=== PATIENT | female | born 1960 | race Caucasian/White ===

== ENCOUNTER 2016-12-30 08:19 | Inpatient (IN) | payer OTHER ==
[2016-12-30] VITALS (9 sets, daily range): BP systolic 111–177; BP diastolic 67–97; PULSE 81–99; RESP 16–24; TEMP 98–98.6; O2SAT 92–96
[~2016-12-30] VITALS: Ht 160 cm; Wt 98.5 kg
[~2016-12-30 08:19] MED LIST: ALBU0.08 NEB; APIX5TAB PO; ESCI10TA PO; IPRAAER INH; LEVA500T PO; METO50TA PO; PACE200T PO; TRAZ150T75 PO; UMEC1INH INH; VALE250C2
[2016-12-30] MEDS ORDERED: SODIUM CHLORIDE 0.9% FLUSH 10 ML FLUSH IVF PRN (08:30)
--- NOTE | 2016-12-30 08:40 | PD ---
HPI Chief Complaint: Numbness/Tingling Time Seen by Provider: 08:30 Travel History International Travel<30 days: No Contact w/Intl Traveler<30days: No Traveled to known affect area: No History of Present Illness HPI 56-year-old female with history of fibromyalgia, sciatica, presents to the ER today brought in by EMS because she states that she does not remember what happened after she was dropped off by her nephew, woke up sometime last night, found herself on the ground of her own apartment, has mid back pain, and is not able to move her legs. She denies any incontinence, fevers, or other symptoms. She denies any previous history of syncope. She denies drinking alcohol or abusing substances last night. She does admit that she is more stressed out than usual. She states that her back pain is currently a 9 out of 10. Modifying Factors: None Associated Signs & Symptoms: Syncope, lower back pain Risk Factors: None PFSH Past Medical History Hx Anticoagulant Therapy: Yes (ELIQUIS) Asthma: No Autoimmune Disease: No Blood Disorders: No Bipolar Disorder: Yes Anxiety: Yes Depression: Yes Heart Rhythm Problems: Yes (AFIB) Cancer: Yes (BREAST ) Cardiac Catheterization: No Cardiovascular Problems: Yes (CHF / HYPERTENSION) High Cholesterol: No Chemotherapy: No Chest Pain: No Congestive Heart Failure: Yes COPD: Yes Cerebrovascular Accident: Yes Diabetes: No Diminished Hearing: No Endocrine: No Gastrointestinal Disorders: Yes (bowel resction 2013 ) GERD: Yes Genitourinary: No Headaches: Yes Hiatal Hernia: No Heparin Induced Thrombocytopen: No Hypertension: Yes Immune Disorder: No Implanted Vascular Access Dvce: Yes Musculoskeletal: No Neurologic: No Psychiatric: Yes Reproductive: No Respiratory: Yes Migraines: No Radiation Therapy: Yes (2002 BREAST CANCER) Seizures: Yes (2014) Sleep Apnea: No Thyroid Disease: No Ulcer: Yes Menopausal: Yes : 3 Para: 2 Miscarriage: 1 Past Surgical History Appendectomy: Yes Body Medical Devices: 2 pins in right arm Cholecystectomy: Yes Coronary Artery Bypass Graft: No Hysterectomy: No Mastectomy: Yes (BILATERAL ) Neurologic Surgery: Yes (C-SPINE SURGERY) Pacemaker: No Tonsillectomy: Yes Social History Alcohol Use: No Tobacco Use: Yes (12PPD) Substance Use: No Allergies-Medications (Allergen,Severity, Reaction): Coded Allergies: Penicillin (Verified Allergy, Severe, PURITIS, 12/30/16) Reported Meds & Prescriptions Reported Meds & Active Scripts Active Escitalopram (Escitalopram Oxalate) 10 Mg Tab 10 Mg PO DAILY Reported Eliquis (Apixaban) 5 Mg Tab 5 Mg PO BID Albuterol Neb (Albuterol Sulfate) 2.5 Mg/3 Ml Neb 2.5 Mg NEB Q4HR NEB While awake Trazodone (Trazodone HCl) 150 Mg Tab 150 Mg PO HS Metoprolol Tartrate 50 Mg Tab 50 Mg PO BID Incruse Ellipta Inh (Umeclidinium [place] Inh) 0.0625 Mg/Act Inh 62.5 Mcg INH DAILY Pacerone (Amiodarone HCl) 200 Mg Tab 200 Mg PO DAILY Combivent Respimat Inh (Ipratropium-Albuterol Inh) 20-100 Nursing Home/Act Aero 1 Puff INH QID Review of Systems Except as stated in HPI: all other systems reviewed are Neg Physical Exam Narrative GENERAL: Middle age white female patient currently in moderate distress, tearful in the ER. Awake, alert, oriented 3. SKIN: Warm and dry. HEAD: Atraumatic. Normocephalic. EYES: Pupils equal and round. No scleral icterus. No injection or drainage. ENT: No nasal bleeding or discharge. Mucous membranes pink and moist. NECK: Trachea midline. No JVD. CARDIOVASCULAR: Regular rate and rhythm. No murmur appreciated. RESPIRATORY: No accessory muscle use. Clear to auscultation. Breath sounds equal bilaterally. GASTROINTESTINAL: Abdomen soft, non-tender, nondistended. Hepatic and splenic margins not palpable. MUSCULOSKELETAL: No obvious deformities. No clubbing. No cyanosis. No edema. BACK: No CVA tenderness. No rash. Midline L1 area tenderness on palpation of the spine with no obvious deformities. NEUROLOGICAL: Awake and alert. Decreased sensation over the entire body, unable to lift or move both legs, but able to use both arms with normal strength. Normal speech. Face is symmetrical. Extraocular movements are intact. PSYCHIATRIC: Appropriate mood and affect; insight and judgment normal. Data Data Last Documented VS Vital Signs Date Time Temp Pulse Resp B/P Pulse Ox O2 Delivery O2 Flow Rate FiO2 12/30/16 12:50 81 16 147/72 96 Room Air 12/30/16 08:24 98.6 Orders Electrocardiogram (12/30/16 08:30) Complete Blood Count With Diff (12/30/16 08:30) Comprehensive Metabolic Panel (12/30/16 08:30) Magnesium (Mg) (12/30/16 08:30) Ckmb (Isoenzyme) Profile (12/30/16 08:30) Troponin I (12/30/16 08:30) Act Partial Throm Time (Ptt) (12/30/16 08:30) Prothrombin Time / Inr (Pt) (12/30/16 08:30) Urinalysis - C+S If Indicated (12/30/16 08:30) Chest, Single Ap (12/30/16 08:30) Ct Brain W/O Iv Contrast(Rout) (12/30/16 08:30) Ecg Monitoring (12/30/16 08:30) Iv Access Insert/Monitor (12/30/16 08:30) Oximetry (12/30/16 08:30) Sodium Chloride 0.9% Flush (Ns Flush) (12/30/16 08:30) Cta Thor Abd Aorta W Iv C W3d (12/30/16 ) Drug Screen, Random Urine (12/30/16 08:43) CKMB (12/30/16 09:05) CKMB% (12/30/16 09:05) Vascular Access Team Consult PRN (12/30/16 11:26) Vascular Poc Ultrasound (12/30/16 ) Iohexol 350 Inj (Omnipaque 350 Inj) (12/30/16 13:52) Labs Laboratory Tests Test 12/30/16 12/30/16 09:05 09:25 White Blood Count 12.3 TH/MM3 Red Blood Count 4.41 MIL/MM3 Hemoglobin 13.4 GM/DL Hematocrit 40.3 % Mean Corpuscular Volume 91.5 FL Mean Corpuscular Hemoglobin 30.5 PG Mean Corpuscular Hemoglobin 33.3 % Concent Red Cell Distribution Width 15.0 % Platelet Count 325 TH/MM3 Mean Platelet Volume 8.3 FL Neutrophils (%) (Auto) 77.9 % Lymphocytes (%) (Auto) 12.6 % Monocytes (%) (Auto) 8.0 % Eosinophils (%) (Auto) 0.7 % Basophils (%) (Auto) 0.8 % Neutrophils # (Auto) 9.6 TH/MM3 Lymphocytes # (Auto) 1.5 TH/MM3 Monocytes # (Auto) 1.0 TH/MM3 Eosinophils # (Auto) 0.1 TH/MM3 Basophils # (Auto) 0.1 TH/MM3 CBC Comment DIFF FINAL Differential Comment Prothrombin Time 11.4 SEC Prothromb Time International 1.0 RATIO Ratio Activated Partial 27.5 SEC Thromboplast Time Sodium Level 134 MEQ/L Potassium Level 4.2 MEQ/L Chloride Level 101 MEQ/L Carbon Dioxide Level 25.2 MEQ/L Anion Gap 8 MEQ/L Blood Urea Nitrogen 13 MG/DL Creatinine 0.97 MG/DL Estimat Glomerular Filtration 59 ML/MIN Rate Random Glucose 87 MG/DL Calcium Level 9.4 MG/DL Magnesium Level 1.9 MG/DL Total Bilirubin 0.5 MG/DL Aspartate Amino Transf 70 U/L (AST/SGOT) Alanine Aminotransferase 31 U/L (ALT/SGPT) Alkaline Phosphatase 157 U/L Total Creatine Kinase 1823 U/L Creatine Kinase MB 29.7 NG/ML Creatine Kinase MB % 1.6 % Troponin I LESS THAN 0.02 NG/ML Total Protein 8.3 GM/DL Albumin 3.5 GM/DL Urine Color YELLOW Urine Turbidity CLEAR Urine pH 6.0 Urine Specific [place] 1.011 Urine Protein TRACE mg/dL Urine Glucose (UA) NEG mg/dL Urine Ketones 10 mg/dL Urine Occult Blood NEG Urine Nitrite NEG Urine Bilirubin NEG Urine Urobilinogen LESS THAN 2.0 MG/DL Urine Leukocyte Esterase NEG Urine WBC 2 /hpf Urine Squamous Epithelial 1 /hpf Cells Urine Hyaline Casts 1 /lpf Urine Mucus FEW /lpf Microscopic Urinalysis Comment CULT NOT INDICATED Urine Opiates Screen NEG Urine Barbiturates Screen NEG Urine Amphetamines Screen POS Urine Benzodiazepines Screen NEG Urine Cocaine Screen NEG Urine Cannabinoids Screen NEG MDM Medical Decision Making Medical Screen Exam Complete: Yes Emergency Medical Condition: Yes Medical Record Reviewed: Yes Interpretation(s) EKG shows NSR, no ST elevation or depression, and no arrhythmias. No significant T-wave inversions. Laboratory Tests Test 12/30/16 12/30/16 09:05 09:25 White Blood Count 12.3 TH/MM3 (4.0-11.0) Neutrophils (%) (Auto) 77.9 % (16.0-70.0) Neutrophils # (Auto) 9.6 TH/MM3 (1.8-7.7) Monocytes # (Auto) 1.0 TH/MM3 (0-0.9) Sodium Level 134 MEQ/L (136-145) Estimat Glomerular Filtration 59 ML/MIN (>89) Rate Aspartate Amino Transf 70 U/L (15-37) (AST/SGOT) Alkaline Phosphatase 157 U/L (45-117) Total Creatine Kinase 1823 U/L (26-192) Creatine Kinase MB 29.7 NG/ML (0.5-3.6) Troponin I LESS THAN 0.02 NG/ML (0.02-0.05) Total Protein 8.3 GM/DL (6.4-8.2) Urine Ketones 10 mg/dL (NEG) Urine Mucus FEW /lpf (OCC) Last [address] 12/30/1630 Signed Impressions: Service Date/Time: Friday, December 30, 2016 10:45 - CONCLUSION: No acute disease. Bernard Quintanilla MD Chest X-Ray 12/30/16829 Signed Impressions: Service Date/Time: Friday, December 30, 2016 09:27 - CONCLUSION: 1. Left lingular atelectasis/scarring. 2. Borderline but well compensated heart. Lungs are otherwise clear. Jermaine Hughes MD Aorta CTA 12/30/16 0000 Signed Impressions: Service Date/Time: Friday, December 30, 2016 13:30 - CONCLUSION: 1. The thoracoabdominal aorta is normal in caliber throughout its length without aneurysmal disease or dissection. 2. Dependent atelectatic changes in both hemithoraces. 3. Patient is status post cholecystectomy. 4. Benign-appearing cysts in the lateral aspect of the left renal cortex and left lobe of the thyroid Jermaine Hughes MD Differential Diagnosis Syncope, bilateral leg weaknessmetabolic abnormalities versus dehydration versus back injury versus herniated disc versus CVA versus aortic dissection Narrative Course Patient states that her nephew had dropped her off at around 2 PM yesterday which is when he she was last seen normal. She states that when she woke up, it was dark, and she waited until daylight and pulled herself to call for help. Initial lab work shows some rhabdomyolysis and IV fluids were given in the ER. Her initial CAT scans of the head and aorta did not show any signs of acute processes. On reevaluation at 2:30 PM, she is able to move her legs more but states that she feels very weak in general. At this point, I plan would be to admit her for further evaluation. Diagnosis Primary Impression: Syncope Additional Impression: General weakness Admitting Information Admitting Physician Requests: it Dionicio Dias MD Dec 30, 2016 08:40
[2016-12-30 09:18] LABS: AUTOMATED NEUTROPHIL # 9.6 TH/MM3 (1.8-7.7); BASOPHIL # 0.1 TH/MM3 (0-0.2); BASOPHIL % 0.8 % (0.0-2.0); EOSINOPHIL # 0.1 TH/MM3 (0-0.4); EOSINOPHIL % 0.7 % (0.0-4.0); HEMATOCRIT 40.3 % (35.0-46.0); HEMO FLAGS DIFF FINAL; LYMPH % 12.6 % (9.0-44.0); LYMPHOCYTE # 1.5 TH/MM3 (1.0-4.8); MEAN CELL VOLUME 91.5 FL (80.0-100.0); MEAN CORPUSCULAR HEMOGLOBIN 30.5 PG (27.0-34.0); MEAN CORPUSCULAR HGB CONC 33.3 % (32.0-36.0); NEUT % 77.9 % (16.0-70.0); PLATELET COUNT 325 TH/MM3 (150-450); RED BLOOD COUNT 4.41 MIL/MM3 (4.00-5.30); WHITE BLOOD COUNT 12.3 TH/MM3 (4.0-11.0)
[2016-12-30 09:28] LABS: APTT (PATIENT) 27.5 SEC (24.3-30.1); PROTHROMBIN TIME - PATIENT 11.4 SEC (9.8-11.6)
[2016-12-30 09:50] LABS: BLOOD, URINE NEG (NEG); COMMENT (UR) CULT NOT INDICATED; CULTURE IF INDICATED CULT NOT INDICATED; GLUCOSE,URINE NEG (NEG); HYALINE CAST, URINE 1 /lpf (RARE); KETONE, URINE 10 mg/dL (NEG); MUCUS URINE FEW /lpf (OCC); NITRITE,URINE NEG (NEG); SQUAMOUS EPITHELIAL CELL URINE 1 /hpf (0-5); URINE COLOR YELLOW (YELLW/STRAW)
[2016-12-30 09:57] LABS: ALKALINE PHOSPHATASE 157 U/L (45-117); ALT (GPT) 31 U/L (10-53); ANION GAP 8 MEQ/L (5-15); AST (GOT) 70 U/L (15-37); BICARBONATE 25.2 MEQ/L (21.0-32.0); BLOOD UREA NITROGEN 13 MG/DL (7-18); CHLORIDE 101 MEQ/L (98-107); CREATINE KINASE 1823 U/L (26-192); GLOMERULAR FILTRATION RATE 59 ML/MIN (>89); MAGNESIUM 1.9 MG/DL (1.5-2.5); SODIUM (NA) 134 MEQ/L (136-145); TOTAL BILIRUBIN ADULT 0.5 MG/DL (0.2-1.0)
[2016-12-30 10:01] LABS: POTASSIUM 4.2 MEQ/L (3.5-5.1)
--- NOTE | 2016-12-30 10:05 | RADRPT ---
EXAM DATE/TIME: 12/30/2016 09:27 [facility] COMPARISON: CHEST SINGLE AP, August 18, 2016, 14:10. INDICATIONS : Palpitations. Patient states she passed out and has had confusion. MEDICAL HISTORY : Chronic obstructive pulmonary disease. Cerebrovascular disease. Seizures. Hypertension SURGICAL HISTORY : Cervical spine. ENCOUNTER: Initial ACUITY: 2 days PAIN SCORE: 0/10 LOCATION: Bilateral chest FINDINGS: A single view of the chest demonstrates the lungs to be symmetrically aerated without evidence of mas s, infiltrate or effusion. Scarring or atelectasis in the left lingula . Heart size is borderline th e well compensated.. Osseous structures are intact with anterior fixation of the lower cervical spin e. CONCLUSION: 1. Left lingular atelectasis/scarring. 2. Borderline but well compensated heart. Lungs are otherwise clear. Jermaine Hughes MD on December 30, 2016 at 10:01 Board Certified Radiologist. This report was verified electronically.
[2016-12-30 10:14] LABS: CKMB 29.7 NG/ML (0.5-3.6)
[2016-12-30 11:37] LABS: AMPHETAMINE, URINE POS (NEG); BARBITURATES, URINE NEG (NEG); COCAINE, URINE NEG (NEG)
--- NOTE | 2016-12-30 13:47 | RADRPT ---
EXAM DATE/TIME: 12/30/2016 10:45 [facility] COMPARISON: CT BRAIN W/O CONTRAST, November 23, 2016, 17:30. INDICATIONS : Syncope. RADIATION DOSE: 56.35 CTDIvol (mGy) MEDICAL HISTORY : Congestive hearrt failure. Deep venous thrombosis. Hypertension.Breast cancer. CVA. SURGICAL HISTORY : Appendectomy. Cholecystectomy.Mastectomy, bilateral.Bowel resection. ENCOUNTER: Initial ACUITY: 1 day PAIN SCALE: 0/10 LOCATION: cranial TECHNIQUE: Multiple contiguous axial images were obtained of the head. Using automated exposure control and adj ustment of the mA and/or kV according to patient size, radiation dose was kept as low as reasonably a chievable to obtain optimal diagnostic quality images. FINDINGS: CEREBRUM: The ventricles are normal for age. No evidence of midline shift, mass lesion, hemorrhage or acute in farction. No extra-axial fluid collections are seen. POSTERIOR FOSSA: The cerebellum and brainstem are intact. The 4th ventricle is midline. The cerebellopontine angle i s unremarkable. EXTRACRANIAL: The visualized portion of the orbits is intact. SKULL: The calvaria is intact. No evidence of skull fracture. CONCLUSION: No acute disease. Bernard Quintanilla MD on December 30, 2016 at 13:44 Board Certified Radiologist. This report was verified electronically.
[2016-12-30] MEDS ORDERED: IOHEXOL 350 MG/ML 10 ML VIAL (for RAD DIAG) IV ONE (13:52)
--- NOTE | 2016-12-30 14:29 | RADRPT ---
EXAM DATE/TIME: 12/30/2016 13:30 [facility] COMPARISON: No previous studies available for comparison. INDICATIONS : Dissection. IV CONTRAST: 92 cc Omnipaque 350 (iohexol) IV RADIATION DOSE: 17.07 CTDIvol (mGy) MEDICAL HISTORY : Congestive hearrt failure. Deep venous thrombosis. Hypertension.Breast cancer. CVA. SURGICAL HISTORY : Appendectomy. Cholecystectomy.Mastectomy, bilateral.Bowel resection. ENCOUNTER: Initial ACUITY: 1 day PAIN SCALE: 4/10 LOCATION: chest TECHNIQUE: Volumetric scanning was performed using a multi-row detector CT scanner. The data was post processed with a variety of visualization algorithms including full volume maximum intensity projection, multi -planar sliding thin slab reformation, curved planar reformation, and surface rendering techniques. Using automated exposure control and adjustment of the mA and/or kV according to patient size, radiat ion dose was kept as low as reasonably achievable to obtain optimal diagnostic quality images. FINDINGS: LUNGS: Mild, bilateral dependent atelectatic changes. No acute infiltrate. Bilateral breast augmentation. MEDIASTINUM: No abnormally enlarged lymph nodes by CT criteria. No axillary or hilar abnormalities are identified. Atherosclerotic calcification of the coronary arteries. Benign-appearing 6 mm probable cyst in the l eft lobe of thyroid. ABDOMEN: The liver and spleen are free of focal defects. The pancreas demonstrate no abnormality. Patient is s tatus post cholecystectomy. The adrenal glands are normal. The kidneys demonstrate no evidence of joey id renal mass or hydronephrosis. Benign-appearing 1.3 cm cortical cyst laterally in the left kidney. No free fluid or abdominal masses are identified. No para-aortic adenopathy is seen. PELVIS: No evidence of free fluid or pelvic mass. No abnormally enlarged inguinal or retroperitoneal lymph no juanita are present. The bladder is unremarkable. THORACIC AORTA: The thoracic aortic root is normal measuring 3.1 cm in diameter with normal branching of the great ve ssels. There is no evidence of aneurysm or dissection. Descending thoracic aorta measures 2.7 cm in diameter. ABDOMINAL AORTA: The aorta is normal in caliber without aneurysm or dissection. The renal arteries are patent bilater ally. The proximal celiac and superior mesenteric arteries are patent and normal in diameter. PELVIC VESSELS: The internal iliac and external iliac vessels are patent without aneurysm or stenosis. CONCLUSION: 1. The thoracoabdominal aorta is normal in caliber throughout its length without aneurysmal disease o r dissection. 2. Dependent atelectatic changes in both hemithoraces. 3. Patient is status post cholecystectomy. 4. Benign-appearing cysts in the lateral aspect of the left renal cortex and left lobe of the thyroid Jermaine Hughes MD on December 30, 2016 at 14:22 Board Certified Radiologist. This report was verified electronically.
[2016-12-30] MEDS ORDERED: GADODIAMIDE PF 287 MG/ML 5 ML VIAL (for RAD MRI) IV ONE (17:15)
--- NOTE | 2016-12-30 17:54 | RADRPT ---
EXAM DATE/TIME: 12/30/2016 16:26 [facility] COMPARISON: No previous studies available for comparison. INDICATIONS : Extremity weakness. CONTRAST: 19 cc Omniscan (gadodiamide) IV MEDICAL HISTORY : Hypertension. Cardiovascular disease Carcinoma, breast. SURGICAL HISTORY : Appendectomy. Cholecystectomy. Mastectomy, bilateral. Breast implants. Cervical fusion. Right arm. ENCOUNTER: Subsequent ACUITY: 1 day PAIN SCORE: 6/10 LOCATION: Lower back. TECHNIQUE: Multiplanar multisequence MRI of the lumbar spine was performed with and without contrast. FINDINGS: The most caudal appearing lumbar vertebra is numbered as L5. Sagittal T1 pre-and postcontrast, T2 and inversion recovery images show early degenerative disc disea se at L4-5 and L5-S1 with some loss of disc height and early disc desiccation. Otherwise, vertebral b joan heights are maintained throughout. Spinal canal is widely patent. Small, benign-appearing 1-1.5 c m cortical cysts are seen in both kidneys. Detailed axial images as follows: T12-L1: The thecal sac has a normal diameter. No evidence of disc bulge or protrusion. The neural foramina are patent bilaterally. L1-L2: The thecal sac has a normal diameter. No evidence of disc bulge or protrusion. The neural foramina are patent bilaterally. L2-L3: The thecal sac has a normal diameter. No evidence of disc bulge or protrusion. The neural foramina are patent bilaterally. L3-L4: The thecal sac has a normal diameter. No evidence of disc bulge or protrusion. The neural foramina are patent bilaterally. L4-L5: The thecal sac has a normal diameter. No evidence of disc bulge or protrusion. The neural foramina are patent bilaterally. L5-S1: The thecal sac has a normal diameter. No evidence of disc bulge or protrusion. The neural foramina are patent bilaterally. CONCLUSION: 1. Early degenerative disc disease at L4-5 and L5-S1 with some loss of disc height and disc desiccati on. 2. Otherwise negative. Spinal canal and neural foramina are patent throughout without nerve root comp romise to explain current clinical symptoms. Jermaine Hughes MD on December 30, 2016 at 17:49 Board Certified Radiologist. This report was verified electronically.
--- NOTE | 2016-12-30 17:56 | RADRPT ---
EXAM DATE/TIME: 12/30/2016 16:26 [facility] COMPARISON: No previous studies available for comparison. INDICATIONS : Extremity weakness. CONTRAST: 19 cc Omniscan (gadodiamide) IV MEDICAL HISTORY : Hypertension. Cardiovascular disease Carcinoma, breast. SURGICAL HISTORY : Appendectomy. Cholecystectomy. Mastectomy, bilateral. Breast implants. Cervica l fusion. Right arm. ENCOUNTER: Subsequent ACUITY: 1 day PAIN SCORE: 6/10 LOCATION: Back. TECHNIQUE: Multiplanar multisequence MRI of the thoracic spine was performed. FINDINGS: The sagittal, T1, pre and post contrast, T2 and inversion recovery images show exaggera jason kyphotic curvature of the dorsal spine with mild multilevel degenerative disc disease predominant ly in the mid dorsal levels. There are small disc/spurs predominantly at T6-7 and T7-8 which encroac h on the anterior epidural space but do not result in significant stenosis. In fact, the spinal juan l is widely patent throughout without cord compromise. Cord signal is normal throughout. Multiple fl ow voids are identified on the T2 and inversion recovery images within the CSF. A small, 1.3 cm karla ical cyst is seen laterally in the left kidney. Detailed axial images as follows: T1-T2: Normal. T2-T3: The thecal sac has a normal diameter. No evidence of disc bulge or protrusion. T3-T4: The thecal sac has a normal diameter. No evidence of disc bulge or protrusion. T4-T5: The thecal sac has a normal diameter. No evidence of disc bulge or protrusion. T5-T6: The thecal sac has a normal diameter. No evidence of disc bulge or protrusion. T6-T7: Small right paracentral disc which encroaches on the anterior epidural space. Spinal juan l is patent. T7-T8: Small right posterior disc encroaching on the anterior epidural space. Spinal canal is pa tent. T8-T9: The thecal sac has a normal diameter. No evidence of disc bulge or protrusion. T9-T10: The thecal sac has a normal diameter. No evidence of disc bulge or protrusion. T10-T11: The thecal sac has a normal diameter. No evidence of disc bulge or protrusion. T11-T12: The thecal sac has a normal diameter. No evidence of disc bulge or protrusion. T12-L1: The thecal sac has a normal diameter. No evidence of disc bulge or protrusion. CONCLUSION: 1. Exaggerated kyphotic curvature of the dorsal spine with mild multilevel degenerative disc disease predominantly at T6-7 and T7-8 as detailed above. 2. However, the spinal canal is widely patent throughout without cord compromise to explain current c linical symptoms. Jermaine Hughes MD on December 30, 2016 at 17:44 Board Certified Radiologist. This report was verified electronically.
--- NOTE | 2016-12-30 18:20 | RADRPT ---
EXAM DATE/TIME: 12/30/2016 16:26 [facility] COMPARISON: CT CERVICAL SPINE W/O CONTRAST, November 23, 2016, 17:35. INDICATIONS : Pain. CONTRAST: 19 cc Omniscan (gadodiamide) IV MEDICAL HISTORY : Hypertension. Cardiovascular disease Carcinoma, breast. SURGICAL HISTORY : Appendectomy. Cholecystectomy. Mastectomy, bilateral. Cervical fusion. Breast implants. Right arm. ENCOUNTER: Subsequent ACUITY: 1 day PAIN SCORE: 6/10 LOCATION: neck TECHNIQUE: Multiplanar, multisequence MRI examination of the cervical spine was performed. FINDINGS: Previous ventral hardware fusion from C4-C6. Normal alignment throughout. Benign marrow signal where not obscured. No evidence of canal or foraminal compromise. No evidence of paraspinal mass or hematom a. Normal craniovertebral junction and normal appearance of the cervical cord. CONCLUSION: Unremarkable MR appearance of the cervical spine post previous ventral fusion as above J Carlos Frye MD on December 30, 2016 at 18:14 Board Certified Radiologist. This report was verified electronically.
[2016-12-30] MEDS: RESP: ALBUTEROL 2.5 MG/3 ML NEB (SCH) INH ×2 (19:55→23:16)
[2016-12-30] MEDS: SODIUM CHLOR 0.9% 1000 ML INJ 1,000 ML IV SCH (19:57)
[2016-12-30] MEDS ORDERED: traZODone HCL 50 MG TAB PO SCH (21:00)
[2016-12-30] MEDS ORDERED: COMBIVENT RESPIMAT INH SCH (21:00)
[2016-12-30] MEDS: APIXABAN 5 MG TABLET PO SCH (23:46)
[2016-12-30] MEDS: METOPROLOL TARTRATE 50 MG TAB PO SCH (23:46)
[2016-12-30] MEDS: ACETAMINOPHEN/HYDROcodone 325 MG/5 MG TAB PO PRN (23:46)
[2016-12-31] VITALS (10 sets, daily range): BP systolic 97–140; BP diastolic 52–83; PULSE 55–90; RESP 12–19; TEMP 96.9–98.5; O2SAT 90–96
[2016-12-31] MEDS: RESP: ALBUTEROL 2.5 MG/3 ML NEB (SCH) INH ×2 (03:04→07:40)
[2016-12-31 05:58] LABS: AUTOMATED NEUTROPHIL # 4.2 TH/MM3 (1.8-7.7); BASOPHIL # 0.1 TH/MM3 (0-0.2); BASOPHIL % 1.8 % (0.0-2.0); EOSINOPHIL # 0.2 TH/MM3 (0-0.4); HEMATOCRIT 37.7 % (35.0-46.0); HEMO FLAGS DIFF FINAL; LYMPHOCYTE # 2.7 TH/MM3 (1.0-4.8); MEAN CELL VOLUME 92.5 FL (80.0-100.0); MEAN CORPUSCULAR HEMOGLOBIN 30.2 PG (27.0-34.0); MEAN CORPUSCULAR HGB CONC 32.7 % (32.0-36.0); MONO % 9.9 % (0.0-8.0); NEUT % 52.3 % (16.0-70.0); PLATELET COUNT 296 TH/MM3 (150-450); RED BLOOD COUNT 4.07 MIL/MM3 (4.00-5.30); RED CELL DISTRIBUTION WIDTH 15.4 % (11.6-17.2); WHITE BLOOD COUNT 8.1 TH/MM3 (4.0-11.0)
[2016-12-31] MEDS: SODIUM CHLOR 0.9% 1000 ML INJ 1,000 ML IV SCH ×2 (06:15→18:07)
[2016-12-31 06:37] LABS: BICARBONATE 23.8 MEQ/L (21.0-32.0); POTASSIUM 3.4 MEQ/L (3.5-5.1)
[2016-12-31 07:12] LABS: CKMB 4.8 NG/ML (0.5-3.6)
[2016-12-31] MEDS ORDERED: POTASSIUM CHLORIDE 20 MEQ CONTROLLED RELEASE TAB PO ONE (07:30)
[2016-12-31] MEDS: ACETAMINOPHEN/HYDROcodone 325 MG/5 MG TAB PO PRN ×3 (07:51→20:44)
[2016-12-31] MEDS: ESCITALOPRAM OXALATE 10 MG TAB PO SCH (08:44)
[2016-12-31] MEDS: APIXABAN 5 MG TABLET PO SCH (08:44)
[2016-12-31] MEDS: AMIODARONE 200 MG TAB PO SCH (08:44)
[2016-12-31] MEDS: METOPROLOL TARTRATE 50 MG TAB PO SCH ×2 (08:44→20:43)
[2016-12-31] MEDS ORDERED: UMECLIDINIUM INH SCH (09:00)
--- NOTE | 2016-12-31 10:16 | PD.CONS ---
History of Present Illness Service Neurology Consult Requested By medical Reason for Consult weakness Primary Care Physician Billy Toth MD History of Present Illness 56-year-old female with history of fibromyalgia, sciatica, presents to the ER today brought in by EMS for lower leg weakness. states it started 2 days ago. numbness upto her knees, unable to move either lower limb. has chronic back pain, denies any radicular symptoms. no ue symptoms. no b/b incontinence. no trauma, no sick contacts, no recent vaccinations. has had multiple hospitalizations, most recently for tylenol overdose. she just got disability for copd and back pain. ambulates independently, uses walker prn when her copd is active. PFSH Past Medical History Hx Anticoagulant Therapy: Yes (ELIQUIS) Asthma: No Autoimmune Disease: No Blood Disorders: No Bipolar Disorder: Yes Anxiety: Yes Depression: Yes Heart Rhythm Problems: Yes (AFIB) Cancer: Yes (BREAST ) Cardiac Catheterization: No Cardiovascular Problems: Yes (CHF / HYPERTENSION) High Cholesterol: No Chemotherapy: No Chest Pain: No Congestive Heart Failure: Yes COPD: Yes Cerebrovascular Accident: Yes Diabetes: No Diminished Hearing: No Endocrine: No Gastrointestinal Disorders: Yes (bowel resction 2013 ) GERD: Yes Genitourinary: No Headaches: Yes Hiatal Hernia: No Heparin Induced Thrombocytopen: No Hypertension: Yes Immune Disorder: No Implanted Vascular Access Dvce: Yes Musculoskeletal: No Neurologic: No Psychiatric: Yes Reproductive: No Respiratory: Yes Migraines: No Radiation Therapy: Yes (2002 BREAST CANCER) Seizures: Yes (2014) Sleep Apnea: No Thyroid Disease: No Ulcer: Yes Menopausal: Yes : 3 Para: 2 Miscarriage: 1 Past Surgical History Appendectomy: Yes Body Medical Devices: 2 pins in right arm Cholecystectomy: Yes Coronary Artery Bypass Graft: No Hysterectomy: No Mastectomy: Yes (BILATERAL ) Neurologic Surgery: Yes (C-SPINE SURGERY) Pacemaker: No Tonsillectomy: Yes Social History Alcohol Use: No Tobacco Use: Yes (1/2PPD) Substance Use: No Allergies-Medications (Allergen,Severity, Reaction): Coded Allergies: Penicillin (Verified Allergy, Severe, PURITIS, 12/30/16) Reported Meds & Prescriptions Reported Meds & Active Scripts Active Escitalopram (Escitalopram Oxalate) 10 Mg Tab 10 Mg PO DAILY Reported Eliquis (Apixaban) 5 Mg Tab 5 Mg PO BID Albuterol Neb (Albuterol Sulfate) 2.5 Mg/3 Ml Neb 2.5 Mg NEB Q4HR NEB While awake Trazodone (Trazodone HCl) 150 Mg Tab 150 Mg PO HS Metoprolol Tartrate 50 Mg Tab 50 Mg PO BID Incruse Ellipta Inh (Umeclidinium [place] Inh) 0.0625 Mg/Act Inh 62.5 Mcg INH DAILY Pacerone (Amiodarone HCl) 200 Mg Tab 200 Mg PO DAILY Combivent Respimat Inh (Ipratropium-Albuterol Inh) 20-100 Nursing Home/Act Aero 1 Puff INH QID Review of Systems Except as stated in HPI: all other systems reviewed are Neg Review of Systems All other ROS: ROS reviewed as documented in chart Past Family Social History Allergies: Coded Allergies: Penicillin (Verified Allergy, Severe, PURITIS, 12/30/16) Active Ordered Medications Current Medications Medications (Trade) Dose Ordered Sig/Briseida Route Start Time Stop Time Status Last Admin (NS Flush) 2 ml UNSCH PRN IVF 12/30/16 08:30 (Desyrel) 50 mg HS PO 12/30/16 21:00 12/30/16 23:45 (Cordarone) 200 mg DAILY PO 12/31/16 09:00 12/31/16 08:44 (Eliquis) 5 mg BID PO 12/30/16 21:00 12/31/16 08:44 (Lexapro) 10 mg DAILY PO 12/31/16 09:00 12/31/16 08:44 Metoprolol Tartrate 50 mg 50 mg BID PO 12/30/16 21:00 12/31/16 08:44 (NS 1000 ml Inj) 1,000 ml @ 100 mls/hr Q10H IV 12/30/16 20:00 12/31/16 06:15 Patient Own Medication PT OWN MED: COMBIV... QID INH 12/30/16 21:00 Hold Patient Own Medication PT OWN MED: INCR... DAILY INH 12/31/16 09:00 Hold ([place] 5-325 Mg) 1 tab Q6H PRN PO 12/30/16 22:45 12/31/16 07:51 (Lexapro) 10 mg DAILY PO 01/01/17 09:00 UNV (Desyrel) 150 mg HS PO 12/31/16 21:00 UNV Non-Formulary Medication 1 puff QID INH 12/31/16 13:00 UNV Non-Formulary Medication 62.5 mcg DAILY INH 01/01/17 09:00 UNV (Protonix) 40 mg DAILY PO 01/01/17 09:00 UNV Exam I&O / VS 12/30/16 12/30/16 12/31/16 15:00 23:00 07:00 Intake Total 240 ml 939 ml Balance 240 ml 939 ml Intake Oral 240 ml IV Total 939 ml # Voids 1 Vital Signs Date Time Temp Pulse Resp B/P Pulse Ox O2 Delivery O2 Flow Rate FiO2 12/31/16 07:50 96 Nasal Cannula 1.00 12/31/16 07:35 98.5 66 18 140/83 94 12/31/16 03:25 98.2 55 19 101/59 91 12/31/16 00:13 98.1 90 19 118/69 92 12/30/16 23:18 Nasal Cannula 2.00 12/30/16 22:20 87 12/30/16 21:04 98.0 99 19 125/69 92 12/30/16 20:04 89 18 111/67 95 Room Air 12/30/16 19:55 94 12/30/16 14:56 95 16 145/81 94 Room Air 12/30/16 12:50 81 16 147/72 96 Room Air General: Alert and Oriented, No acute distress Eye: EOMI Respiratory: Non-labored respirations Neurologic: Alert, Oriented, CN II-XII intact Psychiatric: Cooperative, Appropriate mood & affect Exam Comments ox 3. follows. eomi, ou 3-2mm, face sym, ue 5/5. paraplegia, minimal distal toe movement on left, reduced pin, light touch upto knees, depressed msr, no clonus , planterflexor Review/Management Diagnosis/Plan: (1) Paraplegia Plan: mri of spine cord, no lesion etiology: possible gbs vs rhabdo vs spinal cord infarct recs hold OAC for lp check mri brain will consider ivig emg/ncv of le when feasible p.t. follow exam d/w pt (2) Depression (3) Paroxysmal atrial fibrillation Plan: on oac (4) Chronic low back pain (5) Cervical spondylosis without myelopathy (6) Anxiety Problem Qualifiers (1) Depression: Qualified Code: F32.9 - Depression, unspecified depression type (2) Chronic low back pain: Tristan French MD Dec 31, 2016 10:16
--- NOTE | 2016-12-31 10:58 | EKG ---
Date Performed: 12/30/2016 Time Performed: 09:14:27 PTAGE: 56 years EKG: Sinus rhythm POSSIBLE RIGHT VENTRICULAR CONDUCTION DELAY SEPTAL MYOCARDIAL INFARCTION ABNORMAL ECG PREVIOUS TRACING : 11/23/2016 16.47 DOCTOR: Brian Bartlett Interpretating Date/Time 12/31/2016 10:56:41
[2016-12-31] MEDS: RESP: ALBUTEROL 2.5 MG/3 ML NEB (SCH) NEB ×3 (11:03→19:50)
--- NOTE | 2016-12-31 11:13 | RADRPT ---
EXAM DATE/TIME: 12/31/2016 10:38 [facility] COMPARISON: MRI BRAIN W & W/O CONTRAST, January 01, 2016, 12:38. CT BRAIN W/O CONTRAST, December 30, 2016, 10:45. INDICATIONS : CVA. Lower extremity weakness. MEDICAL HISTORY : Hypertension. Cardiovascular disease Carcinoma, breast. SURGICAL HISTORY : Appendectomy. Cholecystectomy. Fusion, cervical. Bilateral mastectomy. ENCOUNTER: Initial ACUITY: 2 day PAIN SCORE: 2/10 LOCATION: cranial TECHNIQUE: Multiplanar, multisequence MRI of the brain was performed without contrast. FINDINGS: CEREBRUM: The ventricles are normal for age. No evidence of midline shift, mass lesion, hemorrhage or acute in farction. No extraaxial fluid collections are seen. The pituitary gland and suprasellar cistern are normal in configuration. WHITE MATTER: No significant signal abnormalities are seen in the white matter. 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 Normal flow voids are identified throughout. T he cerebellum and brainstem are intact. The 4th ventricle is midline. The cerebellopontine angle is unremarkable. The cerebellar tonsils are normal in position. DIFFUSION IMAGING: No focal areas of restricted diffusion are seen. No evidence of acute infarction. EXTRACRANIAL: The visualized portions of the orbits and paranasal sinuses are unremarkable. CONCLUSION: No evidence of infarct or metastatic disease. No significant intracranial abnormality noted.. Vania Cornejo MD on December 31, 2016 at 11:12 on December 31, 2016 at 11: Board Certified Radiologist. This report was verified electronically.
[2016-12-31 11:50] LABS: HEMATOCRIT 35.8 % (35.0-46.0); MEAN CELL VOLUME 91.5 FL (80.0-100.0); MEAN CORPUSCULAR HEMOGLOBIN 30.6 PG (27.0-34.0); MEAN CORPUSCULAR HGB CONC 33.5 % (32.0-36.0); PLATELET COUNT 339 TH/MM3 (150-450); RED BLOOD COUNT 3.91 MIL/MM3 (4.00-5.30); RED CELL DISTRIBUTION WIDTH 15.6 % (11.6-17.2); REVIEW FLAG FINAL; WHITE BLOOD COUNT 9.8 TH/MM3 (4.0-11.0)
[2016-12-31 12:07] LABS: APTT (PATIENT) 28.4 SEC (24.3-30.1); INTERNATIONAL NORMALIZED RATIO 1.1 RATIO
[2016-12-31] MEDS ORDERED: NON-FORMULARY DRUG (Ipratropium-Albuterol Inh (Combivent Respimat Inh) 1 PUFF) INH SCH (13:00)
[2016-12-31] MEDS: traZODone HCL 50 MG TAB PO SCH (20:44)
--- NOTE | 2016-12-31 23:26 | MG ---
cc: ALBARO DESAI MD Lab No: [id number] Date: 12/31/16 Age: 56 Sex: F Race: 1960 A 56-year-old female. She has some confusion and memory changes. Posterior rhythm demonstrates 6-7 Hz activity, 20-50 microvolts, myogenic high-frequency artifact in the frontal channels. Attenuation and slowing with the of drowsy state. Limited driving with photic stimulation. Single lead EKG showing sinus rhythm. INTERPRETATION Very mild encephalopathy. Clinical correlation. MD EMILY Dickson/ /10:56 PM /11:21 PM MTDD
[2017-01-01] VITALS (12 sets, daily range): BP systolic 92–135; BP diastolic 48–75; PULSE 58–77; RESP 18; TEMP 96.4–109; O2SAT 93–98
[2017-01-01] MEDS: SODIUM CHLOR 0.9% 1000 ML INJ 1,000 ML IV SCH ×3 (02:00→23:41)
[2017-01-01] MEDS: RESP: ALBUTEROL 2.5 MG/3 ML NEB (SCH) NEB ×6 (03:20→20:08)
[2017-01-01] MEDS: ACETAMINOPHEN/HYDROcodone 325 MG/5 MG TAB PO PRN ×3 (03:50→15:58)
[2017-01-01 05:42] LABS: BICARBONATE 23.5 MEQ/L (21.0-32.0); POTASSIUM 3.6 MEQ/L (3.5-5.1)
--- NOTE | 2017-01-01 07:49 | HHI.PR ---
Subjective Remarks alert oriented, midsternal staffing chest pain X 1 last am, positional with SOB some feeling and movement returning chiefly to left side O2 on no family present. (Louise Reyes) Objective Objective Results - Vital Signs Date Time Temp Pulse Resp B/P Pulse Ox O2 Delivery O2 Flow Rate FiO2 01/01/17 05:00 97.7 01/01/17 03:42 109.0 62 18 109/62 93 01/01/17 00:00 98.1 68 18 97/52 93 12/31/16 20:32 98.1 66 12 113/64 93 12/31/16 20:00 62 12/31/16 15:47 96.9 62 18 97/60 92 12/31/16 12:01 98.1 68 18 97/52 93 12/31/16 11:48 97.7 68 18 105/64 90 12/31/16 08:00 73 12/31/16 07:50 96 Nasal Cannula 1.00 12/31/16 07:35 98.5 66 18 140/83 94 I/O 12/31/16 12/31/16 12/31/16 01/01/17 01/01/17 01/01/17 07:00 15:00 23:00 07:00 15:00 23:00 Intake Total 939 ml 540 ml 240 ml 530 ml Output Total 1 ml Balance 939 ml 540 ml 239 ml 530 ml Intake Oral 240 ml 240 ml 240 ml IV Total 939 ml 300 ml 290 ml Output Stool Total 1 ml # Voids 1 2 1 1 # Bowel Movements 1 (Louise Reyes) Result Diagram: 12/31/16 1127 01/01/17 0500 ROS General: Weakness (lower extremities), Other (12 point ROS done. positives include her weakness lower extremities, numbness, chest pain, SOB, otherwise unremarkable systemsd.) Cardiac: Chest Pain (X 1 ) Pulmonary: SOB (O2 on) Neuro/MS: Other (no syncope, or dizziness) (Louise Reyes) Physical Exam Physical Exam PHYSICAL EXAMINATION GENERAL: This is a mildly obese well-developed, well-nourished female who appears to be resting in bed . She is alert and awake, HEAD: Normocephalic without any lesion or mass noted. Facial features appear symmetric. OROPHARYNGEAL: Oropharynx without erythema or edema. NECK: Supple. No nuchal rigidity or lymphadenopathy. Trachea midline without deviation. CARDIAC: Regular rhythm, regular rate, S1 and S2 are heard. Murmur soft, no gallops or rubs. LUNGS: Mildly diminished to auscultation bilaterally. no wheeze, no rhonchi or rales ABDOMEN: Soft, nontender, no organomegaly or masses. Bowel sounds are heard in all four quadrants. No rebound. No guarding. EXTREMITIES: no edema. Pulses equal bilateral. cyanosis. Increased movement and sensation to LLL, > RLL NEUROLOGICAL: Patient mood and affect appropriate. No focal deficit SKIN:Warm and moist Objective Remarks Im feeling more this am to my legs, Rt. > lt. I also had chest pain last night. (Louise Reyes) A/P Assessment and Plan Syncope with LOC No further c.p of syncope or dizziness Neuropathy/Possible paraplegia to LE. Greater sensations to LLL, No babinski. Can bend slightly knees up, but cant lift off the bed. Can wiggle feet and toes on command. Appreciate neuro consult and expert opinion. PT eval and treat, Hypokalemia, resolved, monitor labs, check BMP am. Leukocytosis, resolved, monitor labs, HTN, stable, lowest BP 97/52, high 113/64 Afib, CVR On Amniodarone,Eliquix Anxiety/Depression/hx bipolar disorder Tearful on adm. but better affect this am Chest pain, X 1 early am with SOB, described as a staffing sensation, never had before. With SOB, (scared her). Thought it might be positional? With her hx, will consult cardiology, positive stress test? Dyspnea, History COPD, tobacco abuse, but having bouts without warning off and on. O2 , @L Discussed With: Nurse, Family (patient), Other (Dr. Moreno, seen on his behalf) (Louise Reyes) Assessment and Plan PT seen and exmined as above feeling better had some chest dyscomfort last night for short period of time resolved by itself didnot take any illicit drugs as per pt was on floor for ? amount of time rahbdomyolysis dw pt dw police judge dw rn inpatient admission chela neurology input will hold anticoagulants (Edenilson Moreno MD) Louies Reyes Jan 01, 2017 07:48 Edenilson Moreno MD Jan 01, 2017 09:54
[2017-01-01] MEDS: PANTOPRAZOLE SOD 40 MG DELAYED RELEASE TAB PO SCH (08:04)
[2017-01-01] MEDS: METOPROLOL TARTRATE 50 MG TAB PO SCH ×2 (08:04→21:00)
[2017-01-01] MEDS: AMIODARONE 200 MG TAB PO SCH (08:04)
[2017-01-01] MEDS: ESCITALOPRAM OXALATE 10 MG TAB PO SCH (08:04)
[2017-01-01] MEDS ORDERED: ESCITALOPRAM OXALATE 10 MG TAB PO SCH (09:00)
[2017-01-01] MEDS ORDERED: NON-FORMULARY DRUG (Umeclidinium Bromide Inh (Incruse Ellipta Inh) 62.5 MCG) INH SCH (09:00)
--- NOTE | 2017-01-01 11:56 | HHI.PR ---
Review/Management Diagnosis/Plan: (1) Paraplegia Plan: mri of spine cord, no lesion etiology: possible gbs vs rhabdo vs spinal cord infarct -a little better today -mri brain no acute lesion recs lp- pending will consider ivig emg/ncv of le when feasible p.t. follow exam d/w pt (2) Depression (3) Paroxysmal atrial fibrillation Plan: on oac (4) Chronic low back pain (5) Cervical spondylosis without myelopathy (6) Anxiety Subjective Subjective Comments No acute events reported No headache No chest pain No dyspnea Active Medications Current Medications Medications (Trade) Dose Ordered Sig/Briseida Route Start Time Stop Time Status Last Admin (NS Flush) 2 ml UNSCH PRN IVF 12/30/16 08:30 Escitalopram Oxalate 10 mg 10 mg DAILY PO 12/31/16 09:00 01/01/17 08:04 (NS 1000 ml Inj) 1,000 ml @ 100 mls/hr Q10H IV 12/30/16 20:00 12/31/16 18:07 Patient Own Medication PT OWN MED: COMBIV... QID INH 12/30/16 21:00 Hold Patient Own Medication PT OWN MED: INCR... DAILY INH 12/31/16 09:00 Hold ([place] 5-325 Mg) 1 tab Q6H PRN PO 12/30/16 22:45 01/01/17 10:12 (Desyrel) 150 mg HS PO 12/31/16 21:00 12/31/16 20:44 (Protonix) 40 mg DAILY PO 01/01/17 09:00 01/01/17 08:04 (Cordarone) 200 mg DAILY PO 01/02/17 09:00 (Lopressor) 50 mg BID PO 01/01/17 21:00 Allergies Allergies Coded Allergies Penicillin (Verified Allergy, Severe, PURITIS, 12/30/16) Review of Systems All other ROS: ROS reviewed as documented in chart Exam I&O / VS 12/31/16 12/31/16 01/01/17 15:00 23:00 07:00 Intake Total 540 ml 240 ml 530 ml Output Total 1 ml Balance 540 ml 239 ml 530 ml Intake Oral 240 ml 240 ml 240 ml IV Total 300 ml 290 ml Output Stool Total 1 ml # Voids 2 1 1 # Bowel Movements 1 Vital Signs Date Time Temp Pulse Resp B/P Pulse Ox O2 Delivery O2 Flow Rate FiO2 01/01/17 09:30 96 Nasal Cannula 2.00 01/01/17 08:00 71 01/01/17 07:57 96.4 77 18 135/73 94 01/01/17 05:00 97.7 01/01/17 03:42 109.0 62 18 109/62 93 01/01/17 00:00 98.1 68 18 97/52 93 12/31/16 20:32 98.1 66 12 113/64 93 12/31/16 20:00 62 12/31/16 15:47 96.9 62 18 97/60 92 12/31/16 12:01 98.1 68 18 97/52 93 General: Alert and Oriented, No acute distress Eye: EOMI Respiratory: Non-labored respirations Neurologic: Alert, Oriented, CN II-XII intact Psychiatric: Cooperative, Appropriate mood & affect Exam Comments ox 3. follows. eomi, ou 3-2mm, face sym, ue 5/5. paraplegia, a little more distal toe movement in both feet and mild left leg abduction/adduction movement 1-2/5, reduced pin, light touch upto knees, depressed msr, no clonus, planterflexor Objective Micro and Labs Laboratory Tests Test 01/01/17 05:00 Sodium Level 142 Potassium Level 3.6 Chloride Level 109 Carbon Dioxide Level 23.5 Anion Gap 10 Blood Urea Nitrogen 13 Creatinine 0.67 Estimat Glomerular Filtration 91 Rate Random Glucose 90 Calcium Level 8.5 Problem Qualifiers (1) Depression: Qualified Code: F32.9 - Depression, unspecified depression type (2) Chronic low back pain: Tristan French MD Jan 01, 2017 11:56
[2017-01-01] MEDS ORDERED: DILT1TAB6 PO (17:05)
--- NOTE | 2017-01-01 17:18 | MB ---
cc: SAMUEL HURLEY DATE OF CONSULTATION 01/01/2017 HISTORY Ms. Aguilar is a 56-year-old white female who was admitted with generalized weakness. Two days prior to admission she developed bilateral lower extremity weakness. Last night she developed sharp, substernal chest discomfort. She is disabled due to COPD and back pain. She normally walks with a walker. PAST MEDICAL HISTORY Positive for: 1. Atrial fibrillation for which she is on Eliquis. 2. Bipolar disorder. 3. Anxiety, depression. 4. Breast cancer. 5. Hypertension. 6. Congestive heart failure. 7. Chronic obstructive pulmonary disease. 8. Cerebrovascular accident. 9. Bowel resection in 2013. 10. Gastroesophageal reflux disease. 11. Headaches. 12. Hypertension. 13. Seizure disorder. 14. Peptic ulcer disease. 15. Cervical spine surgery. 16. Bilateral mastectomy. 17. Right arm surgery. 18. Tonsillectomy. MEDICATIONS Include: 1. Combivent. 2. Amiodarone 200 milligrams daily. 3. Lipitor. 4. Metoprolol 50 milligrams twice a day. 5. Trazodone. 6. Albuterol. 7. Eliquis 5 milligrams twice a day. 8. Citalopram. ALLERGIES PENICILLIN. SOCIAL HISTORY The patient is a smoker. She does not drink alcohol. FAMILY HISTORY Positive for heart disease. REVIEW OF SYSTEMS Otherwise negative. PHYSICAL EXAMINATION VITAL SIGNS: Blood pressure 135/75, pulse 58 and regular. HEENT: Negative. 2+ carotid upstroke. No bruits. LUNGS: Clear. HEART: Regular with no murmur, gallop or rub. ABDOMEN: Soft. No bruits. EXTREMITIES: With bilateral lower extremity weakness. Extremities without edema. 1-2+ distal pulses. NEUROLOGICAL: Shows bilateral lower extremity weakness. EKG was reviewed and showed sinus rhythm. Normal axis. Mild nonspecific ST changes. LABORATORY DATA Labs, hemoglobin 12.0. Potassium 3.6. Creatinine 0.7. Troponin normal. CK 1823 and 979. CKMB normal. TSH 0.43. DIAGNOSES 1. Unspecified angina. 2. Paraplegia. 3. Paroxysmal atrial fibrillation. 4. Bipolar disorder. 5. Chronic low back pain. 6. Hypertension. 7. Chronic obstructive pulmonary disease. 8. Smoking. DISPOSITION Ms. Aguilar will be monitored on telemetry. We will obtain an echocardiogram to evaluate her left ventricular function. She will be scheduled for an adenosine myocardial perfusion study to evaluate for ischemia. I will follow her for cardiology during her hospitalization. She is undergoing neurological evaluation for her paraplegia. MD FRAN Stern/KK /4:24 PM /4:59 PM JEANNE
[2017-01-01] MEDS: traZODone HCL 50 MG TAB PO SCH (21:00)
[2017-01-02] MEDS: RESP: ALBUTEROL 2.5 MG/3 ML NEB (SCH) NEB ×7 (00:42→23:51)
[2017-01-02 03:48] VITALS: BP 102/58; PULSE 74; RESP 18; TEMP 97.8; O2SAT 97
[2017-01-02 06:16] LABS: HEMATOCRIT 33.7 % (35.0-46.0); MEAN CELL VOLUME 94.3 FL (80.0-100.0); MEAN CORPUSCULAR HEMOGLOBIN 30.4 PG (27.0-34.0); MEAN CORPUSCULAR HGB CONC 32.3 % (32.0-36.0); PLATELET COUNT 336 TH/MM3 (150-450); RED BLOOD COUNT 3.58 MIL/MM3 (4.00-5.30); RED CELL DISTRIBUTION WIDTH 15.4 % (11.6-17.2); REVIEW FLAG FINAL; WHITE BLOOD COUNT 8.3 TH/MM3 (4.0-11.0)
[2017-01-02 06:32] LABS: BICARBONATE 23.2 MEQ/L (21.0-32.0); POTASSIUM 3.6 MEQ/L (3.5-5.1)
[2017-01-02 06:59] LABS: CKMB 0.6 NG/ML (0.5-3.6)
[2017-01-02 07:31] VITALS: BP 117/73; PULSE 73; RESP 19; TEMP 98.5; O2SAT 94
[2017-01-02] MEDS: PANTOPRAZOLE SOD 40 MG DELAYED RELEASE TAB PO SCH (08:01)
[2017-01-02] MEDS: ACETAMINOPHEN/HYDROcodone 325 MG/7.5 MG TAB PO PRN ×2 (08:01→13:56)
[2017-01-02] MEDS: ESCITALOPRAM OXALATE 10 MG TAB PO SCH (08:02)
[2017-01-02] MEDS: AMIODARONE 200 MG TAB PO SCH (08:02)
[2017-01-02] MEDS: METOPROLOL TARTRATE 50 MG TAB PO SCH ×2 (08:02→21:07)
[2017-01-02] MEDS: SODIUM CHLOR 0.9% 1000 ML INJ 1,000 ML IV SCH ×3 (08:03→21:09)
--- NOTE | 2017-01-02 08:21 | MH ---
cc: KALINA MORENO DATE OF ADMISSION: 12/30/2016 DATE OF : 1960. CHIEF COMPLAINT Numbness and tingling in her lower extremities and possible syncopal episode. Travel in the last 30 days - none. HISTORY OF PRESENT ILLNESS This is a 56-year-old female who presented to the emergency room with a possible syncopal episode and low back pain. The patient states that her nephew dropped her off at her home. She now is remembering that he kept asking her why she was falling asleep and that she needed to wake up. The patient woke up some time during the evening and found herself in front of her apartment on the ground. She was unable to move her legs and does not know how long she was laying there. The patient denies any chest pain, no headaches, no history of altered mental status or syncopal episodes. She states she did have a fever and cough approximately a week ago and took [id number] medications. She has had some increased stressors in her life recently because she is trying to find a new apartment. She does complain of some shortness of breath with activity. Currently she states that she has numbness in both her legs, the left being greater than the right. She can move her extremities but on exam they do appear weakened as compared to her upper extremities. The patient is a current tobacco user and initially on her lab work she was positive for amphetamines. She denies any use of any drugs. Denies any alcohol use. She states she is continuing to have low back pain and weakness in both her legs. The patient does have a history of atrial fibrillation and has been taking Eliquis for approximately one year. She states that she takes her medicines as prescribed. In the emergency room the patient had initial labs and vital signs done. She had ECG monitoring, O2 therapy and a CT of the brain to rule out any acute events. She also had a CTA of her thoracic abdominal aorta. The patient also had MRIs, labs and meds to stabilize her. PAST MEDICAL HISTORY 1. Congestive heart failure. 2. Atrial fibrillation, takes Eliquis. 3. Bipolar disorder. 4. Anxiety. 5. Depression. 6. Cancer of the breast. 7. Hypertension. 8. COPD. 9. Degenerative disc disease 10. CVA. 11. GERD. 12. Headaches. 13. Radiation therapy for her breast cancer. 14. Seizure disorder. PAST SURGICAL HISTORY 1. Appendectomy. 2. Pins in the right arm. 3. Cholecystectomy. 4. Bilateral mastectomy. 5. C-spine surgery. 6. Tonsillectomy. Most of this information is being gathered from the record. ALLERGIES PENICILLIN. SOCIAL HISTORY The patient lives alone in her own apartment. She does admit to tobacco use anywhere from two to a half-a-pack of cigarettes per day. No alcohol and denies any substance abuse although she was positive for amphetamines. The patient does have and nephew that lives close by and is her support system MEDICATIONS REPORTED 1. Eliquis 2. Duo-Neb. 3. Trazodone. 4. Metoprolol. 5. Incruse Ellipta. 6. Amiodarone. 7. Combivent. FAMILY HISTORY Positive for heart disease, hypertension, cancer, diabetes and stroke. REVIEW OF SYSTEMS A 12-point review was obtained. Positives initiated in HPI which include altered mental status, increased anxiety and nervousness, shortness of breath, weakness in her lower extremities with numbness and tingling, and low back pain. Other systems negative or unremarkable for now. PHYSICAL EXAMINATION VITAL SIGNS: Temperature 98.5, pulse 66, respirations 18, blood pressure 140/83. Initially when coming to the emergency room blood pressure was 118/69, O2 sat was 92 on 2 liters nasal cannula. She is currently 96 O2 on 1 liter nasal cannula O2. GENERAL: Well-nourished, mildly obese white female, looks older than her stated age, resting in the bed. She is awake, alert and answering simple questions. She is a fair historian. HEENT: Atraumatic, normocephalic. PERRLA at 3. Mucous membranes are moist. Tongue is midline. NECK: Neck is supple. CARDIOVASCULAR: Heart sounds S1, S2. A soft systolic murmur noted at the lower left sternal border. She has trace edema in her lower extremities. Pulses are intact. Continues with a numb sensation to her lower extremities with tactile stimulation. PULMONARY: Essentially clear anteriorly and posteriorly with a few wheezes noted. Otherwise breath sounds are essentially clear. ABDOMEN: Round, soft, nontender, nondistended. Active bowel sounds. MUSCULOSKELETAL: She can move her lower extremities with some generalized weakness. Upper extremities are equal and normal strength. NEUROLOGIC: Awake and alert. Speech is normal. Face is symmetrical. The patient can move both feet on command but states that she is unable to lift. PSYCHIATRIC: Appropriate mood and affect. DIAGNOSTIC DATA Drug screen negative for opiates, barbiturates, benzos, cocaine, and cannabis. Positive for amphetamine. CBC: Initially white count 12.3 on admission now 8.1, RBC 4.07, hemoglobin 12.3, hematocrit 37.7, platelet count 296, monocyte count 9.90. PT/INR 1. Chemistries: Sodium 139, potassium 3.4, was 4.2 on admission, chloride 106, carbon dioxide 23.8, anion gap 9, BUN 12, creatinine 0.66, GFR 93, glucose 76, calcium 8.3, total creatinine kinase 979, CK-MB 4.8, percentage 0.5, troponin is less than 0.02, total protein 8.3, albumin 3.5. Urine is yellow, clear, pH is 6, specific gravity 1.011, trace of protein, negative glucose, occult blood, nitrites and bilirubin and leukocyte esterase. No culture is indicated for now. IMAGING STUDIES Shows chest x-ray to be essentially clear with some left linear atelectasis and scarring. Heart is borderline but well compensated. Aorta shows normal without disease or dissection. Dependent atelectasis changes in both hemothoraces. Benign cyst in the left renal cortex and the left lobe of the thyroid. Head CT: No acute disease. Lumbar spine MRI: Early degenerative disc disease in L4-L5 and L5 and S1 with some loss of disc height otherwise negative. Cervical spine: Unremarkable. MRI appearance of the cervical spine: Status post ventral fusion noted. ASSESSMENT AND PLAN 1. Syncopal episode, unknown cause with generalized weakness. 2. Rhabdomyolysis, mild. 3. Generalized weakness in bilateral legs with degenerative disc disease. 4. Hypokalemia. 5. Positive amphetamine usage. 6. Anxiety. 7. History of depression and bipolar disorder. 8. Hypertension. 9. Tobacco disorder. PLAN 1. Initially we are going to admit for observation. 2. We will monitor her vital signs q.4 and as needed. 3. We will consult Neurology for their expert opinion for generalized lower extremity weakness. 4. Reconcile her medications. 5. Monitor her labs as appropriate. 6. The patient will receive 20 mEq of potassium as a one-time dose and we will monitor her BMP in the morning. 7. EEG study. 8. We will consult PT to eval and treat with her lower extremities and assess. 9. Continuous ECG monitoring. 10. DVT prophylaxis will be with her Eliquis. 11. PUD prophylaxis with Protonix. The patient is FULL CODE/FULL AGGRESSIVE CARE. Her course of treatment will depend on the findings over the next 24-48 hours. The patient received hydration in the ER for lab work that showed some initial rhabdomyolysis and we will follow. Dictated by NICO Dietrich Kalina Moreno MD JP/ANDREW /9:18 AM /8:22 AM Patient seen and examined on the day of admission as above. Above-note was not available before to sign Chart was reviewed on day of admission including but not limited to labs radiological data and medications Discussed with RN and NICO about plan of care Discussed with patient MTDD
--- NOTE | 2017-01-02 09:39 | HHI.PR ---
Subjective Remarks alert oriented, No more chest pain Did try to walk yesterday as per patient she tried to lift her legs and did some some feeling and movement returning chiefly to left side O2 on no family present. Objective Objective Results - Vital Signs Date Time Temp Pulse Resp B/P Pulse Ox O2 Delivery O2 Flow Rate FiO2 01/02/17 07:31 98.5 73 19 117/73 94 01/02/17 03:48 97.8 74 18 102/58 97 01/01/17 23:21 98.7 70 18 94/56 98 01/01/17 21:34 98.2 70 18 92/48 94 01/01/17 20:10 94 Nasal Cannula 2.00 01/01/17 20:00 69 01/01/17 16:14 96.6 64 18 112/59 95 01/01/17 11:58 97.1 58 18 135/75 96 I/O 01/01/17 01/01/17 01/01/17 01/02/17 01/02/17 01/02/17 07:00 15:00 23:00 07:00 15:00 23:00 Intake Total 530 ml 1020 ml 1050 ml Balance 530 ml 1020 ml 1050 ml Intake Oral 240 ml 720 ml IV Total 290 ml 300 ml 1050 ml # Voids 1 2 1 # Bowel Movements 1 Result Diagram: 01/02/1715 01/02/17 0515 Other Results Laboratory Tests Test 01/02/17 05:15 White Blood Count 8.3 Red Blood Count 3.58 Hemoglobin 10.9 Hematocrit 33.7 Mean Corpuscular Volume 94.3 Mean Corpuscular Hemoglobin 30.4 Mean Corpuscular Hemoglobin 32.3 Concent Red Cell Distribution Width 15.4 Platelet Count 336 Mean Platelet Volume 8.5 Sodium Level 144 Potassium Level 3.6 Chloride Level 111 Carbon Dioxide Level 23.2 Anion Gap 10 Blood Urea Nitrogen 12 Creatinine 0.84 Estimat Glomerular Filtration 70 Rate Random Glucose 86 Calcium Level 8.5 Total Creatine Kinase 201 Creatine Kinase MB 0.6 Creatine Kinase MB % 0.3 Physical Exam Physical Exam PHYSICAL EXAMINATION GENERAL: This is a mildly obese well-developed, well-nourished female who appears to be resting in bed . She is alert and awake, HEAD: Normocephalic without any lesion or mass noted. Facial features appear symmetric. OROPHARYNGEAL: Oropharynx without erythema or edema. NECK: Supple. No nuchal rigidity or lymphadenopathy. Trachea midline without deviation. CARDIAC: Regular rhythm, regular rate, S1 and S2 are heard. Murmur soft, no gallops or rubs. LUNGS: Mildly diminished to auscultation bilaterally. no wheeze, no rhonchi or rales ABDOMEN: Soft, nontender, no organomegaly or masses. Bowel sounds are heard in all four quadrants. No rebound. No guarding. EXTREMITIES: no edema. Pulses equal bilateral. cyanosis. Increased movement and sensation to LLL, > RLL NEUROLOGICAL: Patient mood and affect appropriate. Can lift her both legs just. Just few inches above the bed. Has decreased power and tone is good 4/5 SKIN:Warm and moist A/P Assessment and Plan Syncope with LOC No further c.p of syncope or dizziness Neuropathy/Possible paraplegia to LE. Greater sensations to LLL, No babinski. Can bend slightly knees up, but cant lift off the bed. Can wiggle feet and toes on command. Appreciate neuro consult and expert opinion. PT eval and treat, For LP today Hypokalemia, resolved, monitor labs, check BMP am. Leukocytosis, resolved, monitor labs, HTN, stable, Rhabdomyolysis on admission Better Paroxysmal Afib, CVR On Amniodarone,Eliquix. Off of Eliquis for LP Anxiety/Depression/hx bipolar disorder Tearful on adm. but better affect this am Chest pain, Appreciate cardiology input As per cardiology echocardiogram and adenosine myocardial perfusion study Dyspnea, History COPD, tobacco abuse, but having bouts without warning off and on. O2 , Discussed With: Nurse, patient Discussed With: Nurse, Family, Other Edenilson Moreno MD Jan 02, 2017 09:39
--- NOTE | 2017-01-02 09:49 | HHI.PR ---
Review/Management Diagnosis/Plan: (1) Paraplegia Plan: mri of spine cord, no lesion etiology: possible gbs vs rhabdo vs spinal cord infarct vs psychogenic -a little better today -mri brain no acute lesion recs lp- pending ? drug use neuro stable emg/ncv of le when feasible p.t. follow exam d/w pt (2) Depression (3) Paroxysmal atrial fibrillation Plan: on oac (4) Chronic low back pain (5) Cervical spondylosis without myelopathy (6) Anxiety Subjective Subjective Comments No acute events reported No headache No chest pain No dyspnea Active Medications Current Medications Medications (Trade) Dose Ordered Sig/Briseida Route Start Time Stop Time Status Last Admin (NS Flush) 2 ml UNSCH PRN IVF 12/30/16 08:30 Escitalopram Oxalate 10 mg 10 mg DAILY PO 12/31/16 09:00 01/02/17 08:02 (NS 1000 ml Inj) 1,000 ml @ 100 mls/hr Q10H IV 12/30/16 20:00 01/02/17 08:03 Patient Own Medication PT OWN MED: COMBIV... QID INH 12/30/16 21:00 Hold Patient Own Medication PT OWN MED: INCR... DAILY INH 12/31/16 09:00 Hold (Desyrel) 150 mg HS PO 12/31/16 21:00 12/31/16 20:44 (Protonix) 40 mg DAILY PO 01/01/17 09:00 01/02/17 08:01 (Cordarone) 200 mg DAILY PO 01/02/17 09:00 01/02/17 08:02 (Lopressor) 50 mg BID PO 01/01/17 21:00 01/02/17 08:02 ([place] 7.5-325 Mg) 1 tab Q6H PRN PO 01/01/17 19:00 01/02/17 08:01 Allergies Allergies Coded Allergies Penicillin (Verified Allergy, Severe, PURITIS, 12/30/16) Review of Systems All other ROS: ROS reviewed as documented in chart Exam I&O / VS 01/01/17 01/01/17 01/02/17 15:00 23:00 07:00 Intake Total 1020 ml 1050 ml Balance 1020 ml 1050 ml Intake Oral 720 ml IV Total 300 ml 1050 ml # Voids 2 1 # Bowel Movements 1 Vital Signs Date Time Temp Pulse Resp B/P Pulse Ox O2 Delivery O2 Flow Rate FiO2 01/02/17 07:31 98.5 73 19 117/73 94 01/02/17 03:48 97.8 74 18 102/58 97 01/01/17 23:21 98.7 70 18 94/56 98 01/01/17 21:34 98.2 70 18 92/48 94 01/01/17 20:10 94 Nasal Cannula 2.00 01/01/17 20:00 69 01/01/17 16:14 96.6 64 18 112/59 95 01/01/17 11:58 97.1 58 18 135/75 96 General: Alert and Oriented, No acute distress Eye: EOMI Respiratory: Non-labored respirations Neurologic: Alert, Oriented, CN II-XII intact Psychiatric: Cooperative, Appropriate mood & affect Exam Comments ox 3. follows. eomi, ou 3-2mm, face sym, getting test done at bedside Objective Micro and Labs Laboratory Tests Test 01/02/17 05:15 White Blood Count 8.3 Red Blood Count 3.58 Hemoglobin 10.9 Hematocrit 33.7 Mean Corpuscular Volume 94.3 Mean Corpuscular Hemoglobin 30.4 Mean Corpuscular Hemoglobin 32.3 Concent Red Cell Distribution Width 15.4 Platelet Count 336 Mean Platelet Volume 8.5 Sodium Level 144 Potassium Level 3.6 Chloride Level 111 Carbon Dioxide Level 23.2 Anion Gap 10 Blood Urea Nitrogen 12 Creatinine 0.84 Estimat Glomerular Filtration 70 Rate Random Glucose 86 Calcium Level 8.5 Total Creatine Kinase 201 Creatine Kinase MB 0.6 Creatine Kinase MB % 0.3 Problem Qualifiers (1) Depression: Qualified Code: F32.9 - Depression, unspecified depression type (2) Chronic low back pain: Tristan French MD Jan 02, 2017 09:49
[2017-01-02] MEDS ORDERED: REGADENOSON INJ 0.4 MG/5 ML SYR ONE (11:49)
--- NOTE | 2017-01-02 13:03 | RADRPT ---
EXAM DATE/TIME: 01/02/2017 10:55 CORRECTION Corrected on: January 03, 2017; Added pain scale [facility] COMPARISON: MYOCARDIAL PERF PHARM SPECT, GATED W/EF, October 09, 2015, 13:54. INDICATIONS : Angina. Congestive heart failure. DOSE: 27.3 mCi Tc99m Myoview at stress. 8.1 mCi Tc99m Myoview at rest. 0.4 mg Lexiscan STRESS SYMPTOMS: Dyspnea. EJECTION FRACTION: 63% MEDICAL HISTORY : Hypertension. Chronic obstructive pulmonary disease. Carcinoma, breast. Parapalegic. SURGICAL HISTORY : Tonsillectomy. Appendectomy. Cholecystectomy. Mastectomy and cervical spine surgery. ENCOUNTER: Initial ACUITY: 1 day PAIN SCALE: 0/10 LOCATION: chest TECHNIQUE: The patient underwent pharmacologic stress with infusion of prescribed dose. Continuous ECG tracing was monitored during stress. Gated SPECT imaging was performed after stress and conventional SPECT i maging was performed at rest. The examination was performed on a SPECT/CT scanner, both attenuation and non-corrected datasets were reviewed. FINDINGS: DISTRIBUTION: The maximum perfused segment at stress is in the anterior lateral wall. PERFUSION STUDY: The pattern of perfusion at stress is within normal limits. GATED STUDY: There is intact wall motion and thickening without hypokinetic or dyskinetic segments. CONCLUSION: Negative for stress-induced ischemia. RISK CATEGORY: Low (<1% Annual Mortality Rate) Gerardo iKrk MD FACR on January 02, 2017 at 13:00 Board Certified Radiologist. Board Certified Radiologist. This report was verified electronically.
--- NOTE | 2017-01-02 13:28 | PD.RAD ---
Post Procedure Progress Note Pre Procedure Diagnosis: (1) Paraplegia Post Procedure Diagnosis: (1) Paraplegia Procedure Date: Jan 02, 2017 Supervising Radiologist: Dl Grajeda JR Proceduralist/Assist: Joie Farfan, RT(R), RT Rosangela(R)() Anesthesia: Local Plan of Activity Patient to Unit: Nursing Unit Patient Condition: Good See PACS Report for procedural detail/treatment Spinal Procedure Lumbar Puncture L3-L4 Fluid Removal (CCs): 11 Fluid Description: Clear Puncture Time: 13:17 Jr. Taras,Dl Bryan MD Jan 02, 2017 13:28
[2017-01-02 13:51] VITALS: BP 142/92; PULSE 67; RESP 16; TEMP 98.5; O2SAT 93
--- NOTE | 2017-01-02 13:51 | PD.CARD.PN ---
Subjective Subjective Remarks No CP or SOB today, feels better Objective Medications Current Medications Medications (Trade) Dose Ordered Sig/Briseida Route Start Time Stop Time Status Last Admin (NS Flush) 2 ml UNSCH PRN IVF 12/30/16 08:30 Escitalopram Oxalate 10 mg 10 mg DAILY PO 12/31/16 09:00 01/02/17 08:02 (NS 1000 ml Inj) 1,000 ml @ 100 mls/hr Q10H IV 12/30/16 20:00 01/02/17 08:03 Patient Own Medication PT OWN MED: COMBIV... QID INH 12/30/16 21:00 Hold Patient Own Medication PT OWN MED: INCR... DAILY INH 12/31/16 09:00 Hold (Desyrel) 150 mg HS PO 12/31/16 21:00 12/31/16 20:44 (Protonix) 40 mg DAILY PO 01/01/17 09:00 01/02/17 08:01 (Cordarone) 200 mg DAILY PO 01/02/17 09:00 01/02/17 08:02 (Lopressor) 50 mg BID PO 01/01/17 21:00 01/02/17 08:02 ([place] 7.5-325 Mg) 1 tab Q6H PRN PO 01/01/17 19:00 01/02/17 08:01 Vital Signs / I&O Vital Signs Date Time Temp Pulse Resp B/P Pulse Ox O2 Delivery O2 Flow Rate FiO2 01/02/17 07:31 98.5 73 19 117/73 94 01/02/17 03:48 97.8 74 18 102/58 97 01/01/17 23:21 98.7 70 18 94/56 98 01/01/17 21:34 98.2 70 18 92/48 94 01/01/17 20:10 94 Nasal Cannula 2.00 01/01/17 20:00 69 01/01/17 16:14 96.6 64 18 112/59 95 I/O 01/01/17 01/01/17 01/01/17 01/02/17 01/02/17 01/02/17 07:00 15:00 23:00 07:00 15:00 23:00 Intake Total 530 ml 1020 ml 1050 ml Balance 530 ml 1020 ml 1050 ml Intake Oral 240 ml 720 ml IV Total 290 ml 300 ml 1050 ml # Voids 1 2 1 # Bowel Movements 1 Physical Exam GENERAL: In NAD SKIN: Warm and dry. HEAD: Normocephalic. EYES: No scleral icterus. No injection or drainage. NECK: Supple, trachea midline. No JVD or lymphadenopathy. CARDIOVASCULAR: Regular rate and rhythm without murmurs, gallops, or rubs. RESPIRATORY: Breath sounds equal bilaterally. No accessory muscle use. GASTROINTESTINAL: Abdomen soft, non-tender, nondistended. MUSCULOSKELETAL: No cyanosis, or edema. Laboratory Laboratory Tests Test 01/02/17 05:15 White Blood Count 8.3 TH/MM3 Red Blood Count 3.58 MIL/MM3 Hemoglobin 10.9 GM/DL Hematocrit 33.7 % Mean Corpuscular Volume 94.3 FL Mean Corpuscular Hemoglobin 30.4 PG Mean Corpuscular Hemoglobin 32.3 % Concent Red Cell Distribution Width 15.4 % Platelet Count 336 TH/MM3 Mean Platelet Volume 8.5 FL Sodium Level 144 MEQ/L Potassium Level 3.6 MEQ/L Chloride Level 111 MEQ/L Carbon Dioxide Level 23.2 MEQ/L Anion Gap 10 MEQ/L Blood Urea Nitrogen 12 MG/DL Creatinine 0.84 MG/DL Estimat Glomerular Filtration 70 ML/MIN Rate Random Glucose 86 MG/DL Calcium Level 8.5 MG/DL Total Creatine Kinase 201 U/L Creatine Kinase MB 0.6 NG/ML Creatine Kinase MB % 0.3 % Imaging Last Impressions Myocardial Perfusion Scan Nuc Med 01/02/17 0900 Signed Impressions: Service Date/Time: Monday, January 02, 2017 10:55 - CONCLUSION: Negative for stress-induced ischemia. RISK CATEGORY: Low (<1%% Annual Mortality Rate) Gerardo Kirk MD FACR Brain MRI 12/31/16 0000 Signed Impressions: Service Date/Time: Saturday, December 31, 2016 10:38 - CONCLUSION: No evidence of infarct or metastatic disease. No significant intracranial abnormality noted.. Vania Cornejo MD Lumbar Spine MRI 12/30/16 1447 Signed Impressions: Service Date/Time: Friday, December 30, 2016 16:26 - CONCLUSION: 1. Early degenerative disc disease at L4-5 and L5-S1 with some loss of disc height and disc desiccation. 2. Otherwise negative. Spinal canal and neural foramina are patent throughout without nerve root compromise to explain current clinical symptoms. Jermaine Hguhes MD Cervical Spine MRI 12/30/16 1447 Signed Impressions: Service Date/Time: Friday, December 30, 2016 16:26 - CONCLUSION: Unremarkable MR appearance of the cervical spine post previous ventral fusion as above J Carlos Frye MD Head CT 12/30/16 0830 Signed Impressions: Service Date/Time: Friday, December 30, 2016 10:45 - CONCLUSION: No acute disease. Bernard Quintanilla MD Chest X-Ray 12/30/16 0830 Signed Impressions: Service Date/Time: Friday, December 30, 2016 09:27 - CONCLUSION: 1. Left lingular atelectasis/scarring. 2. Borderline but well compensated heart. Lungs are otherwise clear. Jermaine Hughes MD Aorta CTA 12/30/16 0000 Signed Impressions: Service Date/Time: Friday, December 30, 2016 13:30 - CONCLUSION: 1. The thoracoabdominal aorta is normal in caliber throughout its length without aneurysmal disease or dissection. 2. Dependent atelectatic changes in both hemithoraces. 3. Patient is status post cholecystectomy. 4. Benign-appearing cysts in the lateral aspect of the left renal cortex and left lobe of the thyroid Jermaine Hughes MD Assessment and Plan Problem List: (1) Chest pain (2) COPD (chronic obstructive pulmonary disease) (3) Altered mental status (4) Bipolar 1 disorder, mixed (5) Tobacco dependency Assessment and Plan Symptoms improved. Myocardial perfusion study negative. No further cardiac eval necessary. Increase activity. Maxx Goodman MD Jan 02, 2017 13:51
--- NOTE | 2017-01-02 14:07 | RADRPT ---
EXAM DATE/TIME: 01/02/2017 13:00 [facility] COMPARISON: No previous studies available for comparison. INDICATIONS : Patient with lower extremity weakness in need of lumbar puncture. MEDICAL HISTORY : CHF, A-Fib, Breast cancer, HTN, COPD, DDD SURGICAL HISTORY : Appendectomy, Cholecystectomy, Bilateral mastectomy, C-spine surgery, Tonsillectomy ENCOUNTER: Initial ACUITY: 4 -6 days PAIN SCORE: 0/10 LUMBAR PUNCTURE TIME: 1317 hours FLUORO TIME: 0.8 minutes IMAGE SERIES: 1 ACCESS LEVEL: L3-4 FLUID: 11 cc of clear CSF was collected and sent to the laboratory for analysis. PROCEDURE : 1. Fluoroscopic guided lumbar puncture. The risks, benefits and alternatives to the procedure were explained and verbal and written consent w as obtained. The site was prepped in sterile fashion. Full sterile technique was used, including ca p, mask, sterile gloves and gown and a large sterile sheet. Hand hygiene and 2% chlorhexidine and/or betadine/alcohol prep was utilized per protocol for cutaneous antisepsis. The skin and subcutaneous tissues were infiltrated with local anesthetic solution. With fluoroscopic guidance the lumbar thecal sac was punctured at the level above. The fluid describ ed above was removed without difficulty. The patient tolerated the procedure well and there were no complications. CONCLUSION: Uncomplicated fluoroscopically guided lumbar puncture. Dl Grajeda Jr., MD on January 02, 2017 at 14:05 Board Certified Radiologist. This report was verified electronically.
[2017-01-02 14:58] LABS: LACTIC ACID,CSF 1.5 MMOL/L (0.0-3.0)
[2017-01-02 15:02] LABS: GROSS BLOOD TUBE #1 0 (0); GROSS BLOOD TUBE #2 0 (0); GROSS BLOOD TUBE #3 0 (0); GROSS BLOOD TUBE #4 0 (0); SUPERNATE COLOR TUBE #1 CLEAR (CLEAR); SUPERNATE COLOR TUBE #2 CLEAR (CLEAR); SUPERNATE COLOR TUBE #3 CLEAR (CLEAR); SUPERNATE COLOR TUBE #4 CLEAR (CLEAR); VOLUME TUBE # 2 2.5 ML; VOLUME TUBE # 3 2.5 ML; VOLUME TUBE # 4 2.8 ML; WBC TUBE #1 0 /MM3 (0-10)
--- NOTE | 2017-01-02 15:16 | EC ---
Study Study Date:01/02/2017 STUDY CONCLUSIONS SUMMARY - Left ventricle: The cavity size was normal. Wall thickness was normal. Systolic function was normal. The estimated ejection fraction was in the range of 60% to 65%. Wall motion was normal; there were no regional wall motion abnormalities. Left ventricular diastolic function parameters were normal. - Tricuspid valve: Mild regurgitation. If LV function is below 40, please consider prescribing an ACEI or ARB or document rationale for non-use. PROCEDURE DATA STUDY STATUS: Elective. Procedure: Transthoracic echocardiography. Image quality was good. Scanning was performed from the parasternal, apical, and subcostal acoustic windows. Study completion: The patient tolerated the procedure well. Transthoracic echocardiography. M-mode, complete 2D, complete spectral Doppler, and color Doppler. Patient status: Inpatient. CARDIAC ANATOMY LEFT VENTRICLE: The cavity size was normal. Wall thickness was normal. Systolic function was normal. The estimated ejection fraction was in the range of 60% to 65%. Wall motion was normal; there were no regional wall motion abnormalities. Left ventricular diastolic function parameters were normal. AORTIC VALVE: [place]. Doppler: There was no stenosis. No significant regurgitation. Peak gradient: 10mm Hg (S). MITRAL VALVE: The valve appears to be grossly normal. Doppler: There was no evidence for stenosis. Trace to mild regurgitation. LEFT ATRIUM: The atrium was at the upper limits of normal in size. RIGHT VENTRICLE: The cavity size was normal. PULMONIC VALVE: Not well visualized. Doppler: There was no evidence for stenosis. Trace regurgitation. TRICUSPID VALVE: The valve appears to be grossly normal. Doppler: There was no evidence for stenosis. Mild regurgitation. PERICARDIUM: There was no pericardial effusion. BASIC MEASUREMENTS ADULT NORMAL Left ventricle LV internal dimension, ED, chordal level, 47.8 mm 43-52 PLAX LV internal dimension, ES, chordal level, 32.8 mm 23-38 PLAX Fractional shortening, chordal level, PLAX 31 % >29 LV posterior wall thickness, ED 7.32 mm IVS/LVPW ratio, ED 1.2 <1.3 Ventricular septum Septal thickness, ED 8.8 mm Aortic valve Leaflet separation 23 mm 15-26 Left atrium Anterior-posterior dimension 38 mm Right ventricle RV internal dimension, ED, PLAX 23.1 mm 19-38 BASIC MEASUREMENTS ADULT NORMAL Aortic valve Leaflet separation 23 mm 15-26 Aorta Root diameter, ED 34 mm 20-37 DOPPLER MEASUREMENTS ADULT NORMAL Main pulmonary artery Pressure, S *45 mm Hg =30 Aortic valve Peak velocity, S 162 cm/s Peak gradient, S 10 mm Hg Mitral valve Peak E-wave velocity 69.1 cm/s Peak A-wave velocity 78.5 cm/s Peak E/A ratio 0.9 Tricuspid valve Regurgitant peak velocity 273 cm/s Peak RV-RA gradient, S 30 mm Hg Maximal regurgitant velocity 273 cm/s Systemic veins Estimated CVP 15 mm Hg Right ventricle RV pressure, S *45 mm Hg <30 LEGEND: Mean values are shown as u=mean value. Asterisk (*) shah values outside specified normal range. Prepared and signed by Сергей Silva [id number]
[2017-01-02 15:25] VITALS: BP 113/66; PULSE 78; RESP 18; TEMP 98.4; O2SAT 94
[2017-01-02 15:34] LABS: CSF LYMPHOCYTES 67 %; CSF MONOCYTES 25 %; CSF NEUTROPHILS 8 %; WBC TUBE #4 2 /MM3 (0-10)
[2017-01-02 19:33] VITALS: O2SAT 96
[2017-01-02 20:30] VITALS: PULSE 65
[2017-01-02] MEDS: traZODone HCL 50 MG TAB PO SCH (21:06)
[2017-01-02 21:53] LABS: AUTOMATED NEUTROPHIL # 4.3 TH/MM3 (1.8-7.7); BASOPHIL % 0.4 % (0.0-2.0); EOSINOPHIL # 0.2 TH/MM3 (0-0.4); EOSINOPHIL % 2.9 % (0.0-4.0); HEMATOCRIT 33.3 % (35.0-46.0); HEMO FLAGS DIFF FINAL; LYMPH % 36.5 % (9.0-44.0); MEAN CELL VOLUME 93.2 FL (80.0-100.0); MEAN CORPUSCULAR HEMOGLOBIN 31.7 PG (27.0-34.0); NEUT % 52.2 % (16.0-70.0); PLATELET COUNT 359 TH/MM3 (150-450); RED BLOOD COUNT 3.57 MIL/MM3 (4.00-5.30); RED CELL DISTRIBUTION WIDTH 15.5 % (11.6-17.2); WHITE BLOOD COUNT 8.2 TH/MM3 (4.0-11.0)
[2017-01-02] MEDS ORDERED: diphenhydrAMINE HCL 50 MG/ML VIAL IV PUSH PRN (23:00)
[2017-01-02] MEDS ORDERED: EPINEPHrine HCL (1:1000) 1 MG/ML VIAL OTHER PRN (23:00)
[2017-01-02] MEDS: diphenhydrAMINE HCL 25 MG CAP PO SCH (23:22)
[2017-01-02] MEDS: SODIUM CHLORID 0.9% 500 ML INJ 500 ML IV SCH (23:22)
[2017-01-02] MEDS: ACETAMINOPHEN 325 MG TAB PO SCH (23:23)
[2017-01-03] VITALS (7 sets, daily range): BP systolic 96–118; BP diastolic 55–82; PULSE 54–87; RESP 18–19; TEMP 97.7–98.6; O2SAT 93–97
[2017-01-03] MEDS: IMMUNE GLOBULIN INJ 35 GM in SYRINGE/BAG 1 EA IV SCH ×2 (01:21→23:48)
[2017-01-03] MEDS: DEXTROSE 5% IN WATE 500 ML INJ 500 ML OTHER SCH ×2 (01:22→15:40)
[2017-01-03] MEDS: RESP: ALBUTEROL 2.5 MG/3 ML NEB (SCH) NEB ×5 (03:26→21:08)
[2017-01-03] MEDS: APIXABAN 5 MG TABLET PO SCH ×3 (06:19→20:58)
--- NOTE | 2017-01-03 08:01 | HHI.PR ---
Subjective Remarks sob okay no wheezing able to move feet, attempts to lift off bed. Legs feel heavy, sensation dull no cp no fever no acute changes overnight having regular BMs Objective Objective Results - Vital Signs Date Time Temp Pulse Resp B/P Pulse Ox O2 Delivery O2 Flow Rate FiO2 01/03/17 07:59 97.7 64 19 118/82 96 01/03/17 07:24 96 Nasal Cannula 3.50 01/03/17 03:42 97.8 87 18 115/56 97 01/03/17 00:25 20 01/02/17 20:30 65 01/02/17 19:33 96 Nasal Cannula 3.50 01/02/17 15:25 98.4 78 18 113/66 94 01/02/17 13:51 98.5 67 16 142/92 93 I/O 01/02/17 01/02/17 01/02/17 01/03/17 01/03/17 01/03/17 07:00 15:00 23:00 07:00 15:00 23:00 Intake Total 1050 ml 440 ml Output Total 1350 ml Balance 1050 ml 440 ml -1350 ml IV Total 1050 ml 440 ml Output Urine Total 1350 ml # Voids 1 Result Diagram: 01/02/17212801/02/17 0515 Other Results Laboratory Tests Test 01/02/17 01/02/17 13:17 21:29 CSF Volume (Tube 1) 2.0 CSF Supernatant Color (tube 1) CLEAR CSF Gross Blood (Tube 1) 0 CSF WBC (Tube 1) 0 CSF RBC (Tube 1) 0 CSF Volume (Tube 2) 2.5 CSF Supernatant Color (tube 2) CLEAR CSF Gross Blood (Tube 2) 0 CSF Volume (Tube 3) 2.5 CSF Supernatant Color (tube 3) CLEAR CSF Gross Blood (Tube 3) 0 CSF Volume (Tube 4) 2.8 CSF Supernatant Color (tube 4) CLEAR CSF Gross Blood (Tube 4) 0 CSF WBC (Tube 4) 2 CSF RBC (Tube 4) 2 CSF Neutrophils 8 CSF Lymphocytes 67 CSF Monocytes 25 CSF Glucose 57 CSF Lactate Dehydrogenase 24 CSF Lactic Acid 1.5 CSF Total Protein 85.0 White Blood Count 8.2 Red Blood Count 3.57 Hemoglobin 11.3 Hematocrit 33.3 Mean Corpuscular Volume 93.2 Mean Corpuscular Hemoglobin 31.7 Mean Corpuscular Hemoglobin 34.0 Concent Red Cell Distribution Width 15.5 Platelet Count 359 Mean Platelet Volume 8.4 Neutrophils (%) (Auto) 52.2 Lymphocytes (%) (Auto) 36.5 Monocytes (%) (Auto) 8.0 Eosinophils (%) (Auto) 2.9 Basophils (%) (Auto) 0.4 Neutrophils # (Auto) 4.3 Lymphocytes # (Auto) 3.0 Monocytes # (Auto) 0.7 Eosinophils # (Auto) 0.2 Basophils # (Auto) 0.0 CBC Comment DIFF FINAL Differential Comment Date/Time Procedure Status Source Growth 01/02/17 13:17 Gram Stain - Final Resulted Cerebral Spinal Fluid Lumbar Puncture 01/02/17 13:17 CSF Culture Resulted Cerebral Spinal Fluid Lumbar Puncture Pending ROS General: Weakness, No: Fatigue, Other HEENT: No: Sore Throat, Dysphagia Cardiac: No: Chest Pain, Edema, Palpitations Pulmonary: SOB, Wheezing GI: No: Abdominal Pain, BM, Diarrhea, N/V, Other /CLINICAL EDUCATOR: No: Dysuria, Urgency Neuro/MS: Other (leg weakness) Psych: No: Anxiety, Depression Skin: No: Itching, Rash Physical Exam Physical Exam PHYSICAL EXAMINATION GENERAL: This is a mildly obese well-developed, well-nourished female who appears to be resting in bed . She is alert and awake, HEAD: Normocephalic without any lesion or mass noted. Facial features appear symmetric. OROPHARYNGEAL: Oropharynx without erythema or edema. NECK: Supple. No nuchal rigidity or lymphadenopathy. Trachea midline without deviation. CARDIAC: Regular rhythm, regular rate, S1 and S2 are heard. Murmur soft, no gallops or rubs. LUNGS: Mildly diminished to auscultation bilaterally. no wheeze, no rhonchi or rales ABDOMEN: Soft, nontender, no organomegaly or masses. Bowel sounds are heard in all four quadrants. No rebound. No guarding. EXTREMITIES: no edema. Pulses equal bilateral. cyanosis. Increased movement and sensation to LLL, > RLL NEUROLOGICAL: Patient mood and affect appropriate. Can lift her both legs just , Hust few inches above the bed. Has decreased power and tone is good 2-3/5. Sensation dull. Awake, oriented x 4. SKIN:Warm and moist Urinary Catheter: No Vascular Central Line Catheter: No A/P Diagnosis: (1) Leg weakness, bilateral (2) HTN (hypertension) (3) Bipolar disorder (4) Hypertension (5) Chest pain (6) Tobacco dependency (7) Anxiety (8) Depression (9) Syncope (10) Paraplegia Assessment and Plan paraplegia -s/p LP, + protein CSF -mri of spine cord, no lesion -appreciate neurology input, poss. etiology - possible gbs vs rhabdo vs spinal cord infarct vs psychogenic -continue IVIG (10/13) -cont. telemetry -PT/OT, OOB appreciate cardiology input -SP STT 01/02, no acute findings -Echo EF 60-65% HTN, stable -continue home meds Rhabdomyolysis on admission, improving -continue IVF, dec. to 50/hr Paroxysmal Afib, SR on monitor -continue Amiodarone,Eliquis. Anxiety/Depression/hx bipolar disorder -continue home home meds Dyspnea, History COPD, tobacco abuse -oxygen PRN -Duonebs -tobacco abuse counseling IS q 2 wa OOB with PT PPI for GI prophylaxis SCDs/Eliquis for DVT prophylaxis CM for dc planning, CIR, pt. has no insurance. Placement will be challenging tx to 5th floor with tele continue with above tx D/W RN D/W Dr. Moreno D/W pt D/W CM This patient was seen by myself and Dr. Moreno, this note is written on his behalf. Problem Qualifiers (1) HTN (hypertension): Qualified Code: I10 - Essential hypertension (2) Bipolar disorder: Qualified Code: F31.9 - Bipolar affective disorder, remission status unspecified (3) Hypertension: Qualified Code: I10 - Essential hypertension (4) Chest pain: Qualified Code: R07.9 - Chest pain, unspecified type (5) Depression: Qualified Code: F32.9 - Depression, unspecified depression type (6) Syncope: Qualified Code: R55 - Syncope, unspecified syncope type Laura Meade Jan 03, 2017 08:01
[2017-01-03] MEDS: PANTOPRAZOLE SOD 40 MG DELAYED RELEASE TAB PO SCH (08:16)
[2017-01-03] MEDS: ACETAMINOPHEN/HYDROcodone 325 MG/7.5 MG TAB PO PRN ×3 (08:16→21:27)
[2017-01-03] MEDS: METOPROLOL TARTRATE 50 MG TAB PO SCH ×2 (08:16→20:58)
[2017-01-03] MEDS: AMIODARONE 200 MG TAB PO SCH (08:16)
[2017-01-03] MEDS: ESCITALOPRAM OXALATE 10 MG TAB PO SCH (08:16)
--- NOTE | 2017-01-03 08:45 | HHI.PR ---
Review/Management Diagnosis/Plan: (1) Paraplegia Plan: mri of spine cord, no lesion etiology: possible gbs vs rhabdo vs spinal cord infarct vs psychogenic -a little better today -mri brain no acute lesion -increased csf protein: gbs possible and working dx recs ivig 10/13 r/b d/w pt. agrees to tx watch bmp/cbc 5th floor with tele emg/ncv of le when feasible p.t. follow exam (2) Depression (3) Paroxysmal atrial fibrillation Plan: on oac (4) Chronic low back pain (5) Cervical spondylosis without myelopathy (6) Anxiety Subjective Subjective Comments No acute events reported tay ivig No headache No chest pain No dyspnea Active Medications Current Medications Medications (Trade) Dose Ordered Sig/Briseida Route Start Time Stop Time Status Last Admin (NS Flush) 2 ml UNSCH PRN IVF 12/30/16 08:30 Escitalopram Oxalate 10 mg 10 mg DAILY PO 12/31/16 09:00 01/03/17 08:16 (NS 1000 ml Inj) 1,000 ml @ 100 mls/hr Q10H IV 12/30/16 20:00 01/02/17 21:09 Patient Own Medication PT OWN MED: COMBIV... QID INH 12/30/16 21:00 Hold Patient Own Medication PT OWN MED: INCR... DAILY INH 12/31/16 09:00 Hold (Desyrel) 150 mg HS PO 12/31/16 21:00 01/02/17 21:06 (Protonix) 40 mg DAILY PO 01/01/17 09:00 01/03/17 08:16 (Cordarone) 200 mg DAILY PO 01/02/17 09:00 01/03/17 08:16 (Lopressor) 50 mg BID PO 01/01/17 21:00 01/03/17 08:16 Acetaminophen/ Hydrocodone Bitart 1 tab 1 tab Q6H PRN PO 01/01/17 19:00 01/03/17 08:16 (NS 500 ml Inj) 500 ml @ 500 mls/hr Q24H IV 01/02/17 22:00 01/06/17 22:59 01/02/17 23:22 Acetaminophen 650 mg 650 mg Q24H PO 01/02/17 22:00 01/07/17 21:59 01/02/17 23:23 (D5W 500 ml Inj) 500 ml @ 30 mls/hr [id number] OTHER 01/02/17 23:00 01/06/17 10:19 01/03/17 01:22 Diphenhydramine HCl 25 mg 25 mg Q24H PO 01/02/17 22:00 01/07/17 21:59 01/02/17 23:22 (Privigen Inj/ Syringe/Bag) 350 ml @ 27.9 mls/hr Q24H IV 01/02/17 23:00 01/07/17 11:33 01/03/17 01:21 (Benadryl Inj) 50 mg UNSCH PRN IV PUSH 01/02/17 23:00 01/08/17 22:59 (Adrenalin (1:1000) Inj) 0.3 mg Q10M PRN OTHER 01/02/17 23:00 01/08/17 22:59 (Eliquis) 5 mg BID PO 01/03/17 06:00 01/03/17 06:19 Allergies Allergies Coded Allergies Penicillin (Verified Allergy, Severe, PURITIS, 12/30/16) Review of Systems All other ROS: ROS reviewed as documented in chart Exam I&O / VS 01/02/17 01/02/17 01/03/17 15:00 23:00 07:00 Intake Total 440 ml Output Total 1350 ml Balance 440 ml -1350 ml IV Total 440 ml Output Urine Total 1350 ml Vital Signs Date Time Temp Pulse Resp B/P Pulse Ox O2 Delivery O2 Flow Rate FiO2 01/03/17 07:59 97.7 64 19 118/82 96 01/03/17 07:24 96 Nasal Cannula 3.50 01/03/17 03:42 97.8 87 18 115/56 97 01/03/17 00:25 20 01/02/17 20:30 65 01/02/17 19:33 96 Nasal Cannula 3.50 01/02/17 15:25 98.4 78 18 113/66 94 01/02/17 13:51 98.5 67 16 142/92 93 General: Alert and Oriented, No acute distress Eye: EOMI Respiratory: Non-labored respirations Neurologic: Alert, Oriented, CN II-XII intact Psychiatric: Cooperative, Appropriate mood & affect Exam Comments ox 3. follows. eomi, ou 3-2mm, face sym, able to move toes more and dorsiflexion /planterflexion in both feet 2-3/5 Objective Micro and Labs Laboratory Tests Test 01/02/17 01/02/17 13:17 21:29 CSF Volume (Tube 1) 2.0 CSF Supernatant Color (tube 1) CLEAR CSF Gross Blood (Tube 1) 0 CSF WBC (Tube 1) 0 CSF RBC (Tube 1) 0 CSF Volume (Tube 2) 2.5 CSF Supernatant Color (tube 2) CLEAR CSF Gross Blood (Tube 2) 0 CSF Volume (Tube 3) 2.5 CSF Supernatant Color (tube 3) CLEAR CSF Gross Blood (Tube 3) 0 CSF Volume (Tube 4) 2.8 CSF Supernatant Color (tube 4) CLEAR CSF Gross Blood (Tube 4) 0 CSF WBC (Tube 4) 2 CSF RBC (Tube 4) 2 CSF Neutrophils 8 CSF Lymphocytes 67 CSF Monocytes 25 CSF Glucose 57 CSF Lactate Dehydrogenase 24 CSF Lactic Acid 1.5 CSF Total Protein 85.0 White Blood Count 8.2 Red Blood Count 3.57 Hemoglobin 11.3 Hematocrit 33.3 Mean Corpuscular Volume 93.2 Mean Corpuscular Hemoglobin 31.7 Mean Corpuscular Hemoglobin 34.0 Concent Red Cell Distribution Width 15.5 Platelet Count 359 Mean Platelet Volume 8.4 Neutrophils (%) (Auto) 52.2 Lymphocytes (%) (Auto) 36.5 Monocytes (%) (Auto) 8.0 Eosinophils (%) (Auto) 2.9 Basophils (%) (Auto) 0.4 Neutrophils # (Auto) 4.3 Lymphocytes # (Auto) 3.0 Monocytes # (Auto) 0.7 Eosinophils # (Auto) 0.2 Basophils # (Auto) 0.0 CBC Comment DIFF FINAL Differential Comment Date/Time Procedure Status Source Growth 01/02/17 13:17 Gram Stain - Final Resulted Cerebral Spinal Fluid Lumbar Puncture 01/02/17 13:17 CSF Culture - Preliminary Resulted Cerebral Spinal Fluid Lumbar Puncture NO GROWTH IN 24 HOURS. Problem Qualifiers (1) Depression: Qualified Code: F32.9 - Depression, unspecified depression type (2) Chronic low back pain: Tristan French MD Jan 03, 2017 08:45
[2017-01-03 09:17] LABS: BICARBONATE 26.6 MEQ/L (21.0-32.0); POTASSIUM 4.1 MEQ/L (3.5-5.1)
--- NOTE | 2017-01-03 09:47 | PD.CARD.PN ---
Subjective Subjective Remarks No CP, minimal SOB, still on O2 Objective Medications Current Medications Medications (Trade) Dose Ordered Sig/Briseida Route Start Time Stop Time Status Last Admin (NS Flush) 2 ml UNSCH PRN IVF 12/30/16 08:30 Escitalopram Oxalate 10 mg 10 mg DAILY PO 12/31/16 09:00 01/03/17 08:16 (NS 1000 ml Inj) 1,000 ml @ 100 mls/hr Q10H IV 12/30/16 20:00 01/02/17 21:09 Patient Own Medication PT OWN MED: COMBIV... QID INH 12/30/16 21:00 Hold Patient Own Medication PT OWN MED: INCR... DAILY INH 12/31/16 09:00 Hold (Desyrel) 150 mg HS PO 12/31/16 21:00 01/02/17 21:06 (Protonix) 40 mg DAILY PO 01/01/17 09:00 01/03/17 08:16 (Cordarone) 200 mg DAILY PO 01/02/17 09:00 01/03/17 08:16 (Lopressor) 50 mg BID PO 01/01/17 21:00 01/03/17 08:16 Acetaminophen/ Hydrocodone Bitart 1 tab 1 tab Q6H PRN PO 01/01/17 19:00 01/03/17 08:16 (NS 500 ml Inj) 500 ml @ 500 mls/hr Q24H IV 01/02/17 22:00 01/06/17 22:59 01/02/17 23:22 Acetaminophen 650 mg 650 mg Q24H PO 01/02/17 22:00 01/07/17 21:59 01/02/17 23:23 (D5W 500 ml Inj) 500 ml @ 30 mls/hr [id number] OTHER 01/02/17 23:00 01/06/17 10:19 01/03/17 01:22 Diphenhydramine HCl 25 mg 25 mg Q24H PO 01/02/17 22:00 01/07/17 21:59 01/02/17 23:22 (Privigen Inj/ Syringe/Bag) 350 ml @ 27.9 mls/hr Q24H IV 01/02/17 23:00 01/07/17 11:33 01/03/17 01:21 (Benadryl Inj) 50 mg UNSCH PRN IV PUSH 01/02/17 23:00 01/08/17 22:59 (Adrenalin (1:1000) Inj) 0.3 mg Q10M PRN OTHER 01/02/17 23:00 01/08/17 22:59 (Eliquis) 5 mg BID PO 01/03/17 06:00 01/03/17 06:19 Vital Signs / I&O Vital Signs Date Time Temp Pulse Resp B/P Pulse Ox O2 Delivery O2 Flow Rate FiO2 01/03/17 07:59 97.7 64 19 118/82 96 01/03/17 07:24 96 Nasal Cannula 3.50 01/03/17 03:42 97.8 87 18 115/56 97 01/03/17 00:25 20 01/02/17 20:30 65 01/02/17 19:33 96 Nasal Cannula 3.50 01/02/17 15:25 98.4 78 18 113/66 94 01/02/17 13:51 98.5 67 16 142/92 93 I/O 01/02/17 01/02/17 01/02/17 01/03/17 01/03/17 01/03/17 07:00 15:00 23:00 07:00 15:00 23:00 Intake Total 1050 ml 440 ml Output Total 1350 ml Balance 1050 ml 440 ml -1350 ml IV Total 1050 ml 440 ml Output Urine Total 1350 ml # Voids 1 Physical Exam GENERAL: In NAD SKIN: Warm and dry. HEAD: Normocephalic. EYES: No scleral icterus. No injection or drainage. NECK: Supple, trachea midline. No JVD or lymphadenopathy. CARDIOVASCULAR: Regular rate and rhythm without murmurs, gallops, or rubs. RESPIRATORY: Breath sounds equal bilaterally. No accessory muscle use. GASTROINTESTINAL: Abdomen soft, non-tender, nondistended. MUSCULOSKELETAL: No cyanosis, or edema. Laboratory Laboratory Tests Test 01/02/17 01/02/17 01/03/17 13:17 21:29 08:15 CSF Volume (Tube 1) 2.0 ML CSF Supernatant Color (tube 1) CLEAR CSF Gross Blood (Tube 1) 0 CSF WBC (Tube 1) 0 /MM3 CSF RBC (Tube 1) 0 /MM3 CSF Volume (Tube 2) 2.5 ML CSF Supernatant Color (tube 2) CLEAR CSF Gross Blood (Tube 2) 0 CSF Volume (Tube 3) 2.5 ML CSF Supernatant Color (tube 3) CLEAR CSF Gross Blood (Tube 3) 0 CSF Volume (Tube 4) 2.8 ML CSF Supernatant Color (tube 4) CLEAR CSF Gross Blood (Tube 4) 0 CSF WBC (Tube 4) 2 /MM3 CSF RBC (Tube 4) 2 /MM3 CSF Neutrophils 8 % CSF Lymphocytes 67 % CSF Monocytes 25 % CSF Glucose 57 MG/DL CSF Lactate Dehydrogenase 24 U/L CSF Lactic Acid 1.5 MMOL/L CSF Total Protein 85.0 MG/DL White Blood Count 8.2 TH/MM3 Red Blood Count 3.57 MIL/MM3 Hemoglobin 11.3 GM/DL Hematocrit 33.3 % Mean Corpuscular Volume 93.2 FL Mean Corpuscular Hemoglobin 31.7 PG Mean Corpuscular Hemoglobin 34.0 % Concent Red Cell Distribution Width 15.5 % Platelet Count 359 TH/MM3 Mean Platelet Volume 8.4 FL Neutrophils (%) (Auto) 52.2 % Lymphocytes (%) (Auto) 36.5 % Monocytes (%) (Auto) 8.0 % Eosinophils (%) (Auto) 2.9 % Basophils (%) (Auto) 0.4 % Neutrophils # (Auto) 4.3 TH/MM3 Lymphocytes # (Auto) 3.0 TH/MM3 Monocytes # (Auto) 0.7 TH/MM3 Eosinophils # (Auto) 0.2 TH/MM3 Basophils # (Auto) 0.0 TH/MM3 CBC Comment DIFF FINAL Differential Comment Sodium Level 142 MEQ/L Potassium Level 4.1 MEQ/L Chloride Level 110 MEQ/L Carbon Dioxide Level 26.6 MEQ/L Anion Gap 5 MEQ/L Blood Urea Nitrogen 15 MG/DL Creatinine 0.86 MG/DL Estimat Glomerular Filtration 68 ML/MIN Rate Random Glucose 87 MG/DL Calcium Level 8.8 MG/DL Imaging Last Impressions Myocardial Perfusion Scan Nuc Med 01/02/17 0900 Signed Impressions: Service Date/Time: Monday, January 02, 2017 10:55 - CONCLUSION: Negative for stress-induced ischemia. RISK CATEGORY: Low (<1%% Annual Mortality Rate) Gerardo Kirk MD FACR Lumbar Puncture Fluoroscopy 01/02/17 0000 Signed Impressions: Service Date/Time: Monday, January 02, 2017 13:00 - CONCLUSION: Uncomplicated fluoroscopically guided lumbar puncture. Dl Grajeda Jr., MD Brain MRI 12/31/16 0000 Signed Impressions: Service Date/Time: Saturday, December 31, 2016 10:38 - CONCLUSION: No evidence of infarct or metastatic disease. No significant intracranial abnormality noted.. Vania Cornejo MD Lumbar Spine MRI 12/30/167 Signed Impressions: Service Date/Time: Friday, December 30, 2016 16:26 - CONCLUSION: 1. Early degenerative disc disease at L4-5 and L5-S1 with some loss of disc height and disc desiccation. 2. Otherwise negative. Spinal canal and neural foramina are patent throughout without nerve root compromise to explain current clinical symptoms. Jermaine Hughes MD Cervical Spine MRI [id number] Signed Impressions: Service Date/Time: Friday, December 30, 2016 16:26 - CONCLUSION: Unremarkable MR appearance of the cervical spine post previous ventral fusion as above J Carlos Frye MD Head CT 12/30/16829 Signed Impressions: Service Date/Time: Friday, December 30, 2016 10:45 - CONCLUSION: No acute disease. Bernard Quintanilla MD Chest X-Ray 12/30/16829 Signed Impressions: Service Date/Time: Friday, December 30, 2016 09:27 - CONCLUSION: 1. Left lingular atelectasis/scarring. 2. Borderline but well compensated heart. Lungs are otherwise clear. Jermaine Hughes MD Aorta CTA 12/30/16 0000 Signed Impressions: Service Date/Time: Friday, December 30, 2016 13:30 - CONCLUSION: 1. The thoracoabdominal aorta is normal in caliber throughout its length without aneurysmal disease or dissection. 2. Dependent atelectatic changes in both hemithoraces. 3. Patient is status post cholecystectomy. 4. Benign-appearing cysts in the lateral aspect of the left renal cortex and left lobe of the thyroid Jermaine Hughes MD Assessment and Plan Problem List: (1) Chest pain (2) COPD (chronic obstructive pulmonary disease) (3) Altered mental status (4) Bipolar 1 disorder, mixed (5) Tobacco dependency Assessment and Plan No new cardiac issues.Symptoms improved. Myocardial perfusion study negative. No further cardiac eval necessary. Wean O2 as tolerated. Increase activity. Maxx Goodman MD Jan 03, 2017 09:47
[2017-01-03] MEDS: SODIUM CHLOR 0.9% 1000 ML INJ 1,000 ML IV SCH (17:41)
[2017-01-03] MEDS: traZODone HCL 50 MG TAB PO SCH (20:57)
[2017-01-03] MEDS: ACETAMINOPHEN 325 MG TAB PO SCH (20:58)
[2017-01-03] MEDS: diphenhydrAMINE HCL 25 MG CAP PO SCH (20:58)
[2017-01-03] MEDS: SODIUM CHLORID 0.9% 500 ML INJ 500 ML IV SCH (22:29)
[2017-01-04] VITALS (10 sets, daily range): BP systolic 89–129; BP diastolic 50–68; PULSE 60–94; RESP 16–20; TEMP 96.7–98.8; O2SAT 92–97
[2017-01-04] MEDS: RESP: ALBUTEROL 2.5 MG/3 ML NEB (SCH) NEB ×6 (00:01→19:42)
[2017-01-04] MEDS: ACETAMINOPHEN/HYDROcodone 325 MG/7.5 MG TAB PO PRN ×2 (04:42→11:03)
[2017-01-04 07:32] LABS: BICARBONATE 26.3 MEQ/L (21.0-32.0)
[2017-01-04] MEDS: ESCITALOPRAM OXALATE 10 MG TAB PO SCH (08:59)
[2017-01-04] MEDS: APIXABAN 5 MG TABLET PO SCH ×2 (08:59→21:30)
[2017-01-04] MEDS: AMIODARONE 200 MG TAB PO SCH (08:59)
[2017-01-04] MEDS: METOPROLOL TARTRATE 50 MG TAB PO SCH ×2 (09:00→21:00)
[2017-01-04] MEDS: PANTOPRAZOLE SOD 40 MG DELAYED RELEASE TAB PO SCH (09:01)
--- NOTE | 2017-01-04 09:20 | HHI.PR ---
Review/Management Diagnosis/Plan: (1) Paraplegia Plan: -increased csf protein: gbs possible and working dx recs ivig 12/11 today watch bmp/cbc d/c planning to rehab on monday/monday after tx completed f/u labs emg/ncv of le when feasible p.t. follow exam (2) Depression (3) Paroxysmal atrial fibrillation Plan: on oac (4) Chronic low back pain (5) Cervical spondylosis without myelopathy (6) Anxiety Subjective Subjective Comments No acute events reported; tay ivig less numbness in legs No headache No chest pain No dyspnea Active Medications Current Medications Medications (Trade) Dose Ordered Sig/Briseida Route Start Time Stop Time Status Last Admin (NS Flush) 2 ml UNSCH PRN IVF 12/30/16 08:30 Escitalopram Oxalate 10 mg 10 mg DAILY PO 12/31/16 09:00 01/04/17 08:59 (NS 1000 ml Inj) 1,000 ml @ 50 mls/hr Q20H IV 12/30/16 20:00 01/03/17 17:41 Patient Own Medication PT OWN MED: COMBIV... QID INH 12/30/16 21:00 Hold Patient Own Medication PT OWN MED: INCR... DAILY INH 12/31/16 09:00 Hold (Desyrel) 150 mg HS PO 12/31/16 21:00 01/03/17 20:57 (Protonix) 40 mg DAILY PO 01/01/17 09:00 01/04/17 09:01 (Cordarone) 200 mg DAILY PO 01/02/17 09:00 01/04/17 08:59 (Lopressor) 50 mg BID PO 01/01/17 21:00 01/04/17 09:00 Acetaminophen/ Hydrocodone Bitart 1 tab 1 tab Q6H PRN PO 01/01/17 19:00 01/04/17 04:42 (NS 500 ml Inj) 500 ml @ 500 mls/hr Q24H IV 01/02/17 22:00 01/06/17 22:59 01/03/17 22:29 Acetaminophen 650 mg 650 mg Q24H PO 01/02/17 22:00 01/07/17 21:59 01/03/17 20:58 (D5W 500 ml Inj) 500 ml @ 30 mls/hr [id number] OTHER 01/02/17 23:00 01/06/17 10:19 01/03/17 01:22 Diphenhydramine HCl 25 mg 25 mg Q24H PO 01/02/17 22:00 01/07/17 21:59 01/03/17 20:58 (Privigen Inj/ Syringe/Bag) 350 ml @ 27.9 mls/hr Q24H IV 01/02/17 23:00 01/07/17 11:33 01/03/17 23:48 (Benadryl Inj) 50 mg UNSCH PRN IV PUSH 01/02/17 23:00 01/08/17 22:59 (Adrenalin (1:1000) Inj) 0.3 mg Q10M PRN OTHER 01/02/17 23:00 01/08/17 22:59 (Eliquis) 5 mg BID PO 01/03/17 06:00 01/04/17 08:59 Allergies Allergies Coded Allergies Penicillin (Verified Allergy, Severe, PURITIS, 12/30/16) Review of Systems All other ROS: ROS reviewed as documented in chart Exam I&O / VS 01/03/17 01/03/17 01/04/17 15:00 23:00 07:00 Output Total 1200 ml Balance -1200 ml Output Urine Total 1200 ml Vital Signs Date Time Temp Pulse Resp B/P Pulse Ox O2 Delivery O2 Flow Rate FiO2 01/04/17 07:48 93 Nasal Cannula 2.00 01/04/17 06:16 18 01/04/17 04:58 97.7 65 18 120/64 92 01/04/17 00:16 98.5 63 20 113/60 92 01/03/17 22:30 18 01/03/17 21:11 95 Nasal Cannula 2.00 01/03/17 20:59 98.6 66 18 110/55 95 01/03/17 15:58 98.1 63 19 97/59 94 01/03/17 11:00 98.2 54 18 96/60 93 General: Alert and Oriented, No acute distress Eye: EOMI Respiratory: Non-labored respirations Neurologic: Alert, Oriented, CN II-XII intact Psychiatric: Cooperative, Appropriate mood & affect Exam Comments ox 3. follows. eomi, ou 3-2mm, face sym, able to slightly lift legs off bed today, l>rt, able to move toes more and dorsiflexion/planterflexion in both feet 2-3/5, sensation better to pin in legs Objective Micro and Labs Laboratory Tests Test 01/04/17 06:09 Sodium Level 141 Potassium Level 4.0 Chloride Level 110 Carbon Dioxide Level 26.3 Anion Gap 5 Blood Urea Nitrogen 16 Creatinine 0.81 Estimat Glomerular Filtration 73 Rate Random Glucose 85 Calcium Level 8.5 Date/Time Procedure Status Source Growth 01/02/17 13:17 Gram Stain - Final Resulted Cerebral Spinal Fluid Lumbar Puncture 01/02/17 13:17 CSF Culture - Preliminary Resulted Cerebral Spinal Fluid Lumbar Puncture NO GROWTH IN 48 HOURS. Problem Qualifiers (1) Depression: Qualified Code: F32.9 - Depression, unspecified depression type (2) Chronic low back pain: Tristan French MD Jan 04, 2017 09:20
[2017-01-04 11:21] LABS: TOTAL PROTEIN SPE 6.8 GM/DL (6.0-7.6)
--- NOTE | 2017-01-04 11:28 | HHI.PR ---
Subjective Remarks tearful c/o knee pain, states that sensation to legs increased now, less dullness leg edema noted sob ok no wheezing no cp having BMs using IS no fever no acute changes overnight Objective Objective Results - Vital Signs Date Time Temp Pulse Resp B/P Pulse Ox O2 Delivery O2 Flow Rate FiO2 01/04/17 10:07 98.2 62 16 129/68 94 01/04/17 07:48 93 Nasal Cannula 2.00 01/04/17 06:16 18 01/04/17 04:58 97.7 65 18 120/64 92 01/04/17 00:16 98.5 63 20 113/60 92 01/03/17 22:30 18 01/03/17 21:11 95 Nasal Cannula 2.00 01/03/17 20:59 98.6 66 18 110/55 95 01/03/17 15:58 98.1 63 19 97/59 94 I/O 01/03/17 01/03/17 01/03/17 01/04/17 01/04/17 01/04/17 07:00 15:00 23:00 07:00 15:00 23:00 Output Total 1200 ml Balance -1200 ml Output Urine Total 1200 ml Result Diagram: 01/02/17212801/04/1709 Other Results Laboratory Tests Test 01/04/17 01/04/17 06:09 10:14 Sodium Level 141 Potassium Level 4.0 Chloride Level 110 Carbon Dioxide Level 26.3 Anion Gap 5 Blood Urea Nitrogen 16 Creatinine 0.81 Estimat Glomerular Filtration 73 Rate Random Glucose 85 Calcium Level 8.5 Total Protein 6.8 Date/Time Procedure Status Source Growth 01/02/17 13:17 Gram Stain - Final Resulted Cerebral Spinal Fluid Lumbar Puncture 01/02/17 13:17 CSF Culture - Preliminary Resulted Cerebral Spinal Fluid Lumbar Puncture NO GROWTH IN 48 HOURS. ROS General: No: Fatigue, Weakness HEENT: No: Sore Throat, Dysphagia Cardiac: No: Chest Pain, Edema, Palpitations Pulmonary: SOB, Wheezing GI: No: Abdominal Pain, BM, Diarrhea, N/V /VP LAB: No: Dysuria, Urgency Neuro/MS: Other (bilat knee pain, less dull sensation legs ) Psych: No: Anxiety, Depression Skin: No: Itching, Rash Physical Exam Physical Exam PHYSICAL EXAMINATION GENERAL: This is a mildly obese well-developed, well-nourished female who appears to be resting in bed . She is alert and awake, HEAD: Normocephalic without any lesion or mass noted. Facial features appear symmetric. OROPHARYNGEAL: Oropharynx without erythema or edema. NECK: Supple. No nuchal rigidity or lymphadenopathy. Trachea midline without deviation. CARDIAC: Regular rhythm, regular rate, S1 and S2 are heard. Murmur soft, no gallops or rubs. LUNGS: Mildly diminished to auscultation bilaterally. no wheeze, no rhonchi or rales ABDOMEN: Soft, nontender, no organomegaly or masses. Bowel sounds are heard in all four quadrants. No rebound. No guarding. EXTREMITIES: no edema. Pulses equal bilateral. cyanosis. Increased movement and sensation to LLL, > RLL NEUROLOGICAL: Patient mood and affect appropriate. lifting left leg off bed a few inches, better than right. Less dull sensation bilat. Has decreased power and tone is good 2-3/5. Awake, oriented x 4. SKIN:Warm and moist Urinary Catheter: No Vascular Central Line Catheter: No A/P Diagnosis: (1) Leg weakness, bilateral (2) HTN (hypertension) (3) Bipolar disorder (4) Hypertension (5) Chest pain (6) Tobacco dependency (7) Anxiety (8) Depression (9) Syncope (10) Paraplegia Assessment and Plan paraplegia -s/p LP, + protein CSF -mri of spine cord, no lesion -appreciate neurology input, poss. etiology - possible gbs vs rhabdo vs spinal cord infarct vs psychogenic -continue IVIG (11/13) -cont. telemetry -PT/OT, OOB Knee pain -continue [place] prn -add Toradol appreciate cardiology input -SP STT 01/02, no acute findings -Echo EF 60-65% HTN, stable -continue home meds Rhabdomyolysis on admission, improving -continue IVF, dec. to 50/hr Paroxysmal Afib, SR on monitor -continue Amiodarone,Eliquis. Anxiety/Depression/hx bipolar disorder -continue home home meds Dyspnea, History COPD, tobacco abuse -oxygen PRN -Duonebs -tobacco abuse counseling IS q 2 wa OOB with PT PPI for GI prophylaxis SCDs/Eliquis for DVT prophylaxis CM for dc planning, CIR evaluating. Poss discharge Monday and Sat after last IVIG treatment OT eval ordered D/W RN D/W Dr. Panja D/W pt D/W CM This patient was seen by myself and Dr. oMreno, this note is written on his behalf. Problem Qualifiers (1) HTN (hypertension): Qualified Code: I10 - Essential hypertension (2) Bipolar disorder: Qualified Code: F31.9 - Bipolar affective disorder, remission status unspecified (3) Hypertension: Qualified Code: I10 - Essential hypertension (4) Chest pain: Qualified Code: R07.9 - Chest pain, unspecified type (5) Depression: Qualified Code: F32.9 - Depression, unspecified depression type (6) Syncope: Qualified Code: R55 - Syncope, unspecified syncope type Laura Meade Jan 04, 2017 11:28
[2017-01-04] MEDS: DEXTROSE 5% IN WATE 500 ML INJ 500 ML OTHER SCH (11:29)
[2017-01-04] MEDS: KETOROLAC TROMETHAMINE 10 MG TAB PO PRN (13:17)
--- NOTE | 2017-01-04 13:34 | PD.CARD.PN ---
Subjective Subjective Remarks No CP or SOB, still on O2 Objective Medications Current Medications Medications (Trade) Dose Ordered Sig/Briseida Route Start Time Stop Time Status Last Admin (NS Flush) 2 ml UNSCH PRN IVF 12/30/16 08:30 (Lexapro) 10 mg DAILY PO 12/31/16 09:00 01/04/17 08:59 Patient Own Medication PT OWN MED: COMBIV... QID INH 12/30/16 21:00 Hold Patient Own Medication PT OWN MED: INCR... DAILY INH 12/31/16 09:00 Hold (Desyrel) 150 mg HS PO 12/31/16 21:00 01/03/17 20:57 (Protonix) 40 mg DAILY PO 01/01/17 09:00 01/04/17 09:01 (Cordarone) 200 mg DAILY PO 01/02/17 09:00 01/04/17 08:59 (Lopressor) 50 mg BID PO 01/01/17 21:00 01/04/17 09:00 Acetaminophen/ Hydrocodone Bitart 1 tab 1 tab Q6H PRN PO 01/01/17 19:00 01/04/17 11:03 (NS 500 ml Inj) 500 ml @ 500 mls/hr Q24H IV 01/02/17 22:00 01/06/17 22:59 01/03/17 22:29 Acetaminophen 650 mg 650 mg Q24H PO 01/02/17 22:00 01/07/17 21:59 01/03/17 20:58 (D5W 500 ml Inj) 500 ml @ 30 mls/hr [id number] OTHER 01/02/17 23:00 01/06/17 10:19 01/04/17 11:29 Diphenhydramine HCl 25 mg 25 mg Q24H PO 01/02/17 22:00 01/07/17 21:59 01/03/17 20:58 (Privigen Inj/ Syringe/Bag) 350 ml @ 27.9 mls/hr Q24H IV 01/02/17 23:00 01/07/17 11:33 01/03/17 23:48 (Benadryl Inj) 50 mg UNSCH PRN IV PUSH 01/02/17 23:00 01/08/17 22:59 (Adrenalin (1:1000) Inj) 0.3 mg Q10M PRN OTHER 01/02/17 23:00 01/08/17 22:59 (Eliquis) 5 mg BID PO 01/03/17 06:00 01/04/17 08:59 (Toradol) 10 mg Q6H PRN PO 01/04/17 11:30 01/04/17 13:17 Vital Signs / I&O Vital Signs Date Time Temp Pulse Resp B/P Pulse Ox O2 Delivery O2 Flow Rate FiO2 01/04/17 10:07 98.2 62 16 129/68 94 01/04/17 07:48 93 Nasal Cannula 2.00 01/04/17 06:16 18 01/04/17 04:58 97.7 65 18 120/64 92 01/04/17 00:16 98.5 63 20 113/60 92 01/03/17 22:30 18 01/03/17 21:11 95 Nasal Cannula 2.00 01/03/17 20:59 98.6 66 18 110/55 95 01/03/17 15:58 98.1 63 19 97/59 94 I/O 01/03/17 01/03/17 01/03/17 01/04/17 01/04/17 01/04/17 07:00 15:00 23:00 07:00 15:00 23:00 Output Total 1200 ml Balance -1200 ml Output Urine Total 1200 ml Physical Exam GENERAL: In NAD SKIN: Warm and dry. HEAD: Normocephalic. EYES: No scleral icterus. No injection or drainage. NECK: Supple, trachea midline. No JVD or lymphadenopathy. CARDIOVASCULAR: Regular rate and rhythm without murmurs, gallops, or rubs. RESPIRATORY: Breath sounds equal bilaterally. No accessory muscle use. GASTROINTESTINAL: Abdomen soft, non-tender, nondistended. MUSCULOSKELETAL: No cyanosis, or edema. Laboratory Laboratory Tests Test 01/04/17 01/04/17 06:09 10:14 Sodium Level 141 MEQ/L Potassium Level 4.0 MEQ/L Chloride Level 110 MEQ/L Carbon Dioxide Level 26.3 MEQ/L Anion Gap 5 MEQ/L Blood Urea Nitrogen 16 MG/DL Creatinine 0.81 MG/DL Estimat Glomerular Filtration 73 ML/MIN Rate Random Glucose 85 MG/DL Calcium Level 8.5 MG/DL Total Protein 6.8 GM/DL Imaging Last Impressions Myocardial Perfusion Scan Nuc Med 01/02/17 0900 Signed Impressions: Service Date/Time: Monday, January 02, 2017 10:55 - CONCLUSION: Negative for stress-induced ischemia. RISK CATEGORY: Low (<1%% Annual Mortality Rate) Gerardo Kirk MD FACR Lumbar Puncture Fluoroscopy 01/02/17 0000 Signed Impressions: Service Date/Time: Monday, January 02, 2017 13:00 - CONCLUSION: Uncomplicated fluoroscopically guided lumbar puncture. Dl Grajeda Jr., MD Brain MRI 12/31/16 Signed Impressions: Service Date/Time: Saturday, December 31, 2016 10:38 - CONCLUSION: No evidence of infarct or metastatic disease. No significant intracranial abnormality noted.. Vania Cornejo MD Lumbar Spine MRI 12/30/16 144 Signed Impressions: Service Date/Time: Friday, December 30, 2016 16:26 - CONCLUSION: 1. Early degenerative disc disease at L4-5 and L5-S1 with some loss of disc height and disc desiccation. 2. Otherwise negative. Spinal canal and neural foramina are patent throughout without nerve root compromise to explain current clinical symptoms. Jermaine Hughes MD Cervical Spine MRI 12/30/161446 Signed Impressions: Service Date/Time: Friday, December 30, 2016 16:26 - CONCLUSION: Unremarkable MR appearance of the cervical spine post previous ventral fusion as above J Carlos Frye MD Head CT 12/30/16 0830 Signed Impressions: Service Date/Time: Friday, December 30, 2016 10:45 - CONCLUSION: No acute disease. Bernard Quintanilla MD Chest X-Ray 12/30/16829 Signed Impressions: Service Date/Time: Friday, December 30, 2016 09:27 - CONCLUSION: 1. Left lingular atelectasis/scarring. 2. Borderline but well compensated heart. Lungs are otherwise clear. Jermaine Hughes MD Aorta CTA 12/30/16 0000 Signed Impressions: Service Date/Time: Friday, December 30, 2016 13:30 - CONCLUSION: 1. The thoracoabdominal aorta is normal in caliber throughout its length without aneurysmal disease or dissection. 2. Dependent atelectatic changes in both hemithoraces. 3. Patient is status post cholecystectomy. 4. Benign-appearing cysts in the lateral aspect of the left renal cortex and left lobe of the thyroid Jermaine Hughes MD Assessment and Plan Problem List: (1) Chest pain (2) COPD (chronic obstructive pulmonary disease) (3) Altered mental status (4) Bipolar 1 disorder, mixed (5) Tobacco dependency Assessment and Plan No new cardiac issues. CP improved. Myocardial perfusion study negative. No further cardiac eval necessary. Wean O2 as tolerated. Continue tx for COPD. Increase activity. Problem Qualifiers (1) Chest pain: Qualified Code: R07.9 - Chest pain, unspecified type Maxx Goodman MD Jan 04, 2017 13:34
[2017-01-04] MEDS: ACETAMINOPHEN/HYDROcodone 325 MG/10 MG TAB PO PRN ×2 (17:14→21:31)
--- NOTE | 2017-01-04 17:40 | PD.CONS ---
[facility] Rehabilitation Medicine Consult Requested By Edenilson Moreno MD Reason for Consult Comprehensive rehabilitation evaluation. Primary Care Physician Billy Toth MD History of Present Illness Aide Aguilar is a 56 year old right hand dominant emale admitted to [facility] 12/30/16 after found on ground. Unable to move her LE. Head CT negative. Brain MRI negative for infarct or metastasis. MRI of C-spine previous fusion C4-C6. MRI of T-spine exaggerated kyphotic curvature dorsal spine with mild multilevel DDD T6-T7 and T7-T8 with canal patent. MRI of L-spine early degenerative changes L4-L5 and L5-S1 and canal patent. She is receiving IVIG for possible GBS. Review of Systems Constitutional: COMPLAINS OF: Fatigue Eyes: DENIES: Diplopia Ears, nose, mouth, throat: DENIES: Throat pain Respiratory: DENIES: Shortness of breath Cardiovascular: DENIES: Chest pain Gastrointestinal: COMPLAINS OF: Constipation, DENIES: Abdominal pain Genitourinary: DENIES: Urinary incontinence Musculoskeletal: COMPLAINS OF: Joint pain (Right knee) Integumentary: DENIES: Rash Hematologic/lymphatic: COMPLAINS OF: Bruising Immunologic/allergic: DENIES: Urticaria Neurologic: COMPLAINS OF: Paresthesias, DENIES: Headache Psychiatric: COMPLAINS OF: Confusion (Decreased short term memory) Past Family Social History Allergies: Coded Allergies: Penicillin (Verified Allergy, Severe, PURITIS, 12/30/16) Past Medical History Fibromyalgia Sciatica Bipolar disorder Depression/Anxiety Atrial fibrillation Breast CA CHF HTN COPD CVA GERD Seizure disorder Past Surgical History Bowel resection Cholecystectomy Bilateral mastectomy Cervical fusion Tonsillectomy Current Medications Current Medications Medications (Trade) Dose Ordered Sig/Briseida Route Start Time Stop Time Status Last Admin (NS Flush) 2 ml UNSCH PRN IVF 12/30/16 08:30 (Lexapro) 10 mg DAILY PO 12/31/16 09:00 01/04/17 08:59 Patient Own Medication PT OWN MED: COMBIV... QID INH 12/30/16 21:00 Hold Patient Own Medication PT OWN MED: INCR... DAILY INH 12/31/16 09:00 Hold (Desyrel) 150 mg HS PO 12/31/16 21:00 01/03/17 20:57 (Protonix) 40 mg DAILY PO 01/01/17 09:00 01/04/17 09:01 (Cordarone) 200 mg DAILY PO 01/02/17 09:00 01/04/17 08:59 Metoprolol Tartrate 50 mg 50 mg BID PO 01/01/17 21:00 01/04/17 09:00 (NS 500 ml Inj) 500 ml @ 500 mls/hr Q24H IV 01/02/17 22:00 01/06/17 22:59 01/03/17 22:29 Acetaminophen 650 mg 650 mg Q24H PO 01/02/17 22:00 01/07/17 21:59 01/03/17 20:58 (D5W 500 ml Inj) 500 ml @ 30 mls/hr [id number] OTHER 01/02/17 23:00 01/06/17 10:19 01/04/17 11:29 Diphenhydramine HCl 25 mg 25 mg Q24H PO 01/02/17 22:00 01/07/17 21:59 01/03/17 20:58 (Privigen Inj/ Syringe/Bag) 350 ml @ 27.9 mls/hr Q24H IV 01/02/17 23:00 01/07/17 11:33 01/03/17 23:48 (Benadryl Inj) 50 mg UNSCH PRN IV PUSH 01/02/17 23:00 01/08/17 22:59 (Adrenalin (1:1000) Inj) 0.3 mg Q10M PRN OTHER 01/02/17 23:00 01/08/17 22:59 (Eliquis) 5 mg BID PO 01/03/17 06:00 01/04/17 08:59 (Toradol) 10 mg Q6H PRN PO 01/04/17 11:30 01/04/17 13:17 ([place] 10-325 Mg) 1 tab Q4H PRN PO 01/04/17 16:45 01/04/17 17:14 Family History Mother: HTN Father: colon CA Social History Lives in [place], [place] in one story home with 3 steps to enter. Exam I&O / VS 01/03/17 01/03/17 01/04/17 15:00 23:00 07:00 Output Total 1200 ml Balance -1200 ml Output Urine Total 1200 ml Vital Signs Date Time Temp Pulse Resp B/P Pulse Ox O2 Delivery O2 Flow Rate FiO2 01/04/17 14:28 98.8 94 16 93/52 94 01/04/17 10:07 98.2 62 16 129/68 94 01/04/17 07:48 93 Nasal Cannula 2.00 01/04/17 06:16 18 01/04/17 04:58 97.7 65 18 120/64 92 01/04/17 00:16 98.5 63 20 113/60 92 01/03/17 22:30 18 01/03/17 21:11 95 Nasal Cannula 2.00 01/03/17 20:59 98.6 66 18 110/55 95 Respiratory: Non-labored respirations Gastrointestinal: Non-Distended Cardiovascular: Normal rate, Regular Rhythm Musculoskeletal: Tenderness (To palpation right knee) Psychiatric: Cooperative Orientation: oriented to Self, oriented to Situation Neurologic: Pupils (PERRLA), EOM (Intact), Speech (Clear) Motor: Right Upper Extremity (5/5), Left Upper Extremity (5/5), Right Lower Extremity (Limited testing due to right knee pain but ankle DF and PF 3/5), Left Lower Extremity (Hip flexion 2/5; PF 3/5) Sensory Impaired but present in both LE Clonus: Negative Assessment and Plan Diagnosis: (1) Leg weakness, bilateral Assessment 1. Bilateral LE weakness with possible GBS currently receiving IVIG 2. Rhabdomyolysis 3. Additional medical and surgical history as above. Plan 1. Patient progressing with mobility and now min assist of 2 for transfer. Progress to gait as tolerated. 2. OT addressing ADL's and independent with feeding and grooming and min assist with UE dressing and dependent for LE dressing 3. Would mobilize with nursing OOB 4. Reposition q 2 hours and monitor skin carefully 5. Anticipate that patient will need ongoing rehabilitation at discharge and will follow for level of care in conjunction with case management. 6. Will follow while hospitalized and at discharge. Thank you for this consult. Lyssa Shaw MD Jan 04, 2017 17:40
[2017-01-04] MEDS: traZODone HCL 50 MG TAB PO SCH (21:30)
[2017-01-04] MEDS: ACETAMINOPHEN 325 MG TAB PO SCH (21:32)
[2017-01-04] MEDS: diphenhydrAMINE HCL 25 MG CAP PO SCH (21:32)
[2017-01-04] MEDS: SODIUM CHLORID 0.9% 500 ML INJ 500 ML IV SCH (21:40)
[2017-01-04 23:06] LABS: ENTEROVIRUS PCR RESULT Negative (Negative); ENTEROVIRUS PCR SPEC SOURCE CSF (())
[2017-01-04] MEDS: IMMUNE GLOBULIN INJ 35 GM in SYRINGE/BAG 1 EA IV SCH (23:41)
[2017-01-05] VITALS (14 sets, daily range): BP systolic 104–135; BP diastolic 60–77; PULSE 61–115; RESP 18–20; TEMP 96.8–99.4; O2SAT 93–97
[2017-01-05] MEDS: RESP: ALBUTEROL 2.5 MG/3 ML NEB (SCH) NEB ×7 (00:21→23:37)
[2017-01-05] MEDS: ACETAMINOPHEN/HYDROcodone 325 MG/10 MG TAB PO PRN ×6 (01:43→23:02)
[2017-01-05 03:50] LABS: CSF ANGIOTENSIN CONV ENZYME LESS THAN 5 U/L (< OR = 15)
[2017-01-05 08:29] LABS: BICARBONATE 22.9 MEQ/L (21.0-32.0)
[2017-01-05 08:34] LABS: POTASSIUM 4.9 MEQ/L (3.5-5.1)
[2017-01-05] MEDS: AMIODARONE 200 MG TAB PO SCH (08:45)
[2017-01-05] MEDS: APIXABAN 5 MG TABLET PO SCH ×2 (08:45→21:30)
[2017-01-05] MEDS: ESCITALOPRAM OXALATE 10 MG TAB PO SCH (08:45)
[2017-01-05] MEDS: METOPROLOL TARTRATE 50 MG TAB PO SCH ×2 (08:46→21:00)
[2017-01-05] MEDS: PANTOPRAZOLE SOD 40 MG DELAYED RELEASE TAB PO SCH (08:46)
--- NOTE | 2017-01-05 09:17 | HHI.PR ---
Review/Management Diagnosis/Plan: (1) Paraplegia Plan: -increased csf protein: gbs possible and working dx recs ivig 4/5 today doing well; motivated d/c planning to rehab on monday/monday after tx completed f/u labs emg/ncv of le when feasible-pending p.t. follow exam (2) Depression (3) Paroxysmal atrial fibrillation Plan: on oac (4) Chronic low back pain (5) Cervical spondylosis without myelopathy (6) Anxiety Subjective Subjective Comments No acute events reported No headache No chest pain No dyspnea Active Medications Current Medications Medications (Trade) Dose Ordered Sig/Briseida Route Start Time Stop Time Status Last Admin (NS Flush) 2 ml UNSCH PRN IVF 12/30/16 08:30 (Lexapro) 10 mg DAILY PO 12/31/16 09:00 01/05/17 08:45 Patient Own Medication PT OWN MED: COMBIV... QID INH 12/30/16 21:00 Hold Patient Own Medication PT OWN MED: INCR... DAILY INH 12/31/16 09:00 Hold (Desyrel) 150 mg HS PO 12/31/16 21:00 01/04/17 21:30 (Protonix) 40 mg DAILY PO 01/01/17 09:00 01/05/17 08:46 (Cordarone) 200 mg DAILY PO 01/02/17 09:00 01/04/17 08:59 Metoprolol Tartrate 50 mg 50 mg BID PO 01/01/17 21:00 01/04/17 09:00 (NS 500 ml Inj) 500 ml @ 500 mls/hr Q24H IV 01/02/17 22:00 01/06/17 22:59 01/04/17 21:40 Acetaminophen 650 mg 650 mg Q24H PO 01/02/17 22:00 01/07/17 21:59 01/04/17 21:32 (D5W 500 ml Inj) 500 ml @ 30 mls/hr [id number] OTHER 01/02/17 23:00 01/06/17 10:19 01/04/17 11:29 Diphenhydramine HCl 25 mg 25 mg Q24H PO 01/02/17 22:00 01/07/17 21:59 01/04/17 21:32 (Privigen Inj/ Syringe/Bag) 350 ml @ 27.9 mls/hr Q24H IV 01/02/17 23:00 01/07/17 11:33 01/04/17 23:41 (Benadryl Inj) 50 mg UNSCH PRN IV PUSH 01/02/17 23:00 01/08/17 22:59 (Adrenalin (1:1000) Inj) 0.3 mg Q10M PRN OTHER 01/02/17 23:00 01/08/17 22:59 (Eliquis) 5 mg BID PO 01/03/17 06:00 01/05/17 08:45 (Toradol) 10 mg Q6H PRN PO 01/04/17 11:30 01/04/17 13:17 ([place] 10-325 Mg) 1 tab Q4H PRN PO 01/04/17 16:45 01/05/17 05:59 Allergies Allergies Coded Allergies Penicillin (Verified Allergy, Severe, PURITIS, 12/30/16) Review of Systems All other ROS: ROS reviewed as documented in chart Exam I&O / VS 01/04/17 01/04/17 01/05/17 15:00 23:00 07:00 Intake Total 340 ml 240 ml Output Total 1550 ml Balance -1550 ml 340 ml 240 ml Intake Oral 340 ml 240 ml Output Urine Total 1550 ml # Voids 2 1 # Bowel Movements 0 Vital Signs Date Time Temp Pulse Resp B/P Pulse Ox O2 Delivery O2 Flow Rate FiO2 01/05/17 08:22 94 Nasal Cannula 2.00 01/05/17 08:00 97.5 61 18 125/73 95 01/05/17 04:00 97.2 65 20 118/62 94 01/05/17 04:00 97.5 67 20 104/60 96 01/05/17 00:55 97.0 66 18 117/63 96 01/05/17 00:40 97.1 115 19 108/60 96 01/05/17 00:25 97.1 65 20 111/64 95 01/05/17 00:10 97.0 64 18 110/67 94 01/05/17 00:00 96.8 69 18 107/68 95 01/04/17 23:55 97.0 64 19 112/63 95 01/04/17 23:25 96.7 66 20 115/60 96 01/04/17 20:00 96.7 64 20 89/50 96 01/04/17 19:42 97 Nasal Cannula 2.00 01/04/17 14:28 98.8 94 16 93/52 94 01/04/17 10:07 98.2 62 16 129/68 94 General: Alert and Oriented, No acute distress Eye: EOMI Respiratory: Non-labored respirations Neurologic: Alert, Oriented, CN II-XII intact Psychiatric: Cooperative, Appropriate mood & affect Exam Comments ox 3. follows. eomi, ou 3-2mm, face sym, able to slightly lift legs off bed 3/5 , l>rt, able to move toes more and dorsiflexion/planterflexion in both feet 2-3/ 5, sensation better to pin in legs Objective Micro and Labs Laboratory Tests Test 01/04/17 01/05/17 10:14 07:11 Total Protein 6.8 HIV (1&2) Antibody NEGATIVE Sodium Level 138 Potassium Level 4.9 Chloride Level 110 Carbon Dioxide Level 22.9 Anion Gap 5 Blood Urea Nitrogen 20 Creatinine 0.78 Estimat Glomerular Filtration 76 Rate Random Glucose 80 Calcium Level 8.2 Date/Time Procedure Status Source Growth 01/02/17 13:17 Gram Stain - Final Complete Cerebral Spinal Fluid Lumbar Puncture 01/02/17 13:17 CSF Culture - Final Complete Cerebral Spinal Fluid Lumbar Puncture NO GROWTH IN 72 HOURS Problem Qualifiers (1) Depression: Qualified Code: F32.9 - Depression, unspecified depression type (2) Chronic low back pain: Tristan French MD Jan 05, 2017 09:17
--- NOTE | 2017-01-05 10:14 | PD.CARD.PN ---
Subjective Subjective Remarks No CP, mild SOB, still on O2 Objective Medications Current Medications Medications (Trade) Dose Ordered Sig/Briseida Route Start Time Stop Time Status Last Admin (NS Flush) 2 ml UNSCH PRN IVF 12/30/16 08:30 (Lexapro) 10 mg DAILY PO 12/31/16 09:00 01/05/17 08:45 Patient Own Medication PT OWN MED: COMBIV... QID INH 12/30/16 21:00 Hold Patient Own Medication PT OWN MED: INCR... DAILY INH 12/31/16 09:00 Hold (Desyrel) 150 mg HS PO 12/31/16 21:00 01/04/17 21:30 (Protonix) 40 mg DAILY PO 01/01/17 09:00 01/05/17 08:46 (Cordarone) 200 mg DAILY PO 01/02/17 09:00 01/04/17 08:59 Metoprolol Tartrate 50 mg 50 mg BID PO 01/01/17 21:00 01/04/17 09:00 (NS 500 ml Inj) 500 ml @ 500 mls/hr Q24H IV 01/02/17 22:00 01/06/17 22:59 01/04/17 21:40 Acetaminophen 650 mg 650 mg Q24H PO 01/02/17 22:00 01/07/17 21:59 01/04/17 21:32 (D5W 500 ml Inj) 500 ml @ 30 mls/hr [id number] OTHER 01/02/17 23:00 01/06/17 10:19 01/04/17 11:29 Diphenhydramine HCl 25 mg 25 mg Q24H PO 01/02/17 22:00 01/07/17 21:59 01/04/17 21:32 (Privigen Inj/ Syringe/Bag) 350 ml @ 27.9 mls/hr Q24H IV 01/02/17 23:00 01/07/17 11:33 01/04/17 23:41 (Benadryl Inj) 50 mg UNSCH PRN IV PUSH 01/02/17 23:00 01/08/17 22:59 (Adrenalin (1:1000) Inj) 0.3 mg Q10M PRN OTHER 01/02/17 23:00 01/08/17 22:59 (Eliquis) 5 mg BID PO 01/03/17 06:00 01/05/17 08:45 (Toradol) 10 mg Q6H PRN PO 01/04/17 11:30 01/04/17 13:17 ([place] 10-325 Mg) 1 tab Q4H PRN PO 01/04/17 16:45 01/05/17 05:59 Vital Signs / I&O Vital Signs Date Time Temp Pulse Resp B/P Pulse Ox O2 Delivery O2 Flow Rate FiO2 01/05/17 08:22 94 Nasal Cannula 2.00 01/05/17 08:00 97.5 61 18 125/73 95 01/05/17 04:00 97.2 65 20 118/62 94 01/05/17 04:00 97.5 67 20 104/60 96 01/05/17 00:55 97.0 66 18 117/63 96 01/05/17 00:40 97.1 115 19 108/60 96 01/05/17 00:25 97.1 65 20 111/64 95 01/05/17 00:10 97.0 64 18 110/67 94 01/05/17 00:00 96.8 69 18 107/68 95 01/04/17 23:55 97.0 64 19 112/63 95 01/04/17 23:25 96.7 66 20 115/60 96 01/04/17 20:00 96.7 64 20 89/50 96 01/04/17 19:42 97 Nasal Cannula 2.00 01/04/17 14:28 98.8 94 16 93/52 94 I/O 01/04/17 01/04/17 01/04/17 01/05/17 01/05/17 01/05/17 07:00 15:00 23:00 07:00 15:00 23:00 Intake Total 340 ml 240 ml Output Total 1550 ml Balance -1550 ml 340 ml 240 ml Intake Oral 340 ml 240 ml Output Urine Total 1550 ml # Voids 2 1 # Bowel Movements 0 Physical Exam GENERAL: In NAD, on O2 SKIN: Warm and dry. HEAD: Normocephalic. EYES: No scleral icterus. No injection or drainage. NECK: Supple, trachea midline. No JVD or lymphadenopathy. CARDIOVASCULAR: Regular rate and rhythm without murmurs, gallops, or rubs. RESPIRATORY: Breath sounds equal bilaterally. No accessory muscle use. GASTROINTESTINAL: Abdomen soft, non-tender, nondistended. MUSCULOSKELETAL: No cyanosis, or edema. Laboratory Laboratory Tests Test 01/04/17 01/05/17 10:14 07:11 Total Protein 6.8 GM/DL HIV (1&2) Antibody NEGATIVE Sodium Level 138 MEQ/L Potassium Level 4.9 MEQ/L Chloride Level 110 MEQ/L Carbon Dioxide Level 22.9 MEQ/L Anion Gap 5 MEQ/L Blood Urea Nitrogen 20 MG/DL Creatinine 0.78 MG/DL Estimat Glomerular Filtration 76 ML/MIN Rate Random Glucose 80 MG/DL Calcium Level 8.2 MG/DL Imaging Last Impressions Myocardial Perfusion Scan Nuc Med 01/02/17 0900 Signed Impressions: Service Date/Time: Monday, January 02, 2017 10:55 - CONCLUSION: Negative for stress-induced ischemia. RISK CATEGORY: Low (<1%% Annual Mortality Rate) Gerardo Kirk MD FACR Lumbar Puncture Fluoroscopy 01/02/17 0000 Signed Impressions: Service Date/Time: Monday, January 02, 2017 13:00 - CONCLUSION: Uncomplicated fluoroscopically guided lumbar puncture. Dl Grajeda Jr., MD Brain MRI 12/31/16 0000 Signed Impressions: Service Date/Time: Saturday, December 31, 2016 10:38 - CONCLUSION: No evidence of infarct or metastatic disease. No significant intracranial abnormality noted.. Vania Cornejo MD Thoracic Spine MRI [id number]/30/161446 Signed Impressions: Service Date/Time: Friday, December 30, 2016 16:26 - CONCLUSION: 1. Exaggerated kyphotic curvature of the dorsal spine with mild multilevel degenerative disc disease predominantly at T6-7 and T7-8 as detailed above. 2. However, the spinal canal is widely patent throughout without cord compromise to explain current clinical symptoms. Jermaien Hughes MD Lumbar Spine MRI 12/30/161446 Signed Impressions: Service Date/Time: Friday, December 30, 2016 16:26 - CONCLUSION: 1. Early degenerative disc disease at L4-5 and L5-S1 with some loss of disc height and disc desiccation. 2. Otherwise negative. Spinal canal and neural foramina are patent throughout without nerve root compromise to explain current clinical symptoms. Jermaine Hughes MD Cervical Spine MRI 12/30/161446 Signed Impressions: Service Date/Time: Friday, December 30, 2016 16:26 - CONCLUSION: Unremarkable MR appearance of the cervical spine post previous ventral fusion as above J Carlos Frye MD Head CT 12/30/1630 Signed Impressions: Service Date/Time: Friday, December 30, 2016 10:45 - CONCLUSION: No acute disease. Bernard Quintanilla MD Chest X-Ray 12/30/16829 Signed Impressions: Service Date/Time: Friday, December 30, 2016 09:27 - CONCLUSION: 1. Left lingular atelectasis/scarring. 2. Borderline but well compensated heart. Lungs are otherwise clear. Jermaine Hughes MD Aorta CTA 12/30/16 0000 Signed Impressions: Service Date/Time: Friday, December 30, 2016 13:30 - CONCLUSION: 1. The thoracoabdominal aorta is normal in caliber throughout its length without aneurysmal disease or dissection. 2. Dependent atelectatic changes in both hemithoraces. 3. Patient is status post cholecystectomy. 4. Benign-appearing cysts in the lateral aspect of the left renal cortex and left lobe of the thyroid Jermaine Hughes MD Assessment and Plan Problem List: (1) Chest pain (2) COPD (chronic obstructive pulmonary disease) (3) Altered mental status (4) Bipolar 1 disorder, mixed (5) Tobacco dependency Assessment and Plan Stable from cardiac standpoint. CP resolved. Myocardial perfusion study negative. No further cardiac testing necessary. Wean O2 as tolerated. Continue tx for COPD. Increase activity. Problem Qualifiers (1) Chest pain: Qualified Code: R07.9 - Chest pain, unspecified type Maxine,Maxx SERRA Jan 05, 2017 10:14
--- NOTE | 2017-01-05 11:37 | HHI.PR ---
Subjective Remarks alert Oriented, tearful at times No further chest pain Generalized bilateral knee pain Patient's mom has made contact with her and visited Patient's daughter is in [place], but not in contact with her mom at this time Afebrile (Louise Reyes) Objective Objective Results - Vital Signs Date Time Temp Pulse Resp B/P Pulse Ox O2 Delivery O2 Flow Rate FiO2 01/05/17 08:22 94 Nasal Cannula 2.00 01/05/17 08:00 97.5 61 18 125/73 95 01/05/17 04:00 97.2 65 20 118/62 94 01/05/17 04:00 97.5 67 20 104/60 96 01/05/17 00:55 97.0 66 18 117/63 96 01/05/17 00:40 97.1 115 19 108/60 96 01/05/17 00:25 97.1 65 20 111/64 95 01/05/17 00:10 97.0 64 18 110/67 94 01/05/17 00:00 96.8 69 18 107/68 95 01/04/17 23:55 97.0 64 19 112/63 95 01/04/17 23:25 96.7 66 20 115/60 96 01/04/17 20:00 96.7 64 20 89/50 96 01/04/17 19:42 97 Nasal Cannula 2.00 01/04/17 14:28 98.8 94 16 93/52 94 I/O 01/04/17 01/04/17 01/04/17 01/05/17 01/05/17 01/05/17 07:00 15:00 23:00 07:00 15:00 23:00 Intake Total 340 ml 240 ml Output Total 1550 ml Balance -1550 ml 340 ml 240 ml Intake Oral 340 ml 240 ml Output Urine Total 1550 ml # Voids 2 1 # Bowel Movements 0 (Louise Reyes) Result Diagram: 01/02/17212801/05/1711 ROS General: Fatigue, Weakness (lower extremities, can move her toes, nonweightbearing) Cardiac: Chest Pain (none heart disease ruled out stress test negative) Neuro/MS: Other (anxiety, partial paraplegia) (Louise Reyes) Physical Exam Physical Exam PHYSICAL EXAMINATION GENERAL: This is an mildly obese well-developed, well-nourished female Resting in bed She is alert HEAD: Normocephalic without any lesion or mass noted. Facial features appear symmetric. OROPHARYNGEAL: Oropharynx without erythema or edema. NECK: Supple. No nuchal rigidity or lymphadenopathy. Trachea midline without deviation. CARDIAC: Regular rhythm, regular rate, S1 and S2 are heard. LUNGS: Clear to auscultation bilaterally. no wheeze, no rhonchi or rale. No use of accessory muscles on inspiration or expiration. O2 when necessary ABDOMEN: Soft, nontender, no organomegaly or masses. Bowel sounds are heard in all four quadrants. No rebound. No guarding. EXTREMITIES: Bilateral lower extremity 2+ edema. Pulse palpable, negative Babinski NEUROLOGICAL: Patient mood and affect appropriate, anxious. Speech is clear, bilateral lower extremity minimal movement and weakness. SKIN:Warm and moist Objective Remarks I'm hoping I get better again and can walk (Louise Reyes) A/P Assessment and Plan paraplegia s/p LP, + protein elevated CSF, some labs are still pending -appreciate neurology input, -continue IVIG (2) -cont. telemetry -PT/OT, OOB yesterday to chair reordered PT for eval and treat Possible Staci Nguyen, , rhabdomyolysis resolved. Chronic pain Knee pain, chronic, but continuous Pain management per Dr. Moreno appreciate cardiology, stress test and workup negative. Appreciate input, will see when necessary HTN, has waxed and waned since admission, past 24 hours much improved with systolic 120s 130s -continue home meds Paroxysmal Afib, SR on monitor -continue Amiodarone,Eliquis. Anxiety/Depression/hx bipolar disorder, still tearful at times -continue home home meds , supportive care COPD, no acute dyspnea at rest, she is using O2 off and on Duo nebs as warranted PPI for GI prophylaxis SCDs/Eliquis for DVT prophylaxis CM for dc planning , working with Naun , possible ready for pre-cert, to be done Monday pending insurance .CIR OT eval ordered PT eval and treat, up out of bed Discharge Planning Initiated, currently hopeful for rehabilitation, Discussed With: Nurse, Family, Other (Dr. Moreno, patient seen on his behalf) ( Louise Reyes) Assessment and Plan Seen and examined as above Complaining of bilateral knee pain and left ankle pain. Medications and labs reviewed Appreciate consultants input Plan of care discussed with INSURANCE RATER Discussed with RN Discussed with patient Discussed with casework manager about DC planning Plan for x-ray of knees and ankle continue current pain management (Edenilson Moreno MD) Louise Reyes Jan 05, 2017 11:37 Edenilson Moreno MD Jan 05, 2017 14:21
[2017-01-05 14:15] LABS: CSF CRYPTOCOCCUS AG CONF ND (NOT DETECTD)
--- NOTE | 2017-01-05 15:41 | RADRPT ---
EXAM DATE/TIME: 01/05/2017 14:58 [facility] COMPARISON: No previous studies available for comparison. INDICATIONS : Right knee pain, lower leg numbness. MEDICAL HISTORY : Bursitis. SURGICAL HISTORY : None. ENCOUNTER: Initial ACUITY: 2 days PAIN SCORE: 10/10 LOCATION: Right middle knee. FINDINGS: 2 views of the right knee. Bone alignment within normal limits. Possible small subchondral fracture. No evidence of joint narrowing. Moderate-sized joint effusion. Mild subchondral sclerosis of the medi al femoral condyle. CONCLUSION: Mild subchondral sclerosis and possible small subchondral fracture of the medial femoral condyle. Mod erate-sized joint effusion. Alberto Kinsey MD on January 05, 2017 at 15:36 Board Certified Radiologist. This report was verified electronically.
--- NOTE | 2017-01-05 15:42 | RADRPT ---
EXAM DATE/TIME: 01/05/2017 15:00 [facility] COMPARISON: No previous studies available for comparison. INDICATIONS : Left knee pain, lower leg numbness. MEDICAL HISTORY : Bursitis. SURGICAL HISTORY : None. ENCOUNTER: Initial ACUITY: 2 days PAIN SCORE: 7/10 LOCATION: Left medial knee. FINDINGS: 2 views of the left knee. Small medial compartment osteophytes. No evidence of fracture. Moderate-siz ed joint effusion. CONCLUSION: Mild osteoarthritic findings of the medial compartment. Moderate-sized joint effusion. Alberto Kinsey MD on January 05, 2017 at 15:39 Board Certified Radiologist. This report was verified electronically.
--- NOTE | 2017-01-05 15:42 | RADRPT ---
EXAM DATE/TIME: 01/05/2017 15:02 [facility] COMPARISON: No previous studies available for comparison. INDICATIONS : Left ankle pain and swelling with no known injury. MEDICAL HISTORY : None. SURGICAL HISTORY : None. ENCOUNTER: Initial ACUITY: 1 day PAIN SCORE: 4/10 LOCATION: Left ankle. FINDINGS: 2 views of left ankle. Bone alignment within normal limits. No evidence of fracture. Ankle mortise i ntact. CONCLUSION: No evidence of fracture. Alberto Kinsey MD on January 05, 2017 at 15:40 Board Certified Radiologist. This report was verified electronically.
[2017-01-05 17:35] LABS: ALBUMIN SPE 2.94 GM/DL (3.50-5.00); ALPHA 1 GLOBULIN 0.2 GM/DL (0.11-0.29); ALPHA 2 GLOBULIN 1.12 GM/DL (0.22-1.00); BETA GLOBULINS (SPE) 0.78 GM/DL (0.53-1.03)
[2017-01-05 19:52] LABS: VDRL CSF NON-REACTIVE (())
[2017-01-05] MEDS: ACETAMINOPHEN 325 MG TAB PO SCH (21:29)
[2017-01-05] MEDS: SODIUM CHLORID 0.9% 500 ML INJ 500 ML IV SCH (21:29)
[2017-01-05] MEDS: traZODone HCL 50 MG TAB PO SCH (21:30)
[2017-01-05] MEDS: diphenhydrAMINE HCL 25 MG CAP PO SCH (21:30)
[2017-01-05] MEDS: IMMUNE GLOBULIN INJ 35 GM in SYRINGE/BAG 1 EA IV SCH ×2 (23:05→23:59)
[2017-01-06] VITALS (10 sets, daily range): BP systolic 132–179; BP diastolic 67–90; PULSE 52–79; RESP 18–22; TEMP 97.5–99.6; O2SAT 93–96
[2017-01-06] MEDS: RESP: ALBUTEROL 2.5 MG/3 ML NEB (SCH) NEB ×6 (02:36→23:57)
[2017-01-06] MEDS: ACETAMINOPHEN/HYDROcodone 325 MG/10 MG TAB PO PRN ×6 (03:07→23:12)
[2017-01-06 06:59] LABS: BICARBONATE 27.5 MEQ/L (21.0-32.0); POTASSIUM 4.2 MEQ/L (3.5-5.1)
--- NOTE | 2017-01-06 07:33 | PD.CARD.PN ---
Subjective Subjective Remarks No CP, mild SOB, still on O2 2l/min Objective Medications Current Medications Medications (Trade) Dose Ordered Sig/Briseida Route Start Time Stop Time Status Last Admin (NS Flush) 2 ml UNSCH PRN IVF 12/30/16 08:30 (Lexapro) 10 mg DAILY PO 12/31/16 09:00 01/05/17 08:45 Patient Own Medication PT OWN MED: COMBIV... QID INH 12/30/16 21:00 Hold Patient Own Medication PT OWN MED: INCR... DAILY INH 12/31/16 09:00 Hold (Desyrel) 150 mg HS PO 12/31/16 21:00 01/05/17 21:30 (Protonix) 40 mg DAILY PO 01/01/17 09:00 01/05/17 08:46 (Cordarone) 200 mg DAILY PO 01/02/17 09:00 01/04/17 08:59 Metoprolol Tartrate 50 mg 50 mg BID PO 01/01/17 21:00 01/04/17 09:00 (NS 500 ml Inj) 500 ml @ 500 mls/hr Q24H IV 01/02/17 22:00 01/06/17 22:59 01/05/17 21:29 Acetaminophen 650 mg 650 mg Q24H PO 01/02/17 22:00 01/07/17 21:59 01/05/17 21:29 (D5W 500 ml Inj) 500 ml @ 30 mls/hr [id number] OTHER 01/02/17 23:00 01/06/17 10:19 01/04/17 11:29 Diphenhydramine HCl 25 mg 25 mg Q24H PO 01/02/17 22:00 01/07/17 21:59 01/05/17 21:30 (Privigen Inj/ Syringe/Bag) 350 ml @ 27.9 mls/hr Q24H IV 01/02/17 23:00 01/07/17 11:33 01/05/17 23:59 (Benadryl Inj) 50 mg UNSCH PRN IV PUSH 01/02/17 23:00 01/08/17 22:59 (Adrenalin (1:1000) Inj) 0.3 mg Q10M PRN OTHER 01/02/17 23:00 01/08/17 22:59 (Eliquis) 5 mg BID PO 01/03/17 06:00 01/05/17 21:30 (Toradol) 10 mg Q6H PRN PO 01/04/17 11:30 01/04/17 13:17 ([place] 10-325 Mg) 1 tab Q4H PRN PO 01/04/17 16:45 01/06/17 06:40 Vital Signs / I&O Vital Signs Date Time Temp Pulse Resp B/P Pulse Ox O2 Delivery O2 Flow Rate FiO2 01/06/17 04:00 79 20 155/82 94 01/06/17 00:00 98.8 76 20 134/72 93 01/05/17 20:00 99.1 79 18 134/73 95 01/05/17 19:51 97 Nasal Cannula 2.00 01/05/17 16:46 99.4 79 18 128/77 94 01/05/17 16:00 67 01/05/17 12:51 98.2 74 18 105/61 95 01/05/17 08:22 94 Nasal Cannula 2.00 01/05/17 08:00 97.5 61 18 125/73 95 I/O 01/05/17 01/05/17 01/05/17 01/06/17 01/06/17 01/06/17 07:00 15:00 23:00 07:00 15:00 23:00 Intake Total 240 ml 480 ml 300 ml Balance 240 ml 480 ml 300 ml Intake Oral 240 ml 480 ml 300 ml # Voids 1 2 3 # Bowel Movements 0 1 Physical Exam GENERAL: In NAD, on O2 SKIN: Warm and dry. HEAD: Normocephalic. EYES: No scleral icterus. No injection or drainage. NECK: Supple, trachea midline. No JVD or lymphadenopathy. CARDIOVASCULAR: Regular rate and rhythm without murmurs, gallops, or rubs. RESPIRATORY: Breath sounds equal bilaterally. No accessory muscle use. GASTROINTESTINAL: Abdomen soft, non-tender, nondistended. MUSCULOSKELETAL: No cyanosis, 1-2+ edema. Laboratory Laboratory Tests Test 01/06/17 05:42 Sodium Level 139 MEQ/L Potassium Level 4.2 MEQ/L Chloride Level 106 MEQ/L Carbon Dioxide Level 27.5 MEQ/L Anion Gap 6 MEQ/L Blood Urea Nitrogen 17 MG/DL Creatinine 0.73 MG/DL Estimat Glomerular Filtration 82 ML/MIN Rate Random Glucose 79 MG/DL Calcium Level 8.6 MG/DL Imaging Last Impressions Knee X-Ray 01/05/17 0000 Signed Impressions: Service Date/Time: December 14:58 - CONCLUSION: Mild subchondral sclerosis and possible small subchondral fracture of the medial femoral condyle. Moderate-sized joint effusion. Alberto Kinsey MD Ankle X-Ray 01/05/17 0000 Signed Impressions: Service Date/Time: December 15:02 - CONCLUSION: No evidence of fracture. Alberto Kinsey MD Myocardial Perfusion Scan Nuc Med 01/02/17 0900 Signed Impressions: Service Date/Time: Monday, January 02, 2017 10:55 - CONCLUSION: Negative for stress-induced ischemia. RISK CATEGORY: Low (<1%% Annual Mortality Rate) Gerardo Kirk MD FACR Lumbar Puncture Fluoroscopy 01/02/17 0000 Signed Impressions: Service Date/Time: Monday, January 02, 2017 13:00 - CONCLUSION: Uncomplicated fluoroscopically guided lumbar puncture. Dl Grajeda Jr., MD Brain MRI 12/31/16 0000 Signed Impressions: Service Date/Time: Saturday, December 31, 2016 10:38 - CONCLUSION: No evidence of infarct or metastatic disease. No significant intracranial abnormality noted.. Vania Cornejo MD Thoracic Spine MRI 12/30/161446 Signed Impressions: Service Date/Time: Friday, December 30, 2016 16:26 - CONCLUSION: 1. Exaggerated kyphotic curvature of the dorsal spine with mild multilevel degenerative disc disease predominantly at T6-7 and T7-8 as detailed above. 2. However, the spinal canal is widely patent throughout without cord compromise to explain current clinical symptoms. Jermaine Hughes MD Lumbar Spine MRI 12/30/161446 Signed Impressions: Service Date/Time: Friday, December 30, 2016 16:26 - CONCLUSION: 1. Early degenerative disc disease at L4-5 and L5-S1 with some loss of disc height and disc desiccation. 2. Otherwise negative. Spinal canal and neural foramina are patent throughout without nerve root compromise to explain current clinical symptoms. Jermaine Hughes MD Cervical Spine MRI 12/30/161446 Signed Impressions: Service Date/Time: Friday, December 30, 2016 16:26 - CONCLUSION: Unremarkable MR appearance of the cervical spine post previous ventral fusion as above J Carlos Frye MD Head CT 12/30/16829 Signed Impressions: Service Date/Time: Friday, December 30, 2016 10:45 - CONCLUSION: No acute disease. Bernard Quintanilla MD Chest X-Ray 12/30/16829 Signed Impressions: Service Date/Time: Friday, December 30, 2016 09:27 - CONCLUSION: 1. Left lingular atelectasis/scarring. 2. Borderline but well compensated heart. Lungs are otherwise clear. Jermaine Hughes MD Aorta CTA 12/30/16 0000 Signed Impressions: Service Date/Time: Friday, December 30, 2016 13:30 - CONCLUSION: 1. The thoracoabdominal aorta is normal in caliber throughout its length without aneurysmal disease or dissection. 2. Dependent atelectatic changes in both hemithoraces. 3. Patient is status post cholecystectomy. 4. Benign-appearing cysts in the lateral aspect of the left renal cortex and left lobe of the thyroid Jermaine Hughes MD Assessment and Plan Problem List: (1) Chest pain (2) COPD (chronic obstructive pulmonary disease) (3) Altered mental status (4) Bipolar 1 disorder, mixed (5) Tobacco dependency Assessment and Plan Increased edema. Start diuretics, monitor renal fx. No recurrent CP. Myocardial perfusion study negative. No further cardiac testing necessary. Wean O2 as tolerated. Continue tx for COPD. Increase activity. Problem Qualifiers (1) Chest pain: Qualified Code: R07.9 - Chest pain, unspecified type Maxx Goodman MD Jan 06, 2017 07:33
[2017-01-06] MEDS: AMIODARONE 200 MG TAB PO SCH (09:04)
[2017-01-06] MEDS: PANTOPRAZOLE SOD 40 MG DELAYED RELEASE TAB PO SCH (09:04)
[2017-01-06] MEDS: METOPROLOL TARTRATE 50 MG TAB PO SCH ×2 (09:04→21:19)
[2017-01-06] MEDS: SPIRONOLACTONE 25 MG TAB PO SCH (09:04)
[2017-01-06] MEDS: APIXABAN 5 MG TABLET PO SCH ×2 (09:04→21:18)
[2017-01-06] MEDS: ESCITALOPRAM OXALATE 10 MG TAB PO SCH (09:04)
--- NOTE | 2017-01-06 11:37 | HHI.PR ---
Subjective Remarks alert Oriented, less anxiety noted today No further chest pain Generalized bilateral knee pain continues off and on Generalized lower extremity edema improved Temp 99 1, I for the day, otherwise normal ranges (Louise Reyes) Objective Objective Results - Vital Signs Date Time Temp Pulse Resp B/P Pulse Ox O2 Delivery O2 Flow Rate FiO2 01/06/17 08:03 95 Nasal Cannula 2.00 01/06/17 08:00 99.0 77 22 179/90 96 01/06/17 04:00 79 20 155/82 94 01/06/17 00:00 98.8 76 20 134/72 93 01/05/17 20:00 99.1 79 18 134/73 95 01/05/17 19:51 97 Nasal Cannula 2.00 01/05/17 16:46 99.4 79 18 128/77 94 01/05/17 16:00 67 01/05/17 12:51 98.2 74 18 105/61 95 I/O 01/05/17 01/05/17 01/05/17 01/06/17 01/06/17 01/06/17 07:00 15:00 23:00 07:00 15:00 23:00 Intake Total 240 ml 480 ml 300 ml Balance 240 ml 480 ml 300 ml Intake Oral 240 ml 480 ml 300 ml # Voids 1 2 3 # Bowel Movements 0 1 (Louise Reyes) Result Diagram: 01/02/17212801/06/17 0542 ROS General: Fatigue, Weakness (gradual improvement), Other (10 point ROS done positives include lower extremity edema new medication Aldactone added fatigue and weakness continues with lower extremities but improving other systems negative or unremarkable) Cardiac: Edema (lower extremity) GI: BM (today) Neuro/MS: Other (lower extremity edema) (Louise Reyes) Physical Exam Physical Exam PHYSICAL EXAMINATION GENERAL: This is an mildly obese well-developed, well-nourished female resting in the bed She is alert and awake HEAD: Normocephalic without any lesion or mass noted. Facial features appear symmetric. OROPHARYNGEAL: Oropharynx without erythema or edema. NECK: Supple. No nuchal rigidity or lymphadenopathy. Trachea midline without deviation. CARDIAC: Regular rhythm, regular rate, S1 and S2 are heard. Murmur []; no gallops or rubs. LUNGS: Clear to auscultation bilaterally. No cough ABDOMEN: Soft, nontender, no organomegaly or masses. Bowel sounds are heard in all four quadrants. No rebound. No guarding. EXTREMITIES: Lower extremity edema, 1+ bilateral improved today. Pulses equal bilateral. NEUROLOGICAL: Patient mood and affect appropriate. Able to wiggle her toes bilateral, can overcome mild resistance SKIN:Warm and moist Objective Remarks I feel I'm getting a little better every day (Louise Reyes) A/P Assessment and Plan paraplegia, resolving Now appears to be generalized weakness, possibly viral syndrome. Patient is able to get up with walker and 1-2 people assist and go to the restroom. some labs are still pending, -appreciate neurology input, -continue IVIG , one more dose due, then looking at discharge planning to rehabilitation, hospital Monday -cont. telemetry -PT/OT, OOB yesterday to chair reordered PT for eval and treat, able to ambulate with 1-2 people assist minimal amount to restroom in chair Possible Staci Nguyen, , rhabdomyolysis resolved., Still evaluate a few pending labs, possible viral syndrome Chronic pain Knee pain, chronic, but continuous. X-rays completed bilateral moderate joint effusions, with some osteoarthritis. Currently pain management, and progressive activity appreciate cardiology, stress test and workup negative. Appreciate input, lower extremity edema acute onset added Aldactone with some increased diurese as noted per patient HTN, has waxed and waned since admission, vital signs reviewed stable blood pressure -continue home meds Paroxysmal Afib, SR on monitor -continue Amiodarone,Eliquis. Anxiety/Depression/hx bipolar disorder, improvement -continue home home meds , supportive care COPD, no acute dyspnea at rest, she is using O2 off and on Duo nebs as warranted PPI for GI prophylaxis SCDs/Eliquis for DVT prophylaxis CM for dc planning , working with Naun , possible ready for pre-cert, to be done Monday pending insurance .CIR OT eval ordered PT eval and treat, up out of bed, ambulating with walker short distances in room to bathroom Discharge Planning Initiated, currently hopeful for rehabilitation, Discussed With: Nurse, Family, Other (Dr. Moreno, patient seen on his behalf) ( Louise Reyes) Assessment and Plan Patient seen and examined as above Medications and labs reviewed Plan of care discussed with TIE BUCKER Discussed with patient Agree with above plan of care Fioricet for headache (Edenilson Moreno MD) Louise Reyes Jan 06, 2017 11:37 Edenilson Moreno MD Jan 06, 2017 13:20
--- NOTE | 2017-01-06 12:01 | HHI.PR ---
Review/Management Diagnosis/Plan: (1) Paraplegia Plan: -increased csf protein: gbs possible and working dx montoya- possibly 2/2 htn/tension type. ivig can also cause montoya/aseptic meningitis. do not think she has this at present. she wants to continue with last dose of tx. recs ivig 5/ today fioricet scheduled d/c planning to rehab when stable f/u labs emg/ncv of le when feasible-pending p.t. follow exam (2) Depression (3) Paroxysmal atrial fibrillation Plan: on oac (4) Chronic low back pain (5) Cervical spondylosis without myelopathy (6) Anxiety Subjective Subjective Comments No acute events reported + frontal/bitemporal headache since yesterday. no neck pain. has had this montoya before when her bp increases No chest pain No dyspnea Active Medications Current Medications Medications (Trade) Dose Ordered Sig/Briseida Route Start Time Stop Time Status Last Admin (NS Flush) 2 ml UNSCH PRN IVF 12/30/16 08:30 (Lexapro) 10 mg DAILY PO 12/31/16 09:00 01/06/17 09:04 Patient Own Medication PT OWN MED: COMBIV... QID INH 12/30/16 21:00 Hold Patient Own Medication PT OWN MED: INCR... DAILY INH 12/31/16 09:00 Hold (Desyrel) 150 mg HS PO 12/31/16 21:00 01/05/17 21:30 (Protonix) 40 mg DAILY PO 01/01/17 09:00 01/06/17 09:04 (Cordarone) 200 mg DAILY PO 01/02/17 09:00 01/06/17 09:04 Metoprolol Tartrate 50 mg 50 mg BID PO 01/01/17 21:00 01/06/17 09:04 (NS 500 ml Inj) 500 ml @ 500 mls/hr Q24H IV 01/02/17 22:00 01/06/17 22:59 01/05/17 21:29 (Tylenol) 650 mg Q24H PO 01/02/17 22:00 01/07/17 21:59 01/05/17 21:29 Diphenhydramine HCl 25 mg 25 mg Q24H PO 01/02/17 22:00 01/07/17 21:59 01/05/17 21:30 (Privigen Inj/ Syringe/Bag) 350 ml @ 27.9 mls/hr Q24H IV 01/02/17 23:00 01/07/17 11:33 01/05/17 23:59 (Benadryl Inj) 50 mg UNSCH PRN IV PUSH 01/02/17 23:00 01/08/17 22:59 (Adrenalin (1:1000) Inj) 0.3 mg Q10M PRN OTHER 01/02/17 23:00 01/08/17 22:59 (Eliquis) 5 mg BID PO 01/03/17 06:00 01/06/17 09:04 (Toradol) 10 mg Q6H PRN PO 01/04/17 11:30 01/04/17 13:17 ([place] 10-325 Mg) 1 tab Q4H PRN PO 01/04/17 16:45 01/06/17 10:30 (Aldactone) 25 mg DAILY PO 01/06/17 09:00 01/06/17 09:04 Allergies Allergies Coded Allergies Penicillin (Verified Allergy, Severe, PURITIS, 12/30/16) Review of Systems All other ROS: ROS reviewed as documented in chart Exam I&O / VS 01/05/17 01/05/17 01/06/17 15:00 23:00 07:00 Intake Total 480 ml 300 ml Balance 480 ml 300 ml Intake Oral 480 ml 300 ml # Voids 2 3 # Bowel Movements 1 Vital Signs Date Time Temp Pulse Resp B/P Pulse Ox O2 Delivery O2 Flow Rate FiO2 01/06/17 11:30 18 01/06/17 08:03 95 Nasal Cannula 2.00 01/06/17 08:00 99.0 77 22 179/90 96 01/06/17 04:00 79 20 155/82 94 01/06/17 00:00 98.8 76 20 134/72 93 01/05/17 20:00 99.1 79 18 134/73 95 01/05/17 19:51 97 Nasal Cannula 2.00 01/05/17 16:46 99.4 79 18 128/77 94 01/05/17 16:00 67 01/05/17 12:51 98.2 74 18 105/61 95 General: Alert and Oriented, No acute distress Eye: EOMI Respiratory: Non-labored respirations Cardiology: Normal rate, Regular Rhythm Musculoskeletal: Tenderness (To palpation right knee) Neurologic: Alert, Oriented, CN II-XII intact Psychiatric: Cooperative, Appropriate mood & affect Exam Comments ox 3. sitting up looks comfortable, neck supple, no rigidity, no temp tenderness , follows. eomi, ou 3-2mm, face sym, able to slightly lift legs off bed 3/5, l> rt, able to move toes more and dorsiflexion/planterflexion in both feet 2-3/5, sensation better to pin in legs Objective Micro and Labs Laboratory Tests Test 01/06/17 05:42 Sodium Level 139 Potassium Level 4.2 Chloride Level 106 Carbon Dioxide Level 27.5 Anion Gap 6 Blood Urea Nitrogen 17 Creatinine 0.73 Estimat Glomerular Filtration 82 Rate Random Glucose 79 Calcium Level 8.6 Date/Time Procedure Status Source Growth 01/02/17 13:17 Gram Stain - Final Complete Cerebral Spinal Fluid Lumbar Puncture 01/02/17 13:17 CSF Culture - Final Complete Cerebral Spinal Fluid Lumbar Puncture NO GROWTH IN 72 HOURS Problem Qualifiers (1) Depression: Qualified Code: F32.9 - Depression, unspecified depression type (2) Chronic low back pain: Tristan French MD Jan 06, 2017 12:01
[2017-01-06] MEDS ORDERED: ACETAMIN 325 MG/BUTALBITAL 50 MG/CAFFEINE 40 MG TAB PO PRN (13:30)
[2017-01-06] MEDS: ACETAMIN 325 MG/BUTALBITAL 50 MG/CAFFEINE 40 MG TAB PO SCH ×2 (13:33→21:17)
[2017-01-06] MEDS: diphenhydrAMINE HCL 25 MG CAP PO SCH (21:18)
[2017-01-06] MEDS: ACETAMINOPHEN 325 MG TAB PO SCH (21:19)
[2017-01-06] MEDS: traZODone HCL 50 MG TAB PO SCH (21:19)
[2017-01-06] MEDS: SODIUM CHLORID 0.9% 500 ML INJ 500 ML IV SCH (21:20)
[2017-01-06] MEDS: IMMUNE GLOBULIN INJ 35 GM in SYRINGE/BAG 1 EA IV SCH (23:00)
[2017-01-06 23:51] LABS: HIV RNA COPIES LESS THAN 20.0 (()); HIV RNA LOG COPIES LESS THAN 1.30 (())
[2017-01-07] VITALS (15 sets, daily range): BP systolic 131–184; BP diastolic 62–85; PULSE 50–69; RESP 18–24; TEMP 96.8–98.8; O2SAT 90–97
[2017-01-07] MEDS: KETOROLAC TROMETHAMINE 10 MG TAB PO PRN (00:27)
[2017-01-07] MEDS: ACETAMINOPHEN/HYDROcodone 325 MG/10 MG TAB PO PRN ×6 (01:48→22:17)
[2017-01-07] MEDS: IMMUNE GLOBULIN INJ 35 GM in SYRINGE/BAG 1 EA IV SCH (02:11)
[2017-01-07] MEDS: RESP: ALBUTEROL 2.5 MG/3 ML NEB (SCH) NEB ×4 (03:22→16:21)
[2017-01-07 07:57] LABS: HEMATOCRIT 31.5 % (35.0-46.0); MEAN CORPUSCULAR HEMOGLOBIN 30.9 PG (27.0-34.0); PLATELET COUNT 269 TH/MM3 (150-450); RED BLOOD COUNT 3.46 MIL/MM3 (4.00-5.30); RED CELL DISTRIBUTION WIDTH 14.4 % (11.6-17.2); REVIEW FLAG FINAL; WHITE BLOOD COUNT 4.3 TH/MM3 (4.0-11.0)
[2017-01-07 08:28] LABS: BICARBONATE 26.4 MEQ/L (21.0-32.0); POTASSIUM 4.4 MEQ/L (3.5-5.1)
[2017-01-07] MEDS: ESCITALOPRAM OXALATE 10 MG TAB PO SCH (09:24)
[2017-01-07] MEDS: AMIODARONE 200 MG TAB PO SCH (09:25)
[2017-01-07] MEDS: ACETAMIN 325 MG/BUTALBITAL 50 MG/CAFFEINE 40 MG TAB PO SCH ×2 (09:26→22:03)
[2017-01-07] MEDS: APIXABAN 5 MG TABLET PO SCH ×2 (09:26→22:04)
[2017-01-07] MEDS: SPIRONOLACTONE 25 MG TAB PO SCH (09:27)
[2017-01-07] MEDS: METOPROLOL TARTRATE 50 MG TAB PO SCH ×2 (09:27→22:04)
[2017-01-07] MEDS: PANTOPRAZOLE SOD 40 MG DELAYED RELEASE TAB PO SCH (09:27)
--- NOTE | 2017-01-07 10:55 | HHI.PR ---
Subjective Remarks c/o severe right ankle pain, not with ROM, point tenderness to right anterior aspect states it's burning like, constant, kept her up last night inc. sensation to both legs has been getting out of bed with 1 person assist having BMs no cp no sob no fever Objective Objective Results - Vital Signs Date Time Temp Pulse Resp B/P Pulse Ox O2 Delivery O2 Flow Rate FiO2 01/07/17 08:00 98.1 54 18 145/84 97 01/07/17 07:39 96 Nasal Cannula 2.00 01/07/17 05:00 98.1 56 19 155/82 94 01/07/17 04:00 98.8 52 19 171/85 93 01/07/17 04:00 98.8 52 18 171/85 93 01/07/17 02:55 98.2 54 20 146/62 95 01/07/17 02:40 97.1 69 19 149/68 96 01/07/17 02:25 98.2 66 20 148/69 96 01/07/17 02:15 98.1 57 19 148/68 96 01/07/17 00:00 97 Nasal Cannula 2.00 01/07/17 00:00 97.9 55 24 131/62 95 01/06/17 20:00 98.2 55 18 146/67 95 01/06/17 18:00 52 01/06/17 16:32 97.5 53 20 132/84 96 01/06/17 15:26 96 Nasal Cannula 2.00 01/06/17 12:44 99.6 62 22 161/76 96 01/06/17 11:30 18 I/O 01/06/17 01/06/17 01/06/17 01/07/17 01/07/17 01/07/17 07:00 15:00 23:00 07:00 15:00 23:00 Intake Total 300 ml 240 ml Balance 300 ml 240 ml Intake Oral 300 ml 240 ml # Voids 3 3 3 # Bowel Movements 1 1 Result Diagram: 01/07/1770401/07/17704 Other Results Laboratory Tests Test 01/07/17 07:05 White Blood Count 4.3 Red Blood Count 3.46 Hemoglobin 10.7 Hematocrit 31.5 Mean Corpuscular Volume 91.0 Mean Corpuscular Hemoglobin 30.9 Mean Corpuscular Hemoglobin 34.0 Concent Red Cell Distribution Width 14.4 Platelet Count 269 Mean Platelet Volume 9.2 Sodium Level 138 Potassium Level 4.4 Chloride Level 106 Carbon Dioxide Level 26.4 Anion Gap 6 Blood Urea Nitrogen 14 Creatinine 0.70 Estimat Glomerular Filtration 87 Rate Random Glucose 79 Calcium Level 8.8 Date/Time Procedure Status Source Growth 01/02/17 13:17 Gram Stain - Final Complete Cerebral Spinal Fluid Lumbar Puncture 01/02/17 13:17 CSF Culture - Final Complete Cerebral Spinal Fluid Lumbar Puncture NO GROWTH IN 72 HOURS ROS General: Weakness, No: Fatigue, Other HEENT: No: Sore Throat, Dysphagia Cardiac: No: Chest Pain, Edema, Palpitations Pulmonary: No: Cough, SOB, Wheezing GI: No: Abdominal Pain, BM, Diarrhea, N/V /PRESALES CONSULTANT: No: Dysuria, Urgency Neuro/MS: Other (leg pain), No: Lightheaded, Confusion Psych: No: Anxiety, Depression Skin: No: Itching, Rash Physical Exam Physical Exam PHYSICAL EXAMINATION GENERAL: This is a mildly obese well-developed, well-nourished female who appears to be resting in bed . She is alert and awake, HEAD: Normocephalic without any lesion or mass noted. Facial features appear symmetric. OROPHARYNGEAL: Oropharynx without erythema or edema. NECK: Supple. No nuchal rigidity or lymphadenopathy. Trachea midline without deviation. CARDIAC: Regular rhythm, regular rate, S1 and S2 are heard. Murmur soft, no gallops or rubs. LUNGS: Mildly diminished to auscultation bilaterally. no wheeze, no rhonchi or rales ABDOMEN: Soft, nontender, no organomegaly or masses. Bowel sounds are heard in all four quadrants. No rebound. No guarding. EXTREMITIES: no edema. Pulses equal bilateral. cyanosis. Increased movement and sensation to LLL, > RLL NEUROLOGICAL: Patient mood and affect appropriate. lifting left leg off bed a few inches, improving. Less dull sensation bilat. Has decreased power and tone is good 2-3/5. Awake, oriented x 4. SKIN:Warm and moist Urinary Catheter: No Vascular Central Line Catheter: No A/P Diagnosis: (1) Leg weakness, bilateral (2) HTN (hypertension) (3) Bipolar disorder (4) Hypertension (5) Chest pain (6) Tobacco dependency (7) Anxiety (8) Depression (9) Syncope (10) Paraplegia Assessment and Plan paraplegia -s/p LP, + protein CSF -mri of spine cord, no lesion -appreciate neurology input, poss. etiology - possible gbs vs rhabdo vs spinal cord infarct vs psychogenic -continue IVIG (02/10) -cont. telemetry -PT/OT, OOB -Had headache during IVIG, now better, continue on Fioricet -mobility improving, getting up with 1 assist. Knee pain and ankle pain -xrays done, no fractures -continue with pain management -inc. right ankle pain, ? neuropathic, will add Neurontin 100 mg po TID appreciate cardiology input -SP STT 01/02, no acute findings -Echo EF 60-65% -leg edema, started on Aldactone -will order teds HTN, stable -continue home meds Rhabdomyolysis on admission, improving -resolved Paroxysmal Afib, SR on monitor -continue Amiodarone,Eliquis. Anxiety/Depression/hx bipolar disorder -continue home home meds Dyspnea, History COPD, tobacco abuse -oxygen PRN -Duonebs -tobacco abuse counseling IS q 2 wa OOB with PT, OT PPI for GI prophylaxis SCDs/Eliquis for DVT prophylaxis CM for dc planning, CIR evaluating, financial issue is hold up as pt. not paying insurance premium. CIR to f/u on Monday D/W RN D/W Dr. Moreno D/W pt This patient was seen by myself and Dr. Moreno, this note is written on his behalf. Discussed With: Nurse, Family, Other (Dr. Moreno, patient seen on his behalf) Problem Qualifiers (1) HTN (hypertension): Qualified Code: I10 - Essential hypertension (2) Bipolar disorder: Qualified Code: F31.9 - Bipolar affective disorder, remission status unspecified (3) Hypertension: Qualified Code: I10 - Essential hypertension (4) Chest pain: Qualified Code: R07.9 - Chest pain, unspecified type (5) Depression: Qualified Code: F32.9 - Depression, unspecified depression type (6) Syncope: Qualified Code: R55 - Syncope, unspecified syncope type Laura Meade Jan 07, 2017 10:55
[2017-01-07] MEDS: GABAPENTIN 100 MG CAP PO SCH ×2 (11:53→18:18)
--- NOTE | 2017-01-07 18:03 | HHI.PR ---
Subjective Remarks montoya gone Objective Vital Signs Date Time Temp Pulse Resp B/P Pulse Ox O2 Delivery O2 Flow Rate FiO2 01/07/17 16:00 98.0 50 18 144/85 93 01/07/17 12:00 96.8 54 18 135/81 92 01/07/17 08:00 98.1 54 18 145/84 97 01/07/17 07:39 96 Nasal Cannula 2.00 01/07/17 05:00 98.1 56 19 155/82 94 01/07/17 04:00 98.8 52 19 171/85 93 01/07/17 04:00 98.8 52 18 171/85 93 01/07/17 02:55 98.2 54 20 146/62 95 01/07/17 02:40 97.1 69 19 149/68 96 01/07/17 02:25 98.2 66 20 148/69 96 01/07/17 02:15 98.1 57 19 148/68 96 01/07/17 00:00 97 Nasal Cannula 2.00 01/07/17 00:00 97.9 55 24 131/62 95 01/06/17 20:00 98.2 55 18 146/67 95 I/O 01/06/17 01/06/17 01/06/17 01/07/17 01/07/17 01/07/17 07:00 15:00 23:00 07:00 15:00 23:00 Intake Total 300 ml 240 ml Balance 300 ml 240 ml Intake Oral 300 ml 240 ml # Voids 3 3 3 # Bowel Movements 1 1 Result Diagram: 01/07/17 0701/07/17 0705 Objective Remarks 5/5 bue and 2-3-/5 ble x ta can at times do 4-/5 toes down no clonus Assessment and Plan Assessment and Plan imp gbs stable dr del rio on monday some better she thinks Francisco Perez MD Jan 07, 2017 18:03
[2017-01-07] MEDS: traZODone HCL 50 MG TAB PO SCH (22:04)
[2017-01-08] VITALS (13 sets, daily range): BP systolic 109–136; BP diastolic 57–75; PULSE 48–66; RESP 16–20; TEMP 96.2–98.7; O2SAT 92–95
[2017-01-08] MEDS: RESP: ALBUTEROL 2.5 MG/3 ML NEB (SCH) NEB ×7 (00:14→23:37)
[2017-01-08] MEDS: ACETAMINOPHEN/HYDROcodone 325 MG/10 MG TAB PO PRN ×4 (04:35→20:14)
[2017-01-08] MEDS: ACETAMIN 325 MG/BUTALBITAL 50 MG/CAFFEINE 40 MG TAB PO SCH ×2 (08:40→20:04)
[2017-01-08] MEDS: SPIRONOLACTONE 25 MG TAB PO SCH (08:41)
[2017-01-08] MEDS: AMIODARONE 200 MG TAB PO SCH (08:41)
[2017-01-08] MEDS: GABAPENTIN 100 MG CAP PO SCH ×3 (08:42→18:09)
[2017-01-08] MEDS: ESCITALOPRAM OXALATE 10 MG TAB PO SCH (08:42)
[2017-01-08] MEDS: PANTOPRAZOLE SOD 40 MG DELAYED RELEASE TAB PO SCH (08:42)
[2017-01-08] MEDS: METOPROLOL TARTRATE 50 MG TAB PO SCH ×2 (08:42→20:07)
[2017-01-08] MEDS: APIXABAN 5 MG TABLET PO SCH ×2 (08:42→20:07)
--- NOTE | 2017-01-08 09:36 | HHI.PR ---
Subjective Remarks right ankle pain improved after Gabapentin sitting up in chair moving right leg more very motivated, anxious to go to rehab off oxygen no cp no so no fever Objective Objective Results - Vital Signs Date Time Temp Pulse Resp B/P Pulse Ox O2 Delivery O2 Flow Rate FiO2 01/08/17 08:52 95 Nasal Cannula 2.00 01/08/17 08:00 97.3 54 18 136/63 94 01/08/17 04:00 98.1 56 18 134/75 92 01/08/17 02:32 66 01/08/17 02:32 56 01/08/17 00:16 94 Nasal Cannula 2.00 01/08/17 00:00 98.7 50 16 135/66 93 01/07/17 21:02 90 Nasal Cannula 2.00 01/07/17 20:00 98.0 56 20 184/83 93 01/07/17 16:00 98.0 50 18 144/85 93 01/07/17 12:00 96.8 54 18 135/81 92 I/O 01/07/17 01/07/17 01/07/17 01/08/17 01/08/17 01/08/17 07:00 15:00 23:00 07:00 15:00 23:00 Intake Total 480 ml Balance 480 ml Intake Oral 480 ml # Voids 3 4 # Bowel Movements 1 1 Result Diagram: 01/07/1770401/07/17 0705 ROS General: Weakness HEENT: No: Sore Throat, Dysphagia Cardiac: No: Chest Pain, Edema, Palpitations Pulmonary: No: Cough, SOB, Wheezing GI: No: Abdominal Pain, BM, Diarrhea, N/V /ATTENDING PSYCHIATRIST: No: Dysuria, Urgency Neuro/MS: Other (leg pain ), No: Lightheaded, Confusion Psych: No: Anxiety, Depression Skin: No: Itching, Rash Physical Exam Physical Exam PHYSICAL EXAMINATION GENERAL: This is a mildly obese well-developed, well-nourished female who appears to be resting in bed . She is alert and awake, HEAD: Normocephalic without any lesion or mass noted. Facial features appear symmetric. OROPHARYNGEAL: Oropharynx without erythema or edema. NECK: Supple. No nuchal rigidity or lymphadenopathy. Trachea midline without deviation. CARDIAC: Regular rhythm, regular rate, S1 and S2 are heard. Murmur soft, no gallops or rubs. LUNGS: Mildly diminished to auscultation bilaterally. no wheeze, no rhonchi or rales ABDOMEN: Soft, nontender, no organomegaly or masses. Bowel sounds are heard in all four quadrants. No rebound. No guarding. EXTREMITIES: no edema. Pulses equal bilateral. cyanosis. Increased movement and sensation to LLL, > RLL NEUROLOGICAL: Patient mood and affect appropriate. lifting both legs off bed, at least 4-5 inches. Improved. Less dull sensation bilat. Has decreased power and tone is good 2-3/5. Awake, oriented x 4. SKIN:Warm and moist Urinary Catheter: No Vascular Central Line Catheter: No A/P Diagnosis: (1) Leg weakness, bilateral (2) HTN (hypertension) (3) Bipolar disorder (4) Hypertension (5) Chest pain (6) Tobacco dependency (7) Anxiety (8) Depression (9) Syncope (10) Paraplegia Assessment and Plan paraplegia -s/p LP, + protein CSF -mri of spine cord, no lesion -appreciate neurology input, poss. etiology - possible gbs vs rhabdo vs spinal cord infarct vs psychogenic -continue IVIG (02/10) -cont. telemetry -PT/OT, OOB -Had headache during IVIG, now better, continue on Fioricet -mobility improving, getting up with 1 assist. Knee pain and ankle pain -xrays done, no fractures -continue with pain management -inc. right ankle pain, ? neuropathic, improving, continue with Neurontin 100 mg po TID appreciate cardiology input -SP STT 01/02, no acute findings -Echo EF 60-65% -leg edema, started on Aldactone -will order teds HTN, stable -continue home meds Rhabdomyolysis on admission, improving -resolved Paroxysmal Afib, SR on monitor -continue Amiodarone,Eliquis. Anxiety/Depression/hx bipolar disorder -continue home home meds Dyspnea, History COPD, tobacco abuse -oxygen PRN -Duonebs -tobacco abuse counseling IS q 2 wa OOB with PT, OT PPI for GI prophylaxis SCDs/Eliquis for DVT prophylaxis CM for dc planning, CIR evaluating. Pt. states she paid her insurance premium for next 3 months hopefully dc to CIR tomorrow D/W RN D/W Dr. Moreno D/W pt This patient was seen by myself and Dr. Moreno, this note is written on his behalf. Discussed With: Nurse, Family, Other (Dr. Moreno, patient seen on his behalf) Problem Qualifiers (1) HTN (hypertension): Qualified Code: I10 - Essential hypertension (2) Bipolar disorder: Qualified Code: F31.9 - Bipolar affective disorder, remission status unspecified (3) Hypertension: Qualified Code: I10 - Essential hypertension (4) Chest pain: Qualified Code: R07.9 - Chest pain, unspecified type (5) Depression: Qualified Code: F32.9 - Depression, unspecified depression type (6) Syncope: Qualified Code: R55 - Syncope, unspecified syncope type Laura MeadeP Jan 08, 2017 09:36
[2017-01-08 09:58] LABS: BICARBONATE 26.2 MEQ/L (21.0-32.0); POTASSIUM 3.8 MEQ/L (3.5-5.1)
--- NOTE | 2017-01-08 10:15 | HHI.PR ---
Subjective Remarks montoya gone Objective Vital Signs Date Time Temp Pulse Resp B/P Pulse Ox O2 Delivery O2 Flow Rate FiO2 01/08/17 08:52 95 Nasal Cannula 2.00 01/08/17 08:00 97.3 54 18 136/63 94 01/08/17 04:00 98.1 56 18 134/75 92 01/08/17 02:32 66 01/08/17 02:32 56 01/08/17 00:16 94 Nasal Cannula 2.00 01/08/17 00:00 98.7 50 16 135/66 93 01/07/17 21:02 90 Nasal Cannula 2.00 01/07/17 20:00 98.0 56 20 184/83 93 01/07/17 16:00 98.0 50 18 144/85 93 01/07/17 12:00 96.8 54 18 135/81 92 I/O 01/07/17 01/07/17 01/07/17 01/08/17 01/08/17 01/08/17 07:00 15:00 23:00 07:00 15:00 23:00 Intake Total 480 ml Balance 480 ml Intake Oral 480 ml # Voids 3 4 # Bowel Movements 1 1 Result Diagram: 01/07/17 0705 01/08/17 0819 Objective Remarks 5/5 bue and 2-3-/5 ble x ta can at times do 4-/5 toes down no clonus no change today Assessment and Plan Assessment and Plan imp gbs stable dr del rio on monday consider plasma exchange ? Francisco Perez MD Jan 08, 2017 10:15
[2017-01-08] MEDS: traZODone HCL 50 MG TAB PO SCH (20:05)
[2017-01-09] VITALS (12 sets, daily range): BP systolic 100–156; BP diastolic 59–88; PULSE 53–63; RESP 20–21; TEMP 97–98; O2SAT 91–96
[2017-01-09] MEDS: RESP: ALBUTEROL 2.5 MG/3 ML NEB (SCH) NEB ×6 (03:53→23:50)
[2017-01-09] MEDS: ACETAMINOPHEN/HYDROcodone 325 MG/10 MG TAB PO PRN ×5 (04:48→21:12)
[2017-01-09 08:24] LABS: BICARBONATE 24.5 MEQ/L (21.0-32.0)
[2017-01-09 08:40] LABS: POTASSIUM 4.2 MEQ/L (3.5-5.1)
[2017-01-09] MEDS: ACETAMIN 325 MG/BUTALBITAL 50 MG/CAFFEINE 40 MG TAB PO SCH (09:00)
[2017-01-09] MEDS: METOPROLOL TARTRATE 50 MG TAB PO SCH ×2 (09:00→21:08)
[2017-01-09] MEDS: AMIODARONE 200 MG TAB PO SCH (09:07)
[2017-01-09] MEDS: SPIRONOLACTONE 25 MG TAB PO SCH (09:07)
[2017-01-09] MEDS: APIXABAN 5 MG TABLET PO SCH ×2 (09:08→21:08)
[2017-01-09] MEDS: PANTOPRAZOLE SOD 40 MG DELAYED RELEASE TAB PO SCH (09:08)
[2017-01-09] MEDS: GABAPENTIN 100 MG CAP PO SCH ×3 (09:08→16:59)
[2017-01-09] MEDS: ESCITALOPRAM OXALATE 10 MG TAB PO SCH (09:08)
--- NOTE | 2017-01-09 14:18 | HHI.PR ---
Subjective Remarks alert Oriented, No chest pain No SOB Generalized lower extremity edema improved afebrile (Louise Reyes) Objective Objective Results - Vital Signs Date Time Temp Pulse Resp B/P Pulse Ox O2 Delivery O2 Flow Rate FiO2 01/09/17 12:39 97.5 63 20 113/63 91 01/09/17 08:16 97.7 61 20 156/88 95 01/09/17 08:15 97.7 01/09/17 07:30 95 Nasal Cannula 2.00 01/09/17 07:00 60 01/09/17 05:38 98.0 62 21 145/86 95 01/09/17 03:54 94 Nasal Cannula 2.00 01/09/17 00:33 98.0 60 21 139/81 92 01/08/17 23:40 92 Nasal Cannula 2.00 01/08/17 22:23 48 01/08/17 22:23 48 01/08/17 20:21 97.1 56 20 115/57 94 01/08/17 16:00 98.4 54 18 109/58 94 01/08/17 15:06 95 21 I/O 01/08/17 01/08/17 01/08/17 01/09/17 01/09/17 01/09/17 07:00 15:00 23:00 07:00 15:00 23:00 Intake Total 480 ml 240 ml Balance 480 ml 240 ml Intake Oral 480 ml 240 ml # Voids 2 1 # Bowel Movements 1 1 (Louise Reyes) Result Diagram: 01/07/17 0705 01/09/17 0714 ROS General: Fatigue, Weakness (LE weakness, gradual improving), Other (10 Point ROS done. LE weakness slow gradual improvement) Neuro/MS: Other (generalized arthalgias) (Louise Reyes) Physical Exam Physical Exam PHYSICAL EXAMINATION GENERAL: This is a well-developed, well-nourished female who appears to be in no acute distress. She is alert and awake, HEAD: Normocephalic without any lesion or mass noted. Facial features appear symmetric. OROPHARYNGEAL: Oropharynx without erythema or edema. NECK: Supple. No nuchal rigidity or lymphadenopathy. Trachea midline without deviation. CARDIAC: Regular rhythm, regular rate, S1 and S2 are heard. Murmur none LUNGS: Clear to auscultation bilaterally. no wheeze, no rhonchi No use of accessory muscles on inspiration or expiration. ABDOMEN: Soft, nontender, no organomegaly or masses. Bowel sounds are heard in all four quadrants. No rebound. No guarding. BM this am EXTREMITIES: no edema. Pulses present, LE weakness continues, rt. weakness > lt. NEUROLOGICAL: Patient mood and affect appropriate. No focal deficit SKIN:Warm and moist (Louise Reyes) A/P Assessment and Plan paraplegia, resolving Now appears to be generalized weakness, possibly viral syndrome. Patient is able to get up with walker and 1-2 people assist and go to the restroom. some labs are still pending, -appreciate neurology input, IVIG , complete -cont. telemetry Possible Staci Nguyen, , rhabdomyolysis resolved., Still evaluate a few pending labs, possible viral syndrome debility continues, would benefit from rehab. Chronic pain Knee pain, chronic, pain management appreciate cardiology, stress test and workup negative. HTN, stable now -continue home meds Paroxysmal Afib, SR on monitor -continue Amiodarone,Eliquis. COPD, no acute dyspnea at rest, she is using O2 off and on Duo nebs as warranted, No SOB PPI for GI prophylaxis SCDs/Eliquis for DVT prophylaxis CM for dc planning , possible today, Naun PT, OT working with patient. Discharge Planning Initiated, currently hopeful for rehabilitation, Discussed With: Nurse, Family, Other (Dr. Moreno, patient seen on his behalf) ( Louise Reyes) Assessment and Plan patient seen and examined appears comfortable reports her left leg seems stronger compared to right able to wiggle toes cleared by DR French for discharge to rehab discussed with case management: Not accepted at [facility] awaiting SNF placement for discharge discussed with patient no family at bedside discussed with Louise (Rufina Oates MD) Louise Reyes Jan 09, 2017 14:18 Rufina Oates MD Jan 09, 2017 14:38
[2017-01-09] MEDS ORDERED: Spironolactone PO (14:41)
[2017-01-09] MEDS ORDERED: HYDR-3583 PO (14:41)
[2017-01-09] MEDS: traZODone HCL 50 MG TAB PO SCH (21:08)
[2017-01-10] VITALS (8 sets, daily range): BP systolic 142–185; BP diastolic 74–89; PULSE 49–80; RESP 18; TEMP 96.8–98.4; O2SAT 95–99
[2017-01-10] MEDS: ACETAMINOPHEN/HYDROcodone 325 MG/10 MG TAB PO PRN ×5 (01:23→17:26)
--- NOTE | 2017-01-10 08:25 | HHI.PR ---
Review/Management Diagnosis/Plan: (1) Paraplegia Plan: -increased csf protein: gbs possible and working dx vs cord infarct, but on OAC -completed 5 days of ivig -hold off on plex recs neuro stable d/c planning to rehab outpatient f/u in 3-4 weeks f/u labs emg/ncv of le when feasible-pending; can be done outpatient p.t. follow exam (2) Depression (3) Paroxysmal atrial fibrillation Plan: on oac (4) Chronic low back pain (5) Cervical spondylosis without myelopathy (6) Anxiety Subjective Subjective Comments No acute events reported No headache No chest pain No dyspnea Active Medications Current Medications Medications (Trade) Dose Ordered Sig/Briseida Route Start Time Stop Time Status Last Admin (NS Flush) 2 ml UNSCH PRN IVF 12/30/16 08:30 (Lexapro) 10 mg DAILY PO 12/31/16 09:00 01/09/17 09:08 Patient Own Medication PT OWN MED: COMBIV... QID INH 12/30/16 21:00 Hold Patient Own Medication PT OWN MED: INCR... DAILY INH 12/31/16 09:00 Hold (Desyrel) 150 mg HS PO 12/31/16 21:00 01/09/17 21:08 (Protonix) 40 mg DAILY PO 01/01/17 09:00 01/09/17 09:08 (Cordarone) 200 mg DAILY PO 01/02/17 09:00 01/09/17 09:07 (Lopressor) 50 mg BID PO 01/01/17 21:00 01/09/17 21:08 (Eliquis) 5 mg BID PO 01/03/17 06:00 01/09/17 21:08 (Toradol) 10 mg Q6H PRN PO 01/04/17 11:30 01/04/17 13:17 ([place] 10-325 Mg) 1 tab Q4H PRN PO 01/04/17 16:45 01/10/17 05:32 (Aldactone) 25 mg DAILY PO 01/06/17 09:00 01/09/17 09:07 (Fioricet 325-50-40) 1 tab Q8H PRN PO 01/06/17 13:30 (Neurontin) 100 mg TID PO 01/07/17 13:00 01/09/17 16:59 Allergies Allergies Coded Allergies Penicillin (Verified Allergy, Severe, PURITIS, 12/30/16) Review of Systems All other ROS: ROS reviewed as documented in chart Exam I&O / VS 01/09/17 01/09/17 01/10/17 15:00 23:00 07:00 Intake Total 720 ml 240 ml Balance 720 ml 240 ml Intake Oral 720 ml 240 ml # Voids 1 0 2 # Bowel Movements 0 0 Vital Signs Date Time Temp Pulse Resp B/P Pulse Ox O2 Delivery O2 Flow Rate FiO2 01/10/17 05:28 98.1 54 18 185/85 97 01/10/17 01:50 97.3 53 18 142/81 95 01/09/17 21:00 53 01/09/17 20:51 97.6 56 20 121/65 96 01/09/17 19:42 95 Nasal Cannula 2.00 01/09/17 16:25 97.0 58 20 100/59 95 01/09/17 12:39 97.5 63 20 113/63 91 General: Alert and Oriented, No acute distress Eye: EOMI Respiratory: Non-labored respirations Cardiology: Normal rate, Regular Rhythm Musculoskeletal: Tenderness (To palpation right knee) Neurologic: Alert, Oriented, CN II-XII intact Psychiatric: Cooperative, Appropriate mood & affect Exam Comments ox 3. sitting up looks comfortable, neck supple, no rigidity, no temp tenderness , follows. eomi, ou 3-2mm, face sym, able to slightly lift legs off bed 2-3/5, l >rt, able to move toes more and dorsiflexion/planterflexion in both feet 2-3/5, sensation better to pin in legs, msr 1+ in kj, aj better, no clonus, planterflexor Problem Qualifiers (1) Depression: Qualified Code: F32.9 - Depression, unspecified depression type (2) Chronic low back pain: Tristan French MD Jan 10, 2017 08:25
[2017-01-10] MEDS ORDERED: cloNIDine HCL 0.1 MG TAB PO PRN (08:45)
[2017-01-10 08:47] LABS: BICARBONATE 27.4 MEQ/L (21.0-32.0); POTASSIUM 4.1 MEQ/L (3.5-5.1)
[2017-01-10] MEDS: RESP: ALBUTEROL 2.5 MG/3 ML NEB (SCH) NEB ×3 (08:53→16:05)
[2017-01-10] MEDS: PANTOPRAZOLE SOD 40 MG DELAYED RELEASE TAB PO SCH (09:39)
[2017-01-10] MEDS: SPIRONOLACTONE 25 MG TAB PO SCH (09:39)
[2017-01-10] MEDS: GABAPENTIN 100 MG CAP PO SCH ×3 (09:39→17:26)
[2017-01-10] MEDS: ESCITALOPRAM OXALATE 10 MG TAB PO SCH (09:39)
[2017-01-10] MEDS: APIXABAN 5 MG TABLET PO SCH ×2 (09:40→17:27)
[2017-01-10] MEDS: AMIODARONE 200 MG TAB PO SCH (09:40)
[2017-01-10] MEDS: METOPROLOL TARTRATE 50 MG TAB PO SCH (09:40)
--- NOTE | 2017-01-10 10:37 | HHI.PR ---
Subjective Remarks alert motivated to get better. afebrile No SOB encouraged to be OOB, with assistance PT (Louise Reyes) Objective Objective Results - Vital Signs Date Time Temp Pulse Resp B/P Pulse Ox O2 Delivery O2 Flow Rate FiO2 01/10/17 08:53 96 Nasal Cannula 2.00 01/10/17 08:00 98.4 80 18 155/89 99 01/10/17 05:28 98.1 54 18 185/85 97 01/10/17 01:50 97.3 53 18 142/81 95 01/09/17 21:00 53 01/09/17 20:51 97.6 56 20 121/65 96 01/09/17 19:42 95 Nasal Cannula 2.00 01/09/17 16:25 97.0 58 20 100/59 95 01/09/17 12:39 97.5 63 20 113/63 91 I/O 01/09/17 01/09/17 01/09/17 01/10/17 01/10/17 01/10/17 07:00 15:00 23:00 07:00 15:00 23:00 Intake Total 720 ml 240 ml Balance 720 ml 240 ml Intake Oral 720 ml 240 ml # Voids 1 1 0 2 # Bowel Movements 1 0 0 (Louise Reyes) Result Diagram: 01/07/17 0705 01/10/17 0740 ROS General: Fatigue, Weakness (GBS), Other (10 point ROS done. positives noted) Pulmonary: SOB (resolved) GI: Other (bowel regimin normal.) Neuro/MS: Other (LE weakness, bilateral.) (Louise Reyes) Physical Exam Physical Exam PHYSICAL EXAMINATION GENERAL: This is a well-developed, female resting in bed. Up in chair daily. She is alert and awake HEAD: Normocephalic without any lesion or mass noted. Facial features appear symmetric. OROPHARYNGEAL: Oropharynx without erythema or edema. NECK: Supple. Trachea midline without deviation. CARDIAC: Regular rhythm, regular rate, S1 and S2 are heard. Murmur none; no gallops or rubs. LUNGS: Clear to auscultation bilaterally. no wheeze, no rhonchi ABDOMEN: Soft, nontender, no organomegaly or masses. Bowel sounds are heard in all four quadrants. No rebound. No guarding. EXTREMITIES: no edema. Pulses equal bilateral. LE bilateral weakness. 2/5 NEUROLOGICAL: Patient mood and affect appropriate. No focal deficit SKIN:Warm and moist Objective Remarks Im gonna get better. (Louise Reyes) A/P Assessment and Plan GBS, probable, Apreciate neuro following Needs rehab as OP working with CM for plan, Today possible. BMP checked today. Normal ranges. -appreciate neurology input, IVIG , complete -cont. 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 Reviewing 3 SNF rehabs locally Chronic pain, controlled appreciate cardiology, stress test and workup negative. HTN, systolic 180s today added PO clonidine prn with parameters COPD, no acute dyspnea at rest, she is using O2 off and on Duo nebs as warranted, No SOB PPI for GI prophylaxis SCDs/Eliquis for DVT prophylaxis CM for dc planning , possible today, Neuro MD goes to some of the SNF rehab. information given to CM. PT, OT working with patient. Discharge Planning Initiated, currently hopeful for rehabilitation, Discussed With: Nurse, Family, Other (Dr. Moreno, patient seen on his behalf) ( Louise Reyes) Assessment and Plan patient seen and examined accepted at [facility], they will not provide eliquis or BreoEllipta patient will need to bring her own meds discussed with patient discussed with case management discussed with Louise WALSH ok to d/c to rehab outpatient follow up with DR French (Rufina Oates MD) Louise Reyes Jan 10, 2017 10:37 Rufina Oates MD Jan 10, 2017 15:53
[2017-01-10] MEDS ORDERED: GABA100C4 PO (15:54)
--- NOTE | 2017-01-11 19:25 | HHI.DS ---
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 Brief History This was a 56-year-old female who presented to the emergency room with a possible syncopal episode and low back pain. The patient stated that her nephew dropped her off at her home. She was remembering that he kept asking her why she was falling asleep and that she needed to wake up. The patient woke up some time during the evening and found herself in front of her apartment on the ground. She was unable to move her legs and does not know how long she was laying there. The patient denied any chest pain, no headaches, no history of altered mental status or syncopal episodes. She stated she did have a fever and cough approximately a week ago and took [id number] medications. She had some increased stressors in her life recently because she is trying to find a new apartment. She does complain of some shortness of breath with activity. Currently she stated that she has numbness in both her legs, the left being greater than the right. She can move her extremities but on exam they do appear weakened as compared to her upper extremities. The patient was a current tobacco user and initially on her lab work she was positive for amphetamines. She denied any use of any drugs. Denied any alcohol use. She stated she is continuing to have low back pain and weakness in both her legs. The patient did have a history of atrial fibrillation and has been taking Eliquis for approximately one year. She stated that she takes her medicines as prescribed. CBC/BMP: 01/07/17 0705 01/10/17 0740 Significant Findings Laboratory Tests Test 01/09/17 01/10/17 07:14 07:40 Estimat Glomerular Filtration 81 ML/MIN (>89) 84 ML/MIN (>89) Rate Imaging Last Impressions Knee X-Ray 01/05/17 0000 Signed Impressions: Service Date/Time: December 14:58 - CONCLUSION: Mild subchondral sclerosis and possible small subchondral fracture of the medial femoral condyle. Moderate-sized joint effusion. Alberto Kinsey MD Ankle X-Ray 01/05/17 0000 Signed Impressions: Service Date/Time: December 15:02 - CONCLUSION: No evidence of fracture. Alberto Kinsey MD Myocardial Perfusion Scan Nuc Med 01/02/17 0900 Signed Impressions: Service Date/Time: Monday, January 02, 2017 10:55 - CONCLUSION: Negative for stress-induced ischemia. RISK CATEGORY: Low (<1%% Annual Mortality Rate) Gerardo Kirk MD FACR Lumbar Puncture Fluoroscopy 01/02/17 0000 Signed Impressions: Service Date/Time: Monday, January 02, 2017 13:00 - CONCLUSION: Uncomplicated fluoroscopically guided lumbar puncture. Dl Grajeda Jr., MD Brain MRI 12/31/16 0000 Signed Impressions: Service Date/Time: Saturday, December 31, 2016 10:38 - CONCLUSION: No evidence of infarct or metastatic disease. No significant intracranial abnormality noted.. Vania Cornejo MD Thoracic Spine MRI 12/30/16 1447 Signed Impressions: Service Date/Time: Friday, December 30, 2016 16:26 - CONCLUSION: 1. Exaggerated kyphotic curvature of the dorsal spine with mild multilevel degenerative disc disease predominantly at T6-7 and T7-8 as detailed above. 2. However, the spinal canal is widely patent throughout without cord compromise to explain current clinical symptoms. Jermaine Hughes MD Lumbar Spine MRI 12/30/16 1447 Signed Impressions: Service Date/Time: Friday, December 30, 2016 16:26 - CONCLUSION: 1. Early degenerative disc disease at L4-5 and L5-S1 with some loss of disc height and disc desiccation. 2. Otherwise negative. Spinal canal and neural foramina are patent throughout without nerve root compromise to explain current clinical symptoms. Jermaine Hughes MD Cervical Spine MRI 12/30/16 1447 Signed Impressions: Service Date/Time: Friday, December 30, 2016 16:26 - CONCLUSION: Unremarkable MR appearance of the cervical spine post previous ventral fusion as above J Carlos Frye MD Head CT 3/24/17 0830 Signed Impressions: Service Date/Time: Friday, December 30, 2016 10:45 - CONCLUSION: No acute disease. Bernard Quintanilla MD Chest X-Ray 12/30/16829 Signed Impressions: Service Date/Time: Friday, December 30, 2016 09:27 - CONCLUSION: 1. Left lingular atelectasis/scarring. 2. Borderline but well compensated heart. Lungs are otherwise clear. Jermaine Hughes MD Aorta CTA 12/30/16 0000 Signed Impressions: Service Date/Time: Friday, December 30, 2016 13:30 - CONCLUSION: 1. The thoracoabdominal aorta is normal in caliber throughout its length without aneurysmal disease or dissection. 2. Dependent atelectatic changes in both hemithoraces. 3. Patient is status post cholecystectomy. 4. Benign-appearing cysts in the lateral aspect of the left renal cortex and left lobe of the thyroid Jermaine Hughes MD PE at Discharge GENERAL: This is a well-developed, well-nourished female who appears to be in no acute distress. She is alert and awake, HEAD: Normocephalic without any lesion or mass noted. Facial features appear symmetric. OROPHARYNGEAL: Oropharynx without erythema or edema. NECK: Supple. No nuchal rigidity or lymphadenopathy. Trachea midline without deviation. CARDIAC: Regular rhythm, regular rate, S1 and S2 are heard. Murmur none LUNGS: Clear to auscultation bilaterally. no wheeze, no rhonchi No use of accessory muscles on inspiration or expiration. ABDOMEN: Soft, nontender, no organomegaly or masses. Bowel sounds are heard in all four quadrants. No rebound. No guarding. BM this am EXTREMITIES: no edema. Pulses present, LE weakness continues, rt. weakness > lt. NEUROLOGICAL: Patient mood and affect appropriate. No focal deficit SKIN:Warm and moist Hospital Course In the emergency room the patient had initial labs and vital signs done. She had ECG monitoring, O2 therapy and a CT of the brain to rule out any acute events. She also had a CTA of her thoracic abdominal aorta. The patient also had MRIs, labs and meds to stabilize her. 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 Neuro was involved from the beginning of her admission for her care Now appears to be generalized weakness, possibly viral syndrome and or Staci Nguyen syndrome. Patient is able to get up with walker and 1-2 people assist and go to the restroom. some labs are still pending, -appreciate neurology input, IVIG , complete -cont. telemetry Possible Staci Nguyen, , rhabdomyolysis resolved., Still evaluate a few pending labs, possible viral syndrome debility continues, would benefit from rehab. Chronic pain, x-rays done to come from no acute issues with knees Knee pain, chronic, pain management adjusted several times during her admission appreciate cardiology, stress test and workup negative. HTN, stable now -continue home meds Paroxysmal Afib, SR on monitor -continue Amiodarone,Eliquis. COPD, no acute dyspnea at rest, she is using O2 off and on Duo nebs as warranted, No SOB PPI for GI prophylaxis SCDs/Eliquis for DVT prophylaxis CM for dc planning , looking at several options for rehabilitation. PT, OT working with patient. Initiated, currently hopeful for rehabilitation, Patient was seen and examined per EMD and ACCOUNT MANAGEMENT SPECIALIST day of discharge. patient seen and examined appears comfortable reports her left leg seems stronger compared to right able to wiggle toes cleared by DR French for discharge to rehab discussed with case management: Not accepted at [place] awaiting SNF placement for discharge, for extra rehabilitation. Unsure about how long she will need for a recovery period. discussed with patient no family at bedside discussed with Louise Pt Condition on Discharge: Fair Discharge Disposition: Discharge to SNF Discharge Instructions DIET: Follow Instructions for: Heart Healthy Diet Activities you can perform: See Additionl Instruction Louise Reyes Jan 11, 2017 19:25
== END 2017-01-10 18:18 | DRG 95 ==
LOC: NEPE 08:19 → NEDA 18:32 → OBSVTOIN 19:00 → NEPGCP 20:45 → N05A 01-03 19:51
PROVIDERS: ADMIT Specialist; ATTEND Specialist
PROC: 009U3ZX Drainage of Spinal Canal, Percutaneous Approach, Diagnostic (ICD-10-PCS; principal; 2017-01-02)
DX: G61.0 Guillain-Barre syndrome (principal); G82.20 Paraplegia, unspecified; M62.82 Rhabdomyolysis; I48.0 Paroxysmal atrial fibrillation; I11.0 Hypertensive heart disease with heart failure; I50.9 Heart failure, unspecified; R55 Syncope and collapse; F31.60 Bipolar disorder, current episode mixed, unspecified; J44.9 Chronic obstructive pulmonary disease, unspecified; G40.909 Epilepsy, unspecified, not intractable, without status epilepticus; K21.9 Gastro-esophageal reflux disease without esophagitis; M79.7 Fibromyalgia; E87.6 Hypokalemia; M51.36 Other intervertebral disc degeneration, lumbar region; M51.37 Other intervertebral disc degeneration, lumbosacral region; M51.34 Other intervertebral disc degeneration, thoracic region; M47.812 Spondylosis without myelopathy or radiculopathy, cervical region; G89.29 Other chronic pain; I20.9 Angina pectoris, unspecified; E66.9 Obesity, unspecified; D72.829 Elevated white blood cell count, unspecified; G44.209 Tension-type headache, unspecified, not intractable; F41.9 Anxiety disorder, unspecified; F17.210 Nicotine dependence, cigarettes, uncomplicated; Z59.9 Problem related to housing and economic circumstances, unspecified; Z68.38 Body mass index [BMI] 38.0-38.9, adult; Z79.01 Long term (current) use of anticoagulants; Z85.3 Personal history of malignant neoplasm of breast; Z86.73 Personal history of transient ischemic attack (TIA), and cerebral infarction without residual deficits; Z88.0 Allergy status to penicillin; Z90.13 Acquired absence of bilateral breasts and nipples; Z90.49 Acquired absence of other specified parts of digestive tract; Z92.3 Personal history of irradiation; Z98.1 Arthrodesis status
CPT/HCPCS: 62270; 70450; 70551; 71010; 71275; 72156; 72157; 72158; 73560; 73600; 74174; 76937; 77003; 78452; 80048; 80053; 80307; 81001; 82085; 82164; 82550; 82552; 82607; 82945; 83605; 83615; 83735; 83873; 84157; 84165; 84443; 84484; 85025; 85027; 85610; 85652; 85730; 86038; 86140; 86403; 86592; 86703; 86780; 86788; 87070; 87205; 87498; 87536; 89051; 93005; 93017; 93306; 94150; 94640; 94664; 95819; A9502; A9579; G0378; J1459; J2785; J7030; J7040; J7060; J7613; Q9967

== ENCOUNTER → 2017-05-04 | Outpatient (CLI) | payer OTHER ==
[~2017-05-04] MED LIST changes: +AMBI5TAB PO; +FURO1TAB60 PO; +GABA100C4 PO; +HYDR-3583 PO; +HYDR1CAP30 PO; -LEVA500T PO; +MORP1TAB25 PO; +NEUR600T PO; +POTA-163 PO; +SPIRCAP INH; +SYMB160A INH; +Spironolactone PO; +TRAZ1TAB45 PO; -VALE250C2
--- NOTE | 2017-05-04 16:52 | RADRPT ---
EXAM DATE/TIME: 05/04/2017 14:43 [facility] COMPARISON: MRI CERVICAL SPINE W & W/O CONTRAST, December 30, 2016, 16:26. 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 MEDICAL HISTORY : Hypertension. SURGICAL HISTORY : Appendectomy. Cholecystectomy. Mastectomy, bilateral. Right arm and cervical fusion. ENCOUNTER: Initial ACUITY: 4-6 months PAIN SCORE: 0/10 LOCATION: Neck. TECHNIQUE: Multiplanar, multisequence MRI examination of the cervical spine was performed. FINDINGS: Sagittal T1, T2 and inversion recovery images show anterior 3 level fixation from C4-C6. Degenerative disc disease is most prominent at the superior motion segment with C3-4 with a diffuse disc bulge an d early marginal spurring. Grade 1 anterolisthesis of C2 on 3. Spinal canal is patent throughout. Alena tebral body heights are maintained. Detailed axial images as follows: C2-C3: The thecal sac has a normal configuration. There is no evidence of disc herniation or spinal canal s tenosis. The neural foramina are patent bilaterally. C3-C4: Disc bulge is somewhat vertebral ridging encroaches on the intervertebral space of the spinal canal a nd neural foramina remain patent. C4-C5: Anterior fixation. Spinal canal and neural foramina are patent C5-C6: Anterior fixation. There is some bony spurring posteriorly which encroaches on the anterior epidural space the spinal canal and neural foramina remain patent. C6-C7: The thecal sac has a normal configuration. There is no evidence of disc herniation or spinal canal s tenosis. The neural foramina are patent bilaterally. C7-T1: The thecal sac has a normal configuration. There is no evidence of disc herniation or spinal canal s tenosis. The neural foramina are patent bilaterally. CONCLUSION: 1. 3 level anterior fixation from C4-C6. 2. Mild degenerative disc disease most prominent at the superior motion segment, C3-4 as detailed abo ve. 3. Mild grade 1 anterolisthesis of C2 on 3. 4. Despite degenerative changes, spinal canal and neural foramina remain adequate throughout without cord or nerve root compromise to explain current clinical symptoms. Jermaine Hughes MD on May 04, 2017 at 16:41 Board Certified Radiologist. This report was verified electronically.
--- NOTE | 2017-05-04 17:03 | RADRPT ---
EXAM DATE/TIME: 05/04/2017 14:43 [facility] COMPARISON: MRI BRAIN W/O CONTRAST, December 31, 2016, 10:38. INDICATIONS : CVA. Right sided weakness and facial droop for four months. Guillain-castellano syndrome. MEDICAL HISTORY : Hypertension. SURGICAL HISTORY : Appendectomy. Mastectomy, bilateral. Cholecystectomy. Right arm and cervical fusion. ENCOUNTER: Initial ACUITY: 4-6 months PAIN SCORE: 0/10 LOCATION: Head. TECHNIQUE: Multiplanar, multisequence MRI of the brain was performed without contrast. FINDINGS: CEREBRUM: The ventricles are normal for age. No evidence of midline shift, mass lesion, hemorrhage or acute in farction. No extraaxial fluid collections are seen. The pituitary gland and suprasellar cistern are normal in configuration. WHITE MATTER: No significant signal abnormalities are seen in the white matter. POSTERIOR FOSSA: The cerebellum and brainstem are intact. The 4th ventricle is midline. The cerebellopontine angle is unremarkable. The cerebellar tonsils are normal in position. DIFFUSION IMAGING: No focal areas of restricted diffusion are seen. No evidence of acute infarction. EXTRACRANIAL: The visualized portions of the orbits and paranasal sinuses are unremarkable. CONCLUSION: No acute disease. Bernard Quintanilla MD on May 04, 2017 at 17:00 Board Certified Radiologist. This report was verified electronically.
== END ==
LOC: HRAD 12:56
PROVIDERS: ATTEND Family Medicine
DX: G61.0 Guillain-Barre syndrome (principal)
CPT/HCPCS: 70551; 72141

== ENCOUNTER 2017-05-15 01:58 | Inpatient (IN) | payer OTHER ==
[2017-05-15] VITALS (10 sets, daily range): BP systolic 86–147; BP diastolic 49–72; PULSE 73–90; RESP 18–24; TEMP 99.3–102.5; O2SAT 93–99
[~2017-05-15] VITALS: Ht 160 cm; Wt 119.0 kg
[~2017-05-15 01:58] MED LIST changes: -AMBI5TAB PO; -FURO1TAB60 PO; -HYDR1CAP30 PO; -MORP1TAB25 PO; -NEUR600T PO; -POTA-163 PO; -SPIRCAP INH; -SYMB160A INH; -TRAZ1TAB45 PO
--- NOTE | 2017-05-15 02:26 | PD ---
HPI Chief Complaint: Fever Time Seen by Provider: 02:09 Travel History International Travel<30 days: No Contact w/Intl Traveler<30days: No Traveled to known affect area: No History of Present Illness HPI The patient is a 56 year old female who presents to the [facility] emergency department with a history of 4-5 days of generalized weakness with poor by mouth intake due to nausea vomiting. She reports that she does not vomit as long as she does not eat. She reports that she's also had diarrhea approximately 30 times per day. She reports that over the last 2 days she has noticed some blood in her stool. The patient reports that last week she was treated with an antibiotic for a urinary tract infection. The patient reports that she's had a fever with a MAXIMUM TEMPERATURE of 102 at her rehabilitation facility. 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 The patient also has a history of COPD. She denies having any worsening cough or congestion. Otherwise on review of systems, the patient denies having any neck pain, chest pain, worsening shortness of breath, abdominal pain, urinary symptoms, or new neurologic symptoms. The patient was brought in by ambulance services. The patient reportedly had a 2 saturations of 97% on 2 L nasal cannula O2. The patient's blood sugar prior to arrival was 131. 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 Hx Anticoagulant Therapy: Yes (ELIQUIS) Arthritis: No Asthma: No Autoimmune Disease: No Blood Disorders: No Bipolar Disorder: Yes Anxiety: Yes Depression: Yes Heart Rhythm Problems: Yes (AFIB) Cancer: Yes (Breast) Cardiac Catheterization: No Cardiovascular Problems: Yes High Cholesterol: No Chemotherapy: No Chest Pain: No Congestive Heart Failure: Yes COPD: Yes Cerebrovascular Accident: Yes Diabetes: No Diminished Hearing: No Deep Vein Thrombosis: Yes Endocrine: No Gastrointestinal Disorders: Yes (Bowel resection 2013 ) GERD: Yes Genitourinary: No Headaches: Yes Hiatal Hernia: No Heparin Induced Thrombocytopen: No Hypertension: Yes Immune Disorder: No Implanted Vascular Access Dvce: Yes Kidney Stones: No Musculoskeletal: Yes Neurologic: No Psychiatric: Yes Reproductive: No Respiratory: Yes Migraines: No Radiation Therapy: Yes Renal Failure: No Seizures: Yes (2014) Sleep Apnea: No Thyroid Disease: No Ulcer: Yes Menopausal: Yes : 3 Para: 2 Miscarriage: 1 Past Surgical History Narrative Surgical The patient's past surgical history is significant for an appendectomy, right arm ORIF, cholecystectomy, bilateral mastectomy, C-spine surgery, tonsillectomy. Abdominal Surgery: Yes Appendectomy: Yes Body Medical Devices: 2 pins in Right Arm Cardiac Surgery: No Cholecystectomy: Yes Coronary Artery Bypass Graft: No Ear Surgery: No Endocrine Surgery: Yes Eye Surgery: No Genitourinary Surgery: No Gynecologic Surgery: No Hysterectomy: No Mastectomy: Yes (BILATERAL ) Neurologic Surgery: Yes (C-SPINE SURGERY) Oral Surgery: No Pacemaker: No Thoracic Surgery: Yes Tonsillectomy: Yes Other Surgery: Yes (Stomach (blockage), Neck C4-6, Bilateral Masectomy) Family History Family Myocardial Infarction: Yes Social History Alcohol Use: No Tobacco Use: Yes (3 cig/day) Substance Use: No Allergies-Medications (Allergen,Severity, Reaction): Coded Allergies: Penicillin (Verified Allergy, Severe, PURITIS, 05/15/17) Reported Meds & Prescriptions Reported Meds & Active Scripts Active Gabapentin 100 Mg Cap 200 Mg PO TID 30 Days [Spironolactone] 25 MG Tab 25 Mg PO DAILY 30 Days Hydrocodone-Acetaminophen 10-325 mg Tab 1 Tab PO Q6HR PRN 7 Days Escitalopram (Escitalopram Oxalate) 10 Mg Tab 10 Mg PO DAILY Reported Eliquis (Apixaban) 5 Mg Tab 5 Mg PO BID Albuterol Neb (Albuterol Sulfate) 2.5 Mg/3 Ml Neb 2.5 Mg NEB Q4HR NEB While awake Trazodone (Trazodone HCl) 150 Mg Tab 150 Mg PO HS Metoprolol Tartrate 50 Mg Tab 50 Mg PO BID Incruse Ellipta Inh (Umeclidinium [place] Inh) 0.0625 Mg/Act Inh 62.5 Mcg INH DAILY Pacerone (Amiodarone HCl) 200 Mg Tab 200 Mg PO DAILY Combivent Respimat Inh (Ipratropium-Albuterol Inh) 20-100 Penit[facility]iary/Act Aero 1 Puff INH QID Review of Systems Except as stated in HPI: all other systems reviewed are Neg General / Constitutional: Positive: Fever Eyes: No: Visual changes HENT: No: Headaches, Congestion Cardiovascular: Positive: Dyspnea on exertion (chronic related to COPD), No: Chest Pain or Discomfort Respiratory: No: Cough, Shortness of Breath Gastrointestinal: Positive: Nausea, Vomiting, Diarrhea, Hematochezia, Changes in Bowel Habits, No: Abdominal Pain, Hematemesis, Indigestion, Loss of Appetite Genitourinary: No: Dysuria Musculoskeletal: No: Pain Skin: No Rash Neurologic: Positive: Weakness (generalized weakness), No: Change in Mentation , Slurred Speech Psychiatric: No: Depression Endocrine: No: Polydipsia Hematologic/Lymphatic: No: Easy Bruising Physical Exam Narrative General: The patient is a well-developed well-nourished female in no acute distress. Head and Neck exam: Head is normocephalic atraumatic. Eyes: EOMI, pupils are equal round and reactive to light. Nose: Midline septum with pink mucous membranes Mouth: Dentition unremarkable. Moist mucus membranes. Posterior oropharynx is not erythematous. No tonsillar hypertrophy. Uvula midline. Airway patent. Neck: No palpable lymphadenopathy. No nuchal rigidity. No thyromegaly. Cardiovascular: Regular rate and rhythm without murmurs, gallops, or rubs. No pulse deficit to the extremities and simultaneous auscultation and palpation of her radial artery. Lungs: Clear to auscultation bilaterally. No wheezes, rhonchi, or rales. Abdomen: Soft, without tenderness to palpation in all 4 quadrants of the abdomen. No guarding, rebound, or rigidity. Normal bowel sounds are audible. No tenderness on palpation of McBurney's point. Negative Cascade sign. Extremities: No clubbing, cyanosis, or edema. 2+ pulses in all 4 extremities. No calf tenderness on palpation. Back: No costovertebral angle tenderness to palpation. Neurologic Exam: The patient has strength that is 5 over 5 in bilateral upper extremities. Diminished strength in bilateral lower extremities, difficulty lifting bilateral legs which she reports is chronic since being diagnosed with Guillain- Nguyen. She has been able to move bilateral feet. The patient has no evidence of facial asymmetry. She is awake and alert. She is oriented to person, place , time, and situation. Skin Exam: No rash noted. Intact skin that is warm and dry. Data Data Last Documented VS Vital Signs Date Time Temp Pulse Resp B/P Pulse Ox O2 Delivery O2 Flow Rate FiO2 05/15/17 02:19 20 95 Nasal Cannula 4 05/15/17 02:05 100.1 73 86/49 Orders Electrocardiogram (05/15/17 02:21) Complete Blood Count With Diff (05/15/17 02:21) Comprehensive Metabolic Panel (05/15/17 02:21) Troponin I (05/15/17 02:21) B-Type Natriuretic Peptide (05/15/17 02:21) Prothrombin Time / Inr (Pt) (05/15/17 02:21) Act Partial Throm Time (Ptt) (05/15/17 02:21) Blood Culture (05/15/17 02:21) C-Reactive Protein (Crp) (05/15/17 02:21) Lipase (05/15/17 02:21) Urinalysis - C+S If Indicated (05/15/17 02:21) Magnesium (Mg) (05/15/17 02:21) Thyroid Stimulating Hormone (05/15/17 02:21) Enteric Path (Stool) (05/15/17 02:21) C Diff Toxin Pcr (05/15/17 02:21) Influenzae A/B Antigen (05/15/17 02:21) Chest, Single Ap (05/15/17 02:21) Iv Access Insert/Monitor (05/15/17 02:21) Ecg Monitoring (05/15/17 02:21) Oximetry (05/15/17 02:21) Stool Wbc (Leukocytes) (05/15/17 02:21) Lactic Acid Sepsis Protocol (05/15/17 02:21) Ondansetron Inj (Zofran Inj) (05/15/17 02:30) Sodium Chlorid 0.9% 500 Ml Inj (Ns 500 M (05/15/17 02:30) Urinary Catheter Insert/Apply (05/15/17 02:26) Acetaminophen (Tylenol) (05/15/17 02:45) Vancomycin Inj (Vancomycin Inj) (05/15/17 03:18) Aztreonam Inj (Azactam Inj) (05/15/17 03:18) Metronidazole 500 Mg Inj (Flagyl 500 Mg (05/15/17 03:18) Admit Order (Ed Use Only) (05/15/17 04:08) Labs Laboratory Tests Test 05/15/17 02:50 White Blood Count 18.1 TH/MM3 Red Blood Count 4.15 MIL/MM3 Hemoglobin 13.3 GM/DL Hematocrit 38.9 % Mean Corpuscular Volume 93.8 FL Mean Corpuscular Hemoglobin 32.1 PG Mean Corpuscular Hemoglobin 34.3 % Concent Red Cell Distribution Width 13.4 % Platelet Count 238 TH/MM3 Mean Platelet Volume 7.6 FL Neutrophils (%) (Auto) 73.3 % Lymphocytes (%) (Auto) 15.6 % Monocytes (%) (Auto) 10.1 % Eosinophils (%) (Auto) 0.6 % Basophils (%) (Auto) 0.4 % Neutrophils # (Auto) 13.2 TH/MM3 Lymphocytes # (Auto) 2.8 TH/MM3 Monocytes # (Auto) 1.8 TH/MM3 Eosinophils # (Auto) 0.1 TH/MM3 Basophils # (Auto) 0.1 TH/MM3 CBC Comment DIFF FINAL Differential Comment Prothrombin Time 12.0 SEC Prothromb Time International 1.1 RATIO Ratio Activated Partial 31.3 SEC Thromboplast Time Sodium Level 135 MEQ/L Potassium Level 3.7 MEQ/L Chloride Level 105 MEQ/L Carbon Dioxide Level 20.4 MEQ/L Anion Gap 10 MEQ/L Blood Urea Nitrogen 12 MG/DL Creatinine 1.09 MG/DL Estimat Glomerular Filtration 52 ML/MIN Rate Random Glucose 91 MG/DL Lactic Acid Level 0.8 mmol/L Calcium Level 8.0 MG/DL Magnesium Level 1.8 MG/DL Total Bilirubin 0.4 MG/DL Aspartate Amino Transf 11 U/L (AST/SGOT) Alanine Aminotransferase 13 U/L (ALT/SGPT) Alkaline Phosphatase 112 U/L Troponin I LESS THAN 0.02 NG/ML C-Reactive Protein 17.10 MG/DL B-Type Natriuretic Peptide 186 PG/ML Total Protein 7.0 GM/DL Albumin 2.8 GM/DL Lipase 51 U/L Thyroid Stimulating Hormone 1.040 uIU/ML 3rd Gen [facility] Medical Decision Making Medical Screen Exam Complete: Yes Emergency Medical Condition: Yes Medical Record Reviewed: Yes Interpretation(s) Last Impressions Chest X-Ray 05/15/17 022 Signed Impressions: Service Date/Time: Monday, May 15, 2017 02:33 - CONCLUSION: No acute disease. Roberto Vasquez MD Differential Diagnosis Electrolyte derangements, versus dehydration, versus sepsis, versus C. difficile colitis, versus viral gastroenteritis Narrative Course During the course of the patients emergency department visit, the patients history, examination, and differential diagnosis were reviewed with the patient. The patient had IV access obtained and blood work sent for analysis. The patient was placed on a cardiac exercise specialist with oximetry and blood pressure monitoring. The patient's initial blood pressure is 86/49. The patient will the Fernandez catheter placed to gravity to monitor her urine output closely. The patient had an ECG done that shows a sinus rhythm heart rate of 73, no acute ST segment elevation. T waves are inverted in V1, QRS duration is 86 ms, QTC 415 ms. The patient was initially provided normal saline 500 mL bolus. The patient's blood pressure systolic upon initiation of the normal saline IV fluid bolus came up to a systolic of 93. The patient was given Tylenol 650 by mouth 1. The patient was started on broad-spectrum antibiotics to include vancomycin 1 g IV, Azactam 2 g IV, Flagyl 500 mg IV. Given the patient's history of congestive heart failure, the patient was judiciously hydrated to prevent fluid overload and respiratory failure. The patients laboratory studies were reviewed and remarkable for a white count of 18.1, hemoglobin 13.3, platelets 238 with neutrophils 73.3, monocytes 10.1, CMP is remarkable for a sodium of 135, CO2 20.4, creatinine 1.09, calcium 8.0, AST 11, troponin I less than 0.02, C-reactive protein 17.1, BNP 186, lipase 51, TSH 1.04, PT 12, PTT 31.3, urinalysis shows trace occult blood, 9 rbc's, wbc's 176, many clumps Radiology studies were reviewed and remarkable for a chest x-ray shows no acute cardiopulmonary disease. Reassessment the patient's blood pressure reveals a systolic blood pressure of 98. Stool studies have been for analysis including C. difficile toxin. The patients results were discussed with the patient, including the plan of care. I explained that further testing and/ or monitoring is indicated based on the patients history, examination, and/ or laboratory findings. Therefore, I recommended admission for additional evaluation. The patient expressed understanding and was agreeable with this plan. The patient was admitted to the hospital in guarded condition and sent to a bed under the care of the [facility]. Critical Care Narrative Aggregate critical care time was 35 minutes. Time to perform other separately billable procedures was not included in the critical care time. My time did not include minutes spent treating any other patients simultaneously or on activities that did not directly contribute to the patient's treatment. The services I provided to this patient were to treat and/or prevent clinically significant deterioration that could result in: Fluid overload related to over resuscitation, versus cardiovascular collapse I provided critical care services requiring my management, as noted below: Chart data review, documentation time, medication orders and management, vital sign assessments/reviewing monitor data, ordering and reviewing lab tests, ordering and interpreting/reviewing x-rays and diagnostic studies, care of the patient and discussion of the patient with the admitting physicians. Sepsis Criteria SIRS Criteria (2 or more): WBC > 46827, < 4000 or > 10% bands Severe Sepsis (+one): Hypotension Physician Communication Physician Communication The patient's case is discussed with J Carlos Monroy. He did agree to admit the patient to the [facility]. Diagnosis Primary Impression: Sepsis Qualified Code: A41.9 - Sepsis, due to unspecified organism Additional Impression: Urinary tract infection Qualified Code: N39.0 - Urinary tract infection without hematuria, site unspecified Admitting Information Admitting Physician Requests: it Nita Lazcano MD May 15, 2017 02:25
[2017-05-15] MEDS ORDERED: SODIUM CHLORID 0.9% 500 ML INJ 500 ML IV ONE (02:30)
[2017-05-15] MEDS ORDERED: ONDANSETRON HCL 4 MG/2 ML VIAL IV ONE (02:30)
[2017-05-15] MEDS ORDERED: ACETAMINOPHEN 325 MG TAB PO ONE (02:45)
[2017-05-15 03:05] LABS: AUTOMATED NEUTROPHIL # 13.2 TH/MM3 (1.8-7.7); BASOPHIL # 0.1 TH/MM3 (0-0.2); BASOPHIL % 0.4 % (0.0-2.0); EOSINOPHIL # 0.1 TH/MM3 (0-0.4); EOSINOPHIL % 0.6 % (0.0-4.0); HEMATOCRIT 38.9 % (35.0-46.0); HEMO FLAGS DIFF FINAL; LYMPH % 15.6 % (9.0-44.0); LYMPHOCYTE # 2.8 TH/MM3 (1.0-4.8); MEAN CELL VOLUME 93.8 FL (80.0-100.0); MEAN CORPUSCULAR HEMOGLOBIN 32.1 PG (27.0-34.0); MEAN CORPUSCULAR HGB CONC 34.3 % (32.0-36.0); MONO % 10.1 % (0.0-8.0); NEUT % 73.3 % (16.0-70.0); PLATELET COUNT 238 TH/MM3 (150-450); RED BLOOD COUNT 4.15 MIL/MM3 (4.00-5.30); RED CELL DISTRIBUTION WIDTH 13.4 % (11.6-17.2); WHITE BLOOD COUNT 18.1 TH/MM3 (4.0-11.0)
--- NOTE | 2017-05-15 03:05 | RADRPT ---
EXAM DATE/TIME: 05/15/2017 02:33 [facility] COMPARISON: CHEST SINGLE AP, December 30, 2016, 9:27. INDICATIONS : Pt has had fever x 3 days MEDICAL HISTORY : Congestive heart failure. Hypertension Chronic obstructive pulmonary disease. GERD, A-fib, CVA, D VT SURGICAL HISTORY : Mastectomy, bilateral. Appendectomy. Cholecystectomy. Right Humerus repair ENCOUNTER: Initial ACUITY: 3 days PAIN SCORE: 7/10 LOCATION: Bilateral chest FINDINGS: A single view of the chest demonstrates the lungs to be symmetrically aerated without evidence of mas s, infiltrate or effusion. The cardiomediastinal contours are unremarkable. Osseous structures are intact. CONCLUSION: No acute disease. Roberto Vasquez MD on May 15, 2017 at 3:04 Board Certified Radiologist. This report was verified electronically.
[2017-05-15 03:12] LABS: APTT (PATIENT) 31.3 SEC (24.3-30.1); INTERNATIONAL NORMALIZED RATIO 1.1 RATIO
[2017-05-15] MEDS ORDERED: metroNIDAZOLE 500 MG INJ 100 ML IV STA (03:18)
[2017-05-15] MEDS ORDERED: AZTREONAM INJ 2,000 MG in SODIUM CHLORIDE 0.9% INJ 100 ML IV STA (03:18)
[2017-05-15] MEDS ORDERED: VANCOMYCIN INJ 1,000 MG in SODIUM CHLOR 0.9% 250 ML INJ 250 ML IV STA (03:18)
[2017-05-15 03:26] LABS: ALT (GPT) 13 U/L (10-53); ANION GAP 10 MEQ/L (5-15); AST (GOT) 11 U/L (15-37); BICARBONATE 20.4 MEQ/L (21.0-32.0); BLOOD UREA NITROGEN 12 MG/DL (7-18); CHLORIDE 105 MEQ/L (98-107); GLOMERULAR FILTRATION RATE 52 ML/MIN (>89); MAGNESIUM 1.8 MG/DL (1.5-2.5); POTASSIUM 3.7 MEQ/L (3.5-5.1); SODIUM (NA) 135 MEQ/L (136-145)
[2017-05-15 03:35] LABS: ALKALINE PHOSPHATASE 112 U/L (45-117); TOTAL BILIRUBIN ADULT 0.4 MG/DL (0.2-1.0)
[2017-05-15] MEDS: metroNIDAZOLE 500 MG INJ 100 ML IV SCH ×3 (04:00→21:18)
[2017-05-15] MEDS ORDERED: metroNIDAZOLE 500 MG INJ 100 ML IV SCH (04:45)
[2017-05-15] MEDS ORDERED: ACETAMINOPHEN 325 MG TAB PO PRN ×2 (04:45)
[2017-05-15] MEDS ORDERED: AZTREONAM INJ 2,000 MG in SODIUM CHLORIDE 0.9% INJ 100 ML IV SCH ×2 (04:45→05:00)
[2017-05-15] MEDS ORDERED: SODIUM CHLORIDE 0.9% FLUSH 10 ML FLUSH IV FLUSH PRN (04:45)
[2017-05-15] MEDS ORDERED: Vancomycin Consult Pharmacy 1 EA OTHER SCH (04:45)
[2017-05-15] MEDS ORDERED: NALOXONE HCL 0.4 MG/ML AMP IV PRN (04:45)
[2017-05-15] MEDS ORDERED: SENNOSIDES 8.6 MG TAB PO PRN (04:45)
[2017-05-15] MEDS ORDERED: VANCOMYCIN 1,000 MG/NS 250 ML IV ONE ×2 (05:00)
[2017-05-15] MEDS ORDERED: HEPARIN SODIUM - SQ 10,000 UNITS/ML VIAL SQ SCH (06:00)
[2017-05-15 06:05] LABS: BLOOD, URINE TRACE (NEG); COMMENT (UR) CULTURE INDICATED; CULTURE IF INDICATED CULTURE INDICATED; GLUCOSE,URINE NEG (NEG); KETONE, URINE NEG (NEG); MUCUS URINE FEW /lpf (OCC); NITRITE,URINE NEG (NEG); PH, URINE 5.5 (5.0-8.5); SQUAMOUS EPITHELIAL CELL URINE 2 /hpf (0-5); TRANSITIONAL EPI CELLS, URINE <1 /hpf; URINE COLOR YELLOW (YELLW/STRAW)
[2017-05-15] MEDS ORDERED: NEUR600T PO ×2 (06:55)
[2017-05-15] MEDS ORDERED: MORP1TAB25 PO (06:55)
[2017-05-15] MEDS ORDERED: TRAZ1TAB45 PO (06:55)
[2017-05-15] MEDS ORDERED: SPIRCAP INH (06:55)
[2017-05-15] MEDS ORDERED: HYDR1CAP30 PO (06:55)
[2017-05-15] MEDS ORDERED: FURO1TAB60 PO (06:55)
[2017-05-15] MEDS ORDERED: SYMB160A INH (06:55)
[2017-05-15] MEDS ORDERED: AMBI5TAB PO (06:55)
[2017-05-15] MEDS ORDERED: POTA-163 PO (06:55)
[2017-05-15] MEDS: SODIUM CHLOR 0.9% 1000 ML INJ 1,000 ML IV SCH ×2 (07:27→14:36)
[2017-05-15] MEDS: SODIUM CHLORIDE 0.9% FLUSH 10 ML FLUSH IV FLUSH SCH ×2 (08:42→21:19)
[2017-05-15] MEDS ORDERED: NON-FORMULARY DRUG (Ipratropium-Albuterol Inh (Combivent Respimat Inh) 1 PUFF) INH SCH (09:00)
[2017-05-15] MEDS ORDERED: GABAPENTIN 300 MG CAP PO SCH ×2 (09:00→21:00)
[2017-05-15] MEDS ORDERED: NON-FORMULARY DRUG (Umeclidinium Bromide Inh (Incruse Ellipta Inh) 62.5 MCG) INH SCH (09:00)
--- NOTE | 2017-05-15 09:39 | MH ---
cc: RUDY BRAGA MD DATE OF ADMISSION: 05/15/2017 DATE OF : 1960 CHIEF COMPLAINT Diarrhea and fever, decreased appetite. Travel in the last 30 days: None. HISTORY OF PRESENT ILLNESS This is a 56-year-old white female who has a history of recent diagnosis of Guillain-Solo approximately 4 months ago. She has been in a rehab facility, assisting with her leg strength and severe debility. She states at this time before her recent illness she could walk approximately 15 feet. She was noted to have a urinary tract infection approximately 2 weeks ago and was given IM injection antibiotic for three days. She states that her symptoms were better but then she noticed uncontrollable diarrhea for the past five days. She has a C. Difficile toxin test pending and the diarrhea does continue even this morning. She has had fever but denies any cough or congestion. She denies any chest pain, no shortness of breath. She has had dysuria and has had a decreased appetite with some nausea and vomiting. The patient denies any other symptoms of abdominal pain. No headache. She does have chronic pain syndrome and requires medication pain meds for her legs bilateral. PAST MEDICAL HISTORY 1. Congestive heart failure. 2. Atrial fibrillation. 3. Bipolar disorder. 4. Anxiety disorder. 5. Depression. 6. History of breast cancer. 7. Hypertension. 8. COPD. 9. Degenerative disk disease. 10. Prior CVA. 11. GERD. 12. History of seizure disorders. 13. Headaches. 14. Guillain-Solo which was diagnosed in December of 2016. 15. DVT. 16. Arthritis. 17. Low back pain. Currently the patient is on Eliquis. PAST SURGICAL HISTORY 1. Bowel resection 2013. 2. She has had radiation therapy. 3. Implanted vascular device for her post cancer therapies. 4. Appendectomy. 5. Abdominal surgery. 6. Right arm ORIF. 7. Cholecystectomy. 8. Bilateral mastectomy. 9. C-spine surgery. 10. Some type of blockage in her stomach. ALLERGIES PENICILLIN. MEDICATION Reported medications: 1. Eliquis. 2. DuoNebs. 3. Trazodone. 4. Metoprolol. 5. Ellipta. 6. Pacerone. 7. Combivent. SOCIAL HISTORY The patient has been a tobacco user, down to three cigarettes a day. Denies any alcohol or illicit drug use. REVIEW OF SYSTEMS Positive for what is noted in the HPI which include fever, debility, bilateral leg pain, chronic back pain, diarrhea, loss of appetite, nausea, vomiting, other systems negative or unremarkable. VITAL SIGNS: Temperature is 100.1 and 100.6. Pulse 73, respirations 18, blood pressure 97/54 and 86/49 on admission, O2 sat 97, O2 at 4 liters. PHYSICAL EXAMINATION GENERAL: Mildly obese, well-developed female. She is alert and a fair historian. SKIN: Skin is pink, warm and dry. HEENT: Atraumatic, normocephalic, PERRLA. No scleral icterus. Mucous membranes are pink and moist. Tongue has noticeable papilla at the left aspect of her tongue, left posterior. NECK: Neck is supple. CARDIOVASCULAR: S1-S2, no murmurs, rubs or gallops. Heart rate is controlled. She has no edema in her lower extremities and pulses are intact. LUNGS: Essentially clear to auscultation. No wheezing, no rhonchi. She does have some minimal diminished breath sounds. ABDOMEN: Round, taut, mild tenderness. Bowel sounds are very active. No rebound or guarding. EXTREMITIES: Moves extremities with purpose, warm to touch. No obvious deformities. NEUROLOGIC: She is awake, mild anxiety noted. Speech is clear. She does have diminished strength in her lower extremities bilateral but she can overcome resistance. 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 PSYCHOLOGIC: Mood and affect are appropriate for her situation. DIAGNOSTIC DATA WBC count 18.1, RBC 4.15, hemoglobin 13.3, hematocrit 38.9, platelet count 238, neutrophil count 73.3, monocyte count 10.1. PT/INR is 1.1. Chemistry sodium 135, potassium 3.7, chloride 105, CO2 20.4, amnion gap 10, BUN 12, creatinine 1.09, GFR 52, random glucose 91, calcium is 8. AST is 11, troponin 0.02. C-reactive protein 17.1, BNP 186, albumin 2.8, lipase 51. Urine shows large amount of leukocyte esterase, yellow hazy color, pH is 5.5, specific gravity 1.014, trace of protein and occult blood, many WBC clumps, culture is indicated. C. Difficile toxoid and toxin are pending. IMAGING STUDIES Showed chest x-ray to have no acute disease. ASSESSMENT/PLAN 1. Sepsis due to unknown organism. 2. Urinary tract infection. 3. History of Guillain-Solo. 4. Probable C. Difficile. 5. Fever, probable secondary to #2. 6. Acute kidney injury with possible mild dehydration. Our plan is to monitor vital signs q. 4 as warranted. ECG monitoring, 02 sating, IV access. Will monitor her labs and recheck in the morning and reconcile her medications. Urinary catheter is in for accurate I&O. She was started on vancomycin IV Flagyl and aztreonam. She will be inpatient admission. DVT prophylaxis with heparin. Pending her C. Difficile toxin will place her on contact isolation. Urine culture is in progress. IV fluids for hydration. As needed medications for pain, nausea, fever. Bowel regimen monitored. Will monitor her symptoms and her course of treatment will be based on her response to her plan of care. Currently the patient is on liquids for bowel rest, pain management. The patient's meds will be reconciled and we will follow. Dictated by: NICO Dietrich MD DIMPLE Baum/SUSAN /8:37 AM /9:00 AM seen, examined by myself, Dr Braga, today Discussed with patient C. difficile colitis with sepsis Bipolar disease with anxiety and depression Narcotic dependence we will ask for opinion from infectious disease Discussed with mid level provider The exam, history, and the medical decision-making described in the above note were completed with the assistance of the mid-level provider. I reviewed the findings presented. I attest that I had a [id number] encounter with the patient on the same day, and personally performed and documented my assessment and findings in the medical record. JEANNE
[2017-05-15] MEDS: METOPROLOL TARTRATE 50 MG TAB PO SCH ×2 (10:00→21:00)
[2017-05-15] MEDS: TIOTROPIUM BROMIDE 18 MCG INH INH SCH (11:00)
[2017-05-15] MEDS: BUDESONIDE-FORMOTEROL 160/4.5 MCG INHALER INH SCH ×2 (11:00→21:19)
[2017-05-15] MEDS: FUROSEMIDE 40 MG TAB PO SCH ×2 (11:16→11:19)
[2017-05-15] MEDS: ESCITALOPRAM OXALATE 10 MG TAB PO SCH ×2 (11:16→11:19)
[2017-05-15] MEDS: AMIODARONE 200 MG TAB PO SCH ×2 (11:16→11:19)
[2017-05-15] MEDS: ACETAMINOPHEN/HYDROcodone 325 MG/5 MG TAB PO PRN (12:15)
[2017-05-15] MEDS: RESP: ALBUTEROL 2.5 MG/3 ML NEB (SCH) INH ×4 (12:25→23:07)
[2017-05-15] MEDS: ONDANSETRON HCL 4 MG/2 ML VIAL IVP PRN (14:22)
[2017-05-15] MEDS: AZTREONAM INJ 2,000 MG in SODIUM CHLORIDE 0.9% INJ 100 ML IV SCH ×2 (14:42→22:59)
[2017-05-15 15:04] LABS: C. DIFF EPI 027 PRESUMPTIVE POSITIVE (NEGATIVE)
[2017-05-15] MEDS: ACETAMINOPHEN/HYDROcodone 325 MG/10 MG TAB PO PRN ×2 (15:53→21:20)
--- NOTE | 2017-05-15 16:29 | EKG ---
Date Performed: 05/15/2017 Time Performed: 04:47:17 PTAGE: 56 years EKG: Sinus rhythm NONSPECIFIC T-WAVE ABNORMALITY BORDERLINE ECG PREVIOUS TRACING : 12/30/2016 09.14 Since previous tracing, no significant change noted DOCTOR: Eh Roca Interpretating Date/Time 05/15/2017 16:28:05
[2017-05-15] MEDS: GABAPENTIN 300 MG CAP PO SCH (18:44)
[2017-05-15] MEDS: VANCOMYCIN 1,500 MG/NS 500 ML IV SCH ×2 (18:44)
[2017-05-15] MEDS ORDERED: CHLORHEXIDINE GLUCONATE 2 % 1 PACK (2 CLOTHS)(extra cloths) TOPICAL PRN (21:00)
[2017-05-15] MEDS: QUEtiapine FUMARATE 25 MG TAB PO SCH (21:20)
[2017-05-15] MEDS: APIXABAN 5 MG TABLET PO SCH (21:20)
[2017-05-15] MEDS: traZODone HCL 100 MG TAB PO SCH (21:20)
[2017-05-15] MEDS: ZOLPIDEM TARTRATE 5 MG TAB PO PRN (22:48)
[2017-05-15] MEDS: MORPHINE SULFATE 30 MG CONTROLLED RELEASE TAB PO SCH (22:48)
[2017-05-16] VITALS (13 sets, daily range): BP systolic 84–115; BP diastolic 47–95; PULSE 69–93; RESP 19–20; TEMP 98.9–100.6; O2SAT 92–99
[2017-05-16] MEDS: RESP: ALBUTEROL 2.5 MG/3 ML NEB (SCH) INH ×6 (03:38→20:00)
[2017-05-16] MEDS: CHLORHEXIDINE GLUCONATE 2 % 1 PACK (2 CLOTHS)(taper/protocol) TOPICAL SCH (03:44)
[2017-05-16] MEDS: metroNIDAZOLE 500 MG INJ 100 ML IV SCH ×3 (03:50→20:12)
[2017-05-16] MEDS: ACETAMINOPHEN/HYDROcodone 325 MG/10 MG TAB PO PRN ×3 (04:36→16:33)
[2017-05-16] MEDS: AZTREONAM INJ 2,000 MG in SODIUM CHLORIDE 0.9% INJ 100 ML IV SCH ×2 (04:36→11:32)
[2017-05-16] MEDS: VANCOMYCIN 1,500 MG/NS 500 ML IV SCH ×4 (05:32→16:32)
[2017-05-16] MEDS: METOPROLOL TARTRATE 50 MG TAB PO SCH ×2 (09:00→20:12)
[2017-05-16] MEDS: SODIUM CHLORIDE 0.9% FLUSH 10 ML FLUSH IV FLUSH SCH ×2 (09:00→20:12)
[2017-05-16] MEDS: QUEtiapine FUMARATE 25 MG TAB PO SCH ×2 (09:00→20:11)
[2017-05-16 09:12] LABS: AUTOMATED NEUTROPHIL # 7.6 TH/MM3 (1.8-7.7); BASOPHIL # 0.1 TH/MM3 (0-0.2); BASOPHIL % 0.8 % (0.0-2.0); EOSINOPHIL # 0.2 TH/MM3 (0-0.4); EOSINOPHIL % 2.4 % (0.0-4.0); HEMATOCRIT 34.6 % (35.0-46.0); HEMO FLAGS DIFF FINAL; LYMPH % 14.7 % (9.0-44.0); LYMPHOCYTE # 1.5 TH/MM3 (1.0-4.8); MEAN CELL VOLUME 94.1 FL (80.0-100.0); MEAN CORPUSCULAR HEMOGLOBIN 31.5 PG (27.0-34.0); MEAN CORPUSCULAR HGB CONC 33.5 % (32.0-36.0); MONO % 8.7 % (0.0-8.0); NEUT % 73.4 % (16.0-70.0); PLATELET COUNT 223 TH/MM3 (150-450); RED BLOOD COUNT 3.68 MIL/MM3 (4.00-5.30); WHITE BLOOD COUNT 10.3 TH/MM3 (4.0-11.0)
[2017-05-16 09:28] LABS: ANION GAP 8 MEQ/L (5-15); BICARBONATE 20.5 MEQ/L (21.0-32.0); CHLORIDE 111 MEQ/L (98-107); GLOMERULAR FILTRATION RATE 93 ML/MIN (>89); POTASSIUM 3.3 MEQ/L (3.5-5.1); SODIUM (NA) 139 MEQ/L (136-145)
[2017-05-16] MEDS: ESCITALOPRAM OXALATE 10 MG TAB PO SCH (09:45)
[2017-05-16] MEDS: BUDESONIDE-FORMOTEROL 160/4.5 MCG INHALER INH SCH ×2 (09:45→20:15)
[2017-05-16] MEDS: TIOTROPIUM BROMIDE 18 MCG INH INH SCH (09:45)
[2017-05-16] MEDS: APIXABAN 5 MG TABLET PO SCH ×2 (09:45→20:11)
[2017-05-16] MEDS: GABAPENTIN 300 MG CAP PO SCH ×3 (09:46→16:32)
[2017-05-16] MEDS: AMIODARONE 200 MG TAB PO SCH (09:47)
[2017-05-16] MEDS: MORPHINE SULFATE 30 MG CONTROLLED RELEASE TAB PO SCH ×2 (09:47→20:13)
[2017-05-16] MEDS: FUROSEMIDE 40 MG TAB PO SCH (09:47)
[2017-05-16 10:13] LABS: ALKALINE PHOSPHATASE 92 U/L (45-117); TOTAL BILIRUBIN ADULT 0.3 MG/DL (0.2-1.0)
[2017-05-16 10:34] LABS: ALT (GPT) 10 U/L (10-53); AST (GOT) 10 U/L (15-37); BLOOD UREA NITROGEN 6 MG/DL (7-18)
[2017-05-16] MEDS: SODIUM CHLOR 0.9% 1000 ML INJ 1,000 ML IV SCH ×3 (10:36→20:12)
--- NOTE | 2017-05-16 10:52 | PD.PN.STU ---
Subjective Remarks Patient reports minimal symptom improvement from yesterday. She is still experiencing diffuse abdominal pain she describes as "cramping" as well as lower abdominal tenderness. She reports nausea but no vomiting since yesterday. She says that she feels feverish. She is experiencing headache and bilateral eye pain. She denies shortness of breath. The patient would also like to request a switch to IM morphine administration. seen, examined by myself, Dr Dorman, today Discussed with patient I reviewed the findings presented. I attest that I had a [id number] encounter with the patient on the same day, and personally performed and documented my assessment and findings in the medical record. Objective Vitals Vital Signs Date Time Temp Pulse Resp B/P Pulse Ox O2 Delivery O2 Flow Rate FiO2 05/16/17 08:00 93 21 05/16/17 06:00 85 05/16/17 04:00 100.6 80 20 92/55 96 05/16/17 04:00 80 05/16/17 02:00 76 05/16/17 00:00 100.4 80 20 115/95 99 05/16/17 00:00 80 05/15/17 21:08 96 Nasal Cannula 3.00 05/15/17 20:00 80 05/15/17 20:00 101.6 80 24 118/63 99 05/15/17 19:45 99.3 05/15/17 19:44 101.5 85 18 100/65 99 Nasal Cannula 4 05/15/17 18:45 101.8 82 18 91/64 94 4 05/15/17 16:54 102.5 80 21 88/53 96 Nasal Cannula 4 05/15/17 14:27 101.8 90 20 147/72 98 Nasal Cannula 4 05/15/17 11:20 100.0 74 20 91/50 97 Nasal Cannula 4 I/O 05/15/17 05/15/17 05/15/17 05/16/17 05/16/17 05/16/17 07:00 15:00 23:00 07:00 15:00 23:00 Intake Total 500 ml 1240 ml 2977 ml Output Total 1900 ml 650 ml 1250 ml Balance 500 ml -1900 ml 590 ml 1727 ml Intake Oral 240 ml 240 ml IV Total 500 ml 1000 ml 2737 ml Output Urine Total 1900 ml 650 ml 1250 ml # Voids 0 1 # Bowel Movements 3 3 1 Result Diagram: 05/16/1780005/16/17800 Objective Remarks General: WDWN female who appears acutely distressed and tearful. Nasal O2 canula is placed. Cardio: RRR. S1 S2 normal. No murmurs appreciated. Respiratory: No use of accessory respiratory muscles noted. Clear breath sounds. No wheezes or crackles appreciated. Abdomen: Decreased bowel sounds all four quadrants. RLQ, LLQ, suprapubic tenderness to light and deep palpation. A/P Assessment and Plan 1. C. diff colitis: Treat with appropriate antibiotics, antipyretics for fever, and analgesia as necessary. Melissa Cooper May 16, 2017 10:52 Shan Dorman MD May 16, 2017 19:35
[2017-05-16] MEDS: VANCOMYCIN 500 MG VIAL (FOR ORAL USE ONLY) PO SCH ×3 (13:18→20:10)
[2017-05-16] MEDS: MORPHINE SULFATE 4 MG/ML INJ IV PUSH PRN ×2 (16:03→20:11)
[2017-05-16] MEDS: ALPRAZolam 0.5 MG TAB PO PRN ×2 (17:52→22:58)
--- NOTE | 2017-05-16 18:14 | HHI.PR ---
Subjective Interval History Alert, oriented, complaining of severe generalized abdominal pain, holding her abdomen with her hands, using hot blanket to relieve her abdominal pain. Was transferred to ICU last night because of low blood pressure Review of Systems Constitutional Constitutional Remarks Abdominal pain, diarrhea, depression, 10 systems reviewed and otherwise negative Vitals/Results Intake & Output 05/15/17 05/15/17 05/16/17 15:00 23:00 07:00 Intake Total 1240 ml 2977 ml Output Total 1900 ml 650 ml 1250 ml Balance -1900 ml 590 ml 1727 ml Intake Oral 240 ml 240 ml IV Total 1000 ml 2737 ml Output Urine Total 1900 ml 650 ml 1250 ml # Voids 0 1 # Bowel Movements 3 3 1 Vital Signs Vital Signs Date Time Temp Pulse Resp B/P Pulse Ox O2 Delivery O2 Flow Rate FiO2 05/16/17 14:00 72 05/16/17 12:45 18 05/16/17 12:00 99.5 74 20 91/51 92 05/16/17 12:00 93 05/16/17 11:00 20 05/16/17 10:00 73 05/16/17 08:00 72 05/16/17 08:00 99.7 72 19 84/47 95 05/16/17 08:00 93 21 05/16/17 06:00 85 05/16/17 04:00 100.6 80 20 92/55 96 05/16/17 04:00 80 05/16/17 02:00 76 05/16/17 00:00 100.4 80 20 115/95 99 05/16/17 00:00 80 05/15/17 21:08 96 Nasal Cannula 3.00 05/15/17 20:00 80 05/15/17 20:00 101.6 80 24 118/63 99 05/15/17 19:45 99.3 05/15/17 19:44 101.5 85 18 100/65 99 Nasal Cannula 4 05/15/17 18:45 101.8 82 18 91/64 94 4 CBC/BMP: 05/16/17 0801 05/16/17 0801 Lab Results Laboratory Tests Test 05/15/17 05/16/17 20:42 08:01 Nasal Screen MRSA (PCR) MRSA NOT DETECTED White Blood Count 10.3 TH/MM3 Red Blood Count 3.68 MIL/MM3 Hemoglobin 11.6 GM/DL Hematocrit 34.6 % Mean Corpuscular Volume 94.1 FL Mean Corpuscular Hemoglobin 31.5 PG Mean Corpuscular Hemoglobin 33.5 % Concent Red Cell Distribution Width 13.0 % Platelet Count 223 TH/MM3 Mean Platelet Volume 7.7 FL Neutrophils (%) (Auto) 73.4 % Lymphocytes (%) (Auto) 14.7 % Monocytes (%) (Auto) 8.7 % Eosinophils (%) (Auto) 2.4 % Basophils (%) (Auto) 0.8 % Neutrophils # (Auto) 7.6 TH/MM3 Lymphocytes # (Auto) 1.5 TH/MM3 Monocytes # (Auto) 0.9 TH/MM3 Eosinophils # (Auto) 0.2 TH/MM3 Basophils # (Auto) 0.1 TH/MM3 CBC Comment DIFF FINAL Differential Comment Sodium Level 139 MEQ/L Potassium Level 3.3 MEQ/L Chloride Level 111 MEQ/L Carbon Dioxide Level 20.5 MEQ/L Anion Gap 8 MEQ/L Blood Urea Nitrogen 6 MG/DL Creatinine 0.66 MG/DL Estimat Glomerular Filtration 93 ML/MIN Rate Random Glucose 94 MG/DL Calcium Level 7.9 MG/DL Phosphorus Level 1.8 MG/DL Magnesium Level 2.0 MG/DL Total Bilirubin 0.3 MG/DL Aspartate Amino Transf 10 U/L (AST/SGOT) Alanine Aminotransferase 10 U/L (ALT/SGPT) Alkaline Phosphatase 92 U/L Total Protein 5.8 GM/DL Albumin 2.2 GM/DL Physical Exam General General Appearance: Well Developed, Anxious, Obese Eyes Eye Exam: Pupils Reactive Ears & Nose Ears & Nose Exam: Auditory Canals Normal Throat Throat Exam: Oral Mucosa [place] & Moist Neck Neck Exam: Trachea Midline Pulmonary Resp Exam: Breath Sounds Equal Cardiology CV Exam: Normal Sinus Rhythm Gastrointestinal/Abdomen GI Exam: Bowel Sounds Present GI Remarks Abdomen generally tender, voluntary guarding Musculoskeletal MS Exam: Normal Tone Integumentary Skin Exam: Warm, Dry Neurologic Neuro Exam: Alert, Awake, Oriented, Speech Clear, Moving All Extremities, Bank Operations Officer Equal, No Focal Deficits VTE Prophylaxis VTE Prophylaxis Device: SCDs VTE Prophylaxis Meds: Heparin Assessment/Plan Assessment/Plan Assessment Severe abdominal pain C. difficile colitis Urinary infection Sepsis Hypokalemia Chronic pain syndrome Psychosis Management Continue antibiotics, ID following Pain control CT abdomen and pelvis Consult GI Replace potassium Follow electrolytes and replace as needed Follow renal function Follow white count Discussed with patient Discussed with nurse 35 minutes Shan Dorman MD May 16, 2017 18:14
[2017-05-16] MEDS ORDERED: POTASSIUM CHLORIDE 25 MEQ EFFERVESCENT TAB PO PRN (18:15)
[2017-05-16] MEDS ORDERED: POTASSIUM PHOSPHATE MONOBASIC 500 MG TAB PO PRN (18:15)
[2017-05-16] MEDS ORDERED: MAGNESIUM OXIDE 400 MG TAB PO PRN (18:15)
[2017-05-16] MEDS ORDERED: POTASSIUM CHLOR 20 MEQ PREMIX 100 ML IV PRN ×2 (18:15)
[2017-05-16] MEDS ORDERED: MAGNESIUM SULFATE INJ 4 GM in SODIUM CHLORIDE 0.9% INJ 92 ML IV PRN (18:15)
[2017-05-16] MEDS ORDERED: SODIUM PHOSPHATE INJ 30 MMOL in SODIUM CHLOR 0.9% 250 ML INJ 240 ML IV PRN (18:15)
[2017-05-16] MEDS ORDERED: MAGNESIUM SULFATE INJ 2 GM in SODIUM CHLORIDE 0.9% INJ 96 ML IV PRN (18:15)
[2017-05-16] MEDS ORDERED: POTASSIUM CHLOR 40 MEQ PREMIX 100 ML IV PRN ×2 (18:15)
[2017-05-16] MEDS ORDERED: POTASSIUM PHOSPHATE INJ 30 MMOL in SODIUM CHLOR 0.9% 250 ML INJ 250 ML IV PRN (18:15)
[2017-05-16] MEDS ORDERED: POTASSIUM PHOSPHATE MONOBASIC 500 MG TAB PO/TUBE PRN (18:15)
--- NOTE | 2017-05-16 18:23 | MB ---
cc: MICHELA CASTRO MD DATE OF CONSULTATION: 05/16/[address] Correia. REASON FOR CONSULTATION: C-difficile with sepsis. HISTORY OF PRESENT ILLNESS This is a 56 year-old white female who has a history of Guillain-Honobia syndrome. The patient was at a rehab facility undergoing rehab. She developed nausea and vomiting. She was noted to have UTI and was being treated with intramuscular antibiotics. She started having diarrhea with the first dose of the antibiotics and she was given it for three days and the diarrhea persisted. She presented to the emergency department yesterday after having multiple bouts of diarrhea and she was having difficulty with oral intake. She also reportedly had fever. In the emergency department she had low grade fever of 100.1 degrees and decreased blood pressure of 86/49 and a white blood cell count was elevated at 18,000. She was admitted to the hospital and started on antibiotics. She has continued to produce multiple stools and she had six bowel movements yesterday. She states that she has achiness all over. Her temperature was to 102.5 degrees yesterday evening and this morning it was 100.6 degrees. C. difficile toxin came back positive. Urinalysis revealed many white blood cell clumps. The urine culture is pending. Blood culture has no growth in one day. The white blood cell count has decreased to 10.3 today. PAST MEDICAL HISTORY: 1. Newly diagnosed Guillain-Honobia syndrome 2. Atrial fibrillation 3. Bipolar disorder 4. Anxiety disorder 5. Depression 6. Hypertension 7. COPD 8. Gastroesophageal reflux disease 9. History of breast cancer 10. Degenerative disc disease 11. DVT 12. Arthritis 13. Bowel resection in 2013 14. Appendectomy. 15. Cholecystectomy 16. Bilateral mastectomy 17. Open reduction, internal fixation of the right arm. 18. Cervical spine surgery. ALLERGIES PENICILLIN. MEDICATIONS 1. Desyrel 2. Eliquis 3. Seroquel 4. Morphine sulfate 5. Ambien 6. Vancomycin 7. Aztreonam 8. Metronidazole intravenous. 9. Neurontin 10. Symbicort. 11. Spiriva 12. Cordarone 13. Lexapro 14. Lasix 15. Zofran SOCIAL HISTORY The patient smokes about three cigarettes a day. No alcohol or illicit drugs. FAMILY HISTORY Noncontributory. PHYSICAL EXAMINATION This is a moderately obese female who is in no acute distress. She appears chronically ill. Vital signs: Includes temperature of 100.4 degrees. BP 91/50, hr 71, respirations 16. HEENT: Head is atraumatic. Extraocular movements grossly intact, pupils reactive to light. No icterus. Oropharynx moist mucosa. No visible lesions. No thrush. Neck: Supple. No adenopathy. Lungs: Clear breath sounds. Heart: Regular S1-S2 without murmurs or rubs or gallops. Abdomen: Mildly distended, soft, tenderness to the mid abdomen on deep palpation. Rectal: Not performed. Extremities: No clubbing or cyanosis or edema. Skin: No rash. Neuro: Decreased strength in the lower extremities. Psychiatric: The patient is calm and cooperative. LABORATORY DATA WBC 10.3, platelets 223, hemoglobin 11.6, 73% neutrophils. His creatinine 0.16, BUN 6, sodium 139, liver function tests normal. IMPRESSION 1. C-difficile colitis 2. Sepsis 3. Urinary tract infection. Culture pending. ALLERGIES PENICILLIN RECOMMENDATIONS 1. Discontinue aztreonam. 2. Begin oral vancomycin 3. Continue intravenous metronidazole. 4. Continue intravenous vancomycin. 5. Monitor urine culture. 6. Monitor blood culture. 7. Monitor temperature. 8. Monitor clinical response. Thank you for the consultation. The patient's progress will be followed and further recommendations will be given upon followup if necessary. Michela Castro MD FD/JUAN /12:32 PM /6:01 PM
[2017-05-16] MEDS ORDERED: POTASSIUM PHOSPHATE INJ 30 MMOL in SODIUM CHLOR 0.9% 250 ML INJ 250 ML IV ONE (20:00)
[2017-05-16] MEDS: POTASSIUM CHLORIDE 25 MEQ EFFERVESCENT TAB PO SCH (20:11)
[2017-05-16] MEDS: HEPARIN SODIUM - SQ 10,000 UNITS/ML VIAL SQ SCH ×2 (20:11→21:00)
[2017-05-16] MEDS: traZODone HCL 100 MG TAB PO SCH (20:11)
[2017-05-16] MEDS: ALBUMIN HUMAN 25% 25 GM/100 ML BAGP IV SCH (20:12)
[2017-05-16] MEDS ORDERED: DIATRIZOATE MEGLUM/DIATRIZOATE SOD 9 ML CUP PO ONE (20:15)
[2017-05-16 21:27] LABS: BICARBONATE 19.9 MEQ/L (21.0-32.0)
[2017-05-16 21:30] LABS: POTASSIUM 2.9 MEQ/L (3.5-5.1)
[2017-05-16] MEDS ORDERED: IOHEXOL 350 MG/ML 10 ML VIAL (for RAD DIAG) IV ONE (22:25)
--- NOTE | 2017-05-16 22:37 | RADRPT ---
EXAM DATE/TIME: 05/16/2017 22:11 [facility] COMPARISON: No previous studies available for comparison. INDICATIONS : Abdominal pain, evaluate for abscess. IV CONTRAST: 95 cc Omnipaque 350 (iohexol) IV ORAL CONTRAST: Prescribed oral contrast ingested. RADIATION DOSE: 18.70 CTDIvol (mGy) MEDICAL HISTORY : Congestive heart failure. Hypertension. Seizures. SURGICAL HISTORY : Appendectomy. Cholecystectomy.bowel resection ENCOUNTER: Initial ACUITY: 1 day PAIN SCALE: 5/10 LOCATION: abdomen TECHNIQUE: Volumetric scanning of the abdomen and pelvis was performed. Using automated exposure control and ad justment of the mA and/or kV according to patient size, radiation dose was kept as low as reasonably achievable to obtain optimal diagnostic quality images. DICOM format image data is available electro nically for review and comparison. FINDINGS: There is bilateral mostly basilar dependent atelectasis. Previous breast augmentation. No significant abnormality in the liver, spleen, adrenals, kidneys or pancreas. Small bilateral renal cysts. No free fluid. No bowel obstruction. No adenopathy. Rectal tube present. Fernandez catheter the bladder. No acute bony abnormalities. CONCLUSION: 1. No abnormal fluid collections within the abdomen or pelvis to suggest abscess. 2. Subsegmental airspace disease at the lung bases. Previous cholecystectomy. Goran Rowan MD on May 16, 2017 at 22:30 Board Certified Radiologist. This report was verified electronically.
[2017-05-16] MEDS: ZOLPIDEM TARTRATE 5 MG TAB PO PRN (22:48)
[2017-05-17] VITALS (13 sets, daily range): BP systolic 89–107; BP diastolic 51–75; PULSE 60–95; RESP 20–29; TEMP 97.9–98.9; O2SAT 92–98
[2017-05-17] MEDS: RESP: ALBUTEROL 2.5 MG/3 ML NEB (SCH) INH ×6 (03:48→20:12)
[2017-05-17] MEDS: CHLORHEXIDINE GLUCONATE 2 % 1 PACK (2 CLOTHS)(taper/protocol) TOPICAL SCH (04:00)
[2017-05-17] MEDS: metroNIDAZOLE 500 MG INJ 100 ML IV SCH ×3 (04:00→21:12)
[2017-05-17] MEDS: SODIUM CHLOR 0.9% 1000 ML INJ 1,000 ML IV SCH ×2 (04:36→16:36)
[2017-05-17] MEDS ORDERED: PHARMACY ORDERED LAB ONE (05:45)
[2017-05-17] MEDS: ALBUMIN HUMAN 25% 25 GM/100 ML BAGP IV SCH ×2 (05:48→17:33)
[2017-05-17] MEDS: VANCOMYCIN 1,500 MG/NS 500 ML IV SCH ×2 (05:48)
[2017-05-17] MEDS: ACETAMINOPHEN/HYDROcodone 325 MG/10 MG TAB PO PRN ×3 (06:00→22:31)
[2017-05-17] MEDS: MORPHINE SULFATE 4 MG/ML INJ IV PUSH PRN ×5 (06:26→21:11)
[2017-05-17 06:29] LABS: AUTOMATED NEUTROPHIL # 4.9 TH/MM3 (1.8-7.7); BASOPHIL # 0.1 TH/MM3 (0-0.2); BASOPHIL % 0.8 % (0.0-2.0); EOSINOPHIL # 0.4 TH/MM3 (0-0.4); EOSINOPHIL % 4.9 % (0.0-4.0); HEMATOCRIT 33.9 % (35.0-46.0); HEMO FLAGS DIFF FINAL; LYMPH % 23.3 % (9.0-44.0); LYMPHOCYTE # 1.9 TH/MM3 (1.0-4.8); MEAN CORPUSCULAR HEMOGLOBIN 32.1 PG (27.0-34.0); MEAN CORPUSCULAR HGB CONC 34.1 % (32.0-36.0); MONO % 9.9 % (0.0-8.0); NEUT % 61.1 % (16.0-70.0); PLATELET COUNT 214 TH/MM3 (150-450); RED BLOOD COUNT 3.61 MIL/MM3 (4.00-5.30); RED CELL DISTRIBUTION WIDTH 13.3 % (11.6-17.2); WHITE BLOOD COUNT 8.1 TH/MM3 (4.0-11.0)
[2017-05-17 07:04] LABS: MAGNESIUM 1.7 MG/DL (1.5-2.5); VANCOMYCIN TROUGH 17.8 MCG/ML (5.0-10.0)
[2017-05-17] MEDS: HEPARIN SODIUM - SQ 10,000 UNITS/ML VIAL SQ SCH (09:00)
[2017-05-17] MEDS: BUDESONIDE-FORMOTEROL 160/4.5 MCG INHALER INH SCH ×2 (09:00→21:00)
[2017-05-17] MEDS: POTASSIUM CHLORIDE 25 MEQ EFFERVESCENT TAB PO SCH ×2 (09:00→21:10)
[2017-05-17] MEDS: METOPROLOL TARTRATE 50 MG TAB PO SCH ×2 (09:00→21:00)
[2017-05-17] MEDS: SODIUM CHLORIDE 0.9% FLUSH 10 ML FLUSH IV FLUSH SCH ×2 (09:00→21:12)
[2017-05-17] MEDS: TIOTROPIUM BROMIDE 18 MCG INH INH SCH (09:00)
[2017-05-17] MEDS: GABAPENTIN 300 MG CAP PO SCH ×3 (09:10→17:33)
[2017-05-17] MEDS: AMIODARONE 200 MG TAB PO SCH (09:10)
[2017-05-17] MEDS: QUEtiapine FUMARATE 25 MG TAB PO SCH ×2 (09:11→21:00)
[2017-05-17] MEDS: MORPHINE SULFATE 30 MG CONTROLLED RELEASE TAB PO SCH ×2 (09:11→21:11)
[2017-05-17] MEDS: APIXABAN 5 MG TABLET PO SCH ×2 (09:11→21:11)
[2017-05-17] MEDS: VANCOMYCIN 500 MG VIAL (FOR ORAL USE ONLY) PO SCH ×4 (09:11→21:11)
--- NOTE | 2017-05-17 10:48 | HHI.IDPN ---
Note Infectious Disease Note Patient is complaining of pain all over. Low grade fever. Notes cramps in abdomen. Now has dignishield and copious loose stools. Awake and alert. Patient with history of Guillain-Southwick syndrome. The patient was at a rehab facility undergoing rehab. She developed nausea and vomiting diarrhea. Fever of 100.1 degrees and decreased blood pressure of 86/49 and a white blood cell count was elevated at 18,000 on admission. ALLERGIES PENICILLIN PAST MEDICAL HISTORY: 1. Newly diagnosed Guillain-Southwick syndrome 2. Atrial fibrillation 3. Bipolar disorder 4. Anxiety disorder 5. Depression 6. Hypertension 7. COPD 8. Gastroesophageal reflux disease 9. History of breast cancer 10. Degenerative disc disease 11. DVT 12. Arthritis 13. Bowel resection in 2013 14. Appendectomy. 15. Cholecystectomy 16. Bilateral mastectomy 17. Open reduction, internal fixation of the right arm. 18. Cervical spine surgery. ALLERGIES PENICILLIN. OBJECTIVE: Vital Signs Date Time Temp Pulse Resp B/P Pulse Ox O2 Delivery O2 Flow Rate FiO2 05/17/17 10:11 20 05/17/17 07:50 92 Nasal Cannula 4.00 05/17/17 06:00 88 05/17/17 04:00 100.2 95 29 90/51 92 05/17/17 04:00 95 05/17/17 02:00 80 05/17/17 00:00 98.5 82 23 107/55 96 05/17/17 00:00 82 05/16/17 22:00 74 05/16/17 20:44 96 05/16/17 20:00 98.9 70 20 92/50 96 05/16/17 20:00 70 05/16/17 18:00 81 05/16/17 17:45 24 05/16/17 16:15 22 05/16/17 16:00 99.4 69 20 102/56 97 05/16/17 16:00 69 05/16/17 14:00 72 05/16/17 12:00 99.5 74 20 91/51 92 05/16/17 12:00 93 05/16/17 05/16/17 05/17/17 14:59 22:59 06:59 Intake Total 1115 ml 2246 ml 1260 ml Output Total 750 ml 1900 ml 1200 ml Balance 365 ml 346 ml 60 ml Intake Oral 480 ml 946 ml 60 ml IV Total 635 ml 1200 ml 1100 ml Albumin 100 ml 100 ml Output Urine Total 750 ml 1800 ml 1000 ml Stool Total 100 ml 200 ml # Bowel Movements 3 Laboratory Tests Test 05/16/17 05/17/17 08:01 05:52 White Blood Count 10.3 TH/MM3 8.1 TH/MM3 Red Blood Count 3.68 MIL/MM3 3.61 MIL/MM3 Hemoglobin 11.6 GM/DL 11.6 GM/DL Hematocrit 34.6 % 33.9 % Mean Corpuscular Volume 94.1 FL 94.0 FL Mean Corpuscular Hemoglobin 31.5 PG 32.1 PG Mean Corpuscular Hemoglobin 33.5 % 34.1 % Concent Red Cell Distribution Width 13.0 % 13.3 % Platelet Count 223 TH/MM3 214 TH/MM3 Mean Platelet Volume 7.7 FL 7.8 FL Neutrophils (%) (Auto) 73.4 % 61.1 % Lymphocytes (%) (Auto) 14.7 % 23.3 % Monocytes (%) (Auto) 8.7 % 9.9 % Eosinophils (%) (Auto) 2.4 % 4.9 % Basophils (%) (Auto) 0.8 % 0.8 % Neutrophils # (Auto) 7.6 TH/MM3 4.9 TH/MM3 Lymphocytes # (Auto) 1.5 TH/MM3 1.9 TH/MM3 Monocytes # (Auto) 0.9 TH/MM3 0.8 TH/MM3 Eosinophils # (Auto) 0.2 TH/MM3 0.4 TH/MM3 Basophils # (Auto) 0.1 TH/MM3 0.1 TH/MM3 CBC Comment DIFF FINAL DIFF FINAL Differential Comment Laboratory Tests Test 05/16/17 05/16/17 05/17/17 08:01 20:12 05:52 Sodium Level 139 MEQ/L 140 MEQ/L Potassium Level 3.3 MEQ/L 2.9 MEQ/L 3.7 MEQ/L Chloride Level 111 MEQ/L 111 MEQ/L Carbon Dioxide Level 20.5 MEQ/L 19.9 MEQ/L Anion Gap 8 MEQ/L 9 MEQ/L Blood Urea Nitrogen 6 MG/DL 5 MG/DL Creatinine 0.66 MG/DL 0.88 MG/DL Estimat Glomerular Filtration 93 ML/MIN 66 ML/MIN Rate Random Glucose 94 MG/DL 172 MG/DL Calcium Level 7.9 MG/DL 7.7 MG/DL Phosphorus Level 1.8 MG/DL 1.4 MG/DL 2.6 MG/DL Magnesium Level 2.0 MG/DL 1.7 MG/DL Total Bilirubin 0.3 MG/DL Aspartate Amino Transf 10 U/L (AST/SGOT) Alanine Aminotransferase 10 U/L (ALT/SGPT) Alkaline Phosphatase 92 U/L Total Protein 5.8 GM/DL Albumin 2.2 GM/DL Microbiology Date/Time Procedure Status Source Growth 05/15/17 02:30 Aerobic Blood Culture - Preliminary Resulted Blood Peripheral NO GROWTH IN 1 DAY 05/15/17 02:30 Anaerobic Blood Culture - Preliminary Resulted Blood Peripheral NO GROWTH IN 1 DAY 05/15/17 02:50 Aerobic Blood Culture - Preliminary Resulted Blood Peripheral NO GROWTH IN 1 DAY 05/15/17 02:50 Anaerobic Blood Culture - Preliminary Resulted Blood Peripheral NO GROWTH IN 1 DAY 05/15/17 03:00 Influenza Types A,B Antigen ([facility]) - Final Complete Nasal Washing NEGATIVE FOR FLU A AND B ANTIGEN.... 05/15/17 03:40 - Final Complete Stool Stool NO ENTERIC PATHOGENS DETECTED BY PCR... 05/15/17 03:40 Stool Pus ([facility]) - Final Complete Stool Stool MANY WBC'S 05/15/17 05:20 Urine Culture - Final Complete Urine Clean Catch Enterococcus Faecium Vre PHYSICAL EXAMINATION GENERAL: No acute distress. HEENT: No icterus. Oropharynx moist mucosa. No visible lesions. No thrush. Neck: Supple. No adenopathy. Lungs: Clear breath sounds. Heart: Regular S1-S2 without murmurs or rubs or gallops. Abdomen: Mildly distended, soft, tenderness to the mid abdomen on deep palpation. Extremities: No clubbing or cyanosis or edema. Skin: No rash. Neuro: Decreased strength in the lower extremities. Psychiatric: Calm and cooperative. IMPRESSION 1. C-difficile colitis 2. Sepsis 3. VRE bacteruria. Probable colonization. RECOMMENDATIONS 1. Discontinue aztreonam. 2. Begin oral vancomycin 3. Continue intravenous metronidazole. 4. Stop intravenous vancomycin. 5. Monitor blood culture. 6. Monitor clinical response. Carlos Almaraz MD May 17, 2017 10:47
--- NOTE | 2017-05-17 16:34 | HHI.PR ---
Subjective Interval History Alert, oriented, complaining of diarrhea is better controlled, mood is improved Review of Systems Constitutional Constitutional Remarks Abdominal pain, diarrhea, depression, 10 systems reviewed and otherwise negative Vitals/Results Intake & Output 05/16/17 05/16/17 05/17/17 15:00 23:00 07:00 Intake Total 1115 ml 2246 ml 1260 ml Output Total 750 ml 1900 ml 1200 ml Balance 365 ml 346 ml 60 ml Intake Oral 480 ml 946 ml 60 ml IV Total 635 ml 1200 ml 1100 ml Albumin 100 ml 100 ml Output Urine Total 750 ml 1800 ml 1000 ml Stool Total 100 ml 200 ml # Bowel Movements 3 Vital Signs Vital Signs Date Time Temp Pulse Resp B/P Pulse Ox O2 Delivery O2 Flow Rate FiO2 05/17/17 14:00 88 05/17/17 12:30 20 05/17/17 12:00 98.3 70 20 93/75 96 05/17/17 12:00 82 05/17/17 10:44 20 05/17/17 10:11 20 05/17/17 08:00 98.9 60 20 89/62 96 05/17/17 07:50 92 Nasal Cannula 4.00 05/17/17 06:00 88 05/17/17 04:00 100.2 95 29 90/51 92 05/17/17 04:00 95 05/17/17 02:00 80 05/17/17 00:00 98.5 82 23 107/55 96 05/17/17 00:00 82 05/16/17 22:00 74 05/16/17 20:44 96 05/16/17 20:00 98.9 70 20 92/50 96 05/16/17 20:00 70 05/16/17 18:00 81 CBC/BMP: 05/17/17 0552 05/17/17 0552 Lab Results Laboratory Tests Test 05/16/17 05/17/17 20:12 05:52 Sodium Level 140 MEQ/L Potassium Level 2.9 MEQ/L 3.7 MEQ/L Chloride Level 111 MEQ/L Carbon Dioxide Level 19.9 MEQ/L Anion Gap 9 MEQ/L Blood Urea Nitrogen 5 MG/DL Creatinine 0.88 MG/DL Estimat Glomerular Filtration 66 ML/MIN Rate Random Glucose 172 MG/DL Calcium Level 7.7 MG/DL Phosphorus Level 1.4 MG/DL 2.6 MG/DL White Blood Count 8.1 TH/MM3 Red Blood Count 3.61 MIL/MM3 Hemoglobin 11.6 GM/DL Hematocrit 33.9 % Mean Corpuscular Volume 94.0 FL Mean Corpuscular Hemoglobin 32.1 PG Mean Corpuscular Hemoglobin 34.1 % Concent Red Cell Distribution Width 13.3 % Platelet Count 214 TH/MM3 Mean Platelet Volume 7.8 FL Neutrophils (%) (Auto) 61.1 % Lymphocytes (%) (Auto) 23.3 % Monocytes (%) (Auto) 9.9 % Eosinophils (%) (Auto) 4.9 % Basophils (%) (Auto) 0.8 % Neutrophils # (Auto) 4.9 TH/MM3 Lymphocytes # (Auto) 1.9 TH/MM3 Monocytes # (Auto) 0.8 TH/MM3 Eosinophils # (Auto) 0.4 TH/MM3 Basophils # (Auto) 0.1 TH/MM3 CBC Comment DIFF FINAL Differential Comment Magnesium Level 1.7 MG/DL Vancomycin Level Trough 17.8 MCG/ML Physical Exam General General Appearance: Well Developed, Anxious, Obese Eyes Eye Exam: Pupils Reactive Ears & Nose Ears & Nose Exam: Auditory Canals Normal Throat Throat Exam: Oral Mucosa [place] & Moist Neck Neck Exam: Trachea Midline Pulmonary Resp Exam: Breath Sounds Equal Cardiology CV Exam: Normal Sinus Rhythm Gastrointestinal/Abdomen GI Exam: Bowel Sounds Present GI Remarks Abdomen generally tender, voluntary guarding Musculoskeletal MS Exam: Normal Tone Integumentary Skin Exam: Warm, Dry Neurologic Neuro Exam: Alert, Awake, Oriented, Speech Clear, Moving All Extremities, Manager Neonatal Equal, No Focal Deficits VTE Prophylaxis VTE Prophylaxis Device: SCDs VTE Prophylaxis Meds: Heparin Assessment/Plan Assessment/Plan Assessment Severe abdominal pain C. difficile colitis VRE Urinary infection Subsegmental atelectasis Sepsis Hypokalemia Chronic pain syndrome Psychosis Management Continue antibiotics, ID following Continue intravenous Flagyl Continue vancomycin, both intravenously and orally Pain control Continue Seroquel Replace potassium Follow electrolytes and replace as needed Follow renal function Follow white count Discussed with patient Discussed with nurse 35 minutes Shan Dorman MD May 17, 2017 16:34
[2017-05-17] MEDS: VANCOMYCIN INJ 1,250 MG in SODIUM CHLOR 0.9% 250 ML INJ 250 ML IV SCH (17:33)
[2017-05-17] MEDS: ALPRAZolam 0.5 MG TAB PO PRN (17:58)
[2017-05-17] MEDS: traZODone HCL 100 MG TAB PO SCH (21:00)
[2017-05-17] MEDS: ZOLPIDEM TARTRATE 5 MG TAB PO PRN (21:11)
[2017-05-17] MEDS ORDERED: GABAPENTIN 300 MG CAP PO ONE (22:30)
[2017-05-18] VITALS (14 sets, daily range): BP systolic 92–119; BP diastolic 52–96; PULSE 60–92; RESP 18–28; TEMP 98–98.9; O2SAT 93–97
[2017-05-18] MEDS: SODIUM CHLOR 0.9% 1000 ML INJ 1,000 ML IV SCH ×3 (01:38→19:59)
[2017-05-18] MEDS: MORPHINE SULFATE 4 MG/ML INJ IV PUSH PRN ×7 (02:39→23:20)
[2017-05-18] MEDS: CHLORHEXIDINE GLUCONATE 2 % 1 PACK (2 CLOTHS)(taper/protocol) TOPICAL SCH (02:39)
[2017-05-18] MEDS: RESP: ALBUTEROL 2.5 MG/3 ML NEB (SCH) INH ×6 (04:00→21:07)
[2017-05-18] MEDS: ACETAMINOPHEN/HYDROcodone 325 MG/10 MG TAB PO PRN ×3 (04:00→21:04)
[2017-05-18] MEDS: ALPRAZolam 0.5 MG TAB PO PRN ×3 (04:00→21:04)
[2017-05-18] MEDS: metroNIDAZOLE 500 MG INJ 100 ML IV SCH ×3 (04:00→19:53)
[2017-05-18] MEDS: VANCOMYCIN INJ 1,250 MG in SODIUM CHLOR 0.9% 250 ML INJ 250 ML IV SCH (05:47)
[2017-05-18] MEDS: BUDESONIDE-FORMOTEROL 160/4.5 MCG INHALER INH SCH ×2 (09:00→19:54)
[2017-05-18] MEDS: METOPROLOL TARTRATE 50 MG TAB PO SCH ×2 (09:00→21:00)
[2017-05-18] MEDS: QUEtiapine FUMARATE 25 MG TAB PO SCH ×2 (09:00→19:59)
[2017-05-18] MEDS: ESCITALOPRAM OXALATE 10 MG TAB PO SCH (09:01)
[2017-05-18] MEDS: FUROSEMIDE 40 MG TAB PO SCH (09:01)
[2017-05-18] MEDS: AMIODARONE 200 MG TAB PO SCH (09:01)
[2017-05-18] MEDS: GABAPENTIN 300 MG CAP PO SCH ×2 (09:01→12:26)
[2017-05-18] MEDS: APIXABAN 5 MG TABLET PO SCH ×2 (09:02→19:56)
[2017-05-18] MEDS: VANCOMYCIN 500 MG VIAL (FOR ORAL USE ONLY) PO SCH ×4 (09:05→19:59)
[2017-05-18] MEDS: SODIUM CHLORIDE 0.9% FLUSH 10 ML FLUSH IV FLUSH SCH ×2 (09:07→19:54)
[2017-05-18] MEDS: TIOTROPIUM BROMIDE 18 MCG INH INH SCH (09:12)
[2017-05-18] MEDS: POTASSIUM CHLORIDE 25 MEQ EFFERVESCENT TAB PO SCH ×2 (10:11→19:58)
[2017-05-18] MEDS: MORPHINE SULFATE 30 MG CONTROLLED RELEASE TAB PO SCH ×2 (10:11→21:04)
[2017-05-18] MEDS: NYSTATIN SUSP 500,000 U/5 ML CUP SWISH-SWAL SCH ×4 (10:11→19:59)
--- NOTE | 2017-05-18 10:11 | PD.PN.STU ---
Subjective Remarks Patient reports she is feeling "much better" today. She has the [employer] stool mgmt system that has made it difficult to pinpoint how much diarrhea she is having, but she does report this symptom to still be present. She is still experiencing intermittent sweats and chills. Her lower abdominal pain is most controlled with morphine. Her appetite has improved. She reports intermittent headaches. She denies lightheadedness, shortness of breath, nausea, and vomiting. Objective Vitals Vital Signs Date Time Temp Pulse Resp B/P Pulse Ox O2 Delivery O2 Flow Rate FiO2 05/18/17 06:00 69 05/18/17 04:00 77 05/18/17 04:00 98.0 77 22 119/96 95 05/18/17 02:00 71 05/18/17 00:00 70 05/18/17 00:00 98.0 75 22 102/56 96 05/17/17 22:00 69 05/17/17 21:16 22 05/17/17 20:12 94 Nasal Cannula 4.00 05/17/17 20:00 97.9 79 24 94/53 98 05/17/17 20:00 72 05/17/17 18:00 88 05/17/17 16:00 82 05/17/17 14:00 88 05/17/17 12:30 20 05/17/17 12:00 98.3 70 20 93/75 96 05/17/17 12:00 82 05/17/17 10:11 20 I/O 05/17/17 05/17/17 05/17/17 05/18/17 05/18/17 05/18/17 06:59 14:59 22:59 06:59 14:59 22:59 Intake Total 1260 ml 1260 ml 1533 ml 1328 ml Output Total 1200 ml 1200 ml 950 ml 700 ml Balance 60 ml 60 ml 583 ml 628 ml Intake Oral 60 ml 60 ml 680 ml 480 ml IV Total 1100 ml 1100 ml 853 ml 848 ml Albumin 100 ml 100 ml Output Urine Total 1000 ml 1000 ml 800 ml 500 ml Stool Total 200 ml 200 ml 150 ml 200 ml Result Diagram: 05/17/17 0552 05/17/17 0552 Objective Remarks General: Alert and cooperative. Does not appear to be in acute distress Cardiovascular: RRR. S1 S2 normal, no murmurs or rubs appreciated. Respiratory: No accessory muscle use noted. Clear breath sounds bilaterally. No crackles or wheezes. Abdomen: Clear bowel sounds in all 4 quadrants. LUQ, LLQ, RLQ, and suprapubic tenderness to light and deep palpation. A/P Assessment and Plan 1. C. diff colitis: Treat with appropriate antibiotics, antipyretics for fever, and analgesia as necessary. With noted symptom improvement, consider transfer out of ICU. Addendum by Dr. Dorman I personally seen and examined this patient Discussed with medical student Agree with above [place] is referred to my independent note for more details Melissa Cooper May 18, 2017 10:11 Shan Dorman MD May 18, 2017 15:59
--- NOTE | 2017-05-18 13:33 | HHI.IDPN ---
Note Infectious Disease Note Patient is complaining of pain all over. Notes cramps in abdomen. ask's for pain meds. Dionicio has copious loose stools. Awake and alert. Afebrile. Patient with history of Guillain-Sturgeon syndrome. The patient was at a rehab facility undergoing rehab. She developed nausea and vomiting diarrhea. Fever of 100.1 degrees and decreased blood pressure of 86/49 and a white blood cell count was elevated at 18,000 on admission. ALLERGIES PENICILLIN PAST MEDICAL HISTORY: 1. Newly diagnosed Guillain-Sturgeon syndrome 2. Atrial fibrillation 3. Bipolar disorder 4. Anxiety disorder 5. Depression 6. Hypertension 7. COPD 8. Gastroesophageal reflux disease 9. History of breast cancer 10. Degenerative disc disease 11. DVT 12. Arthritis 13. Bowel resection in 2013 14. Appendectomy. 15. Cholecystectomy 16. Bilateral mastectomy 17. Open reduction, internal fixation of the right arm. 18. Cervical spine surgery. ALLERGIES PENICILLIN. OBJECTIVE: Vital Signs Date Time Temp Pulse Resp B/P Pulse Ox O2 Delivery O2 Flow Rate FiO2 05/18/17 13:26 20 05/18/17 12:31 12 05/18/17 12:17 97 05/18/17 11:11 18 05/18/17 06:00 69 05/18/17 04:00 77 05/18/17 04:00 98.0 77 22 119/96 95 05/18/17 02:00 71 05/18/17 00:00 70 05/18/17 00:00 98.0 75 22 102/56 96 05/17/17 22:00 69 05/17/17 20:12 94 Nasal Cannula 4.00 05/17/17 20:00 97.9 79 24 94/53 98 05/17/17 20:00 72 05/17/17 18:00 88 05/17/17 16:00 82 05/17/17 14:00 88 05/17/17 05/17/17 05/18/17 15:00 23:00 07:00 Intake Total 1260 ml 1533 ml 1328 ml Output Total 1200 ml 950 ml 700 ml Balance 60 ml 583 ml 628 ml Intake Oral 60 ml 680 ml 480 ml IV Total 1100 ml 853 ml 848 ml Albumin 100 ml Output Urine Total 1000 ml 800 ml 500 ml Stool Total 200 ml 150 ml 200 ml Laboratory Tests Test 05/17/17 05:52 White Blood Count 8.1 TH/MM3 Red Blood Count 3.61 MIL/MM3 Hemoglobin 11.6 GM/DL Hematocrit 33.9 % Mean Corpuscular Volume 94.0 FL Mean Corpuscular Hemoglobin 32.1 PG Mean Corpuscular Hemoglobin 34.1 % Concent Red Cell Distribution Width 13.3 % Platelet Count 214 TH/MM3 Mean Platelet Volume 7.8 FL Neutrophils (%) (Auto) 61.1 % Lymphocytes (%) (Auto) 23.3 % Monocytes (%) (Auto) 9.9 % Eosinophils (%) (Auto) 4.9 % Basophils (%) (Auto) 0.8 % Neutrophils # (Auto) 4.9 TH/MM3 Lymphocytes # (Auto) 1.9 TH/MM3 Monocytes # (Auto) 0.8 TH/MM3 Eosinophils # (Auto) 0.4 TH/MM3 Basophils # (Auto) 0.1 TH/MM3 CBC Comment DIFF FINAL Differential Comment Laboratory Tests Test 05/16/17 05/17/17 20:12 05:52 Sodium Level 140 MEQ/L Potassium Level 2.9 MEQ/L 3.7 MEQ/L Chloride Level 111 MEQ/L Carbon Dioxide Level 19.9 MEQ/L Anion Gap 9 MEQ/L Blood Urea Nitrogen 5 MG/DL Creatinine 0.88 MG/DL Estimat Glomerular Filtration 66 ML/MIN Rate Random Glucose 172 MG/DL Calcium Level 7.7 MG/DL Phosphorus Level 1.4 MG/DL 2.6 MG/DL Magnesium Level 1.7 MG/DL IMAGING: Abdomen/Pelvis CT 05/16/17 0000 Signed Impressions: Service Date/Time: Tuesday, May 16, 2017 22:11 - CONCLUSION: 1. No abnormal fluid collections within the abdomen or pelvis to suggest abscess. 2. Subsegmental airspace disease at the lung bases. Previous cholecystectomy. Goran Rowan MD PHYSICAL EXAMINATION GENERAL: No acute distress. HEENT: No icterus. Oropharynx moist mucosa. No visible lesions. Neck: Supple. No adenopathy. Lungs: Clear breath sounds. Heart: Regular S1-S2 without murmurs or rubs or gallops. Abdomen: Mildly distended, soft. Non tender. Extremities: No clubbing or cyanosis or edema. Skin: No rash. Neuro: Decreased strength in the lower extremities. Psychiatric: Calm and cooperative. IMPRESSION 1. C-difficile colitis 2. Sepsis 3. VRE bacteruria. Probable colonization. RECOMMENDATIONS 1. Continue oral vancomycin 2. Continue oral metronidazole. 3. Monitor blood culture. 4. Monitor clinical response. I will be off 05/19 - 05/22, other [employer] covering. Carlos Almaraz MD May 18, 2017 13:33 Nasal Washing NEGATIVE FOR FLU A AND B ANTIGEN.... 05/15/17 03:40 - Final Complete Stool Stool NO ENTERIC PATHOGENS DETECTED BY PCR... 05/15/17 03:40 Stool Pus (LOLIS) - Final Complete Stool Stool MANY WBC'S 05/15/17 05:20 Urine Culture - Final Complete Urine Clean Catch Enterococcus Faecium Vre PHYSICAL EXAMINATION GENERAL: No acute distress. HEENT: No icterus. Oropharynx moist mucosa. No visible lesions. No thrush. Neck: Supple. No adenopathy. Lungs: Clear breath sounds. Heart: Regular S1-S2 without murmurs or rubs or gallops. Abdomen: Mildly distended, soft, tenderness to the mid abdomen on deep palpation. Extremities: No clubbing or cyanosis or edema. Skin: No rash. Neuro: Decreased strength in the lower extremities. Psychiatric: Calm and cooperative. IMPRESSION 1. C-difficile colitis 2. Sepsis 3. VRE bacteruria. Probable colonization. RECOMMENDATIONS 1. Discontinue aztreonam. 2. Begin oral vancomycin 3. Continue intravenous metronidazole. 4. Stop intravenous vancomycin. 5. Monitor blood culture. 6. Monitor clinical response. I will be off 05/19 - 05/22, other [employer] covering. Carlos Almaraz MD May 18, 2017 13:33
--- NOTE | 2017-05-18 15:53 | HHI.PR ---
Subjective Interval History Alert, oriented, pain well controlled, rectal tube inserted today, continues to have liquid stool, has a Fernandez catheter, moved well controlled since Seroquel started Review of Systems Constitutional Constitutional Remarks diarrhea, depression, 10 systems reviewed and otherwise negative Vitals/Results Intake & Output 05/17/17 05/17/17 05/18/17 15:00 23:00 07:00 Intake Total 1260 ml 1533 ml 1328 ml Output Total 1200 ml 950 ml 700 ml Balance 60 ml 583 ml 628 ml Intake Oral 60 ml 680 ml 480 ml IV Total 1100 ml 853 ml 848 ml Albumin 100 ml Output Urine Total 1000 ml 800 ml 500 ml Stool Total 200 ml 150 ml 200 ml Vital Signs Vital Signs Date Time Temp Pulse Resp B/P Pulse Ox O2 Delivery O2 Flow Rate FiO2 05/18/17 14:00 78 05/18/17 13:26 20 05/18/17 12:31 12 05/18/17 12:17 97 05/18/17 12:00 98.9 66 18 100/62 93 05/18/17 12:00 66 05/18/17 11:11 18 05/18/17 10:00 66 05/18/17 08:00 98.4 60 19 92/52 93 05/18/17 08:00 60 05/18/17 06:00 69 05/18/17 04:00 77 05/18/17 04:00 98.0 77 22 119/96 95 05/18/17 02:00 71 05/18/17 00:00 70 05/18/17 00:00 98.0 75 22 102/56 96 05/17/17 22:00 69 05/17/17 20:12 94 Nasal Cannula 4.00 05/17/17 20:00 97.9 79 24 94/53 98 05/17/17 20:00 72 05/17/17 18:00 88 05/17/17 16:00 82 CBC/BMP: 05/17/17 0552 05/17/17 0552 Physical Exam General General Appearance: Well Developed, Anxious, Obese Eyes Eye Exam: Pupils Reactive Ears & Nose Ears & Nose Exam: Auditory Canals Normal Throat Throat Exam: Oral Mucosa [place] & Moist Neck Neck Exam: Trachea Midline Pulmonary Resp Exam: Breath Sounds Equal Cardiology CV Exam: Normal Sinus Rhythm Gastrointestinal/Abdomen GI Exam: Non-Tender, Bowel Sounds Present Musculoskeletal MS Exam: Normal Tone Integumentary Skin Exam: Warm, Dry Neurologic Neuro Exam: Alert, Awake, Oriented, Speech Clear, Moving All Extremities, Electrician Locomotive Equal, No Focal Deficits VTE Prophylaxis VTE Prophylaxis Device: SCDs VTE Prophylaxis Meds: Heparin Assessment/Plan Assessment/Plan Assessment Severe abdominal pain C. difficile colitis VRE Urinary infection Subsegmental atelectasis Sepsis Hypokalemia Chronic pain syndrome Psychosis Management Continue antibiotics, ID following Continue intravenous Flagyl Continue vancomycin, both intravenously and orally Pain control Continue Seroquel Replace potassium Follow electrolytes and replace as needed Follow renal function Follow white count Discussed with patient Discussed with nurse 35 minutes Shan Dorman MD May 18, 2017 15:53
[2017-05-18] MEDS: traZODone HCL 100 MG TAB PO SCH (19:55)
[2017-05-18] MEDS: GABAPENTIN 400 MG CAP PO SCH (19:56)
[2017-05-18] MEDS: ZOLPIDEM TARTRATE 5 MG TAB PO PRN (23:20)
[2017-05-19] VITALS (10 sets, daily range): BP systolic 99–140; BP diastolic 55–69; PULSE 70–80; RESP 16–24; TEMP 98.2–98.9; O2SAT 93–98
[2017-05-19] MEDS: RESP: ALBUTEROL 2.5 MG/3 ML NEB (SCH) INH ×4 (00:37→11:24)
[2017-05-19] MEDS: CHLORHEXIDINE GLUCONATE 2 % 1 PACK (2 CLOTHS)(taper/protocol) TOPICAL SCH (04:00)
[2017-05-19] MEDS: ACETAMINOPHEN/HYDROcodone 325 MG/10 MG TAB PO PRN (04:25)
[2017-05-19] MEDS: metroNIDAZOLE 500 MG INJ 100 ML IV SCH ×2 (04:26→11:49)
[2017-05-19] MEDS ORDERED: PHARMACY ORDERED LAB ONE (05:45)
[2017-05-19] MEDS: GABAPENTIN 300 MG CAP PO SCH ×2 (08:11→11:50)
[2017-05-19] MEDS: APIXABAN 5 MG TABLET PO SCH ×2 (08:11→20:57)
[2017-05-19] MEDS: FUROSEMIDE 40 MG TAB PO SCH (08:11)
[2017-05-19] MEDS: MORPHINE SULFATE 30 MG CONTROLLED RELEASE TAB PO SCH ×2 (08:11→20:56)
[2017-05-19] MEDS: NYSTATIN SUSP 500,000 U/5 ML CUP SWISH-SWAL SCH ×4 (08:11→20:53)
[2017-05-19] MEDS: QUEtiapine FUMARATE 25 MG TAB PO SCH ×2 (08:11→20:58)
[2017-05-19] MEDS: ALPRAZolam 0.5 MG TAB PO PRN ×2 (08:11→15:51)
[2017-05-19] MEDS: ESCITALOPRAM OXALATE 10 MG TAB PO SCH (08:12)
[2017-05-19] MEDS: POTASSIUM CHLORIDE 25 MEQ EFFERVESCENT TAB PO SCH ×2 (08:12→20:54)
[2017-05-19] MEDS: VANCOMYCIN 500 MG VIAL (FOR ORAL USE ONLY) PO SCH ×4 (08:12→20:59)
[2017-05-19] MEDS: SODIUM CHLOR 0.9% 1000 ML INJ 1,000 ML IV SCH ×2 (08:23→18:47)
[2017-05-19] MEDS: TIOTROPIUM BROMIDE 18 MCG INH INH SCH (08:24)
[2017-05-19] MEDS: SODIUM CHLORIDE 0.9% FLUSH 10 ML FLUSH IV FLUSH SCH ×2 (08:24→20:52)
[2017-05-19] MEDS: BUDESONIDE-FORMOTEROL 160/4.5 MCG INHALER INH SCH ×2 (08:24→20:52)
[2017-05-19] MEDS: METOPROLOL TARTRATE 50 MG TAB PO SCH ×2 (08:24→20:57)
--- NOTE | 2017-05-19 10:54 | PD.PN.STU ---
Subjective Remarks Patient reports having increased abdominal pain she described as "contraction- like" last evening to due problem with Dignishield. Pain is not well controlled with [place] and she would like to restart Morphine. She is able to eat some solid food and had some of an omelette for breakfast this morning without regurgitation. She still reports repeated bouts of nausea and vomiting in the last day. She is no longer experiencing headaches. Breathing difficulty is at baseline. Mood is controlled with use of Seroquel. Overall she feels as though she is "getting better". She denies lightheadedness, heart palpitations, sweats , and chills. Objective Vitals Vital Signs Date Time Temp Pulse Resp B/P Pulse Ox O2 Delivery O2 Flow Rate FiO2 05/19/17 08:40 77 05/19/17 08:01 98.5 70 16 134/63 97 05/19/17 03:24 98.6 80 18 99/56 95 05/19/17 01:51 76 05/19/17 01:20 98.5 71 20 109/60 96 05/19/17 00:00 79 05/19/17 00:00 98.9 79 24 101/55 96 05/18/17 22:00 92 05/18/17 21:07 97 Nasal Cannula 3.00 05/18/17 20:00 98.2 78 28 98/64 96 05/18/17 20:00 78 05/18/17 18:00 66 05/18/17 16:35 18 05/18/17 16:00 70 05/18/17 16:00 98.7 70 28 109/61 94 05/18/17 16:00 70 05/18/17 14:00 78 05/18/17 13:26 20 05/18/17 12:17 97 05/18/17 12:00 98.9 66 18 100/62 93 05/18/17 12:00 66 05/18/17 11:11 18 I/O 05/18/17 05/18/17 05/18/17 05/19/17 05/19/17 05/19/17 07:00 15:00 23:00 07:00 15:00 23:00 Intake Total 1328 ml 1775 ml 712 ml 762 ml Output Total 700 ml 2900 ml 750 ml 350 ml Balance 628 ml -1125 ml -38 ml 412 ml Intake Oral 480 ml 700 ml 240 ml 0 ml IV Total 848 ml 1075 ml 472 ml 762 ml Output Urine Total 500 ml 2300 ml 350 ml 350 ml Stool Total 200 ml 600 ml 400 ml # Bowel Movements 0 Result Diagram: 05/17/17 0552 05/17/17 0552 Objective Remarks General: Alert and oriented. Appears fatigued. Does not appear to be in acute distress. Fernandez and Dignishield are in place and show yellow urine and dark brown liquid stool, respectively. HEENT: Normocephalic Pulmonary: Clear breath sounds bilaterally. No wheezes or crackles appreciated. Cardiovascular: RRR. S1 S2 normal. No murmurs or rubs. Abdominal: Bowel sounds present in all 4 quadrants. Tenderness to light and deep palpation in LUQ, LLQ, RLQ, and suprapubic regions. A/P Assessment and Plan 1. C. diff colitis: No longer febrile. Continue to treat with Flagyl. Monitor WBC count. 2. Abdominal pain: Continue to treat with po morphine as indicated 3. Suprapubic tenderness: Consider possible UTI. Repeat UA. If indicated consider urine culture. 4. Hyperkalemia: Resolved. Continue to monitor electrolytes and replace as necessary. 5. Hypotension: continue to monitor BP. Continue IV hydration. Utilize pressors if necessary. 6. Depression and Anxiety symptoms: continue to monitor. Continue Seroquel. 7. Keep Fernandez and Dignishield clean and in place. 8. History of Guillain Knickerbocker: monitor for changes in weakness of lower extremities. Addendum by Dr. Dorman I personally seen and examined this patient Discussed with medical student Agree with above [place] is referred to my independent note for more details Melissa Cooper May 19, 2017 10:54 Shan Dorman MD May 19, 2017 20:12
[2017-05-19] MEDS: MORPHINE SULFATE 30 MG TAB PO PRN ×3 (11:50→20:55)
--- NOTE | 2017-05-19 11:51 | HHI.PR ---
Subjective Subjective Remarks Resting in the bed Alert oriented cooperative Afebrile, Rectal Fernandez in (Louise Reyes) Review of Systems Constitutional Constitutional: Fatigue, Weakness Constitutional Remarks 10 point ROS done positives noted (Louise Reyes) Pulmonary Respiratory: Shortness of Breath (history of COPD) (Louise Reyes) GI/Abdomen GI/Abdominal Exam: Diarrhea GI/Abdomen Remarks , C. difficile (Louise Reyes) Musculoskeletal MS: Weakness, Stiffness MS Remarks Acute on chronic (Louise Reyes) Psychiatric Psychiatric: Normal Mood, Anxiety, Depression (Louise Reyes) Vitals/Results Intake & Output 05/18/17 05/18/17 05/19/17 15:00 23:00 07:00 Intake Total 1775 ml 712 ml 762 ml Output Total 2900 ml 750 ml 350 ml Balance -1125 ml -38 ml 412 ml Intake Oral 700 ml 240 ml 0 ml IV Total 1075 ml 472 ml 762 ml Output Urine Total 2300 ml 350 ml 350 ml Stool Total 600 ml 400 ml # Bowel Movements 0 Vital Signs Vital Signs Date Time Temp Pulse Resp B/P Pulse Ox O2 Delivery O2 Flow Rate FiO2 05/19/17 11:24 95 Nasal Cannula 3.00 05/19/17 08:40 77 05/19/17 08:01 98.5 70 16 134/63 97 05/19/17 03:24 98.6 80 18 99/56 95 05/19/17 01:51 76 05/19/17 01:20 98.5 71 20 109/60 96 05/19/17 00:00 79 05/19/17 00:00 98.9 79 24 101/55 96 05/18/17 22:00 92 05/18/17 21:07 97 Nasal Cannula 3.00 05/18/17 20:00 98.2 78 28 98/64 96 05/18/17 20:00 78 05/18/17 18:00 66 05/18/17 16:35 18 05/18/17 16:00 70 05/18/17 16:00 98.7 70 28 109/61 94 05/18/17 16:00 70 05/18/17 14:00 78 05/18/17 13:26 20 05/18/17 12:17 97 05/18/17 12:00 98.9 66 18 100/62 93 05/18/17 12:00 66 (AmyLouise M. [employer] CENTER ANALYST) CBC/BMP: 05/17/17 0552 05/17/17 0552 Imaging Remarks Last Impressions Abdomen/Pelvis CT 05/16/17 0000 Signed Impressions: Service Date/Time: Tuesday, May 16, 2017 22:11 - CONCLUSION: 1. No abnormal fluid collections within the abdomen or pelvis to suggest abscess. 2. Subsegmental airspace disease at the lung bases. Previous cholecystectomy. Goran Rowan MD Chest X-Ray 05/15/17 0221 Signed Impressions: Service Date/Time: Monday, May 15, 2017 02:33 - CONCLUSION: No acute disease. Roberto Vasquez MD (Amy,Louise M. [employer] ANALYST) Physical Exam General General Appearance: Well Developed, Anxious, Obese (Amy,Louise M. [employer] ANALYST) Eyes Eye Exam: Pupils Reactive (Amy,Louise M. [employer] ANALYST) Ears & Nose Ears & Nose Exam: Auditory Canals Normal ([place],Louise M. [employer] ANALYST) Throat Throat Exam: Oral Mucosa [place] & Moist (Amy,Louise M. [employer] ANALYST) Neck Neck Exam: Trachea Midline (Amy,Louise M. [employer] ANALYST) Pulmonary Resp Exam: Breath Sounds Equal ([place],Louise M. [employer] ANALYST) Cardiology CV Exam: Normal Sinus Rhythm (Amy,Louise M. [employer] ANALYST) Gastrointestinal/Abdomen GI Exam: Non-Tender, Bowel Sounds Present (Amy,Louise M. [employer] ANALYST) Musculoskeletal MS Exam: Normal Tone (Amy,Louise M. [employer] ANALYST) Integumentary Skin Exam: Warm, Dry (Amy,Louise M. [employer] ANALYST) Neurologic Neuro Exam: Alert, Awake, Oriented, Speech Clear, Moving All Extremities, Solar Design Engineer Equal, No Focal Deficits ([place],Louise M. [employer] ANALYST) VTE Prophylaxis VTE Prophylaxis Device: SCDs VTE Prophylaxis Meds: Heparin ([place],Louise M. [employer] ANALYST) Assessment/Plan Assessment/Plan Vital signs reviewed trends are normal today patient's afebrile Labs reviewed, positive UTI VRE noted,contact isolation, antibiotic therapy, positive C. difficile Hypokalemia a few days ago we'll recheck labs in the morning C. difficile colitis with severe abdominal pain and cramps Continue antibiotics, ID following, states she is feeling much better and getting stronger Patient has rectal Fernandez in for the past 2 days, appears that stool drainage is getting thicker, irrigate and check rectal Fernandez at least every 2 hours and flush as needed, if stool is not watery please DC'd rectal Fernandez, continue IV Flagyl and vancomycin IV and by mouth VRE Urinary infection Isolation, ID following Subsegmental atelectasis Dual nebs oxygen as warranted, patient has history of COPD, encouraged to turn cough and deep breathe and use incentive spirometry Sepsis Resolving, appreciate ID input for antibiotic therapy Hypokalemia, resolved yesterday, we'll monitor and recheck labs in the morning Chronic pain syndrome Pain control, acute on chronic, lower backs and legs bilateral Psychosis Medical management Seroquel Worthington Nguyen syndrome, recent diagnosis approximately 4 months ago, debility continues before getting sick patient was walking approximately 15 feet Will have PT work with her Discussed with Dr. Dorman, seen on his behalf Discussed with patient Discussed with nurse 30 minutes (Louise Reyes) Assessment/Plan seen, examined by myself, Dr Dorman, today Discussed with patient and her sister Continue current antibiotics Give colestipol to try to improve diarrhea Once that improves she is to have her rectal tube removed and start physical therapy Discussed with mid level provider The exam, history, and the medical decision-making described in the above note were completed with the assistance of the mid-level provider. I reviewed the findings presented. I attest that I had a [id number] encounter with the patient on the same day, and personally performed and documented my assessment and findings in the medical record. (Shan Dorman MD) Louise Reyes May 19, 2017 11:51 Shan Dorman MD May 19, 2017 20:13
--- NOTE | 2017-05-19 19:21 | HHI.IDPN ---
Subjective Subjective Remarks ID X cover for Dr Mcgarry Pt is 56 yo F admiteted with sepsis, diarrea C.diff is positive for 027 strain She is co abdominal pain having liquid stoools Antibiotics po vancomycin Allergies: Coded Allergies: Penicillin (Verified Allergy, Severe, PURITIS, 05/15/17) *MDRO Multi-Drug Resistant Organism (Verified Adverse Reaction, Unknown, ) VRE (urine)-05/15/17 Objective . Vital Signs Date Time Temp Pulse Resp B/P Pulse Ox O2 Delivery O2 Flow Rate FiO2 05/19/17 16:01 98.2 77 16 116/58 96 05/19/17 12:00 98.3 71 16 140/66 93 05/19/17 11:24 95 Nasal Cannula 3.00 05/19/17 08:40 77 05/19/17 08:01 98.5 70 16 134/63 97 05/19/17 03:24 98.6 80 18 99/56 95 05/19/17 01:51 76 05/19/17 01:20 98.5 71 20 109/60 96 05/19/17 00:00 79 05/19/17 00:00 98.9 79 24 101/55 96 05/18/17 22:00 92 05/18/17 21:07 97 Nasal Cannula 3.00 05/18/17 20:00 98.2 78 28 98/64 96 05/18/17 20:00 78 05/18/17 05/18/17 05/19/17 15:00 23:00 07:00 Intake Total 1775 ml 712 ml 762 ml Output Total 2900 ml 750 ml 350 ml Balance -1125 ml -38 ml 412 ml Intake Oral 700 ml 240 ml 0 ml IV Total 1075 ml 472 ml 762 ml Output Urine Total 2300 ml 350 ml 350 ml Stool Total 600 ml 400 ml # Bowel Movements 0 Imaging Last Impressions Abdomen/Pelvis CT 05/16/17 0000 Signed Impressions: Service Date/Time: Tuesday, May 16, 2017 22:11 - CONCLUSION: 1. No abnormal fluid collections within the abdomen or pelvis to suggest abscess. 2. Subsegmental airspace disease at the lung bases. Previous cholecystectomy. Goran Rowan MD Chest X-Ray 05/15/17 0221 Signed Impressions: Service Date/Time: Monday, May 15, 2017 02:33 - CONCLUSION: No acute disease. Roberto Vasquez MD Physical Exam GENERAL: No acute distress. HEENT: No icterus. Oropharynx moist mucosa. No visible lesions. Neck: Supple. No adenopathy. Lungs: Clear breath sounds. Heart: Regular S1-S2 without murmurs or rubs or gallops. Abdomen: Mildly distended, soft. Non tender. Incontinent of liquid light brown stool - in dignishield Extremities: No clubbing or cyanosis or edema. Skin: No rash. Neuro: Decreased strength in the lower extremities. Psychiatric: Calm and cooperative. Assessment & Plan Remarks IMPRESSION 1. C-difficile colitis, hypervirulent 027 strain, severe - 1st episode - Stool output up to 1 L today 2. Sepsis: source is likely C.diff 3. VRE bacteruria. Probable colonization. 4. Leukocytosis - resolved Overall improved, but still with very high volume diarrhea RECOMMENDATIONS 1. Continue oral vancomycin x 14 days; increase the dose 2. dc oral metronidazole. 3. Monitor blood culture. 4. Monitor clinical response. Mya Roca MD May 19, 2017 19:21
[2017-05-19] MEDS: COLESTIPOL HCL 5 GM PACKET PO SCH (20:53)
[2017-05-19] MEDS: GABAPENTIN 400 MG CAP PO SCH (20:54)
[2017-05-19] MEDS: traZODone HCL 100 MG TAB PO SCH (20:58)
[2017-05-19] MEDS: ZOLPIDEM TARTRATE 5 MG TAB PO PRN (21:11)
[2017-05-20] VITALS (7 sets, daily range): BP systolic 102–168; BP diastolic 57–78; PULSE 70–80; RESP 16–20; TEMP 97.9–99; O2SAT 94–99
[2017-05-20] MEDS: MORPHINE SULFATE 30 MG TAB PO PRN ×6 (01:10→22:05)
[2017-05-20] MEDS: ALPRAZolam 0.5 MG TAB PO PRN ×4 (01:11→22:05)
[2017-05-20] MEDS: CHLORHEXIDINE GLUCONATE 2 % 1 PACK (2 CLOTHS)(taper/protocol) TOPICAL SCH (03:34)
[2017-05-20] MEDS: SODIUM CHLOR 0.9% 1000 ML INJ 1,000 ML IV SCH ×2 (03:36→10:20)
[2017-05-20] MEDS: BUDESONIDE-FORMOTEROL 160/4.5 MCG INHALER INH SCH ×2 (09:00→21:00)
[2017-05-20] MEDS: SODIUM CHLORIDE 0.9% FLUSH 10 ML FLUSH IV FLUSH SCH ×2 (09:00→21:00)
[2017-05-20] MEDS: QUEtiapine FUMARATE 25 MG TAB PO SCH ×2 (09:00→21:00)
[2017-05-20] MEDS: POTASSIUM CHLORIDE 25 MEQ EFFERVESCENT TAB PO SCH (09:00)
[2017-05-20] MEDS: METOPROLOL TARTRATE 50 MG TAB PO SCH ×3 (09:00→21:18)
[2017-05-20] MEDS: TIOTROPIUM BROMIDE 18 MCG INH INH SCH (09:00)
[2017-05-20] MEDS: COLESTIPOL HCL 5 GM PACKET PO SCH ×2 (09:00→21:00)
[2017-05-20] MEDS: AMIODARONE 200 MG TAB PO SCH (09:15)
[2017-05-20] MEDS: APIXABAN 5 MG TABLET PO SCH ×2 (09:15→21:15)
[2017-05-20] MEDS: MORPHINE SULFATE 30 MG CONTROLLED RELEASE TAB PO SCH ×2 (09:17→21:17)
[2017-05-20] MEDS: NYSTATIN SUSP 500,000 U/5 ML CUP SWISH-SWAL SCH ×4 (09:18→21:17)
[2017-05-20] MEDS: ESCITALOPRAM OXALATE 10 MG TAB PO SCH (09:18)
[2017-05-20] MEDS: GABAPENTIN 300 MG CAP PO SCH ×2 (09:18→14:02)
[2017-05-20] MEDS: FUROSEMIDE 40 MG TAB PO SCH (09:19)
[2017-05-20] MEDS: VANCOMYCIN 500 MG VIAL (FOR ORAL USE ONLY) PO SCH ×4 (09:19→21:18)
--- NOTE | 2017-05-20 15:42 | HHI.PR ---
Subjective Subjective Remarks Resting in the bed Alert oriented cooperative Afebrile, Rectal Fernandez in (Louise Reyes) Review of Systems Constitutional Constitutional: Fatigue, Weakness Constitutional Remarks 10 point ROS done positives noted (Louise Reyes) Pulmonary Respiratory: Shortness of Breath (history of COPD) (Louise Reyes) GI/Abdomen GI/Abdominal Exam: Diarrhea GI/Abdomen Remarks , C. difficile (Louise Reyes) Musculoskeletal MS: Weakness, Stiffness MS Remarks Acute on chronic (Louise Reyes) Psychiatric Psychiatric: Normal Mood, Anxiety, Depression (Louise Reyes) Vitals/Results Intake & Output 05/19/17 05/19/17 05/20/17 14:59 22:59 06:59 Intake Total 960 ml 1940 ml 1522 ml Output Total 2800 ml 400 ml 1150 ml Balance -1840 ml 1540 ml 372 ml Intake Oral 960 ml 480 ml 760 ml IV Total 1460 ml 762 ml Output Urine Total 2800 ml 350 ml 950 ml Stool Total 50 ml 200 ml # Bowel Movements 0 Vital Signs Vital Signs Date Time Temp Pulse Resp B/P Pulse Ox O2 Delivery O2 Flow Rate FiO2 05/20/17 12:00 98.3 73 18 135/76 95 05/20/17 08:10 72 05/20/17 08:00 98.3 73 18 113/57 96 05/20/17 04:00 98.5 75 20 106/57 99 05/20/17 00:00 99.0 72 16 102/57 95 05/19/17 20:00 98.6 73 19 123/69 98 05/19/17 20:00 77 05/19/17 16:01 98.2 77 16 116/58 96 (Louise Reyes) CBC/BMP: 05/17/17 0552 05/17/17 0552 Imaging Remarks Last Impressions Abdomen/Pelvis CT 05/16/17 0000 Signed Impressions: Service Date/Time: Tuesday, May 16, 2017 22:11 - CONCLUSION: 1. No abnormal fluid collections within the abdomen or pelvis to suggest abscess. 2. Subsegmental airspace disease at the lung bases. Previous cholecystectomy. Goran Rowan MD Chest X-Ray 05/15/17 0221 Signed Impressions: Service Date/Time: Monday, May 15, 2017 02:33 - CONCLUSION: No acute disease. Roberto Vasquez MD (Amy,Louise M. MEDICAID SERVICE COORDINATOR) Physical Exam General General Appearance: Well Developed, Anxious, Obese ([place],Louise M. MEDICAID SERVICE COORDINATOR) Eyes Eye Exam: Pupils Reactive ([place],Louise M. MEDICAID SERVICE COORDINATOR) Ears & Nose Ears & Nose Exam: Auditory Canals Normal ([place],Louise M. MEDICAID SERVICE COORDINATOR) Throat Throat Exam: Oral Mucosa [place] & Moist ([place],Louise M. MEDICAID SERVICE COORDINATOR) Neck Neck Exam: Trachea Midline (Amy,Louise M. MEDICAID SERVICE COORDINATOR) Pulmonary Resp Exam: Breath Sounds Equal ([place],Louise M. MEDICAID SERVICE COORDINATOR) Cardiology CV Exam: Normal Sinus Rhythm (Amy,Louise M. MEDICAID SERVICE COORDINATOR) Gastrointestinal/Abdomen GI Exam: Non-Tender, Bowel Sounds Present ([place],Louise M. MEDICAID SERVICE COORDINATOR) Musculoskeletal MS Exam: Normal Tone ([place],Louise M. MEDICAID SERVICE COORDINATOR) Integumentary Skin Exam: Warm, Dry (Amy,Louise M. MEDICAID SERVICE COORDINATOR) Neurologic Neuro Exam: Alert, Awake, Oriented, Speech Clear, Moving All Extremities, Electrician Master Equal, No Focal Deficits (Amy,Louise M. MEDICAID SERVICE COORDINATOR) VTE Prophylaxis VTE Prophylaxis Device: SCDs VTE Prophylaxis Meds: Heparin (Amy,Louise M. MEDICAID SERVICE COORDINATOR) Assessment/Plan Assessment/Plan ital signs reviewed normal trends Labs reviewed, positive UTI VRE noted,contact isolation, antibiotic therapy, positive C. difficile, leukocytosis resolved Recheck BMP tomorrow to monitor potassium level since patient is still having diarrhea Continue physical therapy, was initiated yesterday, patient was able to dangle on side of the bed and do simple exercises C. difficile colitis with severe abdominal pain and cramps Continue antibiotics, ID following, states she is feeling much better and getting stronger, but still having some abdominal cramping and diarrhea Patient has rectal Fernandez , day 3 days, irrigate and check rectal Fernandez, flush at least every 2 hours, once stool has slowed down and thickened, will DC rectal Fernandez continue IV Flagyl and vancomycin IV and by mouth VRE Urinary infection Isolation, ID following Subsegmental atelectasis Dual nebs oxygen as warranted, patient has history of COPD, encouraged to turn cough and deep breathe and use incentive spirometry Sepsis Resolving, appreciate ID input for antibiotic therapy Hypokalemia, resolved yesterday, we'll monitor and recheck labs in the morning Chronic pain syndrome Pain control, acute on chronic, lower backs and legs bilateral Psychosis Medical management Seroquel Staci Nguyen syndrome, recent diagnosis approximately 4 months ago, debility continues before getting sick patient was walking approximately 15-25 feet Continue aggressive physical therapy Discussed with Dr. Dorman, seen on his behalf Discussed with patient Discussed with nurse (Louise Reyes) Assessment/Plan seen, examined by myself, Dr Dorman, today Discussed with patient Discussed with nurse Change potassium to tablets Xanax 4 times a day as needed Still very liquid stool Discussed with mid level provider The exam, history, and the medical decision-making described in the above note were completed with the assistance of the mid-level provider. I reviewed the findings presented. I attest that I had a [id number] encounter with the patient on the same day, and personally performed and documented my assessment and findings in the medical record. (Shan Dorman MD) Louise Reyes May 20, 2017 15:42 Shan Dorman MD May 20, 2017 18:41
[2017-05-20] MEDS: traZODone HCL 100 MG TAB PO SCH (21:00)
[2017-05-20] MEDS: POTASSIUM CHLORIDE 10 MEQ CONTROLLED RELEASE TAB PO SCH (21:14)
[2017-05-20] MEDS: GABAPENTIN 400 MG CAP PO SCH (21:16)
[2017-05-20] MEDS: ZOLPIDEM TARTRATE 5 MG TAB PO PRN (21:28)
[2017-05-21] VITALS (8 sets, daily range): BP systolic 116–146; BP diastolic 62–72; PULSE 68–82; RESP 18–20; TEMP 97.8–98.5; O2SAT 89–94
[2017-05-21] MEDS: SODIUM CHLOR 0.9% 1000 ML INJ 1,000 ML IV SCH ×3 (00:36→17:24)
[2017-05-21] MEDS: MORPHINE SULFATE 30 MG TAB PO PRN ×4 (03:56→17:25)
[2017-05-21] MEDS: ALPRAZolam 0.5 MG TAB PO PRN ×3 (03:58→17:24)
[2017-05-21] MEDS: GABAPENTIN 300 MG CAP PO SCH ×2 (08:39→13:26)
[2017-05-21] MEDS: COLESTIPOL HCL 5 GM PACKET PO SCH ×2 (08:39→21:00)
[2017-05-21] MEDS: TIOTROPIUM BROMIDE 18 MCG INH INH SCH (08:39)
[2017-05-21] MEDS: BUDESONIDE-FORMOTEROL 160/4.5 MCG INHALER INH SCH ×2 (08:39→21:00)
[2017-05-21] MEDS: APIXABAN 5 MG TABLET PO SCH ×2 (08:39→21:52)
[2017-05-21] MEDS: AMIODARONE 200 MG TAB PO SCH (08:40)
[2017-05-21] MEDS: POTASSIUM CHLORIDE 10 MEQ CONTROLLED RELEASE TAB PO SCH ×2 (08:40→21:51)
[2017-05-21] MEDS: ESCITALOPRAM OXALATE 10 MG TAB PO SCH (08:40)
[2017-05-21] MEDS: VANCOMYCIN 500 MG VIAL (FOR ORAL USE ONLY) PO SCH ×4 (08:40→21:55)
[2017-05-21] MEDS: NYSTATIN SUSP 500,000 U/5 ML CUP SWISH-SWAL SCH ×4 (08:40→21:51)
[2017-05-21] MEDS: SODIUM CHLORIDE 0.9% FLUSH 10 ML FLUSH IV FLUSH SCH ×2 (08:41→21:53)
[2017-05-21] MEDS: METOPROLOL TARTRATE 50 MG TAB PO SCH ×2 (08:42→21:52)
[2017-05-21] MEDS: QUEtiapine FUMARATE 25 MG TAB PO SCH (08:43)
[2017-05-21 10:10] LABS: BICARBONATE 28.3 MEQ/L (21.0-32.0); POTASSIUM 3.6 MEQ/L (3.5-5.1)
[2017-05-21] MEDS: MORPHINE SULFATE 30 MG CONTROLLED RELEASE TAB PO SCH ×2 (11:17→21:52)
--- NOTE | 2017-05-21 12:21 | HHI.PR ---
Subjective Subjective Remarks Resting in the bed Mild anxiety noted today over current extended admission and her generalized health Supportive care and encouragement for approximately 30 minutes given Review of Systems Constitutional Constitutional: Fatigue, Weakness Constitutional Remarks 10 point ROS done positives noted Pulmonary Respiratory: Shortness of Breath (history of COPD) GI/Abdomen GI/Abdominal Exam: Diarrhea GI/Abdomen Remarks , C. difficile Musculoskeletal MS: Weakness, Stiffness MS Remarks Acute on chronic Psychiatric Psychiatric: Normal Mood, Anxiety, Depression Vitals/Results Intake & Output 05/20/17 05/20/17 05/21/17 15:00 23:00 07:00 Intake Total 1218 ml 1030 ml 1189 ml Output Total 3775 ml 650 ml 240 ml Balance -2557 ml 380 ml 949 ml Intake Oral 960 ml 420 ml 540 ml IV Total 258 ml 610 ml 649 ml Output Urine Total 3575 ml 650 ml 240 ml Stool Total 200 ml Vital Signs Vital Signs Date Time Temp Pulse Resp B/P Pulse Ox O2 Delivery O2 Flow Rate FiO2 05/21/17 10:25 72 05/21/17 08:00 98.1 74 18 146/70 92 05/21/17 05:00 98.2 81 20 116/63 94 05/21/17 00:00 97.8 68 18 142/66 94 05/20/17 20:00 97.9 70 20 168/78 94 05/20/17 20:00 75 05/20/17 16:00 98.2 80 18 124/61 96 CBC/BMP: 05/17/17 0552 05/21/17 0840 Lab Results Laboratory Tests Test 05/21/17 08:40 Sodium Level 144 MEQ/L Potassium Level 3.6 MEQ/L Chloride Level 108 MEQ/L Carbon Dioxide Level 28.3 MEQ/L Anion Gap 8 MEQ/L Blood Urea Nitrogen 10 MG/DL Creatinine 0.68 MG/DL Estimat Glomerular Filtration 90 ML/MIN Rate Random Glucose 79 MG/DL Calcium Level 8.4 MG/DL Physical Exam General General Appearance: Well Developed, Anxious, Obese Eyes Eye Exam: Pupils Reactive Ears & Nose Ears & Nose Exam: Auditory Canals Normal Throat Throat Exam: Oral Mucosa [place] & Moist Neck Neck Exam: Trachea Midline Pulmonary Resp Exam: Breath Sounds Equal Cardiology CV Exam: Normal Sinus Rhythm Gastrointestinal/Abdomen GI Exam: Non-Tender, Bowel Sounds Present Musculoskeletal MS Exam: Normal Tone Integumentary Skin Exam: Warm, Dry Neurologic Neuro Exam: Alert, Awake, Oriented, Speech Clear, Moving All Extremities, Technology Sales Consultant Equal, No Focal Deficits VTE Prophylaxis VTE Prophylaxis Device: SCDs VTE Prophylaxis Meds: Heparin Assessment/Plan Assessment/Plan Vital signs reviewed normal trends Labs reviewed, positive UTI VRE noted,contact isolation, antibiotic therapy, positive C. difficile, potassium stabilized 3.6 Continue physical therapy, initiated Monday, will resume Monday a.m., encourage patient to work as hard as she can to maintain her strength and stamina C. difficile colitis with severe abdominal pain and cramps Continue antibiotics, ID following, states she is feeling much better and getting stronger, rectal Fernandez with increased gas noted in tube, stool seems to have thickened some We'll remove rectal Fernandez for today and trial, so we can evaluate number of liquid stools and gas. Patient complaining of some abdominal cramping, having rectal Fernandez out may ease some of this VRE Urinary infection Isolation, ID following Subsegmental atelectasis Dual nebs oxygen as warranted, patient has history of COPD, encouraged to turn cough and deep breathe and use incentive spirometry Sepsis Resolving, appreciate ID input for antibiotic therapy Chronic pain syndrome Pain control, acute on chronic, lower backs and legs bilateral, anxiety, on Xanax Depression, currently taking Lexapro, has not taken Seroquel for approximately 3 years she states and is refusing to take due to weight gain. Seroquel DC'd [place] Nguyen syndrome, recent diagnosis approximately 4 months ago, debility continues before getting sick patient was walking approximately 15-25 feet Continue aggressive physical therapy, supportive care and encouragement to patient to get better Tearful today, spoke to nurse about finding her some possible books and magazines if available. Supportive care Discussed with Dr. Dorman, seen on his behalf Discussed with patient Discussed with nurse Louise Reyes May 21, 2017 12:21
[2017-05-21] MEDS: traZODone HCL 100 MG TAB PO SCH (21:51)
[2017-05-21] MEDS: ZOLPIDEM TARTRATE 5 MG TAB PO PRN (21:52)
[2017-05-21] MEDS: GABAPENTIN 400 MG CAP PO SCH (21:52)
[2017-05-22] VITALS (8 sets, daily range): BP systolic 125–164; BP diastolic 60–76; PULSE 61–71; RESP 18–20; TEMP 97.7–98.2; O2SAT 93–98
[2017-05-22] MEDS: ALPRAZolam 0.5 MG TAB PO PRN ×4 (00:09→17:54)
[2017-05-22] MEDS: MORPHINE SULFATE 30 MG TAB PO PRN ×6 (00:09→23:24)
[2017-05-22] MEDS: SODIUM CHLOR 0.9% 1000 ML INJ 1,000 ML IV SCH ×2 (04:58→12:00)
[2017-05-22] MEDS: APIXABAN 5 MG TABLET PO SCH ×2 (08:14→20:26)
[2017-05-22] MEDS: NYSTATIN SUSP 500,000 U/5 ML CUP SWISH-SWAL SCH ×4 (08:14→20:27)
[2017-05-22] MEDS: ESCITALOPRAM OXALATE 10 MG TAB PO SCH (08:14)
[2017-05-22] MEDS: GABAPENTIN 300 MG CAP PO SCH ×2 (08:14→14:01)
[2017-05-22] MEDS: POTASSIUM CHLORIDE 10 MEQ CONTROLLED RELEASE TAB PO SCH ×2 (08:14→20:26)
[2017-05-22] MEDS: METOPROLOL TARTRATE 50 MG TAB PO SCH ×2 (08:14→20:26)
[2017-05-22] MEDS: VANCOMYCIN 500 MG VIAL (FOR ORAL USE ONLY) PO SCH ×4 (08:14→20:27)
[2017-05-22] MEDS: AMIODARONE 200 MG TAB PO SCH (08:14)
[2017-05-22] MEDS: MORPHINE SULFATE 30 MG CONTROLLED RELEASE TAB PO SCH ×2 (08:15→20:27)
[2017-05-22] MEDS: SODIUM CHLORIDE 0.9% FLUSH 10 ML FLUSH IV FLUSH SCH ×2 (08:15→20:30)
[2017-05-22] MEDS: COLESTIPOL HCL 5 GM PACKET PO SCH ×2 (08:16→20:23)
[2017-05-22] MEDS: BUDESONIDE-FORMOTEROL 160/4.5 MCG INHALER INH SCH ×2 (08:17→20:30)
[2017-05-22] MEDS: TIOTROPIUM BROMIDE 18 MCG INH INH SCH (08:17)
--- NOTE | 2017-05-22 09:57 | PD.PN.STU ---
Subjective Remarks Patient reports she is feeling "so-so" today. Her abdominal pain is controlled with medication and rates at a 5/10 on the pain scale. She is eating solid food. She reports intermittent nausea but denies vomiting. She no longer has the [place] stool collection system in place but has yet to have a solid stool. Her moods have been "up and down" and she believes this to be due to her extended inpatient stay. She reports generalized fatigue but denies lightheadedness. headaches, and heart palpitations. Objective Vitals Vital Signs Date Time Temp Pulse Resp B/P Pulse Ox O2 Delivery O2 Flow Rate FiO2 05/22/17 08:00 97.7 67 20 164/76 98 05/22/17 04:42 98.2 67 18 125/64 95 05/22/17 04:00 Room Air 05/22/17 00:05 98.2 71 20 132/61 94 05/22/17 00:00 Room Air 05/21/17 20:54 98.3 71 18 126/62 94 05/21/17 20:00 71 05/21/17 20:00 Room Air 05/21/17 16:00 98.0 74 18 140/72 94 05/21/17 12:00 98.5 82 18 137/71 89 05/21/17 10:25 72 I/O 05/21/17 05/21/17 05/21/17 05/22/17 05/22/17 05/22/17 06:59 14:59 22:59 06:59 14:59 22:59 Intake Total 1189 ml 1200 ml 1460 ml 1000 ml Output Total 240 ml 1250 ml 400 ml 950 ml Balance 949 ml -50 ml 1060 ml 50 ml Intake Oral 540 ml 1200 ml 480 ml 0 ml IV Total 649 ml 980 ml 1000 ml Output Urine Total 240 ml 1250 ml 400 ml 950 ml # Bowel Movements 1 0 0 1 Result Diagram: 05/21/17 0840 Objective Remarks General: Alert and oriented. Appears fatigued. Does not appear to be in acute distress. Fernandez is in place and show yellow urine. HEENT: Normocephalic. Pulmonary: Clear breath sounds bilaterally. No wheezes or crackles appreciated. Cardiovascular: RRR. S1 S2 normal. No murmurs or rubs. Abdominal: Bowel sounds present in all 4 quadrants. Tenderness to light and deep palpation in LUQ, LLQ, RLQ, and suprapubic regions. A/P Assessment and Plan 1. C. diff colitis: No longer febrile. Continue to treat with Flagyl. Monitor WBC count. 2. Abdominal pain: Continue to treat with po morphine as indicated 3. Suprapubic tenderness: Consider possible UTI. Repeat UA. If indicated consider urine culture. 4. Hyperkalemia: Resolved. Continue to monitor electrolytes and replace as necessary. 5. Hypotension: continue to monitor BP. Continue IV hydration. Utilize pressors if necessary. 6. Depression and Anxiety symptoms: continue to monitor. Continue Seroquel. If patient denies Seroquel provide PRN anxiolytics/antipsychotics. 7. Keep Fernandez clean and in place. 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 Addendum by Dr. Dorman I personally seen and examined this patient Discussed with medical student Agree with above [place] is referred to my independent note for more details Melissa Cooper May 22, 2017 09:57 Shan Dorman MD May 22, 2017 20:34
--- NOTE | 2017-05-22 10:11 | HHI.PR ---
Subjective Subjective Remarks Resting in the bed Eating and nutrition is improving Afebrile Rectal Fernandez out only 1 loose stool since removal, much more comfortable now ( Louise Reyes) Review of Systems Constitutional Constitutional: Fatigue, Weakness Constitutional Remarks 10 point ROS done positives noted (Louise Reyes) Pulmonary Respiratory: Shortness of Breath (history of COPD) (Louise Reyes) GI/Abdomen GI/Abdominal Exam: Diarrhea GI/Abdomen Remarks , C. difficile (Louise Reyes) Musculoskeletal MS: Weakness, Stiffness MS Remarks Acute on chronic (Louise Reyes) Psychiatric Psychiatric: Normal Mood, Anxiety, Depression (Louise Reyes) Vitals/Results Intake & Output 05/21/17 05/21/17 05/22/17 14:59 22:59 06:59 Intake Total 1200 ml 1460 ml 1000 ml Output Total 1250 ml 400 ml 950 ml Balance -50 ml 1060 ml 50 ml Intake Oral 1200 ml 480 ml 0 ml IV Total 980 ml 1000 ml Output Urine Total 1250 ml 400 ml 950 ml # Bowel Movements 1 0 0 Vital Signs Vital Signs Date Time Temp Pulse Resp B/P Pulse Ox O2 Delivery O2 Flow Rate FiO2 05/22/17 08:00 97.7 67 20 164/76 98 05/22/17 04:42 98.2 67 18 125/64 95 05/22/17 04:00 Room Air 05/22/17 00:05 98.2 71 20 132/61 94 05/22/17 00:00 Room Air 05/21/17 20:54 98.3 71 18 126/62 94 05/21/17 20:00 71 05/21/17 20:00 Room Air 05/21/17 16:00 98.0 74 18 140/72 94 05/21/17 12:00 98.5 82 18 137/71 89 05/21/17 10:25 72 (Louise Reyes) CBC/BMP: 05/21/17 0840 Imaging Remarks Last Impressions Abdomen/Pelvis CT 05/16/17 0000 Signed Impressions: Service Date/Time: Tuesday, May 16, 2017 22:11 - CONCLUSION: 1. No abnormal fluid collections within the abdomen or pelvis to suggest abscess. 2. Subsegmental airspace disease at the lung bases. Previous cholecystectomy. Goran Rowan MD Chest X-Ray 05/15/17 0221 Signed Impressions: Service Date/Time: Monday, May 15, 2017 02:33 - CONCLUSION: No acute disease. Roberto Vasquez MD Current Medications Administered Medications Medications (Trade) Dose Ordered Sig/Briseida Route PRN Reason Start Time Stop Time Status Last Admin Dose Admin Sodium Chloride (NS 1000 ml Inj) 1,000 ml @ 100 mls/hr Q10H IV 05/15/17 04:36 05/22/17 04:58 Sodium Chloride (NS Flush) 2 ml BID IV FLUSH 05/15/17 09:00 05/22/17 08:15 Acetaminophen (Tylenol) 650 mg Q4H PRN PO TEMP > 100.4 05/15/17 04:45 05/15/17 14:41 Ondansetron HCl (Zofran Inj) 4 mg Q6H PRN IVP NAUSEA OR VOMITING 05/15/17 04:45 05/15/17 14:22 Amiodarone HCl (Cordarone) 200 mg DAILY PO 05/15/17 10:00 05/22/17 08:14 Apixaban (Eliquis) 5 mg BID PO 05/15/17 21:00 05/22/17 08:14 Budesonide/ Formoterol Fumarate (Symbicort 160-4.5 Inh) 1 puff Q12HR INH 05/15/17 11:00 05/22/17 08:17 Escitalopram Oxalate (Lexapro) 10 mg DAILY PO 05/15/17 10:00 05/22/17 08:14 Metoprolol Tartrate (Lopressor) 50 mg BID PO 05/15/17 10:00 05/22/17 08:14 Tiotropium [place] (Spiriva Inh) 18 mcg DAILY INH 05/15/17 11:00 05/22/17 08:17 Trazodone HCl (Desyrel) 150 mg HS PO 05/15/17 21:00 05/21/17 21:51 Acetaminophen/ Hydrocodone Bitart ([place] 5-325 Mg) 1 tab Q4H PRN PO PAIN SCALE 4-6 05/15/17 10:45 05/15/17 12:15 Morphine Sulfate (Oramorph Sr) 30 mg BID PO 05/15/17 21:00 05/22/17 08:15 Miscellaneous Information Patient in critical care unit? Ass... Q361D .XX 05/15/17 21:00 05/15/17 21:00 Zolpidem Tartrate (Ambien) 5 mg HS PRN PO INSOMNIA 05/15/17 21:00 05/21/17 21:52 Nystatin (Mycostatin Liq) 5 ml QID SWISH-SWAL 05/18/17 09:00 05/22/17 08:14 Gabapentin (Neurontin) 600 mg DAILY@09,13 PO 05/18/17 09:00 05/22/17 08:14 Gabapentin (Neurontin) 1,200 mg HS PO 05/18/17 21:00 05/21/17 21:52 Morphine Sulfate (Msir) 30 mg Q4H PRN PO pain 7-10 05/19/17 11:30 05/22/17 09:58 Vancomycin HCl (VANCOMYCIN for oral use only) 500 mg QID PO 05/19/17 21:00 05/22/17 08:14 Colestipol HCl (Colestipol Pkt) 5 gm Q12HR PO 05/19/17 21:00 05/22/17 08:16 Alprazolam (Xanax) 0.5 mg QID PRN PO ANXIETY 05/20/17 21:00 05/22/17 06:27 Potassium Chloride (KCl) 30 meq Q12HR PO 05/20/17 21:00 05/22/17 08:14 (Louise Reyes) Physical Exam General General Appearance: Well Developed, Anxious, Obese (Louise Reyes) Eyes Eye Exam: Pupils Reactive (Louise Reyes) Ears & Nose Ears & Nose Exam: Auditory Canals Normal (Louise Reyes) Throat Throat Exam: Oral Mucosa [place] & Moist (Louise Reyes) Neck Neck Exam: Trachea Midline (Louise Reyes) Pulmonary Resp Exam: Breath Sounds Equal, Diminished Breath Sounds Resp Remarks Encouraged oxygen when necessary and incentive spirometry, previous smoker ( [place],Louise M. LIDAR ANALYST) Cardiology CV Exam: Normal Sinus Rhythm ([place],Susan M. LIDAR ANALYST) Gastrointestinal/Abdomen GI Exam: Non-Tender, Bowel Sounds Present (Amy,Susan M. LIDAR ANALYST) Musculoskeletal MS Exam: Joints Intact, Normal Tone (AmyEliseLouise M. LIDAR ANALYST) Integumentary Skin Exam: Warm, Dry ([place] M. LIDAR ANALYST) Neurologic Neuro Exam: Alert, Awake, Oriented, Speech Clear, Moving All Extremities, Coal Handler Equal, No Focal Deficits (Amy,Louise M. LIDAR ANALYST) VTE Prophylaxis VTE Prophylaxis Device: SCDs VTE Prophylaxis Meds: Heparin (AmyEliseLouise M. LIDAR ANALYST) Assessment/Plan Assessment/Plan Vital signs reviewed normal trends Labs reviewed, positive UTI VRE noted,contact isolation, potassium stable at 3.6 Continue physical therapy, initiated Monday, excited to get started back on a physical therapy routine, patient is hoping to be able to get up to bedside commode and is planning on having therapy worked with her on this project, looking at Fernandez catheter be in DC'd, possible tomorrow, patient has been treated for UTI by mouth and IV antibiotics, Fernandez is high risk C. difficile colitis with severe abdominal pain and cramps Continue antibiotics, ID following, states she is feeling much better and getting stronger, rectal Fernandez removed yesterday, noted one bowel movement, still loose but thicker consistency now, VRE Urinary infection Isolation, ID following Subsegmental atelectasis Dual nebs oxygen as warranted, patient has history of COPD, encouraged to turn cough and deep breathe and use incentive spirometry, patient leaving oxygen on most of the time, Sepsis Resolving, appreciate ID input for antibiotic therapy Chronic pain syndrome Pain control, acute on chronic, lower backs and legs bilateral, anxiety, on Xanax Depression, currently taking Lexapro, has not taken Seroquel for approximately 3 years she states and is refusing to take due to weight gain. Seroquel DC'd on 813, brought patient multiple magazines to look at, encouraged her to read and work towards thinking of getting well. She was appreciative, supportive care [place] Nguyen syndrome, recent diagnosis approximately 4 months ago, debility continues before getting sick patient was walking approximately 15-25 feet, needs aggressive physical therapy while here Discussed with Dr. Dorman, seen on his behalf Discussed with patient Discussed with nurse Discharge planning when patient is medically stable from her C. difficile. Having less stools now responding well to antibiotic therapy. (Louise Reyes) Assessment/Plan seen, examined by myself, Dr Dorman, today Discussed with patient next line continue treatment for C. difficile Rectal tube was removed producing semi-formed stool VRE was considered contamination per infectious disease specialist, treatment was discontinued, indeed the patient is doing well off IV vancomycin [place] discontinue Fernandez catheter Discharge tomorrow to rehabilitation Discussed with mid level provider The exam, history, and the medical decision-making described in the above note were completed with the assistance of the mid-level provider. I reviewed the findings presented. I attest that I had a [id number] encounter with the patient on the same day, and personally performed and documented my assessment and findings in the medical record. (Shan Dorman MD) Louise Reyes May 22, 2017 10:11 Shan Dorman MD May 22, 2017 20:36
[2017-05-22] MEDS ORDERED: HYDR-3516 PO (16:23)
[2017-05-22] MEDS ORDERED: MORP1TAB25 PO (16:23)
[2017-05-22] MEDS ORDERED: MSIR30 PO (16:23)
[2017-05-22] MEDS ORDERED: VANC500I3 PO (16:23)
[2017-05-22] MEDS: traZODone HCL 100 MG TAB PO SCH (20:25)
[2017-05-22] MEDS: GABAPENTIN 400 MG CAP PO SCH (20:26)
[2017-05-22] MEDS: ZOLPIDEM TARTRATE 5 MG TAB PO PRN (23:24)
[2017-05-23] VITALS (10 sets, daily range): BP systolic 93–161; BP diastolic 51–78; PULSE 62–77; RESP 18–20; TEMP 97.8–98.5; O2SAT 91–99
[2017-05-23] MEDS: ALPRAZolam 0.5 MG TAB PO PRN ×4 (01:00→20:46)
[2017-05-23] MEDS: RESP: ALBUTEROL 2.5 MG/3 ML NEB (SCH) INH ×6 (01:10→19:59)
[2017-05-23] MEDS: MORPHINE SULFATE 30 MG TAB PO PRN ×5 (04:42→23:14)
[2017-05-23] MEDS: SODIUM CHLOR 0.9% 1000 ML INJ 1,000 ML IV SCH ×2 (06:30→09:10)
[2017-05-23] MEDS: SODIUM CHLORIDE 0.9% FLUSH 10 ML FLUSH IV FLUSH SCH ×2 (07:52→20:26)
[2017-05-23] MEDS: BUDESONIDE-FORMOTEROL 160/4.5 MCG INHALER INH SCH ×2 (09:00→20:26)
[2017-05-23] MEDS: METOPROLOL TARTRATE 50 MG TAB PO SCH ×2 (09:00→20:24)
[2017-05-23] MEDS: GABAPENTIN 300 MG CAP PO SCH ×2 (09:01→12:15)
[2017-05-23] MEDS: POTASSIUM CHLORIDE 10 MEQ CONTROLLED RELEASE TAB PO SCH ×2 (09:01→20:23)
[2017-05-23] MEDS: APIXABAN 5 MG TABLET PO SCH ×2 (09:02→20:24)
[2017-05-23] MEDS: AMIODARONE 200 MG TAB PO SCH (09:02)
[2017-05-23] MEDS: ESCITALOPRAM OXALATE 10 MG TAB PO SCH (09:03)
[2017-05-23] MEDS: VANCOMYCIN 500 MG VIAL (FOR ORAL USE ONLY) PO SCH ×4 (09:06→20:27)
[2017-05-23] MEDS: NYSTATIN SUSP 500,000 U/5 ML CUP SWISH-SWAL SCH ×4 (09:06→20:22)
[2017-05-23] MEDS: TIOTROPIUM BROMIDE 18 MCG INH INH SCH (09:07)
[2017-05-23] MEDS: COLESTIPOL HCL 5 GM PACKET PO SCH ×2 (09:09→20:26)
[2017-05-23] MEDS ORDERED: ALBUMIN HUMAN 25% 25 GM/100 ML BAGP IV ONE (10:00)
--- NOTE | 2017-05-23 10:01 | PD.PN.STU ---
Subjective Remarks Patient says she is doing "okay". She is able to eat solid food. She is still experiencing occasional nausea, but no vomiting. She no longer has a Fernandez or [place]. She describes her stools as "mushy" but not completely liquified. Pain is controlled with medication. She reports some shortness of breath and is concerned about swelling in her legs that developed overnight. Mood is "anxious ". She denies headaches and lightheadedness. Addendum by Dr. Dorman I personally seen and examined this patient Discussed with medical student Agree with above [place] is referred to my independent note for more details Objective Vitals Vital Signs Date Time Temp Pulse Resp B/P Pulse Ox O2 Delivery O2 Flow Rate FiO2 05/23/17 08:16 93 Nasal Cannula 05/23/17 08:00 98.3 62 20 93/53 91 05/23/17 07:53 Nasal Cannula 2.00 21 05/23/17 04:55 93 Nasal Cannula 2.00 05/23/17 04:52 98.1 66 18 107/56 92 05/23/17 00:00 Nasal Cannula 2.00 Humidified 05/22/17 23:27 98.1 67 18 133/60 93 05/22/17 20:34 Nasal Cannula 2.00 Humidified 05/22/17 20:13 97.9 69 18 141/67 95 Automatic Cuff 05/22/17 16:00 98.0 66 20 128/73 95 05/22/17 12:00 97.7 61 20 146/66 93 I/O 05/22/17 05/22/17 05/22/17 05/23/17 05/23/17 05/23/17 07:00 15:00 23:00 07:00 15:00 23:00 Intake Total 1000 ml 2203 ml 480 ml 480 ml Output Total 950 ml 1100 ml 1200 ml Balance 50 ml 2203 ml -620 ml -720 ml Intake Oral 0 ml 1440 ml 480 ml 480 ml IV Total 1000 ml 763 ml Output Urine Total 950 ml 1100 ml 1200 ml # Bowel Movements 0 3 1 0 Result Diagram: 05/21/17 0840 Other Results General: Patient is alert and cooperative. Oriented to person, place, and time. Nasal cannula in place. HEENT: Normocephalic Cardiovascular: RRR, S1 S2 normal. No murmurs or rubs. Respiratory: No use of accessory muscles. Clear breath sounds bilaterally. End expiratory wheeze noted bilaterally. Abdominal: Bowel sounds present in all 4 quadrants. Tenderness to light and deep palpation LUQ, LLQ, RLQ, suprapubic. No guarding. Extremities: 3+ pitting edema bilateral lower extremities. Radial pulses 2+, dorsalis pedis and posterior tibialis pulses 1+. A/P Assessment and Plan 1. C. diff colitis: No longer febrile. Continue to treat with Flagyl. Monitor WBC count. 2. Abdominal pain: Continue to treat with po morphine as indicated 3. Suprapubic tenderness: Consider possible UTI. Repeat UA. If indicated consider urine culture. 4. Hyperkalemia: Resolved. Continue to monitor electrolytes and replace as necessary. 5. Hypotension: continue to monitor BP. Continue IV hydration. Utilize pressors if necessary. 6. Depression and Anxiety symptoms: continue to monitor. IPatient refusing Seroquel. Provide PRN anxiolytics/antipsychotics. . 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 Get PT. 8. COPD: Utilize supplemental O2 as needed for shortness of breath. Continue prescribed medication regimen. 9. Lower extremity edema: Lasix being held due to hypotension. Give albumin IV. 9. Begin discharge planning to rehab facility once C Diff is clinically stable. Melissa Cooper May 23, 2017 10:01 Shan Dorman MD May 25, 2017 19:24
[2017-05-23] MEDS: MORPHINE SULFATE 30 MG CONTROLLED RELEASE TAB PO SCH ×2 (10:30→20:23)
--- NOTE | 2017-05-23 10:30 | HHI.PR ---
Subjective Subjective Remarks mild sob no cp pedal edema bp low 80s weak no palpitations using oxygen at 2L stools more formed mild pelvic pain Review of Systems Constitutional Constitutional Remarks 12 point ros completed, negative except as noted above Musculoskeletal MS: Weakness, Stiffness Vitals/Results Intake & Output 05/22/17 05/22/17 05/23/17 14:59 22:59 06:59 Intake Total 2203 ml 480 ml 480 ml Output Total 1100 ml 1200 ml Balance 2203 ml -620 ml -720 ml Intake Oral 1440 ml 480 ml 480 ml IV Total 763 ml Output Urine Total 1100 ml 1200 ml # Bowel Movements 3 1 0 Vital Signs Vital Signs Date Time Temp Pulse Resp B/P Pulse Ox O2 Delivery O2 Flow Rate FiO2 05/23/17 08:16 93 Nasal Cannula 05/23/17 08:00 98.3 62 20 93/53 91 05/23/17 07:53 Nasal Cannula 2.00 21 05/23/17 04:55 93 Nasal Cannula 2.00 05/23/17 04:52 98.1 66 18 107/56 92 05/23/17 00:00 Nasal Cannula 2.00 Humidified 05/22/17 23:27 98.1 67 18 133/60 93 05/22/17 20:34 Nasal Cannula 2.00 Humidified 05/22/17 20:13 97.9 69 18 141/67 95 Automatic Cuff 05/22/17 16:00 98.0 66 20 128/73 95 05/22/17 12:00 97.7 61 20 146/66 93 CBC/BMP: 05/21/17 0840 Physical Exam General General Appearance: Well Developed, No Acute Distress, Anxious, Obese Eyes Eye Exam: Pupils Equal, Pupils Reactive Ears & Nose Ears & Nose Exam: Auditory Canals Normal Throat Throat Exam: Oral Mucosa [place] & Moist Neck Neck Exam: Trachea Midline Pulmonary Resp Exam: Breath Sounds Equal, Diminished Breath Sounds Cardiology CV Exam: Normal Sinus Rhythm Gastrointestinal/Abdomen GI Exam: Soft, Bowel Sounds Present, Positive Bowel Movement, Non-Distended Musculoskeletal MS Exam: Joints Intact, Normal Tone Integumentary Skin Exam: Warm, Dry Extremeties Extremities Exam: Moderate Edema Neurologic Neuro Exam: Alert, Awake, Oriented, Speech Clear, Moving All Extremities, Rotary Peel Oven Tender Equal, No Focal Deficits Psychiatric Psych Exam: Appropriate Responses VTE Prophylaxis VTE Prophylaxis Device: SCDs VTE Prophylaxis Meds: Heparin Assessment/Plan Problem List: (1) C. difficile diarrhea (2) Sepsis (3) Urinary tract infection (4) COPD (chronic obstructive pulmonary disease) (5) Depression (6) Anxiety (7) Hypotension, unspecified (8) Paroxysmal atrial fibrillation Assessment/Plan C. diff colitis/sepsis -continue with Flagyl. Monitor WBC count. -rectal tube removed -Improving UTI, +VRE likely contaminant -appreciate ID input, recommends no abx to treat UTI -c/o suprapubic tenderness, repeat UA, pending Hyperkalemia: Resolved. C -continue to monitor electrolytes and replace as necessary. Hypotension -Give Albumin 25 gram daily -pt. with inc. pedal edema, dec. IVF to 75/hr -check fasting cortisol level Depression and Anxiety -refused Seroquel -continue anxiolytics/antipsychotics. Paroxysmal afib, stable -continue Amiodarone History of Guillain [place]: monitor for changes in weakness of lower extremities -continue with PT -OOB with assist COPD, c/o SOB -continue supplemental O2 as needed for shortness of breath -Duonebs PRN Pedal edema -unable to use Lasix due to low BP -will given Albumin to help with BP, then resume Lasix -dec. IVF Chronic pain -continue with present pain regimen SCDs for DVT prophylaxis CM for dc planning Labs in am D/W RN D/W Dr. Dorman D/W pt This patient was seen by myself and Dr. Dorman, this note is written on his behalf. Problem Qualifiers (1) Sepsis: Qualified Code: A41.9 - Sepsis, due to unspecified organism (2) Urinary tract infection: Qualified Code: N39.0 - Urinary tract infection without hematuria, site unspecified (3) COPD (chronic obstructive pulmonary disease): Qualified Code: J44.9 - Chronic obstructive pulmonary disease, unspecified COPD type (4) Depression: Qualified Code: F32.9 - Depression, unspecified depression type (5) Hypotension, unspecified: Qualified Code: I95.9 - Hypotension, unspecified hypotension type Laura Meade May 23, 2017 10:29
--- NOTE | 2017-05-23 12:20 | RADRPT ---
EXAM DATE/TIME: 05/23/2017 10:50 [facility] COMPARISON: CHEST SINGLE AP, May 15, 2017, 2:33. INDICATIONS : Shortness of breath. MEDICAL HISTORY : Congestive heart failure. Hypertension Chronic obstructive pulmonary disease. GERD, A-fib, CVA, DVT. SURGICAL HISTORY : Mastectomy, bilateral. Appendectomy. Cholecystectomy. Right Humerus. ENCOUNTER: Subsequent ACUITY: 2 days PAIN SCORE: 0/10 LOCATION: Bilateral chest FINDINGS: The heart is stable. The pulmonary vascular pattern is normal. The lungs are clear. CONCLUSION: No acute focal pulmonary infiltrate or pulmonary vascular congestion. Bernard Quintanilla MD on May 23, 2017 at 11:39 Board Certified Radiologist. This report was verified electronically.
[2017-05-23] MEDS: ALBUMIN HUMAN 25% 12.5 GM/50 ML BAGP IV SCH ×2 (15:44→20:25)
[2017-05-23] MEDS: GABAPENTIN 400 MG CAP PO SCH (20:24)
[2017-05-23] MEDS: traZODone HCL 100 MG TAB PO SCH (20:25)
[2017-05-23] MEDS: ZOLPIDEM TARTRATE 5 MG TAB PO PRN (23:13)
[2017-05-24] VITALS (9 sets, daily range): BP systolic 98–136; BP diastolic 60–81; PULSE 69–80; RESP 18–22; TEMP 97.5–98.4; O2SAT 91–96
[2017-05-24] MEDS: RESP: ALBUTEROL 2.5 MG/3 ML NEB (SCH) INH ×6 (00:21→19:48)
[2017-05-24] MEDS: ALPRAZolam 0.5 MG TAB PO PRN ×4 (03:00→20:18)
[2017-05-24] MEDS: ALBUMIN HUMAN 25% 12.5 GM/50 ML BAGP IV SCH ×3 (03:01→13:13)
[2017-05-24] MEDS: MORPHINE SULFATE 30 MG TAB PO PRN ×5 (04:16→21:36)
[2017-05-24] MEDS: ESCITALOPRAM OXALATE 10 MG TAB PO SCH (08:55)
[2017-05-24] MEDS: GABAPENTIN 300 MG CAP PO SCH ×2 (08:55→13:12)
[2017-05-24] MEDS: VANCOMYCIN 500 MG VIAL (FOR ORAL USE ONLY) PO SCH ×4 (08:55→20:20)
[2017-05-24] MEDS: COLESTIPOL HCL 5 GM PACKET PO SCH ×2 (08:55→20:25)
[2017-05-24] MEDS: METOPROLOL TARTRATE 50 MG TAB PO SCH ×2 (08:55→20:20)
[2017-05-24] MEDS: APIXABAN 5 MG TABLET PO SCH ×2 (08:56→20:19)
[2017-05-24] MEDS: AMIODARONE 200 MG TAB PO SCH (08:56)
[2017-05-24] MEDS: NYSTATIN SUSP 500,000 U/5 ML CUP SWISH-SWAL SCH ×4 (08:56→20:20)
[2017-05-24] MEDS: SODIUM CHLORIDE 0.9% FLUSH 10 ML FLUSH IV FLUSH SCH ×2 (08:57→20:25)
[2017-05-24] MEDS: POTASSIUM CHLORIDE 10 MEQ CONTROLLED RELEASE TAB PO SCH ×2 (08:57→20:18)
[2017-05-24] MEDS ORDERED: FUROSEMIDE 20 MG TAB PO ONE (09:00)
[2017-05-24] MEDS: TIOTROPIUM BROMIDE 18 MCG INH INH SCH (09:06)
[2017-05-24] MEDS: BUDESONIDE-FORMOTEROL 160/4.5 MCG INHALER INH SCH ×2 (09:06→20:25)
--- NOTE | 2017-05-24 10:03 | HHI.PR ---
Subjective Subjective Remarks sob stable loose stools today, not as formed no fever no cp BP 115/63 leg swelling same Review of Systems Constitutional Constitutional Remarks 12 point ros completed, negative except as noted above Musculoskeletal MS: Weakness, Stiffness Vitals/Results Intake & Output 05/23/17 05/23/17 05/24/17 14:59 22:59 06:59 Intake Total 720 ml 720 ml 1302 ml Output Total 1450 ml Balance 720 ml 720 ml -148 ml Intake Oral 720 ml 720 ml 1200 ml IV Total 102 ml Output Urine Total 1450 ml # Voids 1 2 # Bowel Movements 20 0 0 Vital Signs Vital Signs Date Time Temp Pulse Resp B/P Pulse Ox O2 Delivery O2 Flow Rate FiO2 05/24/17 09:07 94 Nasal Cannula 3.00 05/24/17 08:00 97.9 72 18 115/63 94 05/24/17 07:59 71 05/24/17 05:51 20 05/24/17 04:25 98.4 79 18 98/62 91 05/24/17 04:00 Nasal Cannula 3.00 05/24/17 02:00 93 Nasal Cannula 3.00 05/24/17 01:04 Nasal Cannula 4.00 05/23/17 23:25 97.8 74 18 105/51 93 05/23/17 20:25 Nasal Cannula 2.00 05/23/17 20:01 96 Nasal Cannula 2.00 05/23/17 19:55 97.8 74 18 152/78 96 05/23/17 19:47 74 05/23/17 16:00 98.2 77 20 161/77 99 05/23/17 12:00 98.5 72 20 148/70 92 CBC/BMP: 05/21/17 0840 Physical Exam General General Appearance: Well Developed, No Acute Distress, Anxious, Obese Eyes Eye Exam: Pupils Equal, Pupils Reactive Ears & Nose Ears & Nose Exam: Auditory Canals Normal Throat Throat Exam: Oral Mucosa [place] & Moist Neck Neck Exam: Trachea Midline Pulmonary Resp Exam: Breath Sounds Equal, Diminished Breath Sounds Cardiology CV Exam: Normal Sinus Rhythm Gastrointestinal/Abdomen GI Exam: Soft, Bowel Sounds Present, Positive Bowel Movement, Non-Distended Musculoskeletal MS Exam: Joints Intact, Normal Tone Integumentary Skin Exam: Warm, Dry Extremeties Extremities Exam: Moderate Edema Neurologic Neuro Exam: Alert, Awake, Oriented, Speech Clear, Moving All Extremities, Electrician Supervisor Airplane Equal, No Focal Deficits Psychiatric Psych Exam: Appropriate Responses VTE Prophylaxis VTE Prophylaxis Device: SCDs VTE Prophylaxis Meds: Heparin Assessment/Plan Problem List: (1) C. difficile diarrhea (2) Sepsis (3) Urinary tract infection (4) COPD (chronic obstructive pulmonary disease) (5) Depression (6) Anxiety (7) Hypotension, unspecified (8) Paroxysmal atrial fibrillation Assessment/Plan C. diff colitis/sepsis -continue with Flagyl. Monitor WBC count. -now having loose stools again, one episode UTI, +VRE likely contaminant -appreciate ID input, recommends no abx to treat UTI -c/o suprapubic tenderness, repeat UA, pending Hyperkalemia: Resolved. C -continue to monitor electrolytes and replace as necessary. Hypotension, improving -DC Scheduled Albumin -continue with cautious hydration - fasting cortisol level low end normal, 6.6 -Start Midodrin 5 mg by mouth 3 times a day -Keep Lasix 20 mg by mouth 1 today Depression and Anxiety -refused Seroquel -continue anxiolytics/antipsychotics. Paroxysmal afib, stable -continue Amiodarone History of Guillain [place]: monitor for changes in weakness of lower extremities -continue with PT -OOB with assist COPD, c/o SOB -continue supplemental O2 as needed for shortness of breath -Duonebs PRN Pedal edema -Lasix 10 mg by mouth 1 today Chronic pain -continue with present pain regimen SCDs for DVT prophylaxis CM for dc planning Possible discharge tomorrow if diarrhea and blood pressure improved. D/W RN D/W Dr. Dorman D/W pt This patient was seen by myself and Dr. Dorman, this note is written on his behalf. Problem Qualifiers (1) Sepsis: Qualified Code: A41.9 - Sepsis, due to unspecified organism (2) Urinary tract infection: Qualified Code: N39.0 - Urinary tract infection without hematuria, site unspecified (3) COPD (chronic obstructive pulmonary disease): Qualified Code: J44.9 - Chronic obstructive pulmonary disease, unspecified COPD type (4) Depression: Qualified Code: F32.9 - Depression, unspecified depression type (5) Hypotension, unspecified: Qualified Code: I95.9 - Hypotension, unspecified hypotension type Laura Meade May 24, 2017 10:03 Qualified Code: F32.9 - Depression, unspecified depression type (5) Hypotension, unspecified: Qualified Code: I95.9 - Hypotension, unspecified hypotension type Laura Meade May 24, 2017 10:03
[2017-05-24] MEDS: MORPHINE SULFATE 30 MG CONTROLLED RELEASE TAB PO SCH ×2 (10:23→20:19)
[2017-05-24 11:12] LABS: HEMATOCRIT 31.4 % (35.0-46.0); MEAN CELL VOLUME 93.3 FL (80.0-100.0); MEAN CORPUSCULAR HEMOGLOBIN 31.6 PG (27.0-34.0); MEAN CORPUSCULAR HGB CONC 33.9 % (32.0-36.0); PLATELET COUNT 357 TH/MM3 (150-450); RED BLOOD COUNT 3.37 MIL/MM3 (4.00-5.30); RED CELL DISTRIBUTION WIDTH 13.5 % (11.6-17.2); REVIEW FLAG FINAL; WHITE BLOOD COUNT 9.8 TH/MM3 (4.0-11.0)
[2017-05-24 12:03] LABS: BICARBONATE 30.9 MEQ/L (21.0-32.0); POTASSIUM 4.3 MEQ/L (3.5-5.1)
[2017-05-24] MEDS: MIDODRINE 5 MG TAB PO SCH (17:21)
[2017-05-24] MEDS: GABAPENTIN 400 MG CAP PO SCH (20:18)
[2017-05-24] MEDS: traZODone HCL 100 MG TAB PO SCH (20:20)
[2017-05-24] MEDS: ZOLPIDEM TARTRATE 5 MG TAB PO PRN (21:36)
[2017-05-25] VITALS (9 sets, daily range): BP systolic 95–134; BP diastolic 55–77; PULSE 62–78; RESP 18–20; TEMP 97.9–98.5; O2SAT 92–100
[2017-05-25] MEDS: MORPHINE SULFATE 30 MG TAB PO PRN ×5 (02:00→19:50)
[2017-05-25] MEDS: ALPRAZolam 0.5 MG TAB PO PRN ×4 (03:17→21:20)
[2017-05-25] MEDS: RESP: ALBUTEROL 2.5 MG/3 ML NEB (SCH) INH ×6 (03:23→20:00)
[2017-05-25] MEDS: MIDODRINE 5 MG TAB PO SCH ×3 (06:23→17:42)
[2017-05-25] MEDS: BUDESONIDE-FORMOTEROL 160/4.5 MCG INHALER INH SCH ×2 (09:00→21:00)
[2017-05-25] MEDS: COLESTIPOL HCL 5 GM PACKET PO SCH ×2 (09:00→21:00)
[2017-05-25] MEDS: TIOTROPIUM BROMIDE 18 MCG INH INH SCH (09:00)
[2017-05-25] MEDS: APIXABAN 5 MG TABLET PO SCH ×2 (09:01→21:20)
[2017-05-25] MEDS: ESCITALOPRAM OXALATE 10 MG TAB PO SCH (09:01)
[2017-05-25] MEDS: AMIODARONE 200 MG TAB PO SCH (09:01)
[2017-05-25] MEDS: METOPROLOL TARTRATE 50 MG TAB PO SCH ×2 (09:01→21:20)
[2017-05-25] MEDS: POTASSIUM CHLORIDE 10 MEQ CONTROLLED RELEASE TAB PO SCH ×2 (09:01→21:20)
[2017-05-25] MEDS: VANCOMYCIN 500 MG VIAL (FOR ORAL USE ONLY) PO SCH ×4 (09:02→21:21)
[2017-05-25] MEDS: GABAPENTIN 300 MG CAP PO SCH ×2 (09:02→12:37)
[2017-05-25] MEDS: NYSTATIN SUSP 500,000 U/5 ML CUP SWISH-SWAL SCH ×4 (09:02→21:20)
[2017-05-25] MEDS: MORPHINE SULFATE 30 MG CONTROLLED RELEASE TAB PO SCH (09:02)
[2017-05-25] MEDS: SODIUM CHLORIDE 0.9% FLUSH 10 ML FLUSH IV FLUSH SCH ×2 (09:03→21:00)
--- NOTE | 2017-05-25 09:12 | PD.PN.STU ---
Subjective Remarks Patient reports that she is doing "okay" this morning. She is still able to eat solid foods. She has experienced some intermittent nausea but no vomiting. She notes that her stools are still "mushy" but not completely liquified. She says that she had an episode of pain last evening she describes as "pressure" in her lower abdomen that "felt like a UTI"; 10/10 on the pain scale. She is concerned about the swelling in her legs. She is still experiencing shortness of breath and says she often feels lightheaded when trying to get out of bed initially. She denies chest pain and headaches. Objective Vitals Vital Signs Date Time Temp Pulse Resp B/P Pulse Ox O2 Delivery O2 Flow Rate FiO2 05/25/17 08:33 78 05/25/17 08:33 Nasal Cannula 3.00 21 05/25/17 08:00 98.4 70 18 121/62 98 05/25/17 04:15 98.3 62 18 95/55 100 05/25/17 04:00 Nasal Cannula 3.00 05/25/17 03:00 18 05/25/17 00:15 97.9 70 20 129/65 92 05/25/17 00:00 Nasal Cannula 3.00 05/24/17 21:17 97.6 80 22 136/60 92 05/24/17 20:25 Nasal Cannula 3.00 05/24/17 20:05 73 05/24/17 19:50 96 Nasal Cannula 3.00 05/24/17 16:00 97.5 69 18 136/81 92 05/24/17 16:00 Nasal Cannula 3.00 05/24/17 12:00 97.6 71 18 135/68 94 05/24/17 09:07 94 Nasal Cannula 3.00 I/O 05/24/17 05/24/17 05/24/17 05/25/17 05/25/17 05/25/17 06:59 14:59 22:59 06:59 14:59 22:59 Intake Total 1302 ml 555 ml 720 ml 488 ml Output Total 1450 ml 2000 ml 1000 ml 650 ml Balance -148 ml -1445 ml -280 ml -162 ml Intake Oral 1200 ml 480 ml 720 ml 480 ml IV Total 102 ml 75 ml 8 ml Output Urine Total 1450 ml 2000 ml 1000 ml 650 ml # Bowel Movements 0 0 0 Result Diagram: 05/24/17 1020 05/24/17 1020 Other Results General: Patient is alert and cooperative. Oriented to person, place, and time. Nasal cannula in place. HEENT: Normocephalic Cardiovascular: RRR, S1 S2 normal. No murmurs or rubs. Respiratory: No use of accessory muscles. Clear breath sounds bilaterally. End expiratory wheeze noted bilaterally. Abdominal: Bowel sounds present in all 4 quadrants. Tenderness to light and deep palpation LUQ, LLQ, RLQ, suprapubic. No guarding. Extremities: 2+ pitting edema bilateral lower extremities. Radial pulses 2+, dorsalis pedis and posterior tibialis pulses 1+. A/P Assessment and Plan 1. C. diff colitis: No longer febrile. Continue to treat with Flagyl. Monitor WBC count. 2. Abdominal pain: Continue to treat with po morphine as indicated 3. Suprapubic tenderness: Consider possible UTI. Repeat UA. If indicated consider urine culture. 4. Anemia: Continue to monitor Hgb. If drops below 8 consider RBC transfusion. 5. Hyperkalemia: Resolved. Continue to monitor electrolytes and replace as necessary. 6. Hypotension: continue to monitor BP. Continue IV hydration. Utilize pressors if necessary. 7. Depression and Anxiety symptoms: continue to monitor. IPatient refusing Seroquel. Provide PRN anxiolytics/antipsychotics. . 8. History of Guillain [place]: monitor for changes in weakness of lower extremities. Get PT. 9. COPD: Utilize supplemental O2 as needed for shortness of breath. Continue prescribed medication regimen. 10. Lower extremity edema: Lasix being held due to hypotension. Utilize SCD. 11. Begin discharge planning to rehab facility once C Diff is clinically stable. Addendum by Dr. Dorman I personally seen and examined this patient Discussed with medical student Agree with above [place] is referred to my independent note for more details Melissa Cooper May 25, 2017 09:12 Shan Dorman MD May 25, 2017 19:25
--- NOTE | 2017-05-25 11:03 | HHI.PR ---
Subjective Subjective Remarks Resting in the bed, dozing off to sleep easily Notes problems with swallow and the sensation of food getting stuck, new symptoms information given this morning Afebrile Debility continues (Louise Reyes) Review of Systems Constitutional Constitutional Remarks 10 point ROS done positives noted (Louise Reyes) Throat Throat Remarks Dysphasia new report (Louise Reyes) GI/Abdomen GI/Abdomen Remarks , C. difficile (Louise Reyes) Musculoskeletal MS: Weakness, Stiffness MS Remarks Acute on chronic (Louise Reyes) Neurologic Neurologic Remarks Tearful at times (Louise Reyes) Psychiatric Psychiatric: Anxiety (Louise Reyes) Vitals/Results Intake & Output 05/24/17 05/24/17 05/25/17 15:00 23:00 07:00 Intake Total 555 ml 720 ml 488 ml Output Total 2000 ml 1000 ml 650 ml Balance -1445 ml -280 ml -162 ml Intake Oral 480 ml 720 ml 480 ml IV Total 75 ml 8 ml Output Urine Total 2000 ml 1000 ml 650 ml # Bowel Movements 0 0 Vital Signs Vital Signs Date Time Temp Pulse Resp B/P Pulse Ox O2 Delivery O2 Flow Rate FiO2 05/25/17 09:30 97 Nasal Cannula 3.00 05/25/17 08:33 78 05/25/17 08:33 Nasal Cannula 3.00 21 05/25/17 08:00 98.4 70 18 121/62 98 05/25/17 04:15 98.3 62 18 95/55 100 05/25/17 04:00 Nasal Cannula 3.00 05/25/17 03:00 18 05/25/17 00:15 97.9 70 20 129/65 92 05/25/17 00:00 Nasal Cannula 3.00 05/24/17 21:17 97.6 80 22 136/60 92 05/24/17 20:25 Nasal Cannula 3.00 05/24/17 20:05 73 05/24/17 19:50 96 Nasal Cannula 3.00 05/24/17 16:00 97.5 69 18 136/81 92 05/24/17 16:00 Nasal Cannula 3.00 05/24/17 12:00 97.6 71 18 135/68 94 (Louise Reyes) CBC/BMP: 05/24/17 1020 05/24/17 1020 Imaging Remarks Last Impressions Chest X-Ray 05/23/17 0000 Signed Impressions: Service Date/Time: Tuesday, May 23, 2017 10:50 - CONCLUSION: No acute focal pulmonary infiltrate or pulmonary vascular congestion. Bernard Quintanilla MD Abdomen/Pelvis CT 05/16/17 0000 Signed Impressions: Service Date/Time: Tuesday, May 16, 2017 22:11 - CONCLUSION: 1. No abnormal fluid collections within the abdomen or pelvis to suggest abscess. 2. Subsegmental airspace disease at the lung bases. Previous cholecystectomy. Goran Rowan MD Current Medications Administered Medications Medications (Trade) Dose Ordered Sig/Briseida Route PRN Reason Start Time Stop Time Status Last Admin Dose Admin Sodium Chloride (NS Flush) 2 ml BID IV FLUSH 05/15/17 09:00 05/25/17 09:03 Acetaminophen (Tylenol) 650 mg Q4H PRN PO TEMP > 100.4 05/15/17 04:45 05/15/17 14:41 Ondansetron HCl (Zofran Inj) 4 mg Q6H PRN IVP NAUSEA OR VOMITING 05/15/17 04:45 05/15/17 14:22 Amiodarone HCl (Cordarone) 200 mg DAILY PO 05/15/17 10:00 05/25/17 09:01 Apixaban (Eliquis) 5 mg BID PO 05/15/17 21:00 05/25/17 09:01 Budesonide/ Formoterol Fumarate (Symbicort 160-4.5 Inh) 1 puff Q12HR INH 05/15/17 11:00 05/25/17 09:00 Escitalopram Oxalate (Lexapro) 10 mg DAILY PO 05/15/17 10:00 05/25/17 09:01 Metoprolol Tartrate (Lopressor) 50 mg BID PO 05/15/17 10:00 05/25/17 09:01 Tiotropium [place] (Spiriva Inh) 18 mcg DAILY INH 05/15/17 11:00 05/25/17 09:00 Trazodone HCl (Desyrel) 150 mg HS PO 05/15/17 21:00 05/21/17 21:51 Acetaminophen/ Hydrocodone Bitart ([place] 5-325 Mg) 1 tab Q4H PRN PO PAIN SCALE 4-6 05/15/17 10:45 05/15/17 12:15 Morphine Sulfate (Oramorph Sr) 30 mg BID PO 05/15/17 21:00 05/25/17 09:02 Miscellaneous Information Patient in critical care unit? Ass... Q361D .XX 05/15/17 21:00 05/15/17 21:00 Zolpidem Tartrate (Ambien) 5 mg HS PRN PO INSOMNIA 05/15/17 21:00 05/24/17 21:36 Nystatin (Mycostatin Liq) 5 ml QID SWISH-SWAL 05/18/17 09:00 05/25/17 09:02 Gabapentin (Neurontin) 600 mg DAILY@ PO 05/18/17 09:00 05/25/17 09:02 Gabapentin (Neurontin) 1,200 mg HS PO 05/18/17 21:00 05/24/17 20:18 Morphine Sulfate (Msir) 30 mg Q4H PRN PO pain 7-10 05/19/17 11:30 05/25/17 06:22 Vancomycin HCl (VANCOMYCIN for oral use only) 500 mg QID PO 05/19/17 21:00 05/25/17 09:02 Colestipol HCl (Colestipol Pkt) 5 gm Q12HR PO 05/19/17 21:00 05/25/17 09:00 Alprazolam (Xanax) 0.5 mg QID PRN PO ANXIETY 05/20/17 21:00 05/25/17 09:01 Potassium Chloride (KCl) 30 meq Q12HR PO 05/20/17 21:00 05/25/17 09:01 Midodrine (Proamatine) 5 mg TID@,, PO 05/24/17 17:00 05/25/17 06:23 (Louise Reyes) Physical Exam General General Appearance: Well Developed, No Acute Distress, Anxious, Obese (Louise Reyes) Eyes Eye Exam: Pupils Equal, Pupils Reactive (Louise Reyes) Ears & Nose Ears & Nose Exam: Auditory Canals Normal (Amy,Susan M. CUSTOMER EXPERIENCE LEADER) Throat Throat Exam: Oral Mucosa [place] & Moist (Amy,Louise M. CUSTOMER EXPERIENCE LEADER) Neck Neck Exam: Trachea Midline ([place],Louise M. CUSTOMER EXPERIENCE LEADER) Pulmonary Resp Exam: Breath Sounds Equal, Diminished Breath Sounds Resp Remarks Encouraged oxygen when necessary and incentive spirometry, previous smoker ( [place],Louise M. CUSTOMER EXPERIENCE LEADER) Cardiology CV Exam: Normal Sinus Rhythm ([place]ise[place] M. CUSTOMER EXPERIENCE LEADER) Gastrointestinal/Abdomen GI Exam: Soft, Bowel Sounds Present, Positive Bowel Movement, Non-Distended ( [place]ise[place] M. CUSTOMER EXPERIENCE LEADER) Musculoskeletal MS Exam: Joints Intact, Normal Tone (AmyEliseLouise M. CUSTOMER EXPERIENCE LEADER) Integumentary Skin Exam: Warm, Dry ([place]ise[place] M. CUSTOMER EXPERIENCE LEADER) Extremeties Extremities Exam: Moderate Edema ([place] M. CUSTOMER EXPERIENCE LEADER) Neurologic Neuro Exam: Alert, Awake, Oriented, Speech Clear, Moving All Extremities, Mental Health Practitioner Equal, No Focal Deficits (AmyElise guevaraan M. CUSTOMER EXPERIENCE LEADER) Psychiatric Psych Exam: Appropriate Responses (Louise Reyes M. CUSTOMER EXPERIENCE LEADER) VTE Prophylaxis VTE Prophylaxis Device: SCDs VTE Prophylaxis Meds: Heparin ([place]ise[place] M. CUSTOMER EXPERIENCE LEADER) Assessment/Plan Problem List: (1) C. difficile diarrhea (2) Sepsis (3) Urinary tract infection (4) COPD (chronic obstructive pulmonary disease) (5) Depression (6) Anxiety (7) Hypotension, unspecified (8) Paroxysmal atrial fibrillation Assessment/Plan Vital signs reviewed, note BP 95/55, patient appears to be mildly drowsy but denies any syncope Labs reviewed, anemia 10.6 no active bleed noted SCDs TEDs ordered , C. diff colitis/sepsis Medical management including Flagyl Patient states minimal stools, noted mild loose smear 1-2 and a 24-hour. Noted problems with swallow, feels that food and liquids go down the wrong way Also notes extended period of time to eat, due to the sensation of food getting stuck. GI consult for their expert opinion any further treatment needed. States this is been going on for a couple months but she had not mentioned it to anyone, states it is not getting better. UTI, +VRE Appreciate ID input and plan a care Depression and Anxiety -refused Seroquel -continue anxiolytics/antipsychotics. Paroxysmal afib, stable -continue Amiodarone History of Guillain [place]: monitor for changes in weakness of lower extremities PT, needs to be aggressive with out of bed and ambulation if possible Currently working on his it to bedside commode with assistance COPD, no acute shortness of breath at rest -continue supplemental O2 as needed for shortness of breath -Duonebs PRN Chronic pain Medical management SCDs for DVT prophylaxis CM for dc planning Possible discharge tomorrow if diarrhea and blood pressure improved. D/W RN D/W Dr. Dorman, seen on his behalf D/W pt (Louise Reyes) Assessment/Plan seen, examined by myself, Dr Dorman, today Discussed with patient Discussed with nurse Cortisol level is too low Will use midodrine Patient needs to follow with endocrinology as outpatient to rule out adrenal insufficiency Discussed with mid level provider The exam, history, and the medical decision-making described in the above note were completed with the assistance of the mid-level provider. I reviewed the findings presented. I attest that I had a [id number] encounter with the patient on the same day, and personally performed and documented my assessment and findings in the medical record. (Shan Dorman MD) Problem Qualifiers (1) Sepsis: Qualified Code: A41.9 - Sepsis, due to unspecified organism (2) Urinary tract infection: Qualified Code: N39.0 - Urinary tract infection without hematuria, site unspecified (3) COPD (chronic obstructive pulmonary disease): Qualified Code: J44.9 - Chronic obstructive pulmonary disease, unspecified COPD type (4) Depression: Qualified Code: F32.9 - Depression, unspecified depression type (5) Hypotension, unspecified: Qualified Code: I95.9 - Hypotension, unspecified hypotension type Louise Reyes May 25, 2017 11:03 Shan Dorman MD May 25, 2017 19:25
[2017-05-25] MEDS: ONDANSETRON HCL 4 MG/2 ML VIAL IVP PRN (11:15)
--- NOTE | 2017-05-25 13:58 | PD.CONS ---
HPI History of Present Illness This is a 56 year old female with hx guillan barre who presented weakness, n/v, diarrhea. She was found to have c diff. She had been on antibiotics at rehab for UTI and subsequently developed the n/v and diarrhea. GI has been consulted for dysphagia. She has had difficulty swallowing and bolus sensation for the past 2 months and it has been getting worse. She has a hard time with pills, which sometimes she regurgitates. She does okay with liquids and soft foods. Admits some occasional heartburn. Had a colonoscopy maybe 6 y ago at [facility] during and admission for CHF and cannot remember who did it, findings were polyps. Never had EGD. No blood in emesis, weight loss or tarry stools. She admits intermittent red blood in stool and says she has noticed spotting since she had been in rehab and cannot tell if it is vaginal or rectal. 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 Family History non contributory Social History no ETOh or illicit drug use smokes 3 cigarettes daily (Lisa Davis) Review of Systems Constitutional: DENIES: Weight loss Eyes: DENIES: Blurred vision Ears, nose, mouth, throat: DENIES: Hearing loss Respiratory: DENIES: Hemoptysis Cardiovascular: COMPLAINS OF: Lower Extremity Edema Gastrointestinal: COMPLAINS OF: Bloody stools, Constipation, Diarrhea, Nausea, Vomiting, Difficulty Swallowing, Heartburn, DENIES: Black stools, Hematemesis Genitourinary: DENIES: Hematuria Musculoskeletal: DENIES: Joint Swelling Hematologic/lymphatic: DENIES: Bruising Psychiatric: DENIES: Confusion (Lisa Davis) GI Exam Vitals I&O Vital Signs Date Time Temp Pulse Resp B/P Pulse Ox O2 Delivery O2 Flow Rate FiO2 05/25/17 12:00 98.5 66 18 134/77 93 05/25/17 09:30 97 Nasal Cannula 3.00 05/25/17 08:33 78 05/25/17 08:33 Nasal Cannula 3.00 21 05/25/17 08:00 98.4 70 18 121/62 98 05/25/17 04:15 98.3 62 18 95/55 100 05/25/17 04:00 Nasal Cannula 3.00 05/25/17 03:00 18 05/25/17 00:15 97.9 70 20 129/65 92 05/25/17 00:00 Nasal Cannula 3.00 05/24/17 21:17 97.6 80 22 136/60 92 05/24/17 20:25 Nasal Cannula 3.00 05/24/17 20:05 73 05/24/17 19:50 96 Nasal Cannula 3.00 05/24/17 16:00 97.5 69 18 136/81 92 05/24/17 16:00 Nasal Cannula 3.00 I/O 05/24/17 05/24/17 05/24/17 05/25/17 05/25/17 05/25/17 07:00 15:00 23:00 07:00 15:00 23:00 Intake Total 1302 ml 555 ml 720 ml 488 ml Output Total 1450 ml 2000 ml 1000 ml 650 ml Balance -148 ml -1445 ml -280 ml -162 ml Intake Oral 1200 ml 480 ml 720 ml 480 ml IV Total 102 ml 75 ml 8 ml Output Urine Total 1450 ml 2000 ml 1000 ml 650 ml # Bowel Movements 0 0 0 Imaging Last Impressions Chest X-Ray 05/23/17 0000 Signed Impressions: Service Date/Time: Tuesday, May 23, 2017 10:50 - CONCLUSION: No acute focal pulmonary infiltrate or pulmonary vascular congestion. Bernard Quintanilla MD Abdomen/Pelvis CT 05/16/17 0000 Signed Impressions: Service Date/Time: Tuesday, May 16, 2017 22:11 - CONCLUSION: 1. No abnormal fluid collections within the abdomen or pelvis to suggest abscess. 2. Subsegmental airspace disease at the lung bases. Previous cholecystectomy. Goran Rowan MD Physical Examination HEENT: PERRL; normocephalic; atraumatic; no jaundice. CHEST: CTA CARDIAC: RRR ABDOMEN: Soft, nondistended, diffuse TTP; no hepatosplenomegaly; bowel sounds are present in all four quadrants. EXTREMITIES: No clubbing, cyanosis, + pitting edema SKIN: Normal; no rash; no jaundice. MOBILE PAINT SPECIALIST: No focal deficits; alert and oriented times three. (Lisa Davis) Assessment and Plan Plan ASSESSMENT - dysphagia - onset 2m ago. bolus sensation, difficulty swallowing pills and hard foods. never had EGD - blood in stool - admits red blood intermingled in stool and recent spotting of blood but not sure if vaginal or rectal - anemia - 10.6 today, was 13.3 on admission, likely multi factorial - c diff - on vanc, ID following - guillain barre, COPD - per primary PLAN - EGD with poss dilatation & colonoscopy - MONDAY - hold eliquis monday - clear liquids monday - NPO after midnight monday - obtain consents - monitor HH - fork tender diet until EGD - further recs to follow this pt seen by myself and Dr Davis and this note is written on his behalf ( Lisa Davis) Physician Comments Patient seen and examined Agree with above Continue with current supportive care Monitor labs Patient to have her scopes on Monday due to the fact that she is on anticoagulation at this point (Terrell Davis MD) Lisa Davis May 25, 2017 13:58 Terrell Davis MD May 25, 2017 18:57
[2017-05-25] MEDS: MAGNESIUM CITRATE SOLN 300 ML BTL PO ONE ×2 (14:30→15:30)
[2017-05-25] MEDS: ACETAMINOPHEN/HYDROcodone 325 MG/5 MG TAB PO PRN (17:47)
[2017-05-25] MEDS ORDERED: MIDODRINE 5 MG TAB PO SCH (19:30)
[2017-05-25] MEDS: traZODone HCL 100 MG TAB PO SCH (21:00)
[2017-05-25] MEDS: MORPHINE SULFATE 15 MG CONTROLLED RELEASE TAB PO SCH (21:19)
[2017-05-25] MEDS: GABAPENTIN 400 MG CAP PO SCH (21:19)
[2017-05-25] MEDS: ZOLPIDEM TARTRATE 5 MG TAB PO PRN (21:20)
[2017-05-26] VITALS (11 sets, daily range): BP systolic 101–153; BP diastolic 53–69; PULSE 65–77; RESP 18–20; TEMP 98.2–98.7; O2SAT 91–95
[2017-05-26] MEDS: MORPHINE SULFATE 30 MG TAB PO PRN ×5 (01:12→19:33)
[2017-05-26] MEDS: RESP: ALBUTEROL 2.5 MG/3 ML NEB (SCH) INH ×6 (01:36→20:09)
[2017-05-26] MEDS: ALPRAZolam 0.5 MG TAB PO PRN ×4 (03:31→22:15)
[2017-05-26] MEDS: MIDODRINE 5 MG TAB PO SCH ×3 (05:44→17:00)
[2017-05-26] MEDS: METOPROLOL TARTRATE 50 MG TAB PO SCH ×2 (09:00→21:00)
[2017-05-26] MEDS: COLESTIPOL HCL 5 GM PACKET PO SCH ×2 (09:00→22:23)
[2017-05-26] MEDS: BUDESONIDE-FORMOTEROL 160/4.5 MCG INHALER INH SCH ×2 (09:00→22:24)
[2017-05-26] MEDS: SODIUM CHLORIDE 0.9% FLUSH 10 ML FLUSH IV FLUSH SCH ×2 (09:00→22:23)
[2017-05-26] MEDS: TIOTROPIUM BROMIDE 18 MCG INH INH SCH (09:00)
[2017-05-26] MEDS: POTASSIUM CHLORIDE 10 MEQ CONTROLLED RELEASE TAB PO SCH ×2 (09:33→22:14)
[2017-05-26] MEDS: GABAPENTIN 300 MG CAP PO SCH ×2 (09:33→13:13)
[2017-05-26] MEDS: NYSTATIN SUSP 500,000 U/5 ML CUP SWISH-SWAL SCH ×4 (09:33→22:16)
[2017-05-26] MEDS: AMIODARONE 200 MG TAB PO SCH (09:34)
[2017-05-26] MEDS: VANCOMYCIN 500 MG VIAL (FOR ORAL USE ONLY) PO SCH ×4 (09:34→22:16)
[2017-05-26] MEDS: ESCITALOPRAM OXALATE 10 MG TAB PO SCH (09:34)
[2017-05-26] MEDS: MORPHINE SULFATE 15 MG CONTROLLED RELEASE TAB PO SCH ×2 (09:34→22:22)
--- NOTE | 2017-05-26 10:34 | HHI.PR ---
Subjective Subjective Remarks In the bed, dozing Responds to verbal stimuli Discussed with patient monitoring the clock and trying to stay on schedule sleeping at night Seems to wake up and can't go back to sleep at night but sleeps a lot during the daytime Generalized weakness with some tremors yesterday while up (Louise Reyes ) Review of Systems Constitutional Constitutional: Fatigue, Weakness Constitutional Remarks 10 point ROS done positives noted (Louise Reyes) Throat Throat Remarks Dysphasia new report (Louise Reyes) Pulmonary Respiratory: Shortness of Breath (exertional only mild) (Louise Reyes) GI/Abdomen GI/Abdominal Exam: Diarrhea (usually about twice a day, rarely patients on day 11 of treatment regimen) GI/Abdomen Remarks , C. difficile Plaints of food getting stuck when she is trying to eat sometimes (Louise Reyes) Musculoskeletal MS: Weakness, Stiffness, Swelling (1+ lower extremity) MS Remarks Acute on chronic (Louise Reyes) Neurologic Neurologic Remarks Tearful at times (Louise Reyes) Psychiatric Psychiatric: Normal Mood, Anxiety (Louise Reyes) Vitals/Results Intake & Output 05/25/17 05/25/17 05/26/17 15:00 23:00 07:00 Intake Total 480 ml 720 ml 960 ml Output Total 1500 ml 800 ml 2000 ml Balance -1020 ml -80 ml -1040 ml Intake Oral 480 ml 720 ml 960 ml IV Total 0 ml Output Urine Total 1500 ml 800 ml 2000 ml # Bowel Movements 2 1 1 Vital Signs Vital Signs Date Time Temp Pulse Resp B/P Pulse Ox O2 Delivery O2 Flow Rate FiO2 05/26/17 08:00 98.5 77 20 153/69 91 05/26/17 07:56 Nasal Cannula 3.00 21 05/26/17 07:52 94 Nasal Cannula 3.00 05/26/17 05:46 106/53 05/26/17 04:00 98.7 65 18 101/54 94 05/26/17 01:37 93 Nasal Cannula 3.00 05/26/17 00:00 98.4 66 18 106/64 95 05/25/17 20:00 Nasal Cannula 3.00 21 05/25/17 20:00 98.1 63 18 121/60 95 05/25/17 20:00 66 05/25/17 17:43 97 Nasal Cannula 3.00 05/25/17 16:00 98.0 67 18 130/71 94 05/25/17 12:00 98.5 66 18 134/77 93 (Louise Reyes) CBC/BMP: 05/24/17 1020 05/24/17 1020 Imaging Remarks Last Impressions Chest X-Ray 05/23/17 0000 Signed Impressions: Service Date/Time: Tuesday, May 23, 2017 10:50 - CONCLUSION: No acute focal pulmonary infiltrate or pulmonary vascular congestion. Bernard Quintanilla MD Abdomen/Pelvis CT 05/16/17 0000 Signed Impressions: Service Date/Time: Tuesday, May 16, 2017 22:11 - CONCLUSION: 1. No abnormal fluid collections within the abdomen or pelvis to suggest abscess. 2. Subsegmental airspace disease at the lung bases. Previous cholecystectomy. Goran Rowan MD Current Medications Administered Medications Medications (Trade) Dose Ordered Sig/Briseida Route PRN Reason Start Time Stop Time Status Last Admin Dose Admin Sodium Chloride (NS Flush) 2 ml BID IV FLUSH 05/15/17 09:00 05/26/17 09:00 Acetaminophen (Tylenol) 650 mg Q4H PRN PO TEMP > 100.4 05/15/17 04:45 05/15/17 14:41 Ondansetron HCl (Zofran Inj) 4 mg Q6H PRN IVP NAUSEA OR VOMITING 05/15/17 04:45 05/25/17 11:15 Amiodarone HCl (Cordarone) 200 mg DAILY PO 05/15/17 10:00 05/26/17 09:34 Apixaban (Eliquis) 5 mg BID PO 05/15/17 21:00 Hold 05/25/17 21:20 Budesonide/ Formoterol Fumarate (Symbicort 160-4.5 Inh) 1 puff Q12HR INH 05/15/17 11:00 05/26/17 09:00 Escitalopram Oxalate (Lexapro) 10 mg DAILY PO 05/15/17 10:00 05/26/17 09:34 Metoprolol Tartrate (Lopressor) 50 mg BID PO 05/15/17 10:00 05/26/17 09:00 Tiotropium Barker (Spiriva Inh) 18 mcg DAILY INH 05/15/17 11:00 05/26/17 09:00 Trazodone HCl (Desyrel) 150 mg HS PO 05/15/17 21:00 05/21/17 21:51 Acetaminophen/ Hydrocodone Bitart ([place] 5-325 Mg) 1 tab Q4H PRN PO PAIN SCALE 4-6 05/15/17 10:45 05/25/17 17:47 Miscellaneous Information Patient in critical care unit? Ass... [id number] .XX 05/15/17 21:00 05/15/17 21:00 Zolpidem Tartrate (Ambien) 5 mg HS PRN PO INSOMNIA 05/15/17 21:00 05/25/17 21:20 Nystatin (Mycostatin Liq) 5 ml QID SWISH-SWAL 05/18/17 09:00 05/26/17 09:33 Gabapentin (Neurontin) 600 mg DAILY@,13 PO 05/18/17 09:00 05/26/17 09:33 Gabapentin (Neurontin) 1,200 mg HS PO 05/18/17 21:00 05/25/17 21:19 Morphine Sulfate (Msir) 30 mg Q4H PRN PO pain 7-10 05/19/17 11:30 05/26/17 09:44 Vancomycin HCl (VANCOMYCIN for oral use only) 500 mg QID PO 05/19/17 21:00 05/26/17 09:34 Colestipol HCl (Colestipol Pkt) 5 gm Q12HR PO 05/19/17 21:00 05/26/17 09:00 Alprazolam (Xanax) 0.5 mg QID PRN PO ANXIETY 05/20/17 21:00 05/26/17 09:34 Potassium Chloride (KCl) 30 meq Q12HR PO 05/20/17 21:00 05/26/17 09:33 Midodrine (Proamatine) 5 mg TID@,,17 PO 05/24/17 17:00 05/26/17 05:44 Morphine Sulfate (Oramorph Sr) 15 mg BID PO 05/25/17 21:00 05/26/17 09:34 (Louise Reyes) Physical Exam General General Appearance: Well Developed, Well Nourished, Anxious (at times states she has panic attacks), Obese (mild) (Louise Reyes) Eyes Eye Exam: Pupils Equal, Pupils Reactive (Louise Reyes) Ears & Nose Ears & Nose Exam: Nasal Mucosa [employer] (Louise Reyes) Throat Throat Exam: Oral Mucosa [employer] & Moist (Louise Reyes) Neck Neck Exam: Neck Supple (Louise Reyes) Pulmonary Resp Exam: Diminished Breath Sounds Resp Remarks Encouraged oxygen when necessary and incentive spirometry, previous smoker ( Louise Reyes) Cardiology CV Exam: Regular (Louise Reyes) Gastrointestinal/Abdomen GI Exam: Soft, Non-Tender, Bowel Sounds Present GI Remarks Complaints of food getting stuck in the lower part of her esophagus at times, drinks a lot of liquids while eating (Louise Reyes) Musculoskeletal MS Exam: Joints Intact MS Remarks Working with PT now able to stand and hold her weight, still has generalized weakness and fatigue (Louise Reyes) Integumentary Skin Exam: Warm, Dry, Intact (Louise Reyes) Extremeties Extremities Exam: Trace Edema (to 1+ lower extremities) (Louise Reyes) Neurologic Neuro Exam: Awake, Oriented, Speech Clear, Moving All Extremities (generalized weakness) (Louise Reyes) Assessment/Plan Problem List: (1) C. difficile diarrhea (2) Sepsis (3) Urinary tract infection (4) COPD (chronic obstructive pulmonary disease) (5) Depression (6) Anxiety (7) Hypotension, unspecified (8) Paroxysmal atrial fibrillation Assessment/Plan Assessment/Plan Vital signs reviewed, note BP 153/69, afebrile Labs reviewed, anemia no acute bleed noted O2 sat 91-96 currently oxygens at 3 L nasal cannula, low cortisol level, medical management SCDs TEDs ordered , C. diff colitis/sepsis Medical management including Flagyl Patient states minimal stools, noted loose X 2 and a 24-hour. Currently on day 11 of treatment regimen Having some generalized weakness and fatigue, noted especially yesterday while up with physical therapy. Hands are shaky, encourage patient to do her exercises while lying in the bed To maintain her stamina and strength Noted problems with swallow, feels that food and liquids go down the wrong way Also notes extended period of time to eat, due to the sensation of food getting stuck. GI consult for their expert opinion. States this is been going on for a couple months but she had not mentioned it to anyone, states it is not getting better. Plan for EGD/colonoscopy Monday, on hold from 817 until procedure. Instructed to eat fork tender foods UTI, +VRE Appreciate ID input and plan a care Depression and Anxiety States that at times she has panic attacks, takes her Xanax whenever needed Notice patient is sleeping some during the daytime and staying up at night. Encouraged her to try to stay on a routine schedule of sleeping at night and staying up more during the daytime. Patient understands plan Paroxysmal afib, stable -continue Amiodarone History of Guillain [place]: monitor for changes in weakness of lower extremities PT, needs to be aggressive with out of bed and ambulation if possible Currently working on his it to bedside commode with assistance COPD, requiring 3 L nasal cannula, incentive spirometry at bedside encourage patient trying cough and deep breathe -continue supplemental O2 as needed for shortness of breath -Duonebs PRN Chronic pain Medical management SCDs for DVT prophylaxis CM for dc planning in medically stable with her C. difficile. We will need to go back to rehabilitation SNF (Louise Reyes) Assessment/Plan seen, examined by myself, Dr Dorman, today Discussed with patient She has some tremor today, possibly mildly withdrawing from her long-term narcotics however she is tolerating that well complaining of right knee pain and swelling Refusing to wear JACINTO stockings X-ray right knee Rule out effusion, if this is present, Consult orthopedics Discussed with mid level provider The exam, history, and the medical decision-making described in the above note were completed with the assistance of the mid-level provider. I reviewed the findings presented. I attest that I had a [id number] encounter with the patient on the same day, and personally performed and documented my assessment and findings in the medical record. (Shan Dorman MD) Problem Qualifiers (1) Sepsis: Qualified Code: A41.9 - Sepsis, due to unspecified organism (2) Urinary tract infection: Qualified Code: N39.0 - Urinary tract infection without hematuria, site unspecified (3) COPD (chronic obstructive pulmonary disease): Qualified Code: J44.9 - Chronic obstructive pulmonary disease, unspecified COPD type (4) Depression: Qualified Code: F32.9 - Depression, unspecified depression type (5) Hypotension, unspecified: Qualified Code: I95.9 - Hypotension, unspecified hypotension type Louise Reyes May 26, 2017 10:34 Shan Dorman MD May 26, 2017 18:59
[2017-05-26] MEDS: ACETAMINOPHEN/HYDROcodone 325 MG/5 MG TAB PO PRN ×2 (13:17→22:16)
--- NOTE | 2017-05-26 13:25 | HHI.GIFU ---
Subjective Remarks Up in chair. Tolerating diet. No abdominal pain. Diarrhea improving with thicker consistency- 1-2 bowel movements per day, no obvious bleeding. (Jalyn Schroeder) Objective Vitals I&O Vital Signs Date Time Temp Pulse Resp B/P Pulse Ox O2 Delivery O2 Flow Rate FiO2 05/26/17 10:40 69 05/26/17 08:00 98.5 77 20 153/69 91 05/26/17 07:56 Nasal Cannula 3.00 21 05/26/17 07:52 94 Nasal Cannula 3.00 05/26/17 05:46 106/53 05/26/17 04:00 98.7 65 18 101/54 94 05/26/17 01:37 93 Nasal Cannula 3.00 05/26/17 00:00 98.4 66 18 106/64 95 05/25/17 20:00 Nasal Cannula 3.00 21 05/25/17 20:00 98.1 63 18 121/60 95 05/25/17 20:00 66 05/25/17 17:43 97 Nasal Cannula 3.00 05/25/17 16:00 98.0 67 18 130/71 94 I/O 05/25/17 05/25/17 05/25/17 05/26/17 05/26/17 05/26/17 07:00 15:00 23:00 07:00 15:00 23:00 Intake Total 488 ml 480 ml 720 ml 960 ml Output Total 650 ml 1500 ml 800 ml 2000 ml Balance -162 ml -1020 ml -80 ml -1040 ml Intake Oral 480 ml 480 ml 720 ml 960 ml IV Total 8 ml 0 ml Output Urine Total 650 ml 1500 ml 800 ml 2000 ml # Bowel Movements 0 2 1 1 Imaging Last Impressions Chest X-Ray 05/23/17 0000 Signed Impressions: Service Date/Time: Tuesday, May 23, 2017 10:50 - CONCLUSION: No acute focal pulmonary infiltrate or pulmonary vascular congestion. Bernard Quintanilla MD Abdomen/Pelvis CT 05/16/17 0000 Signed Impressions: Service Date/Time: Tuesday, May 16, 2017 22:11 - CONCLUSION: 1. No abnormal fluid collections within the abdomen or pelvis to suggest abscess. 2. Subsegmental airspace disease at the lung bases. Previous cholecystectomy. Goran Rowan MD Physical Exam HEENT: Normocephalic; atraumatic; no jaundice. CHEST: CTA CARDIAC: RRR ABDOMEN: Soft, nondistended, nontender; no hepatosplenomegaly; bowel sounds are present in all four quadrants. EXTREMITIES: No clubbing, cyanosis, or edema. SKIN: Normal; no rash; no jaundice. CONVEX GRINDER: No focal deficits; alert and oriented times three. (Jalyn Schroeder) Assessment and Plan Plan ASSESSMENT - Dysphagia, onset 2m ago. Soft diet. ST following, Mechanical soft diet. Plan is for EGD +/- Dilatation on Monday after being off the Eliquis for a few days. - Blood in stool. Not currently having. Is being treated for CDiff. Abdomen/ Pelvis CT (05/16/17)------> 1. No abnormal fluid collections within the abdomen or pelvis to suggest abscess. 2. Subsegmental airspace disease at the lung bases. Previous cholecystectomy. admits red blood intermingled in stool and recent spotting of blood but not sure if vaginal or rectal. - Anemia. HH 10.6/31.4. - C difficile, Epid 027 (+). On vanc x 14 days, ID following - UTI with enterococcus faecium VRE. Probable colonization per ID. - Anxiety, Depression, PAfib, COPD - per primary PLAN - Plan for egd +/- dilatation, colonoscopy on Monday - Obtain consents - Mechanical soft diet with thin liquids - NPO after MN - Magnesium Citrate bowel prep on Monday - Oral Vancomycin x 14 days per ID recommendations - Monitor HH - Hold Eliquis - Further recommendations to follow based on results of above - Pt seen and examined by Dr. Davis and myself and this note is written ( Jalyn Schroeder) Physician Comments Patient seen and examined agree with above Continue with current supportive care Monitor labs Endoscopy on Monday (Terrell Davis MD) Jalyn Schroeder May 26, 2017 13:25 Terrell Davis MD May 26, 2017 22:07
--- NOTE | 2017-05-26 20:09 | RADRPT ---
EXAM DATE/TIME: 05/26/2017 19:49 [facility] COMPARISON: 01/05/2017. INDICATIONS : Pain and swelling in knee. MEDICAL HISTORY : None. SURGICAL HISTORY : None. ENCOUNTER: Initial ACUITY: 4 - 6 months PAIN SCORE: 10/10 LOCATION: Right knee FINDINGS: Medial compartment osteoarthritis again noted with chronic irregularity of the subchondral plate.. No fracture, subluxation or significant joint effusion. No joint bodies are seen. CONCLUSION: Osteoarthritis without fracture, subluxation or significant joint effusion. J Carlos Díaz MD on May 26, 2017 at 20:07 Board Certified Radiologist. This report was verified electronically.
[2017-05-26] MEDS: traZODone HCL 100 MG TAB PO SCH (21:00)
[2017-05-26] MEDS: GABAPENTIN 400 MG CAP PO SCH (22:13)
[2017-05-26] MEDS: ZOLPIDEM TARTRATE 5 MG TAB PO PRN (22:16)
[2017-05-27] VITALS (8 sets, daily range): BP systolic 107–142; BP diastolic 52–80; PULSE 62–101; RESP 16–20; TEMP 97.5–98.1; O2SAT 91–95
[2017-05-27] MEDS: MORPHINE SULFATE 30 MG TAB PO PRN ×5 (02:42→22:05)
[2017-05-27] MEDS: ALPRAZolam 0.5 MG TAB PO PRN ×3 (02:42→22:05)
[2017-05-27] MEDS: ACETAMINOPHEN/HYDROcodone 325 MG/5 MG TAB PO PRN ×2 (04:51→09:13)
[2017-05-27] MEDS: MIDODRINE 5 MG TAB PO SCH ×3 (06:51→16:42)
[2017-05-27] MEDS: TIOTROPIUM BROMIDE 18 MCG INH INH SCH (09:00)
[2017-05-27] MEDS: AMIODARONE 200 MG TAB PO SCH (09:12)
[2017-05-27] MEDS: ESCITALOPRAM OXALATE 10 MG TAB PO SCH (09:12)
[2017-05-27] MEDS: POTASSIUM CHLORIDE 10 MEQ CONTROLLED RELEASE TAB PO SCH ×2 (09:12→21:01)
[2017-05-27] MEDS: METOPROLOL TARTRATE 50 MG TAB PO SCH ×2 (09:12→21:02)
[2017-05-27] MEDS: VANCOMYCIN 500 MG VIAL (FOR ORAL USE ONLY) PO SCH ×4 (09:12→21:01)
[2017-05-27] MEDS: NYSTATIN SUSP 500,000 U/5 ML CUP SWISH-SWAL SCH ×4 (09:12→21:00)
[2017-05-27] MEDS: GABAPENTIN 300 MG CAP PO SCH ×2 (09:12→12:16)
[2017-05-27] MEDS: MORPHINE SULFATE 15 MG CONTROLLED RELEASE TAB PO SCH ×2 (09:12→21:02)
[2017-05-27] MEDS: COLESTIPOL HCL 5 GM PACKET PO SCH ×2 (09:12→20:59)
--- NOTE | 2017-05-27 10:44 | HHI.PR ---
Subjective Subjective Remarks In the bed, More alert today responsive Appetite fair, ate 70% of breakfast Increased peripheral edema lower extremities and hands SCDs on Spoke to patient about wearing TEDs, (Louise Reyes) Review of Systems Constitutional Constitutional: Fatigue, Weakness Constitutional Remarks 10 point ROS done positives noted (Louise Reyes) Throat Throat Remarks Dysphasia new report (Louise Reyes) Pulmonary Respiratory: Shortness of Breath (states his shortness of breath is increasing , and worse with exertion) (Louise Reyes) GI/Abdomen GI/Abdominal Exam: Diarrhea (usually about twice a day, rarely patients on day 11 of treatment regimen) GI/Abdomen Remarks , C. difficile Plaints of food getting stuck when she is trying to eat sometimes (Louise Reyes) Musculoskeletal MS: Weakness, Stiffness, Swelling (1+ lower extremity) MS Remarks Acute on chronic (Louise Reyes) Neurologic Neurologic Remarks Tearful at times (Louise Reyes) Psychiatric Psychiatric: Normal Mood, Anxiety Psychiatric Remarks Improved anxiety with better pain management (Louise Reyes) Vitals/Results Intake & Output 05/26/17 05/26/17 05/27/17 15:00 23:00 07:00 Intake Total 0 ml 1383 ml Balance 0 ml 1383 ml Intake Oral 1383 ml IV Total 0 ml Vital Signs Vital Signs Date Time Temp Pulse Resp B/P Pulse Ox O2 Delivery O2 Flow Rate FiO2 05/27/17 08:00 97.8 101 20 110/53 95 05/27/17 04:00 98.1 66 16 107/52 92 05/27/17 00:00 97.9 67 16 113/58 92 05/26/17 20:30 Nasal Cannula 3.00 05/26/17 20:00 98.2 66 18 129/66 95 05/26/17 20:00 73 05/26/17 16:37 91 Nasal Cannula 3.00 05/26/17 16:00 98.3 66 20 114/56 93 05/26/17 12:00 98.6 69 18 128/58 91 05/26/17 10:40 69 (Louise Reyes) CBC/BMP: 05/24/17 1020 05/24/17 1020 Imaging Remarks Last Impressions Knee X-Ray 05/26/17 0000 Signed Impressions: Service Date/Time: Friday, May 26, 2017 19:49 - CONCLUSION: Osteoarthritis without fracture, subluxation or significant joint effusion. J Carlos Díaz MD Chest X-Ray 05/23/17 0000 Signed Impressions: Service Date/Time: Tuesday, May 23, 2017 10:50 - CONCLUSION: No acute focal pulmonary infiltrate or pulmonary vascular congestion. Bernard Quintanilla MD Abdomen/Pelvis CT 05/16/17 0000 Signed Impressions: Service Date/Time: Tuesday, May 16, 2017 22:11 - CONCLUSION: 1. No abnormal fluid collections within the abdomen or pelvis to suggest abscess. 2. Subsegmental airspace disease at the lung bases. Previous cholecystectomy. Goran Rowan MD (Louise Reyes M. MEDIA BUYER) Physical Exam General General Appearance: Well Developed, Well Nourished, Anxious (at times states she has panic attacks), Obese (mild) (Louise Reyes M. MEDIA BUYER) Eyes Eye Exam: Pupils Equal, Pupils Reactive (Louise Reyes M. MEDIA BUYER) Ears & Nose Ears & Nose Exam: Nasal Mucosa Lamont (Louise Reyes M. MEDIA BUYER) Throat Throat Exam: Oral Mucosa Lamont & Moist (Elise Reyesan M. MEDIA BUYER) Neck Neck Exam: Neck Supple (Elise Reyesan M. MEDIA BUYER) Pulmonary Resp Exam: Diminished Breath Sounds Resp Remarks Encouraged oxygen when necessary and incentive spirometry, previous smoker ( Louise Reyes M. MEDIA BUYER) Cardiology CV Exam: Regular (Elise Reyesan M. MEDIA BUYER) Gastrointestinal/Abdomen GI Exam: Soft, Non-Tender, Bowel Sounds Present GI Remarks Complaints of food getting stuck in the lower part of her esophagus at times, drinks a lot of liquids while eating (Elise Reyesan M. MEDIA BUYER) Musculoskeletal MS Exam: Joints Intact MS Remarks Working with PT now able to stand and hold her weight, still has generalized weakness and fatigue Increased peripheral edema lower extremities and hands, SCDs on (Louise Reyes M. MEDIA BUYER) Integumentary Skin Exam: Warm, Dry, Intact (Louise Reyes) Extremeties Extremities Exam: Trace Edema (to 1+ lower extremities) (Louise Reyes) Neurologic Neuro Exam: Awake, Oriented, Speech Clear, Moving All Extremities (generalized weakness) (Louise Reyes) Assessment/Plan Problem List: (1) C. difficile diarrhea (2) Sepsis (3) Urinary tract infection (4) COPD (chronic obstructive pulmonary disease) (5) Depression (6) Anxiety (7) Hypotension, unspecified (8) Paroxysmal atrial fibrillation Assessment/Plan Vital signs reviewed, trends are normal Labs reviewed, anemia, stable, no acute bleeding noted O2 sat 91-96 currently oxygens at 3 L nasal cannula, low cortisol level, medical management SCDs on now Monitor bowel regimen, stools are still loose 1-2 a day, treatment for C. difficile date 12 , C. diff colitis/sepsis Medical management including Flagyl Patient states minimal stools, noted loose X 2 and a 24-hour. Currently on day 12 of treatment regimen Having some generalized weakness and fatigue, having some generalized tremors seems to be somewhat better today, current to move about in the bed To maintain her stamina and strength Noted problems with swallow, feels that food and liquids go down the wrong way Also notes extended period of time to eat, due to the sensation of food getting stuck. GI consult for their expert opinion. States this is been going on for a couple months but she had not mentioned it to anyone, states it is not getting better. Plan for EGD/colonoscopy Monday sury on hold from 817 until procedure. Instructed to eat fork tender foods UTI, +VRE Appreciate ID input and plan a care Depression and Anxiety States that at times she has panic attacks, takes her Xanax whenever needed Notice patient is sleeping some during the daytime and staying up at night. Encouraged her to try to stay on a routine schedule of sleeping at night and staying up more during the daytime. Patient understands plan Paroxysmal afib, stable -continue Amiodarone History of Guillain Lillian: monitor for changes in weakness of lower extremities PT, needs to be aggressive with out of bed and ambulation if possible Currently working on his it to bedside commode with assistance COPD, requiring 3 L nasal cannula, incentive spirometry at bedside encourage patient trying cough and deep breathe -continue supplemental O2 as needed for shortness of breath -Duonebs PRN Increased peripheral edema 2+ lower extremities 1+ upper extremities, this has been building over the past few days patient now is complaining of increased shortness of breath, Lasix 20 mg IV today 1, will monitor diuresis and intake and output Repeat chest x-ray showed no acute changes on 81 5, , Chronic pain Medical management, improved with by mouth meds, given twice a day SCDs for DVT prophylaxis CM for dc planning in medically stable with her C. difficile. We will need to go back to rehabilitation SNF Discussed with patient Discussed with Dr. Moreno, seen on his behalf Discussed with nurse (Louise Reyes) Assessment/Plan Patient seen and examined as above [id number] time spent with patient Some of previous labs and some of previous notes reviewed Medications reviewed Discussed with patient Discussed with RN Plan of care discussed with MEDIA BUYER (Edenilson Moreno MD) Problem Qualifiers (1) Sepsis: Qualified Code: A41.9 - Sepsis, due to unspecified organism (2) Urinary tract infection: Qualified Code: N39.0 - Urinary tract infection without hematuria, site unspecified (3) COPD (chronic obstructive pulmonary disease): Qualified Code: J44.9 - Chronic obstructive pulmonary disease, unspecified COPD type (4) Depression: Qualified Code: F32.9 - Depression, unspecified depression type (5) Hypotension, unspecified: Qualified Code: I95.9 - Hypotension, unspecified hypotension type Louise Reyes May 27, 2017 10:43 Edenilson Moreno MD May 27, 2017 15:15
[2017-05-27] MEDS ORDERED: FUROSEMIDE 20 MG/2 ML VIAL IV PUSH ONE (10:45)
[2017-05-27] MEDS: ONDANSETRON HCL 4 MG/2 ML VIAL IVP PRN (11:22)
[2017-05-27] MEDS: SODIUM CHLORIDE 0.9% FLUSH 10 ML FLUSH IV FLUSH SCH ×2 (12:28→20:58)
--- NOTE | 2017-05-27 14:03 | HHI.GIFU ---
Subjective Remarks Tolerating diet as long as she cuts up her food into small bites and takes frequent sips of water. Otherwise, the food gets caught in her upper esophagus and is slow to pass down. Diarrhea improving, only one stool today and states it has more "mushy" than liquid. (EldaJalyn WALSH) Objective Vitals I&O Vital Signs Date Time Temp Pulse Resp B/P Pulse Ox O2 Delivery O2 Flow Rate FiO2 05/27/17 12:00 97.5 62 20 139/72 93 05/27/17 08:00 97.8 101 20 110/53 95 05/27/17 04:00 98.1 66 16 107/52 92 05/27/17 00:00 97.9 67 16 113/58 92 05/26/17 20:30 Nasal Cannula 3.00 05/26/17 20:00 98.2 66 18 129/66 95 05/26/17 20:00 73 05/26/17 16:37 91 Nasal Cannula 3.00 05/26/17 16:00 98.3 66 20 114/56 93 I/O 05/26/17 05/26/17 05/26/17 05/27/17 05/27/17 05/27/17 07:00 15:00 23:00 07:00 15:00 23:00 Intake Total 960 ml 0 ml 1383 ml Output Total 2000 ml Balance -1040 ml 0 ml 1383 ml Intake Oral 960 ml 1383 ml IV Total 0 ml Output Urine Total 2000 ml # Bowel Movements 1 Imaging Last Impressions Knee X-Ray 05/26/17 0000 Signed Impressions: Service Date/Time: Friday, May 26, 2017 19:49 - CONCLUSION: Osteoarthritis without fracture, subluxation or significant joint effusion. J Carlos Díaz MD Chest X-Ray 05/23/17 0000 Signed Impressions: Service Date/Time: Tuesday, May 23, 2017 10:50 - CONCLUSION: No acute focal pulmonary infiltrate or pulmonary vascular congestion. Bernard Quintanilla MD Abdomen/Pelvis CT 05/16/17 0000 Signed Impressions: Service Date/Time: Tuesday, May 16, 2017 22:11 - CONCLUSION: 1. No abnormal fluid collections within the abdomen or pelvis to suggest abscess. 2. Subsegmental airspace disease at the lung bases. Previous cholecystectomy. Goran Rowan MD Physical Exam HEENT: Normocephalic; atraumatic; no jaundice. CHEST: CTA CARDIAC: RRR ABDOMEN: Soft, nondistended, nontender; no hepatosplenomegaly; bowel sounds are present in all four quadrants. EXTREMITIES: No clubbing, cyanosis, or edema. SKIN: Normal; no rash; no jaundice. RETAIL PROPERTY MANAGER: No focal deficits; alert and oriented times three. (Jalyn Schroeder) Assessment and Plan Plan ASSESSMENT - Dysphagia, onset 2m ago. Solids getting caught in upper esophagus and is difficult to pass down. Soft diet. ST following, Mechanical soft diet. Plan is for EGD +/- Dilatation on Monday after being off the Eliquis for a few days. - GERD. Add PPI - Blood in stool. Not currently having. Is being treated for CDiff. Abdomen/ Pelvis CT (05/16/17)------> 1. No abnormal fluid collections within the abdomen or pelvis to suggest abscess. 2. Subsegmental airspace disease at the lung bases. Previous cholecystectomy. admits red blood intermingled in stool and recent spotting of blood but not sure if vaginal or rectal. - Anemia. HH stable - C difficile, Epid 027 (+). Improving. One stool today. On vanc x 14 days, ID following - UTI with enterococcus faecium VRE. Probable colonization per ID. - Anxiety, Depression, PAfib, COPD - per primary PLAN - Plan for egd +/- dilatation, colonoscopy on Monday - Obtain consents - Mechanical soft diet with thin liquids - NPO after MN Monday night - Magnesium Citrate bowel prep on Monday - Oral Vancomycin x 14 days per ID recommendations - Monitor HH - Add Protonix - Hold Eliquis - Further recommendations to follow based on results of above - Pt seen and examined by Dr. Denson and myself and this note is written ( Jalyn Schroeder) Physician Comments Seen and examined, plan as above, plan for EGD/Colonoscopy monday. Risk, benefits and possible complications explained to the patient. Further recommendations to follow. (Carlos Denson MD) Jalyn Schroeder May 27, 2017 14:03 Carlos Denson MD May 27, 2017 14:07
[2017-05-27] MEDS: BUDESONIDE-FORMOTEROL 160/4.5 MCG INHALER INH SCH (20:58)
[2017-05-27] MEDS: GABAPENTIN 400 MG CAP PO SCH (21:00)
[2017-05-27] MEDS: traZODone HCL 100 MG TAB PO SCH (21:00)
[2017-05-27] MEDS: ZOLPIDEM TARTRATE 5 MG TAB PO PRN (21:02)
[2017-05-28] VITALS: BP 108/68; PULSE 68; RESP 18; TEMP 98; O2SAT 92
[2017-05-28] MEDS: MORPHINE SULFATE 30 MG TAB PO PRN ×5 (01:59→17:41)
[2017-05-28] MEDS: ALPRAZolam 0.5 MG TAB PO PRN ×4 (03:49→18:45)
[2017-05-28 04:00] VITALS: BP 107/53; PULSE 64; RESP 18; TEMP 98; O2SAT 92
[2017-05-28] MEDS: MIDODRINE 5 MG TAB PO SCH ×3 (06:00→17:39)
[2017-05-28 06:18] LABS: AUTOMATED NEUTROPHIL # 5.4 TH/MM3 (1.8-7.7); BASOPHIL # 0.1 TH/MM3 (0-0.2); BASOPHIL % 1.4 % (0.0-2.0); EOSINOPHIL # 0.3 TH/MM3 (0-0.4); EOSINOPHIL % 3.3 % (0.0-4.0); HEMATOCRIT 36.3 % (35.0-46.0); HEMO FLAGS DIFF FINAL; LYMPH % 32.3 % (9.0-44.0); LYMPHOCYTE # 3.2 TH/MM3 (1.0-4.8); MEAN CORPUSCULAR HEMOGLOBIN 31.7 PG (27.0-34.0); MEAN CORPUSCULAR HGB CONC 33.7 % (32.0-36.0); MONO % 7.7 % (0.0-8.0); NEUT % 55.3 % (16.0-70.0); PLATELET COUNT 375 TH/MM3 (150-450); RED BLOOD COUNT 3.87 MIL/MM3 (4.00-5.30); RED CELL DISTRIBUTION WIDTH 13.9 % (11.6-17.2); WHITE BLOOD COUNT 9.8 TH/MM3 (4.0-11.0)
[2017-05-28] MEDS: BUDESONIDE-FORMOTEROL 160/4.5 MCG INHALER INH SCH ×2 (09:00→22:11)
[2017-05-28] MEDS: AMIODARONE 200 MG TAB PO SCH (09:00)
[2017-05-28] MEDS: COLESTIPOL HCL 5 GM PACKET PO SCH ×2 (09:00→21:00)
[2017-05-28] MEDS: PANTOPRAZOLE SOD 40 MG DELAYED RELEASE TAB PO SCH (09:00)
[2017-05-28] MEDS: POTASSIUM CHLORIDE 10 MEQ CONTROLLED RELEASE TAB PO SCH ×2 (09:00→22:12)
[2017-05-28] MEDS: TIOTROPIUM BROMIDE 18 MCG INH INH SCH (09:00)
[2017-05-28] MEDS: ESCITALOPRAM OXALATE 10 MG TAB PO SCH (09:00)
[2017-05-28] MEDS: METOPROLOL TARTRATE 50 MG TAB PO SCH ×2 (09:00→22:12)
[2017-05-28] MEDS: GABAPENTIN 300 MG CAP PO SCH ×2 (09:00→13:00)
[2017-05-28] MEDS: SODIUM CHLORIDE 0.9% FLUSH 10 ML FLUSH IV FLUSH SCH ×2 (09:00→22:11)
[2017-05-28] MEDS: MORPHINE SULFATE 15 MG CONTROLLED RELEASE TAB PO SCH ×2 (09:00→22:13)
[2017-05-28 12:03] VITALS: BP 110/62; PULSE 57; RESP 19; TEMP 97.8; O2SAT 93
[2017-05-28] MEDS: VANCOMYCIN 500 MG VIAL (FOR ORAL USE ONLY) PO SCH ×3 (13:00→22:13)
[2017-05-28] MEDS: NYSTATIN SUSP 500,000 U/5 ML CUP SWISH-SWAL SCH ×3 (13:00→22:12)
[2017-05-28] MEDS ORDERED: MAGNESIUM CITRATE SOLN 300 ML BTL PO ONE ×2 (16:00→18:00)
[2017-05-28 16:03] VITALS: BP 110/62; PULSE 57; RESP 19; TEMP 97.8; O2SAT 93
[2017-05-28 19:41] VITALS: PULSE 59
[2017-05-28 20:00] VITALS: BP 127/64; PULSE 62; RESP 20; TEMP 97.3; O2SAT 94
[2017-05-28] MEDS: traZODone HCL 100 MG TAB PO SCH (21:00)
[2017-05-28] MEDS: ZOLPIDEM TARTRATE 5 MG TAB PO PRN (22:12)
[2017-05-28] MEDS: GABAPENTIN 400 MG CAP PO SCH (22:12)
[2017-05-29] VITALS (7 sets, daily range): BP systolic 113–132; BP diastolic 58–73; PULSE 59–82; RESP 16–20; TEMP 97.4–97.9; O2SAT 92–96
[2017-05-29] MEDS: ALPRAZolam 0.5 MG TAB PO PRN ×4 (02:12→22:32)
[2017-05-29] MEDS: MORPHINE SULFATE 30 MG TAB PO PRN ×5 (02:12→22:32)
[2017-05-29] MEDS: MIDODRINE 5 MG TAB PO SCH ×3 (06:17→16:58)
[2017-05-29] MEDS: COLESTIPOL HCL 5 GM PACKET PO SCH ×2 (09:00→20:21)
[2017-05-29] MEDS: BUDESONIDE-FORMOTEROL 160/4.5 MCG INHALER INH SCH ×2 (09:00→20:20)
[2017-05-29] MEDS: GABAPENTIN 300 MG CAP PO SCH ×2 (09:22→12:32)
[2017-05-29] MEDS: PANTOPRAZOLE SOD 40 MG DELAYED RELEASE TAB PO SCH (09:22)
[2017-05-29] MEDS: AMIODARONE 200 MG TAB PO SCH (09:22)
[2017-05-29] MEDS: ESCITALOPRAM OXALATE 10 MG TAB PO SCH (09:22)
[2017-05-29] MEDS: METOPROLOL TARTRATE 50 MG TAB PO SCH ×2 (09:22→20:21)
[2017-05-29] MEDS: VANCOMYCIN 500 MG VIAL (FOR ORAL USE ONLY) PO SCH ×4 (09:23→20:22)
[2017-05-29] MEDS: NYSTATIN SUSP 500,000 U/5 ML CUP SWISH-SWAL SCH ×4 (09:23→20:20)
[2017-05-29] MEDS: POTASSIUM CHLORIDE 10 MEQ CONTROLLED RELEASE TAB PO SCH ×2 (09:23→20:20)
[2017-05-29] MEDS: MORPHINE SULFATE 15 MG CONTROLLED RELEASE TAB PO SCH ×2 (09:31→20:22)
[2017-05-29] MEDS: TIOTROPIUM BROMIDE 18 MCG INH INH SCH (09:32)
[2017-05-29] MEDS: SODIUM CHLORIDE 0.9% FLUSH 10 ML FLUSH IV FLUSH SCH ×2 (09:38→20:21)
--- NOTE | 2017-05-29 11:46 | GIPROC ---
[facility] [address] [facility]. [facility], [address] EGD PROCEDURE REPORT EXAM DATE: 05/29/2017 PATIENT NAME: Aide Aguilar MR #: [id number] BIRTHDATE: 1960 ATTENDING: Carlos Denson MD ORDER #: [id number] NUTRITIONAL SERVICES COOK: Jona Maldonado and Nancy Pillai STATUS: inpatient INDICATIONS: The patient is a 56 yr old female here for an EGD due to dysphagia PROCEDURE PERFORMED: EGD w/ biopsy MEDICATIONS: None and Per Anesthesia. TOPICAL ANESTHETIC: none CONSENT: The patient understands the risks and benefits of the procedure and understands that these risks include, but are not limited to: sedation, allergic reaction, infection, perforation and/or bleeding. Alternative means of evaluation and treatment include, among others: physical exam, x-rays, and/or surgical intervention. The patient elects to proceed with this endoscopic procedure. medical equipment was checked for proper function. Hand hygiene and appropriate measures for infection prevention was taken. After the risks, benefits and alternatives of the procedure were thoroughly explained, Informed consent was verified, confirmed and timeout was successfully executed by the treatment team. The patient was anesthetized with topical anesthesia and the EC-3490Li (Pedi C) endoscope was introduced through the mouth and advanced to the second portion of the duodenum. Retroflexion was performed and was normal The gastroscope was then slowly withdrawn and removed. ESOPHAGUS: The mucosa of the esophagus appeared normal. STOMACH: There was mild gastritis in the gastric antrum. Multiple biopsies were performed using cold forceps. Sample sent for histology. DUODENUM: The duodenal mucosa appeared normal in the bulb and second portion of the duodenum. ADVERSE EVENTS: There were no complications. IMPRESSIONS: 1. The esophagus appeared normal 2. There was mild gastritis in the gastric antrum; multiple biopsies were performed 3. Normal duodenal mucosa in the bulb and second portion of the duodenum 4. Retroflexion was performed and was normal RECOMMENDATIONS: Await biopsy results. Biopsy results will not be ready for 7-10 days. If you don't hear from us in two weeks, call our office for biopsy results. PATIENT CONDITION: stable DISPOSITION: Observation REPEAT EXAM: Return as needed for EGD Carlos Denson MD eSigned: Carlos Denson MD 05/29/2017 11:45 AM cc: PATIENT NAME: Aide Aguilar MR#: [id number]
--- NOTE | 2017-05-29 11:48 | GIPROC ---
[facility] [address] [facility]. [facility], [address] COLONOSCOPY PROCEDURE REPORT EXAM DATE: 05/29/2017 PATIENT NAME: Aide Aguilar MR #: [id number] BIRTHDATE: 1960 ENDOSCOPIST: Carlos Denson MD ORDER #: [id number] PAINTER HELPER SIGN: Jona Maldonado and Nancy Pillai STATUS: inpatient INDICATIONS: The patient is a 56 yr old female here for a colonoscopy due to anemia, non-specific PROCEDURE PERFORMED: Colonoscopy with polypectomy MEDICATIONS: None and Per Anesthesia. PREP QUALITY: poor PREP TYPE:GoLytely ESTIMATED BLOOD LOSS: None CONSENT: The patient understands the risks and benefits of the procedure and understands that these risks include, but are not limited to: sedation, allergic reaction, infection, perforation and/or bleeding. Alternative means of evaluation and treatment include, among others: physical exam, x-rays, and/or surgical intervention. The patient elects to proceed with this endoscopic procedure. medical equipment was checked for proper function. Hand hygiene and appropriate measures for infection prevention was taken. After the risks, benefits and alternatives of the procedure were thoroughly explained, Informed consent was verified, confirmed and timeout was successfully executed by the treatment team. A digital exam revealed no abnormalities of the rectum The Pentax EC-[id number] endoscope was introduced through the anus and advanced to the cecum, which was identified by both the appendix and ileocecal valve. The instrument was then slowly withdrawn as the colon was fully examined. COLON FINDINGS: A polypoid shaped sessile polyp ranging between 3-5mm in size was found in the descending colon. A polypectomy was performed with cold forceps. The resection was complete and the polyp tissue was completely retrieved. Retroflexed views revealed no abnormalities The scope was then completely withdrawn from the patient and the procedure terminated. PROCEDURE WITHDRAWAL TIME:8minutes ADVERSE EVENTS: There were no complications. IMPRESSIONS: 1. A sessile polyp ranging between 3-5mm in size was found in the descending colon; polypectomy was performed with cold forceps 2. Retroflexed views revealed no abnormalities 3. Revealed no abnormalities of the rectum RECOMMENDATIONS: Await biopsy results. Biopsy results will not be ready for 7-10 days. If you don't hear from us in two weeks, call our office for results. RECALL: Return 6 months Colonoscopy Carlos Denson MD eSigned: Carlos Denson MD 05/29/2017 11:48 AM cc:
--- NOTE | 2017-05-29 14:25 | HHI.PR ---
Subjective Subjective Remarks Nothing by mouth for EGD Post EGD mild gastritis found, biopsies obtained, no stricture found no acute pain Still needing O2 will need walk test before dc Review of Systems Constitutional Constitutional: Fatigue, Weakness Constitutional Remarks 10 point ROS done positives noted Throat Throat Remarks Dysphasia new report Pulmonary Respiratory: Shortness of Breath GI/Abdomen GI/Abdominal Exam: Diarrhea (usually about twice a day, rarely patients on day 11 of treatment regimen) GI/Abdomen Remarks , C. difficile Plaints of food getting stuck when she is trying to eat sometimes, mild gastritis found, no strictures seen on EGD Musculoskeletal MS: Weakness, Stiffness, Swelling (1+ lower extremity) MS Remarks Acute on chronic Neurologic Neurologic Remarks Tearful at times Psychiatric Psychiatric: Normal Mood, Anxiety Psychiatric Remarks Improved anxiety with better pain management Vitals/Results Intake & Output 05/29/17 05/29/17 05/30/17 15:00 23:00 07:00 Intake Total 250 ml Balance 250 ml IV Total 50 ml Other 200 ml Vital Signs Vital Signs Date Time Temp Pulse Resp B/P (MAP) Pulse Ox O2 Delivery O2 Flow Rate FiO2 05/29/17 12:00 63 18 126/65 (85) 98 05/29/17 12:00 97.5 62 16 132/60 (84) 96 05/29/17 11:52 62 16 141/75 (97) 95 05/29/17 11:37 97.7 63 16 137/77 (97) 93 05/29/17 08:00 59 05/29/17 08:00 97.8 82 19 129/67 (87) 96 05/29/17 07:45 Nasal Cannula 3.00 05/29/17 04:00 Nasal Cannula 3.00 05/29/17 04:00 97.7 61 18 119/58 (78) 94 05/29/17 00:00 97.4 60 18 118/73 (88) 94 05/29/17 00:00 Nasal Cannula 3.00 05/28/17 20:00 97.3 62 20 127/64 (85) 94 05/28/17 20:00 Nasal Cannula 3.00 05/28/17 19:41 59 05/28/17 18:50 16 05/28/17 16:03 97.8 57 19 110/62 (78) 93 CBC/BMP: 05/28/17 0600 Current Medications Administered Medications Medications (Trade) Dose Ordered Sig/Briseida Route PRN Reason Start Time Stop Time Status Last Admin Dose Admin Sodium Chloride (NS Flush) 2 ml BID IV FLUSH 05/15/17 09:00 05/29/17 09:38 Acetaminophen (Tylenol) 650 mg Q4H PRN PO TEMP > 100.4 05/15/17 04:45 05/15/17 14:41 Ondansetron HCl (Zofran Inj) 4 mg Q6H PRN IVP NAUSEA OR VOMITING 05/15/17 04:45 05/27/17 11:22 Amiodarone HCl (Cordarone) 200 mg DAILY PO 05/15/17 10:00 05/29/17 09:22 Apixaban (Eliquis) 5 mg BID PO 05/15/17 21:00 Future Hold 05/25/17 21:20 Budesonide/ Formoterol Fumarate (Symbicort 160-4.5 Inh) 1 puff Q12HR INH 05/15/17 11:00 05/29/17 09:00 Escitalopram Oxalate (Lexapro) 10 mg DAILY PO 05/15/17 10:00 05/29/17 09:22 Metoprolol Tartrate (Lopressor) 50 mg BID PO 05/15/17 10:00 05/29/17 09:22 Tiotropium [place] (Spiriva Inh) 18 mcg DAILY INH 05/15/17 11:00 05/29/17 09:32 Trazodone HCl (Desyrel) 150 mg HS PO 05/15/17 21:00 05/21/17 21:51 Acetaminophen/ Hydrocodone Bitart (Burr 5-325 Mg) 1 tab Q4H PRN PO PAIN SCALE 4-6 05/15/17 10:45 05/27/17 09:13 Miscellaneous Information Patient in critical care unit? Ass... [id number] .XX 05/15/17 21:00 05/15/17 21:00 Zolpidem Tartrate (Ambien) 5 mg HS PRN PO INSOMNIA 05/15/17 21:00 05/28/17 22:12 Nystatin (Mycostatin Liq) 5 ml QID SWISH-SWAL 05/18/17 09:00 05/29/17 12:33 Gabapentin (Neurontin) 600 mg DAILY@09,13 PO 05/18/17 09:00 05/29/17 12:32 Gabapentin (Neurontin) 1,200 mg HS PO 05/18/17 21:00 05/28/17 22:12 Morphine Sulfate (Msir) 30 mg Q4H PRN PO pain 7-10 05/19/17 11:30 05/29/17 12:33 Vancomycin HCl (VANCOMYCIN for oral use only) 500 mg QID PO 05/19/17 21:00 05/29/17 12:33 Colestipol HCl (Colestipol Pkt) 5 gm Q12HR PO 05/19/17 21:00 05/28/17 09:00 Alprazolam (Xanax) 0.5 mg QID PRN PO ANXIETY 05/20/17 21:00 05/29/17 09:21 Potassium Chloride (KCl) 30 meq Q12HR PO 05/20/17 21:00 05/29/17 09:23 Midodrine (Proamatine) 5 mg TID@,, PO 05/24/17 17:00 05/29/17 12:33 Morphine Sulfate (Oramorph Sr) 15 mg BID PO 05/25/17 21:00 05/29/17 09:31 Pantoprazole Sodium (Protonix) 40 mg DAILY PO 05/28/17 09:00 05/29/17 09:22 Physical Exam General General Appearance: Well Developed, Well Nourished, Anxious (at times states she has panic attacks), Obese (mild) Eyes Eye Exam: Pupils Equal, Pupils Reactive Ears & Nose Ears & Nose Exam: Nasal Mucosa [place] Throat Throat Exam: Oral Mucosa [place] & Moist Neck Neck Exam: Neck Supple Pulmonary Resp Exam: Diminished Breath Sounds Resp Remarks Encouraged oxygen when necessary and incentive spirometry, previous smoker Cardiology CV Exam: Regular Gastrointestinal/Abdomen GI Exam: Soft, Non-Tender, Bowel Sounds Present GI Remarks Complaints of food getting stuck in the lower part of her esophagus at times, drinks a lot of liquids while eating Musculoskeletal MS Exam: Joints Intact MS Remarks Working with PT now able to stand and hold her weight, still has generalized weakness and fatigue Increased peripheral edema lower extremities and hands, SCDs on Integumentary Skin Exam: Warm, Dry, Intact Extremeties Extremities Exam: Trace Edema (to 1+ lower extremities) Neurologic Neuro Exam: Awake, Oriented, Speech Clear, Moving All Extremities (generalized weakness) Assessment/Plan Problem List: (1) C. difficile diarrhea ICD Codes: A04.7 - Enterocolitis due to Clostridium difficile Status: Acute (2) Sepsis ICD Codes: A41.9 - Sepsis Status: Acute (3) Urinary tract infection ICD Codes: N39.0 - Urinary tract infection Status: Acute (4) COPD (chronic obstructive pulmonary disease) ICD Codes: J44.9 - Chronic obstructive pulmonary disease, unspecified Status: Acute (5) Depression ICD Codes: F32.9 - Major depressive disorder, single episode, unspecified Status: Acute (6) Anxiety ICD Codes: F41.9 - Anxiety disorder, unspecified Status: Acute (7) Hypotension, unspecified ICD Codes: I95.9 - Hypotension, unspecified Status: Acute (8) Paroxysmal atrial fibrillation ICD Codes: I48.0 - Paroxysmal atrial fibrillation Status: Acute Assessment/Plan Vital signs reviewed, trends are normal Labs reviewed, anemia, stable, no acute bleeding noted O2 sat stable, uses O2 most of the time, occurring each when necessary low cortisol level, medical management SCDs on now Monitor bowel regimen, stools are still loose 1-3 a day, treatment for C. difficile date 13 , C. diff colitis/sepsis Medical management including Flagyl Patient states minimal stools, noted loose X 2 and a 24-hour. Currently on day 12 of treatment regimen Having some generalized weakness and fatigue, having some generalized tremors seems to be somewhat better today, current to move about in the bed To maintain her stamina and strength Noted problems with swallow, feels that food and liquids go down the wrong way Also notes extended period of time to eat, due to the sensation of food getting stuck. GI consult for their expert opinion. States this is been going on for a couple months but she had not mentioned it to anyone, states it is not getting better. Plan for EGD/colonoscopy Monday, Kathia on hold, until after procedure, nothing by mouth this a.m. UTI, +VRE Appreciate ID input and plan a care Depression and Anxiety States that at times she has panic attacks, takes her Xanax whenever needed Initially patient was beginning to sleep and now a good bit during the daytime and was up at night, encouraged her to watch the time and try to stay on a day night schedule. She agreed Paroxysmal afib, stable -continue Amiodarone History of Guillain [place]: monitor for changes in weakness of lower extremities PT, needs to be aggressive with out of bed and ambulation if possible Currently working on his it to bedside commode with assistance, patient has accomplished this task Will need rehabilitation when stable from her current medical dilemma COPD, requiring 3 L nasal cannula, incentive spirometry at bedside encourage patient trying cough and deep breathe -continue supplemental O2 as needed for shortness of breath -Duonebs PRN Patient has some peripheral edema trace to 1+ , increased lower extremity edema 2 days ago shortness of breath, Lasix 20 mg IV today 1 2 days ago, active diuresis patient's shortness of breath and edema is more controlled. Monitor for any further Lasix needs Repeat chest x-ray showed no acute changes on 81 5, , Chronic pain Medical management, improved with by mouth meds, given twice a day SCDs for DVT prophylaxis CM for dc planning in medically stable with her C. difficile. We will need to go back to rehabilitation SNF Problem Qualifiers (1) Sepsis: (2) Urinary tract infection: (3) COPD (chronic obstructive pulmonary disease): (4) Depression: (5) Hypotension, unspecified: Louise Reyes May 29, 2017 14:25
[2017-05-29] MEDS ORDERED: PROPOFOL 200 MG/20 ML AMP IV ONE (17:04)
[2017-05-29] MEDS: GABAPENTIN 400 MG CAP PO SCH (20:21)
[2017-05-29] MEDS: traZODone HCL 100 MG TAB PO SCH (20:21)
[2017-05-29] MEDS: ZOLPIDEM TARTRATE 5 MG TAB PO PRN (22:32)
[2017-05-30] VITALS (7 sets, daily range): BP systolic 109–130; BP diastolic 55–67; PULSE 62–71; RESP 18–19; TEMP 97.2–98.5; O2SAT 91–95
[2017-05-30] MEDS: MORPHINE SULFATE 30 MG TAB PO PRN ×5 (04:56→22:23)
[2017-05-30] MEDS: ALPRAZolam 0.5 MG TAB PO PRN ×4 (04:56→22:35)
[2017-05-30] MEDS: MIDODRINE 5 MG TAB PO SCH ×3 (06:09→17:05)
[2017-05-30 06:34] LABS: HEMATOCRIT 34.7 % (35.0-46.0); MEAN CORPUSCULAR HEMOGLOBIN 31.6 PG (27.0-34.0); MEAN CORPUSCULAR HGB CONC 33.6 % (32.0-36.0); PLATELET COUNT 429 TH/MM3 (150-450); RED CELL DISTRIBUTION WIDTH 13.7 % (11.6-17.2); REVIEW FLAG FINAL; WHITE BLOOD COUNT 8.3 TH/MM3 (4.0-11.0)
[2017-05-30 07:28] LABS: BICARBONATE 29.4 MEQ/L (21.0-32.0); POTASSIUM 4.5 MEQ/L (3.5-5.1)
[2017-05-30] MEDS: SODIUM CHLORIDE 0.9% FLUSH 10 ML FLUSH IV FLUSH SCH ×2 (09:00→21:00)
[2017-05-30] MEDS: BUDESONIDE-FORMOTEROL 160/4.5 MCG INHALER INH SCH ×2 (09:00→21:00)
[2017-05-30] MEDS: COLESTIPOL HCL 5 GM PACKET PO SCH ×2 (09:35→21:00)
[2017-05-30] MEDS: TIOTROPIUM BROMIDE 18 MCG INH INH SCH (09:35)
[2017-05-30] MEDS: AMIODARONE 200 MG TAB PO SCH (09:36)
[2017-05-30] MEDS: POTASSIUM CHLORIDE 10 MEQ CONTROLLED RELEASE TAB PO SCH ×2 (09:36→22:16)
[2017-05-30] MEDS: GABAPENTIN 300 MG CAP PO SCH ×2 (09:36→13:18)
[2017-05-30] MEDS: ESCITALOPRAM OXALATE 10 MG TAB PO SCH (09:36)
[2017-05-30] MEDS: NYSTATIN SUSP 500,000 U/5 ML CUP SWISH-SWAL SCH ×4 (09:36→22:14)
[2017-05-30] MEDS: METOPROLOL TARTRATE 50 MG TAB PO SCH ×2 (09:37→23:55)
[2017-05-30] MEDS: PANTOPRAZOLE SOD 40 MG DELAYED RELEASE TAB PO SCH (09:37)
[2017-05-30] MEDS: VANCOMYCIN 500 MG VIAL (FOR ORAL USE ONLY) PO SCH ×4 (09:37→22:17)
--- NOTE | 2017-05-30 10:57 | HHI.PR ---
Subjective Subjective Remarks Short of breath with activity only No chest pain Leg swelling improved Having formed stools Tolerating diet well No fever Wants regular diet (Laura Meade) Review of Systems Constitutional Constitutional Remarks 12 point ros completed, negative except as noted above (Laura Meade) Vitals/Results Vital Signs Vital Signs Date Time Temp Pulse Resp B/P (MAP) Pulse Ox O2 Delivery O2 Flow Rate FiO2 05/30/17 08:00 97.2 62 19 119/62 (81) 93 05/30/17 04:00 98.0 64 18 118/67 (84) 93 05/30/17 04:00 Nasal Cannula 3.00 05/30/17 00:00 98.4 62 18 120/65 (83) 91 05/30/17 00:00 Nasal Cannula 3.00 05/29/17 20:09 69 05/29/17 20:00 Nasal Cannula 3.00 05/29/17 20:00 97.9 65 20 113/58 (76) 92 05/29/17 16:00 97.4 71 19 122/58 (79) 95 05/29/17 12:00 63 18 126/65 (85) 98 05/29/17 12:00 97.5 62 16 132/60 (84) 96 05/29/17 11:52 62 16 141/75 (97) 95 05/29/17 11:37 97.7 63 16 137/77 (97) 93 (Laura Meade) CBC/BMP: 05/30/17 0550 05/30/17 0550 Lab Results Laboratory Tests Test 05/30/17 05:50 White Blood Count 8.3 TH/MM3 Red Blood Count 3.70 MIL/MM3 Hemoglobin 11.7 GM/DL Hematocrit 34.7 % Mean Corpuscular Volume 94.0 FL Mean Corpuscular Hemoglobin 31.6 PG Mean Corpuscular Hemoglobin Concent 33.6 % Red Cell Distribution Width 13.7 % Platelet Count 429 TH/MM3 Mean Platelet Volume 7.7 FL Blood Urea Nitrogen 18 MG/DL Creatinine 0.94 MG/DL Random Glucose 108 MG/DL Calcium Level 9.6 MG/DL Sodium Level 138 MEQ/L Potassium Level 4.5 MEQ/L Chloride Level 102 MEQ/L Carbon Dioxide Level 29.4 MEQ/L Anion Gap 7 MEQ/L Estimat Glomerular Filtration Rate 62 ML/MIN (DeshaunLaura G. YARD SWITCHER) Physical Exam General General Appearance: Well Developed, Well Nourished, No Acute Distress, Comfortable, Anxious, Obese (Laura Meade [employer] SWITCHER) Eyes Eye Exam: Pupils Equal, Pupils Reactive (GrossLaura G. YARD SWITCHER) Ears & Nose Ears & Nose Exam: Nasal Mucosa [place] (GrossLaura G. YARD SWITCHER) Throat Throat Exam: Oral Mucosa [place] & Moist (GrossLaura G. YARD SWITCHER) Neck Neck Exam: Neck Supple (GrossLaura G. YARD SWITCHER) Pulmonary Resp Exam: Diminished Breath Sounds (Laura Meade G[employer] SWITCHER) Cardiology CV Exam: Regular (Laura Meade G. YARD SWITCHER) Gastrointestinal/Abdomen GI Exam: Soft, Non-Tender, Bowel Sounds Present (GrossLaura G. YARD SWITCHER) Musculoskeletal MS Exam: Joints Intact (GrossLaura G. YARD SWITCHER) Integumentary Skin Exam: Warm, Dry, Intact (Laura Meade G. [employer]ARD SWITCHER) Extremeties Extremities Exam: No Edema, Trace Edema (IMPROVING) (Laura Meade [employer]. [employer] SWITCHER) Neurologic Neuro Exam: Alert, Awake, Oriented, Speech Clear, Moving All Extremities ( generalized weakness) (Laura Meade G. [employer]ARD SWITCHER) Psychiatric Psych Exam: Appropriate Responses (Laura Meade G[employer] SWITCHER) VTE Prophylaxis VTE Prophylaxis Device: SCDs VTE Remarks elsa (Laura Meade [employer]. [employer] SWITCHER) Assessment/Plan Problem List: (1) C. difficile diarrhea ICD Codes: A04.7 - Enterocolitis due to Clostridium difficile Status: Acute (2) Sepsis ICD Codes: A41.9 - Sepsis Status: Acute (3) Urinary tract infection ICD Codes: N39.0 - Urinary tract infection Status: Acute (4) COPD (chronic obstructive pulmonary disease) ICD Codes: J44.9 - Chronic obstructive pulmonary disease, unspecified Status: Acute (5) Depression ICD Codes: F32.9 - Major depressive disorder, single episode, unspecified Status: Acute (6) Anxiety ICD Codes: F41.9 - Anxiety disorder, unspecified Status: Acute (7) Hypotension, unspecified ICD Codes: I95.9 - Hypotension, unspecified Status: Acute (8) Paroxysmal atrial fibrillation ICD Codes: I48.0 - Paroxysmal atrial fibrillation Status: Acute Assessment/Plan C. diff colitis/sepsis -continue with Flagyl. Monitor WBC count. -improving, formed stools now. Reported dysphagia -Appreciate GI input -Status post colonoscopy and EGD 05/29- positive for gastritis, polypectomy. Stable. -continue with regular diet UTI, +VRE likely contaminant -appreciate ID input, recommends no abx to treat UTI Hyperkalemia: Resolved. -continue to monitor electrolytes and replace as necessary. Hypotension, improving -was on Albumin - fasting cortisol level low end normal, 6.6 -continue with Midodrin 5 mg by mouth 3 times a day Depression and Anxiety -refused Seroquel -continue anxiolytics/antipsychotics. Paroxysmal afib, stable -continue Amiodarone -Resume Eliquis History of Guillain [place]: monitor for changes in weakness of lower extremities -continue with PT -OOB with assist COPD. SOB with activity -continue supplemental O2 as needed for shortness of breath -Duonebs PRN Pedal edema-improving -continue to monitor Chronic pain -continue with present pain regimen SCDs/Eliquis for DVT prophylaxis CM for dc planning Placement will be a challenge, patient not accepted at present rehabilitation facility. Patient is stable for discharge, discharge whenever arrangements are made Follow-up with neurology, GI Diet heart healthy Activity as tolerated D/W RN D/W D/W pt This patient was seen by myself and Dr. Toussaint, this note is written on his behalf. (Laura Meade) Assessment/Plan pt is seen & examined EGD &Cscope findings noted d/w pt Resume Eliquis cont po vanco qid x 7 days than tapering dose as rec by id cont current tx medically stable fro d/c d/c to SNF today see MRS see HRS f/u pcp f/u Neurology d/w Laura (Anton Toussaint MD) Problem Qualifiers (1) Sepsis: (2) Urinary tract infection: (3) COPD (chronic obstructive pulmonary disease): (4) Depression: (5) Hypotension, unspecified: Laura Meade May 30, 2017 10:57 Anton Toussaint MD May 30, 2017 13:34
--- NOTE | 2017-05-30 10:58 | HHI.DCPOC ---
Discharge Care Plan Diagnosis: (1) C. difficile diarrhea Your Health Problems Are: Difficulty with ADL Appetite Changes Irregular Bowel Function Goals to Promote Your Health * To prevent worsening of your condition and complications * To maintain your health at the optimal level Directions to Meet Your Goals Take your medications as prescribed Follow your dietary instruction Follow activity as directed Keep your appointments as scheduled Take your immunizations and boosters as scheduled If your symptoms worsen call your PCP, if no PCP go to Urgent Care Center or Emergency Room Smoking is Dangerous to Your Health. Avoid second hand smoke Call the 24-hour hour crisis hotline for domestic abuse at [facility]. [facility] May 30, 2017 10:58
[2017-05-30] MEDS: MORPHINE SULFATE 15 MG CONTROLLED RELEASE TAB PO SCH ×2 (11:14→23:55)
[2017-05-30] MEDS ORDERED: COLE5 PO (13:39)
[2017-05-30] MEDS ORDERED: ALPR.5 PO (13:39)
[2017-05-30] MEDS: traZODone HCL 100 MG TAB PO SCH (21:00)
[2017-05-30] MEDS: GABAPENTIN 400 MG CAP PO SCH (22:16)
[2017-05-30] MEDS: APIXABAN 5 MG TABLET PO SCH (22:16)
[2017-05-30] MEDS: ZOLPIDEM TARTRATE 5 MG TAB PO PRN (22:35)
[2017-05-31] VITALS (11 sets, daily range): BP systolic 102–129; BP diastolic 55–85; PULSE 58–71; RESP 18–20; TEMP 97.1–98.4; O2SAT 92–95
[2017-05-31] MEDS: MORPHINE SULFATE 30 MG TAB PO PRN ×4 (03:43→18:25)
[2017-05-31] MEDS: POTASSIUM CHLORIDE 10 MEQ CONTROLLED RELEASE TAB PO SCH ×2 (08:18→21:39)
[2017-05-31] MEDS: GABAPENTIN 300 MG CAP PO SCH ×2 (08:18→12:56)
[2017-05-31] MEDS: METOPROLOL TARTRATE 50 MG TAB PO SCH ×2 (08:18→21:40)
[2017-05-31] MEDS: ESCITALOPRAM OXALATE 10 MG TAB PO SCH (08:18)
[2017-05-31] MEDS: PANTOPRAZOLE SOD 40 MG DELAYED RELEASE TAB PO SCH (08:18)
[2017-05-31] MEDS: NYSTATIN SUSP 500,000 U/5 ML CUP SWISH-SWAL SCH ×4 (08:18→21:41)
[2017-05-31] MEDS: AMIODARONE 200 MG TAB PO SCH (08:19)
[2017-05-31] MEDS: APIXABAN 5 MG TABLET PO SCH ×2 (08:19→21:40)
[2017-05-31] MEDS: VANCOMYCIN 500 MG VIAL (FOR ORAL USE ONLY) PO SCH ×4 (08:19→21:41)
[2017-05-31] MEDS: MIDODRINE 5 MG TAB PO SCH ×3 (08:19→17:37)
[2017-05-31] MEDS: TIOTROPIUM BROMIDE 18 MCG INH INH SCH (08:20)
[2017-05-31] MEDS: BUDESONIDE-FORMOTEROL 160/4.5 MCG INHALER INH SCH ×2 (08:21→21:00)
[2017-05-31] MEDS: SODIUM CHLORIDE 0.9% FLUSH 10 ML FLUSH IV FLUSH SCH ×2 (09:00→21:00)
--- NOTE | 2017-05-31 09:13 | HHI.PR ---
Subjective Subjective Remarks concerned about discharge states she wants diarrhea completely gone had 7-8 episodes, liquid 2 documented per staff, no description no fever no cp no sob at rest good appetite Review of Systems Constitutional Constitutional Remarks 12 point ros completed, negative except as noted above Vitals/Results Vital Signs Vital Signs Date Time Temp Pulse Resp B/P (MAP) Pulse Ox O2 Delivery O2 Flow Rate FiO2 05/31/17 08:01 58 05/31/17 03:43 97.4 60 20 114/59 (77) 94 05/31/17 00:00 98.1 67 18 106/55 (72) 94 05/30/17 22:40 Nasal Cannula 3.00 05/30/17 20:23 67 05/30/17 20:00 97.9 64 18 109/55 (73) 93 05/30/17 16:00 Nasal Cannula 3.00 05/30/17 16:00 98.5 62 18 110/59 (76) 92 05/30/17 12:00 98.0 71 19 130/62 (84) 95 05/30/17 12:00 Nasal Cannula 3.00 CBC/BMP: 05/30/17 0550 05/30/17 0550 Physical Exam General General Appearance: Well Developed, Well Nourished, No Acute Distress, Comfortable, Anxious, Obese Eyes Eye Exam: Pupils Equal, Pupils Reactive Ears & Nose Ears & Nose Exam: Nasal Mucosa [place] Throat Throat Exam: Oral Mucosa [place] & Moist Neck Neck Exam: Neck Supple Pulmonary Resp Exam: Diminished Breath Sounds Cardiology CV Exam: Regular Gastrointestinal/Abdomen GI Exam: Soft, Non-Tender, Bowel Sounds Present Musculoskeletal MS Exam: Joints Intact Integumentary Skin Exam: Warm, Dry, Intact Extremeties Extremities Exam: No Edema, Trace Edema (IMPROVING) Neurologic Neuro Exam: Alert, Awake, Oriented, Speech Clear, Moving All Extremities ( generalized weakness) Psychiatric Psych Exam: Appropriate Responses VTE Prophylaxis VTE Prophylaxis Device: SCDs VTE Remarks eliquis Assessment/Plan Problem List: (1) C. difficile diarrhea ICD Codes: A04.7 - Enterocolitis due to Clostridium difficile Status: Acute (2) Sepsis ICD Codes: A41.9 - Sepsis Status: Acute (3) Urinary tract infection ICD Codes: N39.0 - Urinary tract infection Status: Acute (4) COPD (chronic obstructive pulmonary disease) ICD Codes: J44.9 - Chronic obstructive pulmonary disease, unspecified Status: Acute (5) Depression ICD Codes: F32.9 - Major depressive disorder, single episode, unspecified Status: Acute (6) Anxiety ICD Codes: F41.9 - Anxiety disorder, unspecified Status: Acute (7) Hypotension, unspecified ICD Codes: I95.9 - Hypotension, unspecified Status: Acute (8) Paroxysmal atrial fibrillation ICD Codes: I48.0 - Paroxysmal atrial fibrillation Status: Acute Assessment/Plan C. diff colitis/sepsis -continue with Flagyl. Monitor WBC count. -endorses 7-8 stools, liquid. d/w RN, need strict output of stool counts, and description -will check another PCR -may benefit from Asacol if she continues with diarrhea Reported dysphagia -Appreciate GI input -Status post colonoscopy and EGD 05/29- positive for gastritis, polypectomy. Stable. -continue with regular diet, tolerating well UTI, +VRE likely contaminant -appreciate ID input, recommends no abx to treat UTI Hyperkalemia: Resolved. -continue to monitor electrolytes and replace as necessary. Hypotension, resolved -was on Albumin - fasting cortisol level low end normal, 6.6 -continue with Midodrin 5 mg by mouth 3 times a day -BP stable Depression and Anxiety -refused Seroquel -continue anxiolytics/antipsychotics. Paroxysmal afib, stable -continue Amiodarone -continue Eliquis History of Guillain [place]: monitor for changes in weakness of lower extremities -continue with PT -OOB with assist COPD. SOB with activity -continue supplemental O2 as needed for shortness of breath -Duonebs PRN Pedal edema-improving -continue to monitor Chronic pain -continue with present pain regimen SCDs/Eliquis for DVT prophylaxis CM for dc planning Placement will be a challenge, patient not accepted at present rehabilitation facility. Patient is stable for discharge, discharge whenever arrangements are made Follow-up with neurology, GI Diet heart healthy Activity as tolerated D/W RN D/W D/W pt D/W CM This patient was seen by myself and Dr. Toussaint, this note is written on his behalf. Problem Qualifiers (1) Sepsis: (2) Urinary tract infection: (3) COPD (chronic obstructive pulmonary disease): (4) Depression: (5) Hypotension, unspecified: Laura Meade May 31, 2017 09:13
[2017-05-31] MEDS: COLESTIPOL HCL 5 GM PACKET PO SCH ×2 (10:57→21:00)
[2017-05-31] MEDS: ALPRAZolam 0.5 MG TAB PO PRN ×3 (10:57→23:41)
[2017-05-31] MEDS: MORPHINE SULFATE 15 MG CONTROLLED RELEASE TAB PO SCH ×2 (10:57→21:40)
[2017-05-31] MEDS ORDERED: WHEEMIS3 (14:49)
--- NOTE | 2017-05-31 17:09 | HHI.GIFU ---
Subjective Remarks Resting in bed. Eating a hamburger and maldivian fries. Denies difficulty swallowing today. No pain. 2 bm today. C/O being anxious. (Jalyn Schroeder) Objective Vitals I&O Vital Signs Date Time Temp Pulse Resp B/P (MAP) Pulse Ox O2 Delivery O2 Flow Rate FiO2 05/31/17 12:00 97.8 61 20 117/62 (80) 95 05/31/17 08:01 58 05/31/17 08:00 Nasal Cannula 2.00 05/31/17 08:00 98.4 60 20 106/59 (75) 93 Manual Cuff/Auscultation 05/31/17 03:43 97.4 60 20 114/59 (77) 94 05/31/17 00:00 98.1 67 18 106/55 (72) 94 05/30/17 22:40 Nasal Cannula 3.00 05/30/17 20:23 67 05/30/17 20:00 97.9 64 18 109/55 (73) 93 I/O 05/30/17 05/30/17 05/30/17 05/31/17 05/31/17 05/31/17 06:59 14:59 22:59 06:59 14:59 22:59 Intake Total 720 ml 1440 ml 720 ml Output Total 2000 ml 600 ml Balance -1280 ml 1440 ml 120 ml Intake Oral 720 ml 1440 ml 720 ml Output Urine Total 2000 ml 600 ml # Voids 3 # Bowel Movements 1 1 1 Laboratory Date/Time Source Procedure Growth Status 05/15/17 02:50 Blood Peripheral Aerobic Blood Culture - Final NO GROWTH IN 5 DAYS Complete 05/15/17 02:50 Blood Peripheral Anaerobic Blood Culture - Final NO GROWTH IN 5 DAYS Complete 05/15/17 03:40 Stool Stool Stool Pus ([facility]) - Final MANY WBC'S Complete 05/15/17 03:00 Nasal Washing Influenza Types A,B Antigen ([facility]) - Final NEGATIVE FOR FLU A AND B ANTIGEN.... Complete 05/15/17 05:20 Urine Clean Catch Urine Culture - Final Enterococcus Faecium Vre Complete Imaging Last Impressions Knee X-Ray 05/26/17 0000 Signed Impressions: Service Date/Time: Friday, May 26, 2017 19:49 - CONCLUSION: Osteoarthritis without fracture, subluxation or significant joint effusion. J Carlos Díaz MD Chest X-Ray 05/23/17 0000 Signed Impressions: Service Date/Time: Tuesday, May 23, 2017 10:50 - CONCLUSION: No acute focal pulmonary infiltrate or pulmonary vascular congestion. Bernard Quintanilla MD Abdomen/Pelvis CT 05/16/17 0000 Signed Impressions: Service Date/Time: Tuesday, May 16, 2017 22:11 - CONCLUSION: 1. No abnormal fluid collections within the abdomen or pelvis to suggest abscess. 2. Subsegmental airspace disease at the lung bases. Previous cholecystectomy. Goran Rowan MD Physical Exam HEENT: Normocephalic; atraumatic; no jaundice. CHEST: CTA CARDIAC: RRR ABDOMEN: Soft, nondistended, nontender; no hepatosplenomegaly; bowel sounds are present in all four quadrants. EXTREMITIES: No clubbing, cyanosis, or edema. SKIN: Normal; no rash; no jaundice. SUPERVISOR DRYING AND SOFTENING: No focal deficits; alert and oriented times three. (Jalyn Schroeder [facility]) Assessment and Plan Plan ASSESSMENT - Dysphagia, onset 2m ago. Solids getting caught in upper esophagus and is difficult to pass down. Soft diet. ST following, Mechanical soft diet. S/P EGD (05/29/17)---> 1. The esophagus appeared normal 2. There was mild gastritis in the gastric antrum; multiple biopsies were performed 3. Normal duodenal mucosa in the bulb and second portion of the duodenum 4. Retroflexion was performed and was normal. Pathology mildly active chronic gastritis with intestinal metaplasia, no helicobacter pylori-like organisms are present Eating a hamburger and maldivian fries without difficulty. - GERD. Add PPI - Blood in stool. Not currently having. Is being treated for CDiff. Abdomen/ Pelvis CT (05/16/17)------> 1. No abnormal fluid collections within the abdomen or pelvis to suggest abscess. 2. Subsegmental airspace disease at the lung bases. Previous cholecystectomy. admits red blood intermingled in stool and recent spotting of blood but not sure if vaginal or rectal. 1. A sessile polyp ranging between 3-5mm in size was found in the descending colon; polypectomy was performed with cold forceps 2. Retroflexed views revealed no abnormalities 3. Revealed no abnormalities of the rectum. Hyperplastic polyp - Anemia. HH stable - C difficile, Epid 027 (+). Improving. One stool today. On vanc x 14 days, ID following. 2 bms today . - UTI with enterococcus faecium VRE. Probable colonization per ID. - Anxiety, Depression, PAfib, COPD - per primary PLAN - Diet as tolerated - PPI - GI will sign off, please reconsult as needed - Pt seen and examined by Dr. Denson and myself and this note is written (Jalyn Schroeder) Physician Comments Stable from GI point of view, tolerating diet well. Please notify us if needed. (Carlos Denson MD) Jalyn Schroeder May 31, 2017 17:09 Carlos Denson MD May 31, 2017 22:23
[2017-05-31] MEDS ORDERED: ACETAMINOPHEN/HYDROcodone 325 MG/5 MG TAB PO PRN (17:30)
[2017-05-31] MEDS: traZODone HCL 100 MG TAB PO SCH (20:25)
[2017-05-31] MEDS: ZOLPIDEM TARTRATE 5 MG TAB PO PRN (21:39)
[2017-05-31] MEDS: GABAPENTIN 400 MG CAP PO SCH (21:40)
[2017-06-01] VITALS (8 sets, daily range): BP systolic 94–142; BP diastolic 55–81; PULSE 56–64; RESP 18–20; TEMP 97.5–98.4; O2SAT 91–95
[2017-06-01] MEDS: MORPHINE SULFATE 30 MG TAB PO PRN ×4 (00:26→18:23)
[2017-06-01] MEDS: ALPRAZolam 0.5 MG TAB PO PRN ×3 (05:48→19:14)
[2017-06-01] MEDS: MIDODRINE 5 MG TAB PO SCH ×3 (06:33→18:23)
[2017-06-01] MEDS: BUDESONIDE-FORMOTEROL 160/4.5 MCG INHALER INH SCH ×2 (09:00→21:00)
[2017-06-01] MEDS: APIXABAN 5 MG TABLET PO SCH ×2 (09:00→21:19)
[2017-06-01] MEDS: VANCOMYCIN 500 MG VIAL (FOR ORAL USE ONLY) PO SCH ×4 (09:11→21:20)
[2017-06-01] MEDS: ESCITALOPRAM OXALATE 10 MG TAB PO SCH (09:11)
[2017-06-01] MEDS: POTASSIUM CHLORIDE 10 MEQ CONTROLLED RELEASE TAB PO SCH ×2 (09:11→21:18)
[2017-06-01] MEDS: PANTOPRAZOLE SOD 40 MG DELAYED RELEASE TAB PO SCH (09:11)
[2017-06-01] MEDS: GABAPENTIN 300 MG CAP PO SCH ×2 (09:11→12:21)
[2017-06-01] MEDS: METOPROLOL TARTRATE 50 MG TAB PO SCH ×2 (09:12→21:19)
[2017-06-01] MEDS: MORPHINE SULFATE 15 MG CONTROLLED RELEASE TAB PO SCH ×2 (09:12→21:48)
[2017-06-01] MEDS: NYSTATIN SUSP 500,000 U/5 ML CUP SWISH-SWAL SCH ×4 (09:12→21:19)
[2017-06-01] MEDS: AMIODARONE 200 MG TAB PO SCH (09:12)
[2017-06-01] MEDS: COLESTIPOL HCL 5 GM PACKET PO SCH ×2 (09:13→21:00)
[2017-06-01] MEDS: SODIUM CHLORIDE 0.9% FLUSH 10 ML FLUSH IV FLUSH SCH ×2 (09:16→21:20)
[2017-06-01] MEDS: TIOTROPIUM BROMIDE 18 MCG INH INH SCH (09:17)
--- NOTE | 2017-06-01 11:23 | HHI.PR ---
Subjective Subjective Remarks 2 stools since yesterday, "mushy" no abd pain appetite fair bp stable no cp no sob Review of Systems Constitutional Constitutional Remarks 12 point ros completed, negative except as noted above Vitals/Results Vital Signs Vital Signs Date Time Temp Pulse Resp B/P (MAP) Pulse Ox O2 Delivery O2 Flow Rate FiO2 06/01/17 08:01 98.0 60 19 127/59 (81) 94 06/01/17 04:55 97.5 62 18 111/58 (75) 93 06/01/17 00:28 97.8 60 20 109/57 (74) 94 05/31/17 21:51 Nasal Cannula 3.00 05/31/17 20:13 97.8 61 18 112/59 (76) 92 Automatic Cuff 05/31/17 20:00 60 05/31/17 18:48 97.2 62 18 126/62 (83) 95 05/31/17 17:30 97.1 71 20 129/85 (100) 95 05/31/17 17:15 97.3 71 20 121/72 (88) 95 05/31/17 16:00 98.1 60 20 102/57 (72) 95 05/31/17 12:00 97.8 61 20 117/62 (80) 95 CBC/BMP: 05/30/17 0550 05/30/17 0550 Physical Exam General General Appearance: Well Developed, Well Nourished, No Acute Distress, Comfortable, Anxious, Obese Eyes Eye Exam: Pupils Equal, Pupils Reactive Ears & Nose Ears & Nose Exam: Nasal Mucosa [place] Throat Throat Exam: Oral Mucosa [place] & Moist Neck Neck Exam: Neck Supple Pulmonary Resp Exam: Diminished Breath Sounds Cardiology CV Exam: Regular Gastrointestinal/Abdomen GI Exam: Soft, Non-Tender, Bowel Sounds Present Musculoskeletal MS Exam: Joints Intact Integumentary Skin Exam: Warm, Dry, Intact Extremeties Extremities Exam: No Edema, Trace Edema (IMPROVING) Neurologic Neuro Exam: Alert, Awake, Oriented, Speech Clear, Moving All Extremities ( generalized weakness) Psychiatric Psych Exam: Appropriate Responses VTE Prophylaxis VTE Prophylaxis Device: SCDs VTE Remarks eliquis Assessment/Plan Problem List: (1) C. difficile diarrhea ICD Codes: A04.7 - Enterocolitis due to Clostridium difficile Status: Acute (2) Sepsis ICD Codes: A41.9 - Sepsis Status: Acute (3) Urinary tract infection ICD Codes: N39.0 - Urinary tract infection Status: Acute (4) COPD (chronic obstructive pulmonary disease) ICD Codes: J44.9 - Chronic obstructive pulmonary disease, unspecified Status: Acute (5) Depression ICD Codes: F32.9 - Major depressive disorder, single episode, unspecified Status: Acute (6) Anxiety ICD Codes: F41.9 - Anxiety disorder, unspecified Status: Acute (7) Hypotension, unspecified ICD Codes: I95.9 - Hypotension, unspecified Status: Acute (8) Paroxysmal atrial fibrillation ICD Codes: I48.0 - Paroxysmal atrial fibrillation Status: Acute Assessment/Plan C. diff colitis/sepsis -continue with Flagyl. Monitor WBC count. -endorses 7-8 stools, liquid. d/w RN, need strict output of stool counts, and description -will check another PCR -may benefit from Asacol if she continues with diarrhea Reported dysphagia -Appreciate GI input -Status post colonoscopy and EGD 05/29- positive for gastritis, polypectomy. Stable. -continue with regular diet, tolerating well UTI, +VRE likely contaminant -appreciate ID input, recommends no abx to treat UTI Hyperkalemia: Resolved. -continue to monitor electrolytes and replace as necessary. Hypotension, resolved -was on Albumin - fasting cortisol level low end normal, 6.6 -continue with Midodrin 5 mg by mouth 3 times a day -BP stable Depression and Anxiety -refused Seroquel -continue anxiolytics/antipsychotics. Paroxysmal afib, stable -continue Amiodarone -continue Eliquis History of Guillain [place]: monitor for changes in weakness of lower extremities -continue with PT -OOB with assist COPD. SOB with activity -continue supplemental O2 as needed for shortness of breath -Duonebs PRN Pedal edema-improving -continue to monitor Chronic pain -continue with present pain regimen SCDs/Eliquis for DVT prophylaxis CM for dc planning Placement will be a challenge, patient not accepted at present rehabilitation facility. poss dc to [facility] Patient is stable for discharge, discharge whenever arrangements are made Follow-up with neurology, GI Diet heart healthy Activity as tolerated D/W RN D/W D/W pt D/W CM This patient was seen by myself and Dr. Toussaint, this note is written on his behalf. Problem Qualifiers (1) Sepsis: (2) Urinary tract infection: (3) COPD (chronic obstructive pulmonary disease): (4) Depression: (5) Hypotension, unspecified: Laura Meade Jun 01, 2017 11:23
[2017-06-01] MEDS ORDERED: MIDO5TAB PO (11:24)
[2017-06-01] MEDS: GABAPENTIN 400 MG CAP PO SCH (21:18)
[2017-06-01] MEDS: ZOLPIDEM TARTRATE 5 MG TAB PO PRN (21:18)
[2017-06-01] MEDS: traZODone HCL 100 MG TAB PO SCH (21:19)
[2017-06-02] VITALS (8 sets, daily range): BP systolic 98–145; BP diastolic 53–98; PULSE 57–74; RESP 18; TEMP 97.3–98.5; O2SAT 92–94
[2017-06-02] MEDS: ALPRAZolam 0.5 MG TAB PO PRN ×4 (03:11→23:30)
[2017-06-02] MEDS: MORPHINE SULFATE 30 MG TAB PO PRN ×4 (03:12→23:31)
[2017-06-02] MEDS: MIDODRINE 5 MG TAB PO SCH ×3 (06:09→17:00)
[2017-06-02] MEDS: TIOTROPIUM BROMIDE 18 MCG INH INH SCH (09:14)
[2017-06-02] MEDS: APIXABAN 5 MG TABLET PO SCH ×2 (09:15→21:18)
[2017-06-02] MEDS: BUDESONIDE-FORMOTEROL 160/4.5 MCG INHALER INH SCH ×2 (09:15→21:14)
[2017-06-02] MEDS: NYSTATIN SUSP 500,000 U/5 ML CUP SWISH-SWAL SCH ×4 (09:15→21:16)
[2017-06-02] MEDS: GABAPENTIN 300 MG CAP PO SCH ×2 (09:16→12:21)
[2017-06-02] MEDS: PANTOPRAZOLE SOD 40 MG DELAYED RELEASE TAB PO SCH (09:16)
[2017-06-02] MEDS: POTASSIUM CHLORIDE 10 MEQ CONTROLLED RELEASE TAB PO SCH ×2 (09:19→21:17)
[2017-06-02] MEDS: MORPHINE SULFATE 15 MG CONTROLLED RELEASE TAB PO SCH ×2 (09:19→21:16)
[2017-06-02] MEDS: METOPROLOL TARTRATE 50 MG TAB PO SCH ×2 (09:19→21:18)
[2017-06-02] MEDS: SODIUM CHLORIDE 0.9% FLUSH 10 ML FLUSH IV FLUSH SCH ×2 (09:20→21:15)
[2017-06-02] MEDS: AMIODARONE 200 MG TAB PO SCH (09:20)
[2017-06-02] MEDS: VANCOMYCIN 500 MG VIAL (FOR ORAL USE ONLY) PO SCH ×4 (09:20→21:16)
[2017-06-02] MEDS: ESCITALOPRAM OXALATE 10 MG TAB PO SCH (09:20)
[2017-06-02] MEDS: COLESTIPOL HCL 5 GM PACKET PO SCH ×3 (09:20→21:15)
--- NOTE | 2017-06-02 09:24 | HHI.PR ---
Subjective Subjective Remarks stools x 3, formed no abd pain bp 100s, asymptomatic no cp no sob anxious about going to [facility] Review of Systems Constitutional Constitutional Remarks 12 point ros completed, negative except as noted above Vitals/Results Vital Signs Vital Signs Date Time Temp Pulse Resp B/P (MAP) Pulse Ox O2 Delivery O2 Flow Rate FiO2 06/02/17 08:00 98.5 58 18 100/53 (69) 94 06/02/17 04:00 97.5 60 18 98/56 (70) 94 06/02/17 00:00 Nasal Cannula 3.00 06/01/17 23:46 98.4 60 18 94/55 (68) 91 06/01/17 20:21 98.1 62 18 142/81 (101) 94 06/01/17 20:00 Nasal Cannula 3.00 06/01/17 20:00 61 06/01/17 16:04 97.9 56 20 131/64 (86) 95 06/01/17 12:01 98.1 64 20 126/60 (82) 93 CBC/BMP: 05/30/17 0550 05/30/17 0550 Physical Exam General General Appearance: Well Developed, Well Nourished, No Acute Distress, Comfortable, Anxious, Obese Eyes Eye Exam: Pupils Equal, Pupils Reactive Ears & Nose Ears & Nose Exam: Nasal Mucosa [place] Throat Throat Exam: Oral Mucosa [place] & Moist Neck Neck Exam: Neck Supple Pulmonary Resp Exam: Diminished Breath Sounds Cardiology CV Exam: Regular Gastrointestinal/Abdomen GI Exam: Soft, Non-Tender, Bowel Sounds Present Musculoskeletal MS Exam: Joints Intact Integumentary Skin Exam: Warm, Dry, Intact Extremeties Extremities Exam: No Edema, Trace Edema (IMPROVING) Neurologic Neuro Exam: Alert, Awake, Oriented, Speech Clear, Moving All Extremities ( generalized weakness) Psychiatric Psych Exam: Appropriate Responses VTE Prophylaxis VTE Prophylaxis Device: SCDs VTE Remarks eliquis Assessment/Plan Problem List: (1) C. difficile diarrhea ICD Codes: A04.7 - Enterocolitis due to Clostridium difficile Status: Acute (2) Sepsis ICD Codes: A41.9 - Sepsis Status: Acute (3) Urinary tract infection ICD Codes: N39.0 - Urinary tract infection Status: Acute (4) COPD (chronic obstructive pulmonary disease) ICD Codes: J44.9 - Chronic obstructive pulmonary disease, unspecified Status: Acute (5) Depression ICD Codes: F32.9 - Major depressive disorder, single episode, unspecified Status: Acute (6) Anxiety ICD Codes: F41.9 - Anxiety disorder, unspecified Status: Acute (7) Hypotension, unspecified ICD Codes: I95.9 - Hypotension, unspecified Status: Acute (8) Paroxysmal atrial fibrillation ICD Codes: I48.0 - Paroxysmal atrial fibrillation Status: Acute Assessment/Plan C. diff colitis/sepsis -continue with Flagyl. Monitor WBC count. -mushy stools, 3 yesterday. Diarrhea resolving Reported dysphagia -Appreciate GI input -Status post colonoscopy and EGD 05/29- positive for gastritis, polypectomy. Stable. -continue with regular diet, tolerating well UTI, +VRE likely contaminant -appreciate ID input, recommends no abx to treat UTI Hyperkalemia: Resolved. -continue to monitor electrolytes and replace as necessary. Hypotension, resolved -was on Albumin - fasting cortisol level low end normal, 6.6 -continue with Midodrin 5 mg by mouth 3 times a day -BP stable Depression and Anxiety -refused Seroquel -continue anxiolytics/antipsychotics. Paroxysmal afib, stable -continue Amiodarone -continue Eliquis History of Guillain [place]: monitor for changes in weakness of lower extremities -continue with PT -OOB with assist COPD. SOB with activity -continue supplemental O2 as needed for shortness of breath -Duonebs PRN Pedal edema-improving -continue to monitor Chronic pain -continue with present pain regimen SCDs/Eliquis for DVT prophylaxis CM for dc planning Placement will be a challenge, patient not accepted at present rehabilitation facility. Patient is stable for discharge, discharge whenever arrangements are made Follow-up with neurology, GI Diet heart healthy Activity as tolerated D/W RN D/W D/W pt D/W CM This patient was seen by myself and Dr. Toussaint, this note is written on his behalf. Problem Qualifiers (1) Sepsis: (2) Urinary tract infection: (3) COPD (chronic obstructive pulmonary disease): (4) Depression: (5) Hypotension, unspecified: Laura Meade Jun 02, 2017 09:23
[2017-06-02] MEDS: GABAPENTIN 400 MG CAP PO SCH (21:16)
[2017-06-02] MEDS: traZODone HCL 100 MG TAB PO SCH (21:17)
[2017-06-02] MEDS: ZOLPIDEM TARTRATE 5 MG TAB PO PRN (21:24)
[2017-06-03 04:03] VITALS: BP 129/72; PULSE 70; RESP 18; TEMP 97.5; O2SAT 92
[2017-06-03] MEDS: ALPRAZolam 0.5 MG TAB PO PRN ×3 (05:51→17:22)
[2017-06-03] MEDS: MIDODRINE 5 MG TAB PO SCH ×3 (05:51→17:00)
[2017-06-03] MEDS: MORPHINE SULFATE 30 MG TAB PO PRN ×3 (05:51→17:22)
[2017-06-03 08:00] VITALS: BP 123/80; PULSE 66; RESP 20; TEMP 97.9; O2SAT 94
--- NOTE | 2017-06-03 08:55 | HHI.FF ---
Face to Face Verification Diagnosis: (1) C. difficile diarrhea (2) Hypotension, unspecified (3) Cervical spondylosis without myelopathy (4) Sepsis Physical Therapy Order: Evaluate and Treat Home Health Nursing Order: Medical education Signs/symptoms of disease process Oxygen administration education Nursing assessment with vital signs I have seen patient Aide Aguilar on 06/03/17. My clinical findings support the need for the requested home health care services because: Patient has SOB Deconditioned w/ increased weakness Limited ability to care for self Need for psychosocial assistance High risk of falls I certify that my clinical findings support that this patient is homebound because: Hx COPD- exertion dyspnea/weakness Unsteady gait/balance Need for psychosocial assistance Laura Meade [facility] Jun 03, 2017 08:55
[2017-06-03] MEDS ORDERED: OXYGENTANK NAS.CANULA (08:57)
[2017-06-03] MEDS: COLESTIPOL HCL 5 GM PACKET PO SCH ×2 (09:00→20:20)
[2017-06-03] MEDS: METOPROLOL TARTRATE 50 MG TAB PO SCH ×3 (09:00→20:21)
[2017-06-03] MEDS: TIOTROPIUM BROMIDE 18 MCG INH INH SCH (09:30)
[2017-06-03] MEDS: BUDESONIDE-FORMOTEROL 160/4.5 MCG INHALER INH SCH ×2 (09:31→20:20)
[2017-06-03] MEDS: VANCOMYCIN 500 MG VIAL (FOR ORAL USE ONLY) PO SCH ×4 (09:32→20:22)
[2017-06-03] MEDS: NYSTATIN SUSP 500,000 U/5 ML CUP SWISH-SWAL SCH ×5 (09:32→20:22)
[2017-06-03] MEDS: ESCITALOPRAM OXALATE 10 MG TAB PO SCH (09:33)
[2017-06-03] MEDS: AMIODARONE 200 MG TAB PO SCH (09:33)
[2017-06-03] MEDS: APIXABAN 5 MG TABLET PO SCH ×2 (09:34→20:21)
[2017-06-03] MEDS: POTASSIUM CHLORIDE 10 MEQ CONTROLLED RELEASE TAB PO SCH ×2 (09:34→20:21)
[2017-06-03] MEDS: PANTOPRAZOLE SOD 40 MG DELAYED RELEASE TAB PO SCH (09:34)
[2017-06-03] MEDS: GABAPENTIN 300 MG CAP PO SCH ×2 (09:35→12:48)
[2017-06-03] MEDS: MORPHINE SULFATE 15 MG CONTROLLED RELEASE TAB PO SCH ×2 (09:37→20:22)
[2017-06-03] MEDS: SODIUM CHLORIDE 0.9% FLUSH 10 ML FLUSH IV FLUSH SCH ×2 (09:37→20:20)
[2017-06-03 10:49] VITALS: O2SAT 94
[2017-06-03 12:00] VITALS: BP 126/78; PULSE 68; RESP 20; TEMP 97.8; O2SAT 97
--- NOTE | 2017-06-03 12:02 | HHI.PR ---
Subjective History of Present Illness I'm okay Pain is in control/pain meds are helping No nausea or vomiting Good appetite Stools are semi-formed Denies abdominal pain No fever or chills No chest pain or shortness of breath Offers no other complaints Vitals/Results Intake & Output 06/03/17 06/03/17 06/04/17 15:00 23:00 07:00 # Voids 1 # Bowel Movements 1 Vital Signs Vital Signs Date Time Temp Pulse Resp B/P (MAP) Pulse Ox O2 Delivery O2 Flow Rate FiO2 06/03/17 11:12 Nasal Cannula 3.00 21 06/03/17 10:49 94 Nasal Cannula 3.00 06/03/17 10:48 3.00 06/03/17 08:00 97.9 66 20 123/80 (94) 94 Manual Cuff/Auscultation 06/03/17 07:32 Nasal Cannula 3.00 06/03/17 04:03 97.5 70 18 129/72 (91) 92 06/03/17 00:00 Nasal Cannula 2.00 06/02/17 23:15 97.6 65 18 113/58 (76) 93 06/02/17 20:00 Nasal Cannula 2.00 06/02/17 20:00 71 06/02/17 16:00 97.3 74 18 145/98 (114) 92 CBC/BMP: 05/30/17 0550 05/30/17 0550 Physical Exam General General Appearance: Well Developed, Well Nourished, No Acute Distress, Comfortable, Obese Eyes Eye Exam: Pupils Equal, Sclera White Ears & Nose Ears & Nose Exam: Nasal Mucosa [place] Throat Throat Exam: Oral Mucosa [place] & Moist Neck Neck Exam: Neck Supple, Trachea Midline Pulmonary Resp Exam: Clear Bilaterally, Breath Sounds Equal, No Distress Cardiology CV Exam: Regular, Normal Sinus Rhythm Gastrointestinal/Abdomen GI Exam: Soft, Non-Tender, Bowel Sounds Present Integumentary Skin Exam: Warm, Dry, Intact Extremeties Extremities Exam: No Edema Neurologic Neuro Exam: Alert, Awake, Oriented, Speech Clear, Moving All Extremities ( generalized weakness) Psychiatric Psych Exam: Appropriate Responses VTE Prophylaxis VTE Prophylaxis Device: SCDs Assessment/Plan Problem List: (1) C. difficile diarrhea ICD Codes: A04.7 - Enterocolitis due to Clostridium difficile Status: Acute (2) Sepsis ICD Codes: A41.9 - Sepsis Status: Acute (3) Urinary tract infection ICD Codes: N39.0 - Urinary tract infection Status: Acute (4) COPD (chronic obstructive pulmonary disease) ICD Codes: J44.9 - Chronic obstructive pulmonary disease, unspecified Status: Acute (5) Depression ICD Codes: F32.9 - Major depressive disorder, single episode, unspecified Status: Acute (6) Anxiety ICD Codes: F41.9 - Anxiety disorder, unspecified Status: Acute (7) Hypotension, unspecified ICD Codes: I95.9 - Hypotension, unspecified Status: Acute (8) Paroxysmal atrial fibrillation ICD Codes: I48.0 - Paroxysmal atrial fibrillation Status: Acute Assessment/Plan C. diff colitis/sepsis -Better controlled -Continue by mouth vancomycin as per infectious disease recommendation. -Continue colestipol for 1 more week then discontinue. Reported dysphagia -Appreciate GI input -Status post colonoscopy and EGD 05/29- positive for gastritis, polypectomy. Stable. -continue with regular diet, tolerating well UTI, +VRE likely contaminant -appreciate ID input, recommends no abx to treat UTI Hyperkalemia: Resolved. -continue to monitor electrolytes and replace as necessary. Hypotension, resolved -was on Albumin - fasting cortisol level low end normal, 6.6 -continue with Midodrin 5 mg by mouth 3 times a day -BP stable Depression and Anxiety -refused Seroquel -continue anxiolytics/antipsychotics. Paroxysmal afib, stable -continue Amiodarone /beta fer -continue Eliquis History of Guillain [place]: monitor for changes in weakness of lower extremities -continue with PT -OOB with assist COPD. SOB with activity -continue supplemental O2 as needed for shortness of breath -Duonebs PRN Chronic pain -Continue morphine sulfate at this time -I recommend gradually weaning the dose down to lowest possible dose. 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
[2017-06-03 16:00] VITALS: BP_SYST 130; BP_SYST 160; BP_DIAS 70; PULSE 75; RESP 20; TEMP 98.1; O2SAT 94
[2017-06-03 20:00] VITALS: BP 138/82; PULSE 82; RESP 22; TEMP 98.1; O2SAT 97
[2017-06-03] MEDS: traZODone HCL 100 MG TAB PO SCH (20:21)
[2017-06-03] MEDS: GABAPENTIN 400 MG CAP PO SCH (20:22)
--- NOTE | 2017-06-03 23:58 | HHI.DS ---
Discharge Summary Admission Date May 15, 2017 at 04:10 Discharge Date: Jun 03, 2017 Admitting Diagnosis Sepsis, r/o C. diff (1) Sepsis ICD Codes: A41.9 - Sepsis Status: Acute (2) C. 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 Status: Acute (6) COPD (chronic obstructive pulmonary disease) ICD Codes: J44.9 - Chronic obstructive pulmonary disease, unspecified Status: Acute (7) Chronic low back pain ICD Codes: M54.5 - Chronic low back pain; G89.29 - Other chronic pain Status: Acute (8) Bipolar disorder ICD Codes: F31.9 - Bipolar affective disorder Status: Acute (9) UTI (lower urinary tract infection) ICD Codes: N39.0 - Lower urinary tract infectious disease Status: Acute (10) Anxiety ICD Codes: F41.9 - Anxiety disorder, unspecified Status: Acute (11) Depression ICD Codes: F32.9 - Major depressive disorder, single episode, unspecified Status: Acute Procedures Status post colonoscopy and EGD 05/29- positive for gastritis, polypectomy. Stable. CBC/BMP: 05/30/17 0550 05/30/17 0550 Imaging Last Impressions Knee X-Ray 05/26/17 0000 Signed Impressions: Service Date/Time: Friday, May 26, 2017 19:49 - CONCLUSION: Osteoarthritis without fracture, subluxation or significant joint effusion. J Carlos Díaz MD Chest X-Ray 05/23/17 0000 Signed Impressions: Service Date/Time: Tuesday, May 23, 2017 10:50 - CONCLUSION: No acute focal pulmonary infiltrate or pulmonary vascular congestion. Bernard Quintanilla MD Abdomen/Pelvis CT 05/16/17 0000 Signed Impressions: Service Date/Time: Tuesday, May 16, 2017 22:11 - CONCLUSION: 1. No abnormal fluid collections within the abdomen or pelvis to suggest abscess. 2. Subsegmental airspace disease at the lung bases. Previous cholecystectomy. Goran Rowan MD Hospital Course This is a 56-year-old white female who has a history of recent diagnosis of Guillain-[place] approximately 4 months ago. She has been in a rehab facility, assisting with her leg strength and severe debility. She was noted to have a urinary tract infection approximately 2 weeks ago and was given IM injection antibiotic for three days. She states that her symptoms were better but then she noticed uncontrollable diarrhea for the past five days. She has had fever but denied any cough or congestion. She denied any chest pain, no shortness of breath. She has had dysuria and has had a decreased appetite with some nausea and vomiting. The patient denies any other symptoms of abdominal pain. No headache. She does have chronic pain syndrome and requires medication for her legs Pt. was evaluated in the ED: DIAGNOSTIC DATA WBC count 18.1, RBC 4.15, hemoglobin 13.3, hematocrit 38.9, platelet count 238, neutrophil count 73.3, monocyte count 10.1. PT/INR is 1.1. Chemistry sodium 135, potassium 3.7, chloride 105, CO2 20.4, amnion gap 10, BUN 12, creatinine 1.09, GFR 52, random glucose 91, calcium is 8. AST is 11, troponin 0.02. C-reactive protein 17.1, BNP 186, albumin 2.8, lipase 51. Urine shows large amount of leukocyte esterase, yellow hazy color, pH is 5.5, specific gravity 1.014, trace of protein and occult blood, many WBC clumps, culture is indicated. C. Difficile toxoid and toxin are pending. IMAGING STUDIES Showed chest x-ray to have no acute disease. Pt. was admitted for further evaluation: (1) C. difficile diarrhea (2) Sepsis (3) Urinary tract infection (4) COPD (chronic obstructive pulmonary disease) (5) Depression (6) Anxiety (7) Hypotension, unspecified (8) Paroxysmal atrial fibrillation Hospital Course: Pt. was admitted, put on IVF. ID consulted. Stools were positive for cdiff, Epid 027. Put on PO vanco Put on colestipol Electrolytes were replaced as needed. She was found with UTI +VRE ID believed likely contaminant- recommended no abx to treat UTI Diarrhea improved, more formed, less frequent, no fever. Tolerated diet well. Pt reported dysphagia, GI was consulted. Had panendoscopy. Status post colonoscopy and EGD 05/29- positive for gastritis, polypectomy. Stable. Continue with regular diet, tolerated well Had severe hypotension and increase leg swelling. Did received Lasix and Albumin to relieve fluid from legs Because of hypotension, IVF were given. Cortisol was checked. Fasting cortisol level low end normal, 6.6 Put on Midodrin 5 mg by mouth 3 times a day BP stabilized, was able to participate in therapy Given extra Lasix PO and legs less edematous Pt. with Depression and Anxiety, she refused Seroquel Was continued anxiolytics/antipsychotics. Paroxysmal afib, remained stable. Continue Amiodarone /beta fer and Eliquis History of Guillain [place]: monitored for changes in weakness of lower extremities Remained stable, continued with PT and OOB with assist. COPD. SOB with activity CXR ordered, stable. Required oxygen, walk test ordered. Would need oxygen at DC Ordered Duonebs PRN Chronic pain-continued morphine sulfate at this time We recommend gradually weaning the dose down to lowest possible dose. Importance was explained to the patient SCDs/Eliquis for DVT prophylaxis Had prolonged hospitalization, placement was challenging due to not being accepted at her original SNF. CM assisted with dc planning [facility] finally accepted pt. Patient was discharged in stable condition Instructed to follow-up PCP and neurology Pt Condition on Discharge: Fair Discharge Disposition: [facility] Discharge Instructions DIET: Follow Instructions for: Heart Healthy Diet Speech Therapy-Diet Recommends: Regular Activities you can perform: Weight Bearing as Bridgette Other Activity Instructions: fall precautions Follow up Referrals: Endocrinology - [address] FRASER Gastroenterology Neurology - 3 Weeks New Medications: Oxygen tank (Oxygen tank) 1 Ea Tank LITER JUAN.CANULA CONTINUOUS for HYPOXEMIA PREVENTION, #1 Oxygen Concentrator Portable Gaseous 2 L/min via Nasal Cannula Continuous For 99 months Wheelchair (Wheelchair) 1 Mis Mis EA .ROUTE DIRECTED, #1 0 Refills Alprazolam (Xanax) 0.5 Mg Tab 0.5 MG PO TID PRN for ANXIETY MDD 1.5 mg for 30 Days, #90 TAB 0 Refills Colestipol (Colestid) 5 Gm Pkt 5 GM PO Q12HR for diarrhea MDD 10 gm for 7 Days, #14 PACKET 0 Refills 1 packet of granules contains 5 grams of colestipol. Midodrine (Midodrine) 5 Mg Tab 5 MG PO TID@07,12,17 for low blood pressure , #21 TAB Morphine ER (Morphine ER) 30 Mg Tab 30 MG PO BID for Pain, #60 TAB Morphine IR (Morphine IR) 30 Mg Tab 30 MG PO Q4H PRN for pain 7-10, #30 TAB Vancomycin Inj (Vancomycin Inj) 500 Mg Inj 500 MG PO QID for cdiff, #100 INJECTION 500 mg po qid x 7d 250 mg po qid x 7d 250 mg po tid x 7d 250 mg po BID x 7 d 250 mg po qd x 7d 250 mg po q 48h x 10 d Continued Medications: Amiodarone (Pacerone) 200 Mg Tab 200 MG PO DAILY for Regulate Heart Beat, #30 TAB 0 Refills Apixaban (Eliquis) 5 Mg Tab 5 MG PO BID for Blood Clot Prevention, #60 TAB 0 Refills Budesonide-Formoterol Inh (Symbicort Inh) 160-4.5 Mcg/Act Aero 1 PUFF INH Q12HR, #1 INHALER 0 Refills Escitalopram (Escitalopram) 10 Mg Tab 10 MG PO DAILY for DEPRESSION, #30 TAB Furosemide (Lasix) 40 Mg Tab 40 MG PO DAILY, #30 TAB 0 Refills Gabapentin (Neurontin) 600 Mg Tab 1200 MG PO HS, #30 TAB 0 Refills Gabapentin (Neurontin) 600 Mg Tab 600 MG PO 0900 and 1300, #60 TAB 0 Refills Metoprolol Tartrate (Metoprolol Tartrate) 50 Mg Tab 50 MG PO BID, #60 TAB 0 Refills Potassium Chloride ER (Potassium Chloride ER) 20 Meq Tab 20 MEQ PO DAILY for Electrolyte Replacement, #30 TAB 0 Refills Tiotropium Inh (Spiriva Handihaler) 18 Mcg Cap 18 MCG INH DAILY for COPD, #30 CAP 0 Refills 1 capsule = 18 mcg Trazodone (Trazodone) 150 Mg Tablet 150 MG PO HS for Control Depression, #30 TAB 0 Refills Umeclidinium [place] Inh (Incruse Ellipta Inh) 0.0625 Mg/Act Inh 62.5 MCG INH DAILY for Treat COPD, #1 INHALER 0 Refills [Spironolactone] () 25 MG TAB 25 MG PO DAILY for 30 Days, TAB Discontinued Medications: Albuterol Neb (Albuterol Neb) 2.5 Mg/3 Ml Neb 2.5 MG NEB Q4HR NEB for Breathing Treatment, #60 NEBULE 0 Refills While awake Hydrocodone-Acetaminophen (Hydrocodone-Acetaminophen) 10-325 mg Tab 1 TAB PO Q6HR PRN for PAIN SCALE 6-10 for 7 Days, TAB Hydroxyzine Pamoate (Hydroxyzine Pamoate) 25 Mg Cap 25 MG PO TID PRN for ANXIETY, CAP 0 Refills Ipratropium-Albuterol Inh (Combivent Respimat Inh) 20-100 Usp/Act Aero 1 PUFF INH QID for Asthma Management, #1 INHALER 0 Refills Morphine ER (Morphine ER) 30 Mg Tab 30 MG PO BID for Pain Management, TAB 0 Refills Zolpidem (Ambien) 5 Mg Tab 5 MG PO HS PRN for INSOMNIA, TAB 0 Refills Laura Meade. [facility] Jun 03, 2017 23:58
== END 2017-06-03 20:15 | DRG 872 ==
LOC: NEPC 01:58 → NEDA 04:10 → HIMW 20:15 → N04B 05-19 01:29
PROVIDERS: ADMIT Specialist; ATTEND Specialist
PROC: 0T9B70Z Drainage of Bladder with Drainage Device, Via Natural or Artificial Opening (ICD-10-PCS; principal; 2017-05-15)
PROC: 0DJD8ZZ Inspection of Lower Intestinal Tract, Via Natural or Artificial Opening Endoscopic (ICD-10-PCS; 2017-05-29)
PROC: 0DB68ZX Excision of Stomach, Via Natural or Artificial Opening Endoscopic, Diagnostic (ICD-10-PCS; 2017-05-29)
PROC: 0DBM8ZX Excision of Descending Colon, Via Natural or Artificial Opening Endoscopic, Diagnostic (ICD-10-PCS; 2017-05-29 10:55)
DX: A41.9 Sepsis, unspecified organism (principal); G61.0 Guillain-Barre syndrome; N17.9 Acute kidney failure, unspecified; I11.0 Hypertensive heart disease with heart failure; A04.7 Enterocolitis due to Clostridium difficile; R13.10 Dysphagia, unspecified; I50.9 Heart failure, unspecified; I95.9 Hypotension, unspecified; F11.20 Opioid dependence, uncomplicated; N39.0 Urinary tract infection, site not specified; J98.11 Atelectasis; I48.0 Paroxysmal atrial fibrillation; E86.0 Dehydration; G40.909 Epilepsy, unspecified, not intractable, without status epilepticus; J44.9 Chronic obstructive pulmonary disease, unspecified; K21.9 Gastro-esophageal reflux disease without esophagitis; Z86.73 Personal history of transient ischemic attack (TIA), and cerebral infarction without residual deficits; Z85.3 Personal history of malignant neoplasm of breast; Z90.13 Acquired absence of bilateral breasts and nipples; Z90.49 Acquired absence of other specified parts of digestive tract; F31.9 Bipolar disorder, unspecified; Z79.01 Long term (current) use of anticoagulants; F41.0 Panic disorder [episodic paroxysmal anxiety]; G89.4 Chronic pain syndrome; M19.90 Unspecified osteoarthritis, unspecified site; M54.5 Low back pain; Z92.3 Personal history of irradiation; F17.210 Nicotine dependence, cigarettes, uncomplicated; Z86.010 Personal history of colon polyps; E87.6 Hypokalemia; F29 Unspecified psychosis not due to a substance or known physiological condition; K63.5 Polyp of colon
CPT/HCPCS: 71010; 73564; 74177; 76937; 80048; 80053; 80202; 81001; 82533; 83605; 83690; 83735; 83880; 84100; 84132; 84443; 84484; 85025; 85027; 85610; 85730; 86140; 87040; 87077; 87086; 87186; 87205; 87493; 87506; 87641; 87804; 88305; 88312; 93005; 94620; 94640; 94664; 96361; 96374; 96375; J1644; J1940; J2270; J2405; J3370; J7030; J7040; J7050; J7613; P9047; Q9963; Q9967

== ENCOUNTER 2018-03-23 12:32 | Inpatient (IN) | payer OTHER ==
[~2018-03-23] VITALS: Ht 160 cm; Wt 108.7 kg
[~2018-03-23 12:32] MED LIST changes: -ALBU0.08 NEB; +ALPR.5 PO; +COLE5 PO; +FURO1TAB60 PO; -GABA100C4 PO; -HYDR-3583 PO; -IPRAAER INH; +MIDO5TAB PO; +MORP1TAB25 PO; +MSIR30 PO; +NEUR600T PO; +OXYGENTANK NAS.CANULA; +POTA-163 PO; +SPIRCAP INH; +SYMB160A INH; -TRAZ150T75 PO; +TRAZ1TAB14 PO; +VANC500I3 PO; +WHEEMIS3
[2018-03-23 12:53] VITALS: BP 190/90; PULSE 63; RESP 18; TEMP 98.2; O2SAT 93
--- NOTE | 2018-03-23 13:22 | PD ---
HPI Chief Complaint: Psychiatric Symptoms Time Seen by Provider: 13:01 Travel History International Travel<30 days: No Contact w/Intl Traveler<30days: No History of Present Illness HPI Patient is a 57-year-old female presenting to emerge department for evaluation under Roca act from [facility]. Per the Roca act report patient took an unknown amount of tramadol. Patient could not tell why she took the medication. Patient was felt to be a danger to herself and was placed under Roca act. She initially presented to [facility] as an overdose. Patient reports chronic pain secondary to Clarion Nguyen and chronic back pain. She states she does not know why she would have taken tramadol because it does not work for her. She denies any suicidal homicidal ideations. She denies any psychiatric history. She currently reports back pain and leg pain which is an 8 out of 10, sore and aching. This pain is consistent with her chronic pain that she experiences every day. She has no other complaints at this time. PFSH Past Medical History Hx Anticoagulant Therapy: Yes (ELIQUIS) Atrial Fibrillation: Yes Bipolar Disorder: Yes Anxiety: Yes Depression: Yes Cancer: Yes (Breast) Cardiovascular Problems: Yes Congestive Heart Failure: Yes COPD: Yes Cerebrovascular Accident: Yes Deep Vein Thrombosis: Yes Gastrointestinal Disorders: Yes (Bowel resection 2013 ) GERD: Yes Headaches: Yes Hypertension: Yes Implanted Vascular Access Dvce: Yes Musculoskeletal: Yes Psychiatric: Yes Respiratory: Yes Radiation Therapy: Yes Seizures: Yes (2014) Ulcer: Yes Menopausal: Yes : 3 Para: 2 Miscarriage: 1 Past Surgical History Abdominal Surgery: Yes Appendectomy: Yes Body Medical Devices: 2 pins in Right Arm Cardiac Surgery: No Cholecystectomy: Yes Coronary Artery Bypass Graft: No Ear Surgery: No Endocrine Surgery: Yes Eye Surgery: No Genitourinary Surgery: No Gynecologic Surgery: No Hysterectomy: No Mastectomy: Yes (BILATERAL ) Neurologic Surgery: Yes (C-SPINE SURGERY) Oral Surgery: No Pacemaker: No Thoracic Surgery: Yes Tonsillectomy: Yes Other Surgery: Yes (Stomach (blockage), Neck C4-6, Bilateral Masectomy) Social History Alcohol Use: No Tobacco Use: Yes (3 cig/day) Substance Use: No Allergies-Medications (Allergen,Severity, Reaction): Coded Allergies: penicillin G (Unverified Allergy, Severe, PURITIS, 05/23/17) *MDRO Multi-Drug Resistant Organism (Verified Adverse Reaction, Unknown, ) 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 Vancomycin Inj (Vancomycin HCl) 500 Mg Inj 500 Mg PO QID 500 mg po qid x 7d 250 mg po qid x 7d 250 mg po tid x 7d 250 mg po BID x 7 d 250 mg po qd x 7d 250 mg po q 48h x 10 d Morphine IR (Morphine Sulfate) 30 Mg Tab 30 Mg PO Q4H PRN Morphine ER (Morphine Sulfate) 30 Mg Tab 30 Mg PO BID [Spironolactone] 25 MG Tab 25 Mg PO DAILY 30 Days Escitalopram (Escitalopram Oxalate) 10 Mg Tab 10 Mg PO DAILY Reported Spiriva Handihaler (Tiotropium Inh) 18 Mcg Cap 18 Mcg INH DAILY 1 capsule = 18 mcg Symbicort Inh (Budesonide/Formoterol Fumarate) 160-4.5 Mcg/Act Aero 1 Puff INH Q12HR Potassium Chloride ER (Potassium Chloride) 20 Meq Tab 20 Meq PO DAILY Neurontin (Gabapentin) 600 Mg Tab 600 Mg PO 0900 AND 1300 Neurontin (Gabapentin) 600 Mg Tab 1,200 Mg PO HS Lasix (Furosemide) 40 Mg Tab 40 Mg PO DAILY Trazodone (Trazodone HCl) 150 Mg Tablet 150 Mg PO HS Eliquis (Apixaban) 5 Mg Tab 5 Mg PO BID Metoprolol Tartrate 50 Mg Tab 50 Mg PO BID Incruse Ellipta Inh (Umeclidinium [place] Inh) 0.0625 Mg/Act Inh 62.5 Mcg INH DAILY Pacerone (Amiodarone HCl) 200 Mg Tab 200 Mg PO DAILY Review of Systems Except as stated in HPI: all other systems reviewed are Neg Musculoskeletal: Positive: Pain Physical Exam Narrative GENERAL: Overweight, well-developed, alert female. Resting comfortably in no acute distress. SKIN: Warm and dry. HEAD: Atraumatic. Normocephalic. EYES: Pupils equal and round. No scleral icterus. No injection or drainage. ENT: No nasal bleeding or discharge. Mucous membranes pink and moist. NECK: Trachea midline. No JVD. CARDIOVASCULAR: Regular rate and rhythm. RESPIRATORY: No accessory muscle use. Clear to auscultation. Breath sounds equal , diminished in bases. No wheezes noted GASTROINTESTINAL: Abdomen soft, non-tender, nondistended. Hepatic and splenic margins not palpable. MUSCULOSKELETAL: Extremities without clubbing, cyanosis, or edema. No obvious deformities. NEUROLOGICAL: Awake and alert. No obvious cranial nerve deficits. Motor grossly within normal limits. Five out of 5 muscle strength in the arms and legs. Normal speech. PSYCHIATRIC: Appropriate mood and affect; insight and judgment normal. Data Data Last Documented VS Vital Signs Date Time Temp Pulse Resp B/P (MAP) Pulse Ox O2 Delivery O2 Flow Rate FiO2 03/23/18 12:53 98.2 63 18 190/90 (123) 93 Room Air [facility] Medical Decision Making Medical Screen Exam Complete: Yes Emergency Medical Condition: Yes Interpretation(s) Vital Signs Date Time Temp Pulse Resp B/P (MAP) Pulse Ox O2 Delivery O2 Flow Rate FiO2 03/23/18 12:53 98.2 63 18 190/90 (123) 93 Room Air Differential Diagnosis Accidental overdose versus intentional overdose versus metabolic abnormality versus suicidal ideations versus other Narrative Course Patient was transferred from [facility] under Roca act for psychiatric evaluation. Patient is mildly hypertensive on arrival, her oxygen saturation 93 %. She has a history of COPD, she is not oxygen dependent. Patient has not received her Symbicort, this was ordered for her. Patient was also given a dose of pain medicine for chronic pain. Medical records from [facility] reviewed. Patient is medically cleared for psychiatric evaluation. Diagnosis Primary Impression: Medical clearance for psychiatric admission Condition: Stable Olinda De Paz Mar 23, 2018 13:22
[2018-03-23] MEDS ORDERED: ACETAMINOPHEN/HYDROcodone 325 MG/5 MG TAB PO ONE (13:30)
[2018-03-23 14:56] VITALS: BP 188/98; PULSE 66; RESP 18; TEMP 98.5; O2SAT 94
[2018-03-23] MEDS ORDERED: NEUR300C PO (18:04)
[2018-03-23] MEDS ORDERED: LIDO5%T TOPICAL (18:04)
[2018-03-23] MEDS ORDERED: ALPR.5 PO (18:04)
--- NOTE | 2018-03-23 18:24 | HHI.HP ---
Provisional Diagnosis Admission Date [place]. Major depressive disorder, recurrent, severe, without psychosis, benzodiazepine dependence, opiate dependence Certification of Person's Competence To Provide Express and Informed Consent I have personally examined Aide Aguilar , a person being served at [facility] on, Mar 23, 2018 18:23. Express and informed consent means consent voluntarily given in writing, by a competent person, after sufficient explanation and disclosure of the subject matter involved to enable the person to make a knowing and willful decision without any element of force, fraud, deceit, duress, or other form of constraint or coercion. This person is 18 years of age or older, is not now known to be incompetent to consent to treatment with a guardian advocate, and does not have a health care surrogate or proxy currently making medical treatment decisions. I have found this person to be one of the following: [] Competent to provide express and informed consent, as defined above, for voluntary admission to this facility and is competent to provide express and informed consent for treatment. He/she has the consistent capacity to make well reasoned, willful, and knowing decisions concerning his or her medical or mental health treatment. The person fully and consistently understands the purpose of the admission for examination/placement and is fully capable of personally exercising all rights [place] [] Incompetent to provide express and informed consent to voluntary admission, and this is incompetent to provide express and informed consent to treatment. The person must be transferred to involuntary status and a petition for a guardian advocate filed with the Circuit Court. [x] Refusing to provide express and informed consent to voluntary admission but is competent to provide express and informed consent for treatment. The person must be discharged or transferred to involuntary status. Form shall be completed within 24 hours of a person's arrival at the receiving facility and filed in the clinical record of each person: 1. Admitted on a voluntary basis 2. Permitted to provide express and informed consent to his/her own treatment 3. Allowed to transfer from involuntary to voluntary status 4. Prior to permitting a person to consent to his or her own treatment after having been previously found incompetent to consent to treatment. History of Present Illness Capacity: Has Capacity HPI Patient is a 57-year-old female presenting to emerge department for evaluation under Roca act from [facility]. Per the Roca act report patient took an unknown amount of tramadol. Patient could not tell why she took the medication. Patient was felt to be a danger to herself and was placed under Roca act. She initially presented to [facility] as an overdose. Patient reports chronic pain secondary to Staci Nguyen and chronic back pain. She states she does not know why she would have taken tramadol because it does not work for her. She denies any suicidal homicidal ideations. She denies any psychiatric history. She currently reports back pain and leg pain which is an 8 out of 10, sore and aching. This pain is consistent with her chronic pain that she experiences every day. She has no other complaints at this time. Patient seems to be minimizing symptomatology of depression and recent suicidal attempt. She is kind of guarded, irritable, reluctant to talk about emotions that could induce recent suicidal attempt. Review of Systems Constitutional: DENIES: Diaphoretic episodes, Fatigue, Fever, Weight gain, Weight loss, Chills, Dizziness, Change in appetite, Night Sweats Endocrine: DENIES: Abnorml menstrual pattern, Heat/cold intolerance, Polydipsia , Polyuria, Polyphagia Eyes: DENIES: Blurred vision, Diplopia, Eye inflammation, Eye pain, Vision loss , Photosensitivity, Double Vision Ears, nose, mouth, throat: DENIES: Tinnitus, Hearing loss, Vertigo, Nasal discharge, Oral lesions, Throat pain, Hoarseness, Ear Pain, Running Nose, Epistaxis, Sinus Pain, Toothache, Odynophagia Respiratory: DENIES: Apneas, Cough, Snoring, Wheezing, Hemoptysis, Sputum production, Shortness of breath Cardiovascular: DENIES: Chest pain, Palpitations, Syncope, Dyspnea on Exertion , PND, Lower Extremity Edema, Orthopnea, Claudication Gastrointestinal: DENIES: Abdominal pain, Black stools, Bloody stools, Constipation, Diarrhea, Nausea, Vomiting, Difficulty Swallowing, Anorexia Genitourinary: DENIES: Abnormal vaginal bleeding, Dysmenorrhea, Dyspareunia, Sexual dysfunction, Urinary frequency, Urinary incontinence, Urgency, Hematuria , Dysuria, Nocturia, Vaginal discharge Musculoskeletal: DENIES: Joint pain, Muscle aches, Stiffness, Joint Swelling, Back pain, Neck pain Integumentary: DENIES: Abnormal pigmentation, Pruritus, Rash, Nail changes, Breast masses, Breast skin changes, Nipple discharge Hematologic/lymphatic: DENIES: Bruising, Lymphadenopathy Immunologic/allergic: DENIES: Eczema, Urticaria Neurologic: DENIES: Abnormal gait, Headache, Localized weakness, Paresthesias, Seizures, Speech Problems, Tremor, Poor Balance Psychiatric: DENIES: Anxiety, Confusion, Mood changes, Depression, Hallucinations, Agitation, Suicidal Ideation, Homicidal Ideation, Delusions Past Family Social History Coded Allergies: penicillin G (Unverified Allergy, Severe, PURITIS, 05/23/17) *MDRO Multi-Drug Resistant Organism (Verified Adverse Reaction, Unknown, ) VRE (urine)-05/15/17 Active Scripts Oxygen tank (Oxygen tank) 1 Ea Tank, LITER JUAN.CANULA CONTINUOUS for HYPOXEMIA PREVENTION, #1 Oxygen Concentrator Portable Gaseous 2 L/min via Nasal Cannula Continuous For 99 months Prov:Laura Meade 06/03/17 Wheelchair (Wheelchair) 1 Mis Mis, EA .ROUTE DIRECTED, #1 0 Refills Prov:Laura Meade 05/31/17 Escitalopram (Escitalopram) 10 Mg Tab, 10 MG PO DAILY for DEPRESSION, #30 TAB Prov:Billy Toth MD 11/26/16 Reported Medications Alprazolam (Xanax) 0.5 Mg Tab, 0.5 MG PO BID Y for ANXIETY, TAB 0 Refills 03/23/18 Lidocaine Topical (Lidocaine Topical) 5 % Oint, 1 APPLIC TOPICAL DAILY Y for PAIN, #1 TUBE 0 Refills 03/23/18 Gabapentin (Neurontin) 300 Mg Cap, 300 MG PO TID, #90 CAP 0 Refills 03/23/18 Budesonide-Formoterol Inh (Symbicort Inh) 160-4.5 Mcg/Act Aero, 1 PUFF INH Q12HR , #1 INHALER 0 Refills 05/15/17 Apixaban (Eliquis) 5 Mg Tab, 5 MG PO BID for Blood Clot Prevention, #60 TAB 0 Refills 11/23/16 Metoprolol Tartrate (Metoprolol Tartrate) 50 Mg Tab, 50 MG PO BID, #60 TAB 0 Refills 11/23/16 Amiodarone (Pacerone) 200 Mg Tab, 200 MG PO DAILY for Regulate Heart Beat, #30 TAB 0 Refills 08/10/16 Discontinued Reported Medications Tiotropium Inh (Spiriva Handihaler) 18 Mcg Cap, 18 MCG INH DAILY for COPD, #30 CAP 0 Refills 1 capsule = 18 mcg 05/15/17 Potassium Chloride ER (Potassium Chloride ER) 20 Meq Tab, 20 MEQ PO DAILY for Electrolyte Replacement, #30 TAB 0 Refills 05/15/17 Gabapentin (Neurontin) 600 Mg Tab, 600 MG PO 0900 and 1300, #60 TAB 0 Refills 05/15/17 Gabapentin (Neurontin) 600 Mg Tab, 1200 MG PO HS, #30 TAB 0 Refills 05/15/17 Furosemide (Lasix) 40 Mg Tab, 40 MG PO DAILY, #30 TAB 0 Refills 05/15/17 Trazodone (Trazodone) 150 Mg Tablet, 150 MG PO HS for Control Depression, #30 TAB 0 Refills 05/15/17 Umeclidinium [place] Inh (Incruse Ellipta Inh) 0.0625 Mg/Act Inh, 62.5 MCG INH DAILY for Treat COPD, #1 INHALER 0 Refills 11/23/16 Discontinued Scripts Midodrine (Midodrine) 5 Mg Tab, 5 MG PO TID@,, for low blood pressure , # 21 TAB Prov:Laura Meade 06/01/17 Alprazolam (Xanax) 0.5 Mg Tab, 0.5 MG PO TID Y for ANXIETY MDD 1.5 mg for 30 Days, #90 TAB 0 Refills Prov:Anton Toussaint MD 05/30/17 Colestipol (Colestid) 5 Gm Pkt, 5 GM PO Q12HR for diarrhea MDD 10 gm for 7 Days , #14 PACKET 0 Refills 1 packet of granules contains 5 grams of colestipol. Prov:Anton Toussaint MD 05/30/17 Vancomycin Inj (Vancomycin Inj) 500 Mg Inj, 500 MG PO QID for cdiff, #100 INJECTION 500 mg po qid x 7d 250 mg po qid x 7d 250 mg po tid x 7d 250 mg po BID x 7 d 250 mg po qd x 7d 250 mg po q 48h x 10 d Prov:Shan Dorman MD 05/22/17 Morphine IR (Morphine IR) 30 Mg Tab, 30 MG PO Q4H Y for pain 7-10, #30 TAB Prov:Shan Dorman MD 05/22/17 Morphine ER (Morphine ER) 30 Mg Tab, 30 MG PO BID for Pain, #60 TAB Prov:Shan Dorman MD 05/22/17 [Spironolactone] 25 MG TAB No Conflict Check, 25 MG PO DAILY for 30 Days, TAB Prov:Rufina Oates MD 01/09/17 Current Medications Medications (Trade) Dose Ordered Sig/Briseida Route Start Time Stop Time Status Last Admin (Symbicort 160-4.5 Mcg Inh) 1 puff Q12HR INH 03/23/18 21:00 (Cordarone) 200 mg DAILY PO 03/24/18 09:00 UNV (Eliquis) 5 mg BID PO 03/23/18 21:00 UNV (Lexapro) 10 mg DAILY PO 03/24/18 09:00 UNV (Neurontin) 300 mg TID PO 03/24/18 09:00 UNV (Lopressor) 50 mg BID PO 03/23/18 21:00 UNV Physical Exam Vital Signs Vital Signs Date Time Temp Pulse Resp B/P (MAP) Pulse Ox O2 Delivery O2 Flow Rate FiO2 03/23/18 14:56 98.5 66 18 94 Room Air 188/98 (128) Mental Status Examination Appearance: Appropriate Consciousness: Alert Orientation: x4 Motor Activity: Normal gait Speech: Unremarkable Language: Adequate Fund of Knowledge: Adequate Attention and Concentration: Adequate Memory: Unremarkable Mood: Appropriate, Sad Affect: Appropriate Thought Process & Associations: Intact Thought Content: Appropriate Hallucination Type: None Delusion Type: None Suicidal Ideation: No Suicidal Plan: No Suicidal Intention: No Homicidal Ideation: No Homicidal Plan: No Homicidal Intention: No Insight: Adequate Judgment: Adequate Assessment & Plan Problem List: (1) Major depressive disorder, single episode ICD Codes: F32.9 - Major depressive disorder, single episode, unspecified Assessment & Plan: The patient has tried to commit suicide by overdosing. At this moment patient is reluctant to talk about emotions that could lead to suicidal attempt. She seems to be minimizing symptoms of depression and recent suicidal attempt. I will admit the patient psychiatry for longitudinal observation of mood and behavior. We will start Lexapro 10 mg for depression. Assessment & Plan Estimated LOS: Vikas Block MD Mar 23, 2018 18:24
[2018-03-23 18:26] VITALS: BP 166/78; PULSE 65; RESP 18; TEMP 98.3; O2SAT 96
[2018-03-23] MEDS ORDERED: LORazepam 0.5 MG TAB PO PRN (18:30)
[2018-03-23] MEDS ORDERED: ALUMINUM/MAGNESIUM/SIMETH 30 ML CUP PO PRN (18:30)
[2018-03-23] MEDS ORDERED: ACETAMINOPHEN 325 MG TAB PO PRN (18:30)
[2018-03-23] MEDS: NICOTINE 21 MG/24 HR PATCH T-DERMAL SCH (18:30)
[2018-03-23] MEDS ORDERED: MAGNESIUM HYDROXIDE SUSP 30 ML CUP PO PRN (18:30)
[2018-03-23] MEDS ORDERED: LORazepam 2 MG/ML VIAL IM PRN ×2 (18:30)
[2018-03-23 20:29] VITALS: BP 172/81; PULSE 66; RESP 18; TEMP 97.5; O2SAT 95
[2018-03-23] MEDS: LORazepam 1 MG TAB PO PRN (20:30)
[2018-03-23] MEDS: REMOVE OLD PATCH T-DERMAL SCH (20:45)
[2018-03-23] MEDS: BUDESONIDE-FORMOTEROL 160/4.5 MCG INHALER INH SCH (21:00)
[2018-03-23] MEDS: APIXABAN 5 MG TABLET PO SCH (21:00)
[2018-03-23] MEDS: METOPROLOL TARTRATE 50 MG TAB PO SCH (21:00)
[2018-03-24 06:00] VITALS: BP 157/80; PULSE 68; RESP 16; TEMP 97.9; O2SAT 97
[2018-03-24] MEDS: LORazepam 1 MG TAB PO PRN ×3 (06:04→22:07)
[2018-03-24] MEDS ORDERED: ACETAMINOPHEN/HYDROcodone 325 MG/5 MG TAB PO ONE (06:30)
[2018-03-24] MEDS: AMIODARONE 200 MG TAB PO SCH (08:49)
[2018-03-24] MEDS: GABAPENTIN 300 MG CAP PO SCH ×3 (08:50→17:09)
[2018-03-24] MEDS: APIXABAN 5 MG TABLET PO SCH ×2 (08:54→20:24)
[2018-03-24] MEDS: ESCITALOPRAM OXALATE 10 MG TAB PO SCH (08:55)
[2018-03-24] MEDS: METOPROLOL TARTRATE 50 MG TAB PO SCH ×3 (08:56→20:28)
[2018-03-24] MEDS: BUDESONIDE-FORMOTEROL 160/4.5 MCG INHALER INH SCH ×3 (09:00→20:19)
[2018-03-24] MEDS: NICOTINE 21 MG/24 HR PATCH T-DERMAL SCH (09:27)
[2018-03-24 10:02] LABS: BICARBONATE 22.8 MEQ/L (21.0-32.0); BLOOD UREA NITROGEN 13 MG/DL (7-18); CALCIUM 9.5 MG/DL (8.5-10.1); CHLORIDE 107 MEQ/L (98-107); CREATININE 0.79 MG/DL (0.50-1.00); GLOMERULAR FILTRATION RATE 75 ML/MIN (>89); GLUCOSE,RANDOM 100 MG/DL (74-106); SODIUM (NA) 142 MEQ/L (136-145)
[2018-03-24 10:03] LABS: CHOLESTEROL 199 MG/DL (120-200); TRIGLYCERIDES 106 MG/DL (42-150)
[2018-03-24 10:05] LABS: CHOLESTEROL/ HDL RATIO 3.28 RATIO; HDL CHOLESTEROL 60.5 MG/DL (40.0-60.0); LDL CHOLESTEROL 117 MG/DL (0-99)
--- NOTE | 2018-03-24 11:04 | PD.CONS ---
[facility] By [facility] Care Physician Unknown Diagnoses: History of Present Illness Mrs. Aguilar is a 57-year-old female. She was admitted secondary to depression to psychiatry. 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 Patient has no acute complaints such as chest pain. Her respiratory status is at baseline. We did review her medication treatments and adjustments for these are being made. At this point she does have hypertension which she says was not controlled as an outpatient and new treatments were started but she cannot recall the treatment. She has not started the new treatment yet. Review of Systems Constitutional: COMPLAINS OF: Fatigue, DENIES: Fever, Chills Eyes: DENIES: Blurred vision, Diplopia, Eye inflammation, Eye pain Ears, nose, mouth, throat: DENIES: Hearing loss, Vertigo, Nasal discharge Respiratory: COMPLAINS OF: Shortness of breath, DENIES: Cough, Wheezing Cardiovascular: DENIES: Chest pain, Palpitations, Syncope Gastrointestinal: DENIES: Abdominal pain, Black stools, Bloody stools, Constipation Musculoskeletal: COMPLAINS OF: Joint pain, Muscle aches, Stiffness Integumentary: DENIES: Abnormal pigmentation, Pruritus, Rash, Nail changes Hematologic/lymphatic: DENIES: Bruising, Lymphadenopathy Immunologic/allergic: DENIES: Eczema, Urticaria Neurologic: DENIES: Abnormal gait, Headache, Paresthesias Psychiatric: DENIES: Anxiety, Confusion, Hallucinations Past Family Social History Allergies: Coded Allergies: penicillin G (Unverified Allergy, Severe, PURITIS, 05/23/17) *MDRO Multi-Drug Resistant Organism (Verified Adverse Reaction, Unknown, ) VRE (urine)-05/15/17 Past Medical History Congestive heart failure Atrial fibrillation Bipolar disorder Anxiety disorder Depression History of breast cancer Hypertension COPD Degenerative disc disease Previous CVA Gastroesophageal reflux disease History of seizure disorder Headaches History of DVT Osteoarthritis Lower back pain 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 Past Surgical History Bowel resection history Vascular device implant Appendectomy Right arm ORIF Cholecystectomy Bilateral mastectomy C-spine surgery Reported Medications Reported Meds & Active Scripts Active Oxygen tank (Oxygen) 1 Ea Tank Liter JUAN.CANULA CONTINUOUS Oxygen Concentrator Portable Gaseous 2 L/min via Nasal Cannula Continuous For 99 months Wheelchair (Device) 1 Mis Mis Ea .ROUTE DIRECTED Escitalopram (Escitalopram Oxalate) 10 Mg Tab 10 Mg PO DAILY Reported Xanax (Alprazolam) 0.5 Mg Tab 0.5 Mg PO BID PRN Lidocaine Topical (Lidocaine HCl) 5 % Oint 1 Applic TOPICAL DAILY PRN Neurontin (Gabapentin) 300 Mg Cap 300 Mg PO TID Symbicort Inh (Budesonide/Formoterol Fumarate) 160-4.5 Mcg/Act Aero 1 Puff INH Q12HR Eliquis (Apixaban) 5 Mg Tab 5 Mg PO BID Metoprolol Tartrate 50 Mg Tab 50 Mg PO BID Pacerone (Amiodarone HCl) 200 Mg Tab 200 Mg PO DAILY Active Ordered Medications Administered Medications Medications (Trade) Dose Ordered Sig/Briseida Route PRN Reason Start Time Stop Time Status Last Admin Dose Admin Amiodarone HCl (Cordarone) 200 mg DAILY PO 03/24/18 09:00 03/24/18 08:49 Apixaban (Eliquis) 5 mg BID PO 03/23/18 21:00 03/24/18 08:54 Escitalopram Oxalate (Lexapro) 10 mg DAILY PO 03/24/18 09:00 03/24/18 08:55 Gabapentin (Neurontin) 300 mg TID PO 03/24/18 09:00 03/24/18 08:50 Metoprolol Tartrate (Lopressor) 50 mg BID PO 03/23/18 21:00 03/24/18 08:56 Lorazepam (Ativan) 1 mg Q6H PRN PO MODERATE TO SEVERE ANXIETY 03/23/18 18:30 03/24/18 06:04 Nicotine (Habitrol 21 Mg Patch.24 Hr) 1 patch DAILY T-DERMAL 03/23/18 18:30 03/24/18 09:27 Family History Coronary artery disease, cancer, hypertension, CVA, diabetes Social History Patient is currently a smoker No alcohol abuse No illicit drug abuse Physical Exam Vital Signs Vital Signs Date Time Temp Pulse Resp B/P (MAP) Pulse Ox O2 Delivery O2 Flow Rate FiO2 03/24/18 06:00 97.9 68 16 157/80 (105) 97 03/23/18 20:29 97.5 66 18 172/81 (111) 95 03/23/18 18:26 98.3 65 18 166/78 (107) 96 Room Air 03/23/18 14:56 98.5 66 18 94 Room Air 188/98 (128) 03/23/18 12:53 98.2 63 18 190/90 (123) 93 Room Air Physical Exam GENERAL: This is a well-nourished, well-developed patient, in no apparent distress. SKIN: No rashes, ecchymoses or lesions. Cool and dry. HEAD: Atraumatic. Normocephalic. No temporal or scalp tenderness. EYES: Pupils equal round and reactive. Extraocular motions intact. No scleral icterus. No injection or drainage. ENT: Nose without bleeding, purulent drainage or septal hematoma. Throat without erythema, tonsillar hypertrophy or exudate. Uvula midline. Airway patent. NECK: Trachea midline. No JVD or lymphadenopathy. Supple, nontender, no meningeal signs. CARDIOVASCULAR: Regular rate and rhythm without murmurs, gallops, or rubs. RESPIRATORY: Clear to auscultation. Breath sounds equal bilaterally. No wheezes , rales, or rhonchi. GASTROINTESTINAL: Abdomen soft, non-tender, nondistended. No hepato-splenomegaly , or palpable masses. No guarding. MUSCULOSKELETAL: Extremities without clubbing, cyanosis, or edema. No joint tenderness, effusion, or edema noted. No calf tenderness. Negative Homans sign bilaterally. NEUROLOGICAL: Awake and alert. Cranial nerves II through XII intact. Motor and sensory grossly within normal limits. Five out of 5 muscle strength in all muscle groups. Normal speech. Laboratory Laboratory Tests Test 03/24/18 09:12 Blood Urea Nitrogen 13 Creatinine 0.79 Random Glucose 100 Calcium Level 9.5 Sodium Level 142 Potassium Level 3.9 Chloride Level 107 Carbon Dioxide Level 22.8 Anion Gap 12 Estimat Glomerular Filtration Rate 75 Triglycerides Level 106 Cholesterol Level 199 LDL Cholesterol 117 HDL Cholesterol 60.5 Cholesterol/HDL Ratio 3.28 Result Diagram: 03/24/18 09 Assessment and Plan Problem List: (1) Depression ICD Code: F32.9 - Major depressive disorder, single episode, unspecified Status: Acute (2) Anxiety ICD Code: F41.9 - Anxiety disorder, unspecified Status: Acute Assessment and Plan 57-year-old female admitted secondary to depression Depression Anxiety disorder Bipolar disorder Management per psychiatry congestive heart failure Atrial fibrillation No evidence of exacerbation Continue baseline treatments Continue Lasix Continue amiodarone Continue metoprolol Hypertension Continue baseline metoprolol Start lisinopril As needed clonidine Follow blood pressures Adjust treatments as needed COPD No exacerbation Continue baseline treatments Continue breathing treatments Global neuro deficit Related to previous CVA and Guillain-Nguyen Start physical therapy Start occupational therapy History of breast cancer Degenerative disc disease History of CVA Gastroesophageal reflux disease History of seizure disorder Headaches History of DVT Osteoarthritis Lower back pain 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
[2018-03-24] MEDS ORDERED: cloNIDine HCL 0.1 MG TAB PO PRN (11:15)
[2018-03-24] MEDS ORDERED: LISINOPRIL 20 MG TAB PO ONE (11:30)
[2018-03-24] MEDS ORDERED: ACETAMINOPHEN/HYDROcodone 325 MG/10 MG TAB PO ONE (11:30)
[2018-03-24 15:17] LABS: HEMOGLOBIN A1C 5.5 % (4.3-6.0)
--- NOTE | 2018-03-24 16:20 | HHI.PYPN ---
Subjective Remarks This is a request for second opinion. Admission note was reviewed and I agree with the history. Patient was seen and case was discussed with nursing. Patient continues to minimize her overdose. She claims it was a misunderstanding. She is bright and cheerful during the interview. Denies depressed mood at this time. Affect is anxious. Denies suicidal or homicidal ideation intent or plan Mental Status Examination Appearance: Appropriate Consciousness: Alert Orientation: x4 Motor Activity: Normal gait Speech: Unremarkable Language: Adequate Fund of Knowledge: Adequate Attention and Concentration: Adequate Memory: Unremarkable Mood: Appropriate Affect: Anxious Thought Process & Associations: Intact, Logical, Goal directed Thought Content: Appropriate Hallucination Type: None Delusion Type: None Suicidal Ideation: No Suicidal Plan: No Suicidal Intention: No Homicidal Ideation: No Homicidal Plan: No Homicidal Intention: No Insight: Poor Judgment: Poor Results Labs Test 03/24/18 09:12 Blood Urea Nitrogen 13 MG/DL Creatinine 0.79 MG/DL Random Glucose 100 MG/DL Calcium Level 9.5 MG/DL Sodium Level 142 MEQ/L Potassium Level 3.9 MEQ/L Chloride Level 107 MEQ/L Carbon Dioxide Level 22.8 MEQ/L Anion Gap 12 MEQ/L Estimat Glomerular Filtration Rate 75 ML/MIN Hemoglobin A1c 5.5 % Triglycerides Level 106 MG/DL Cholesterol Level 199 MG/DL LDL Cholesterol 117 MG/DL HDL Cholesterol 60.5 MG/DL Cholesterol/HDL Ratio 3.28 RATIO Vitals/IOs Vital Signs Date Time Temp Pulse Resp B/P (MAP) Pulse Ox O2 Delivery O2 Flow Rate FiO2 03/24/18 06:00 97.9 68 16 157/80 (105) 97 03/23/18 18:26 Room Air Intake and Output 03/24/18 03/24/18 03/25/18 08:00 16:00 00:00 Intake Total 720 ml 1680 ml Balance 720 ml 1680 ml Assessment & Plan Problem List: (1) Unspecified mood [affective] disorder ICD Codes: F39 - Unspecified mood [affective] disorder Assessment & Plan I agree with the first opinion to continue petition. Criteria include overdose in a possible suicide attempt Justification for Cont. Inpt. Patient would decompensate in a less restrictive setting Frantz Camacho DO Mar 24, 2018 16:20
[2018-03-24] MEDS: ACETAMINOPHEN/HYDROcodone 325 MG/10 MG TAB PO PRN (17:28)
--- NOTE | 2018-03-24 17:36 | HHI.PYPN ---
Subjective Remarks Electronic medical record discussed case with staff. Follow-up was conducted in patient's room. Patient sitting on bed awake, alert, and oriented x4. She reports that she slept good and has been eating good. She denies any visual or auditory hallucinations. She denies suicidal ideation or homicidal ideation. She denies that the overdose was a suicide attempt. Mental Status Examination Appearance: Appropriate Consciousness: Alert Orientation: x4 Motor Activity: Normal gait Speech: Unremarkable Language: Adequate Fund of Knowledge: Adequate Attention and Concentration: Adequate Memory: Unremarkable Mood: Appropriate Affect: Anxious Thought Process & Associations: Intact, Logical, Goal directed Thought Content: Appropriate Hallucination Type: None Delusion Type: None Suicidal Ideation: No Suicidal Plan: No Suicidal Intention: No Homicidal Ideation: No Homicidal Plan: No Homicidal Intention: No Insight: Poor Judgment: Poor Results Labs Test 03/24/18 09:12 Blood Urea Nitrogen 13 MG/DL Creatinine 0.79 MG/DL Random Glucose 100 MG/DL Calcium Level 9.5 MG/DL Sodium Level 142 MEQ/L Potassium Level 3.9 MEQ/L Chloride Level 107 MEQ/L Carbon Dioxide Level 22.8 MEQ/L Anion Gap 12 MEQ/L Estimat Glomerular Filtration Rate 75 ML/MIN Hemoglobin A1c 5.5 % Triglycerides Level 106 MG/DL Cholesterol Level 199 MG/DL LDL Cholesterol 117 MG/DL HDL Cholesterol 60.5 MG/DL Cholesterol/HDL Ratio 3.28 RATIO Vitals/IOs Vital Signs Date Time Temp Pulse Resp B/P (MAP) Pulse Ox O2 Delivery O2 Flow Rate FiO2 03/24/18 06:00 97.9 68 16 157/80 (105) 97 03/23/18 18:26 Room Air Intake and Output 03/24/18 03/24/18 03/25/18 08:00 16:00 00:00 Intake Total 720 ml 1680 ml 240 ml Balance 720 ml 1680 ml 240 ml Assessment & Plan Problem List: (1) Unspecified mood [affective] disorder ICD Codes: F39 - Unspecified mood [affective] disorder Assessment & Plan Estimated LOS: This is a second time patient has been seen at this facility for an overdose. Continue with monitoring. Days Justification for Cont. Inpt. Due to this being the second overdose we have seen this patient for she require further monitoring. Kacey Blanchard Mar 24, 2018 17:36
[2018-03-24 18:03] VITALS: BP 112/61; PULSE 59; RESP 16; TEMP 98.6; O2SAT 92
[2018-03-24] MEDS: REMOVE OLD PATCH T-DERMAL SCH (20:19)
[2018-03-24] MEDS: ZOLPIDEM TARTRATE 5 MG TAB PO PRN (20:24)
[2018-03-25] MEDS: ACETAMINOPHEN/HYDROcodone 325 MG/10 MG TAB PO PRN ×4 (00:41→21:05)
[2018-03-25 06:24] VITALS: BP 151/68; PULSE 76; RESP 16; TEMP 97.7; O2SAT 93
[2018-03-25] MEDS: FUROSEMIDE 20 MG TAB PO SCH (08:21)
[2018-03-25] MEDS: LISINOPRIL 20 MG TAB PO SCH (08:21)
[2018-03-25] MEDS: BUDESONIDE-FORMOTEROL 160/4.5 MCG INHALER INH SCH ×4 (08:21→21:00)
[2018-03-25] MEDS: GABAPENTIN 300 MG CAP PO SCH ×3 (08:21→17:19)
[2018-03-25] MEDS: ESCITALOPRAM OXALATE 10 MG TAB PO SCH (08:22)
[2018-03-25] MEDS: APIXABAN 5 MG TABLET PO SCH ×2 (08:22→21:06)
[2018-03-25] MEDS: METOPROLOL TARTRATE 50 MG TAB PO SCH ×2 (08:22→21:00)
[2018-03-25] MEDS: AMIODARONE 200 MG TAB PO SCH (08:22)
[2018-03-25] MEDS: NICOTINE 21 MG/24 HR PATCH T-DERMAL SCH (09:00)
[2018-03-25] MEDS: LORazepam 1 MG TAB PO PRN ×2 (09:43→21:05)
--- NOTE | 2018-03-25 10:14 | HHI.PR ---
Subjective Remarks No complaints from the patient today. She is working well with PT. Vital signs are stable. Objective Vital Signs Date Time Temp Pulse Resp B/P (MAP) Pulse Ox O2 Delivery O2 Flow Rate FiO2 03/25/18 06:24 97.7 76 16 151/68 (95) 93 03/24/18 18:03 98.6 59 16 112/61 (78) 92 I/O 03/24/18 03/24/18 03/24/18 03/25/18 03/25/18 03/25/18 07:00 15:00 23:00 07:00 15:00 23:00 Intake Total 240 ml 2160 ml 720 ml 0 ml Balance 240 ml 2160 ml 720 ml 0 ml Intake Oral 240 ml 2160 ml 720 ml 0 ml # Voids 2 1 1 Result Diagram: 03/24/18 0912 Objective Remarks GENERAL: NAD, A&Ox3 HEAD: Normocephalic. NECK: Supple, trachea midline. No lymphadenopathy. EYES: No scleral icterus. No injection or drainage. CARDIOVASCULAR: Regular rate and rhythm without murmurs, gallops, or rubs. RESPIRATORY: Breath sounds equal bilaterally. No accessory muscle use. GASTROINTESTINAL: Abdomen soft, non-tender, nondistended. MUSCULOSKELETAL: No cyanosis, or edema. SKIN: Warm and dry. NEURO: No focal neurological deficitis. A/P Problem List: (1) CHF (congestive heart failure) ICD Code: I50.9 - Heart failure, unspecified Status: Acute Assessment and Plan 57-year-old female admitted secondary to depression Patient is doing well and continues to work well with PT. Medically stable and cleared for discharge once cleared by psychiatry. 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
--- NOTE | 2018-03-25 15:54 | HHI.PYPN ---
Subjective Remarks The patient is seen today for psychiatric reevaluation. Case discussed with nurses. The patient is calm, cooperative, focuse explaining the she did not try to kill herself, she was just taken the medication she needed and she does not know how she ended up taking more than she had to. She denies suicidal and homicidal ideation, she denies visual and auditory hallucinations. She is oriented 3. Compliant with medications, no significant side effects. Mental Status Examination Appearance: Appropriate Consciousness: Alert Orientation: x4 Motor Activity: Normal gait Speech: Unremarkable Language: Adequate Fund of Knowledge: Adequate Attention and Concentration: Adequate Memory: Unremarkable Mood: Appropriate, Sad Affect: Appropriate Thought Process & Associations: Intact Thought Content: Appropriate Hallucination Type: None Delusion Type: None Suicidal Ideation: No Suicidal Plan: No Suicidal Intention: No Homicidal Ideation: No Homicidal Plan: No Homicidal Intention: No Insight: Adequate Judgment: Adequate Results Vitals/IOs Vital Signs Date Time Temp Pulse Resp B/P (MAP) Pulse Ox O2 Delivery O2 Flow Rate FiO2 03/25/18 06:24 97.7 76 16 151/68 (95) 93 03/23/18 18:26 Room Air Intake and Output 03/25/18 03/25/18 03/26/18 08:00 16:00 00:00 Intake Total 0 ml Balance 0 ml Assessment & Plan Problem List: (1) Major depressive disorder, single episode ICD Codes: F32.9 - Major depressive disorder, single episode, unspecified Assessment & Plan: Continue current psychotropic regimen. Brief supportive psychotherapy of cycle patient provided. Assessment & Plan Estimated LOS: days Justification for Cont. Inpt. Patient has an elevated risk of danger to self out of the psychiatric unit Vikas Abbasi MD Mar 25, 2018 15:54
[2018-03-25 18:02] VITALS: BP 134/79; PULSE 63; RESP 16; TEMP 97.5; O2SAT 94
[2018-03-25] MEDS: REMOVE OLD PATCH T-DERMAL SCH (21:00)
[2018-03-25] MEDS: ZOLPIDEM TARTRATE 5 MG TAB PO PRN (21:04)
[2018-03-26] MEDS: ACETAMINOPHEN/HYDROcodone 325 MG/10 MG TAB PO PRN ×4 (01:01→14:03)
[2018-03-26] MEDS: LORazepam 1 MG TAB PO PRN ×2 (04:51→11:01)
[2018-03-26 05:07] VITALS: BP 141/68; PULSE 71; RESP 16; TEMP 97.9; O2SAT 93
--- NOTE | 2018-03-26 08:48 | HHI.PR ---
Subjective Remarks Follow-up visit for CHF, A. fib, hypertension and COPD. Patient is seen and examined sitting up in bed eating breakfast this morning in no acute distress. She reports chronic shortness of breath due to her COPD but no acute changes or increased shortness of breath. Denies any cough, fevers, chills, nausea, vomiting, diarrhea, headache, dizziness, leg edema, or chest pain. She voices no acute concerns or complaint this morning. Objective Vitals Vital Signs Date Time Temp Pulse Resp B/P (MAP) Pulse Ox O2 Delivery O2 Flow Rate FiO2 03/26/18 05:07 97.9 71 16 141/68 (92) 93 03/25/18 18:02 97.5 63 16 134/79 (97) 94 I/O 03/25/18 03/25/18 03/25/18 03/26/18 03/26/18 03/26/18 07:00 15:00 23:00 07:00 15:00 23:00 Intake Total 0 ml 1800 ml 480 ml Balance 0 ml 1800 ml 480 ml Intake Oral 0 ml 1800 ml 480 ml # Voids 1 1 1 Result Diagram: 03/24/18 0912 Objective Remarks GENERAL: female sitting up in bed in no acute distress per HEAD: Normocephalic. NECK: Supple, trachea midline. EYES: Pupils equal round. No scleral icterus. No injection or drainage. CARDIOVASCULAR: Regular rate and rhythm without murmurs, gallops, or rubs. RESPIRATORY: Breath sounds equal bilaterally. No accessory muscle use. GASTROINTESTINAL: Abdomen soft, non-tender, nondistended. MUSCULOSKELETAL: No cyanosis, or edema. SKIN: Warm and dry. NEURO: Awake, alert, oriented, no cranial nerve deficits noted. Moving all extremities, speech is clear. A/P Problem List: (1) Depression ICD Code: F32.9 - Major depressive disorder, single episode, unspecified Status: Acute (2) Anxiety ICD Code: F41.9 - Anxiety disorder, unspecified Status: Acute Assessment and Plan 57-year-old female admitted secondary to depression Depression Anxiety disorder Bipolar disorder Management per psychiatry congestive heart failure Atrial fibrillation No evidence of exacerbation Continue baseline treatments Continue Lasix Continue amiodarone Continue metoprolol Hypertension metoprolol and lisinopril As needed clonidine BPs fluctuate but stable. 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 Tika Stockton Mar 26, 2018 08:48
[2018-03-26] MEDS: GABAPENTIN 300 MG CAP PO SCH ×2 (09:34→13:33)
[2018-03-26] MEDS: AMIODARONE 200 MG TAB PO SCH (09:34)
[2018-03-26] MEDS: ESCITALOPRAM OXALATE 10 MG TAB PO SCH (09:34)
[2018-03-26] MEDS: METOPROLOL TARTRATE 50 MG TAB PO SCH (09:34)
[2018-03-26] MEDS: FUROSEMIDE 20 MG TAB PO SCH (09:35)
[2018-03-26] MEDS: BUDESONIDE-FORMOTEROL 160/4.5 MCG INHALER INH SCH (09:35)
[2018-03-26] MEDS: APIXABAN 5 MG TABLET PO SCH (09:35)
[2018-03-26] MEDS: NICOTINE 21 MG/24 HR PATCH T-DERMAL SCH (09:37)
[2018-03-26] MEDS: LISINOPRIL 20 MG TAB PO SCH (09:37)
[2018-03-26] MEDS ORDERED: RESP: ALBUTEROL 2.5 MG/IPRATROPIUM 0.5 MG NEB (PRN) NEB (09:45)
[2018-03-26] MEDS ORDERED: APIX5TAB PO (14:16)
[2018-03-26] MEDS ORDERED: PACE200T PO (14:16)
[2018-03-26] MEDS ORDERED: NEUR300C PO (14:16)
[2018-03-26] MEDS ORDERED: ESCI10TA PO (14:16)
[2018-03-26] MEDS ORDERED: METO50TA PO (14:16)
--- NOTE | 2018-03-26 14:18 | HHI.DS ---
Psychiatry Discharge Summary Advance Directive: No Reason Not Provided: not available Mental Health AdvanceDirective: No Admission Admission Date Mar 23, 2018 at 18:24 Admission Diagnosis: (1) Depression with suicidal ideation ICD Code: F32.9 - Depression with suicidal ideation; R45.851 - Suicidal ideations Brief History Patient is a 57-year-old female presenting to emerge department for evaluation under Roca act from [facility]. Per the Roca act report patient took an unknown amount of tramadol. Patient could not tell why she took the medication. Patient was felt to be a danger to herself and was placed under Roca act. She initially presented to [facility] as an overdose. Patient reports chronic pain secondary to Staci Nguyen and chronic back pain. She states she does not know why she would have taken tramadol because it does not work for her. She denies any suicidal homicidal ideations. She denies any psychiatric history. She currently reports back pain and leg pain which is an 8 out of 10, sore and aching. This pain is consistent with her chronic pain that she experiences every day. She has no other complaints at this time. Patient seems to be minimizing symptomatology of depression and recent suicidal attempt. She is kind of guarded, irritable, reluctant to talk about emotions that could induce recent suicidal attempt. Tobacco Use In Past 30 Days: No Tobacco Past 30 Days Alcohol Use: Never Results Blood Pressure 141 / 68 Vital Signs Date Time Temp Pulse Resp B/P (MAP) Pulse Ox O2 Delivery O2 Flow Rate FiO2 03/26/18 05:07 97.9 71 16 141/68 (92) 93 03/23/18 18:26 Room Air Laboratory Tests Test 03/24/18 09:12 Estimat Glomerular Filtration Rate 75 ML/MIN (>89) LDL Cholesterol 117 MG/DL (0-99) HDL Cholesterol 60.5 MG/DL (40.0-60.0) Laboratory Results Test 03/24/18 09:12 Cholesterol Level 199 MG/DL (120-200) HDL Cholesterol 60.5 MG/DL (40.0-60.0) Hemoglobin A1c 5.5 % (4.3-6.0) LDL Cholesterol 117 MG/DL (0-99) Triglycerides Level 106 MG/DL (42-150) Medications # of Antipsychotic meds at D/C: 0 Approp Antipsych med options 1 - Minimum of three failed multiple trials of monotherapy. 2 - Documented plan to taper to monotherapy due to previous use of multiple meds OR cross-taper in progress at D/C. 3 - Documentation of augmentation of Clozapine. 4 - Justification other than those listed in allowable values 1-3, document here : Discharge Discharge Date: Mar 26, 2018 Discharge Diagnosis: (1) Bipolar disorder ICD Code: F31.9 - Bipolar affective disorder Status: Acute Pt Condition on Discharge: Stable Discharge Disposition: Discharge Home Discharge Instructions Diet Instructions: Heart Healthy Diet Activities you can perform: Weight Bearing as Bridget[place] Scheduled Appointment: Tigre Naranjo Discharge Time > 30 minutes Mental Status Examination Appearance: Appropriate Consciousness: Alert Orientation: x4 Motor Activity: Normal gait Speech: Unremarkable Language: Adequate Fund of Knowledge: Adequate Attention and Concentration: Adequate Memory: Unremarkable Mood: Appropriate, Sad Affect: Appropriate Thought Process & Associations: Intact Thought Content: Appropriate Hallucination Type: None Delusion Type: None Suicidal Ideation: No Suicidal Plan: No Suicidal Intention: No Homicidal Ideation: No Homicidal Plan: No Homicidal Intention: No Insight: Adequate Judgment: Adequate Discharge/Advance Care Plan Health Problems: (1) Major depressive disorder, single episode Goals to promote your health * To prevent worsening of your condition and complications * To maintain your health at the optimal level Directions to meet your goals Take your medications as prescribed Follow your dietary instruction Follow activity as directed Keep your appointments as scheduled Take your immunizations and boosters as scheduled If your symptoms worsen call your PCP, if no PCP go to Urgent Care Center or Emergency Room For 01/05 questions related to your inpatient stay or results of tests pending at discharge, please contact Dr. Vikas Abbasi at Smoking is Dangerous to Your Health. Avoid second hand smoking Vikas Abbasi MD Mar 26, 2018 14:18
== END 2018-03-26 15:05 | disposition home or self-care (01) | DRG 885 ==
LOC: NEPJ 12:32 → NEDA 18:24 → H4EA 19:45
PROVIDERS: ADMIT Psychiatry & Neurology Psychiatry; ATTEND Psychiatry & Neurology Psychiatry
DX: F31.9 Bipolar disorder, unspecified (principal); G61.0 Guillain-Barre syndrome; R45.851 Suicidal ideations; I48.91 Unspecified atrial fibrillation; I50.9 Heart failure, unspecified; I11.0 Hypertensive heart disease with heart failure; J44.9 Chronic obstructive pulmonary disease, unspecified; G40.909 Epilepsy, unspecified, not intractable, without status epilepticus; G89.29 Other chronic pain; M54.5 Low back pain; M79.606 Pain in leg, unspecified; F17.200 Nicotine dependence, unspecified, uncomplicated; F41.9 Anxiety disorder, unspecified; K21.9 Gastro-esophageal reflux disease without esophagitis; M19.90 Unspecified osteoarthritis, unspecified site; Z86.718 Personal history of other venous thrombosis and embolism; Z85.3 Personal history of malignant neoplasm of breast; Z83.3 Family history of diabetes mellitus; Z82.49 Family history of ischemic heart disease and other diseases of the circulatory system; Z82.3 Family history of stroke; Z79.01 Long term (current) use of anticoagulants; Z86.73 Personal history of transient ischemic attack (TIA), and cerebral infarction without residual deficits
CPT/HCPCS: 80048; 80061; 83036; 99285